=== PATIENT | female | born 1990 | race Caucasian/White ===

== ENCOUNTER → 2018-04-21 16:41 | Outpatient (CLI) | payer OTHER, SELFPAY ==
[2018-04-21 17:43] LABS: Internal QC Validated? YES +Cl - CLEAR BKGD; Pregnancy, Urine Negative Negative
== END ==
PROVIDERS: Referring Provider Nurse Practitioner Family; Visit Provider Nurse Practitioner Family
DX: L70.0 Acne vulgaris (principal); Z79.899 Other long term (current) drug therapy
CPT/HCPCS: 81025

== ENCOUNTER 2025-02-14 18:22 | Emergency (ER) | payer OTHER, SELFPAY ==
[2025-02-14] VITALS (13 sets, daily range): BP systolic 143–158; BP diastolic 89–102; PULSE 63–71; RESP 15–18; TEMP 36; O2SAT 97–100; BMI 26.2
--- NOTE | 2025-02-14 18:41 | US_ITS ---
PROCEDURE: GALLBLADDER 02/14/2025 REASON FOR EXAM: PAIN TECHNIQUE: Procedure Code: USGB Modality: US Procedure: GALLBLADDER FINDINGS: GALLBLADDER: No gallstones. no gallbladder wall thickening or pericholecystic fluid. Negative Patel sign. COMMON BILE DUCT: Measures 3.5 mm. No intrahepatic biliary dilatation. LIVER: Normal size. Increased echotexture. No definite hepatic mass. RIGHT KIDNEY: Normal in size and echogenicity. No mass. No urinary stones. No hydronephrosis. Pancreas: Unremarkable US/Gallbladder IMPRESSION: No acute cholecystitis. Hepatic steatosis. Reading Location: [id number]
--- NOTE | 2025-02-14 18:42 | ED.VIS.GI ---
HPI HPI - GI History of Present Illness Chief Complaint: Abd Pain Narrative Narrative: 34-year-old female past medical history of rosacea, takes control so has not had menses in quite some time presents with right upper quadrant abdominal pain that she has had all day today. She states starts in the morning. She cannot say whether food makes it better or worse because she has not eaten all day. She states that when she moves or rolls over or even tries to take a deep breath she gets pain in her right flank area where her abdomen connects to her rib cage. She denies any fevers or chills, no shortness of breath or cough. No nausea or vomiting, no problems with bowel movements. States has been pressing on the area all day to see if she can reproduce it. Her pain is located in the abdomen and below her rib cage, and not in her chest. PFSH [facility] Medical History Depression Rosacea Medical History no medical history Home Medications ?Medication ?Instructions ?Recorded ?Last Taken ?Type doxycycline monohydrate 50 mg 50 mg PO QDAY 12/19/24 Unknown History capsule norethindrone (contraceptive) 0.35 0.35 mg PO QDAY 12/19/24 Unknown History mg tablet (Jencycla) venlafaxine 75 mg capsule,extended 75 mg PO QDAY 12/19/24 Unknown History release 24 hr Allergy/AdvReac Type Severity Reaction Status Date / Time No Known Allergies Allergy Verified 02/14/25 18:24 Family History no significant family his Surgical History no surgical history Social History Smoking Status: Never smoker ROS ROS ED ROS Narrative Review of systems positive for right upper quadrant abdominal pain. Did not eat today. No fevers or chills, no cough, no shortness of breath, no problems with bowel movements. Seems to be worse with rolling over and movement, and taking deep breaths. EXAM Physical Exam Narrative Exam Narrative: Afebrile. Vital signs noted. Nontoxic-appearing. Tearful on examination. Cardiovascular semination regular rate and rhythm. Lungs are clear to auscultation bilaterally. Abdomen is soft and nontender without guarding or rebound, negative Patel sign. Positive bowel sounds. Neurological examination nonfocal, nonlateralizing. Const Vital Signs: 11/25/25 18:24 02/14/25 19:26 02/14/25 19:40 Temperature 96.8 F L Temperature Source Temporal Pulse Rate 70 63 Respiratory Rate 18 15 Blood Pressure 143/93 H 157/102 H Blood Pressure Mean 109 120 Pulse Ox 100 100 97 Oxygen Delivery Method Room Air Room Air 02/14/25 19:45 02/14/25 20:00 02/14/25 20:15 Temperature Temperature Source Pulse Rate Respiratory Rate Blood Pressure 144/96 H Blood Pressure Mean 112 Pulse Ox 98 97 98 Oxygen Delivery Method 02/14/25 20:30 02/14/25 20:35 02/14/25 20:46 Temperature Temperature Source Pulse Rate 71 Respiratory Rate 18 Blood Pressure 158/95 H 158/95 H Blood Pressure Mean 113 116 Pulse Ox 100 100 100 Oxygen Delivery Method Room Air MDM MDM MDM Narrative Medical decision making narrative: The differential diagnosis includes but not limited to biliary colic versus nonspecific abdominal pain versus pancreatitis versus musculoskeletal pain. I have low suspicion for pulmonary embolism or pneumonia as she has no clinical signs of them, no cough, no risk factors except for being on control. I reviewed her laboratory work and she has normal white count at 9.0 with hemoglobin slightly hemoconcentrated at 16.1 and hematocrit 46.3, platelet count normal at 230. CMP is grossly unremarkable with normal AST and normal ALT, normal total bilirubin at 0.61. Lipase normal at 13 so I doubt pancreatitis. Serum test is negative. D-dimer is slightly elevated 0.89. I ordered a CTA to help rule out pulmonary embolism. I reviewed the radiology report of the gallbladder ultrasound which shows no evidence of an acute cholecystitis, no sludge or stones, no gallbladder wall thickening. Upon repeat examination, patient states that her pain improved, but is starting to return. She was redosed with morphine. She was also given a p.o. challenge as her gallbladder ultrasound is negative. She was told that she was going for CTA to help rule out pulmonary embolism because of her elevated D-dimer. I reviewed the radiology report regarding the CTA of the chest. There is no acute chest pathology, more importantly no evidence of pulmonary embolism. As her pain is mainly in the right upper quadrant of the abdomen worse with breathing, she may have more of an abdominal wall strain. Regardless, given her negative workup today, I feel she can be discharged to follow-up with a primary care provider. Return instructions to the emergency department were reviewed. Disposition is discharged home in stable condition. History & Record Review Discussion w/independent historian: Patient and Family () Additional record(s) reviewed:: Prior ED visit Lab Data Attestation: I reviewed the patient's lab results. Labs: Laboratory Results - last 24 hr 02/14/25 02/14/25 18:37 19:20 WBC 9.0 RBC 4.93 Hgb 16.1 H Hct 46.3 MCV 93.9 MCH 32.7 H MCHC 34.8 RDW Std Deviation 40.9 RDW Coeff of Darrell 11.8 Plt Count 230 MPV 10.0 Immature Gran % (Auto) 0.200 Neut % (Auto) 56.9 Lymph % (Auto) 35.0 Mccormick % (Auto) 6.2 Eos % (Auto) 1.4 Baso % (Auto) 0.3 Absolute Neuts (auto) 5.1 Absolute Lymphs (auto) 3.14 Nucleated RBC % 0 D-Dimer Quant (PE/DVT) 0.89 H* Sodium 141 Potassium 3.8 Chloride 105 Carbon Dioxide 22.0 Anion Gap 14 BUN 7 Creatinine 0.79 Estim Creat Clear Calc 95.06 Est GFR (MDRD) Non-Af 99 BUN/Creatinine Ratio 8.9 L Glucose 78 Calcium 9.6 Total Bilirubin 0.61 AST 28 ALT 23 Alkaline Phosphatase 69 Total Protein 6.9 Albumin 4.6 Globulin 2.3 Albumin/Globulin Ratio 2.0 Lipase 13 Serum , Qual NEGATIVE Urine Color Yellow Urine Clarity Sl. Cloudy Urine pH 6.0 Ur Specific [place] 1.025 Urine Protein 15 H Urine Glucose (UA) Normal Urine Ketones 15 H Urine Occult Blood Negative Urine Nitrite Negative Urine Bilirubin Negative Urine Urobilinogen Normal Ur Leukocyte Esterase 25 H Urine RBC 0-5 SEEN Urine WBC 0-5 SEEN Ur Squamous Epith Cells 0-5 SEEN Urine Bacteria 1+ Urine Mucus 0 SEEN Radiography Diagnostic Testing: Clinical Impression(s) from Imaging Studies Gallbladder Ultrasound 02/14/25 18:41 IMPRESSION: No acute cholecystitis. Hepatic steatosis. Reading Location: [facility] Chest CTA 02/14/25 20:40 IMPRESSION: 1. No acute chest CTA abnormality seen. 2. No evidence of pulmonary embolism. Reading Location: [facility] Discharge Plan Triage Chief Complaint: Abd Pain ED Provider: Augie Brown Dx/Rx/DC Orders Clinical Impression: Right upper quadrant abdominal pain, Elevated d-dimer, Pleuritic pain Instructions: ED Abdominal Pain Unkn Cause Fem, ED Pain, Acute, Uncertain Cause Prescriptions: No Action venlafaxine 75 mg capsule,extended release 24hr 75 mg PO QDAY doxycycline monohydrate 50 mg capsule 50 mg PO QDAY norethindrone (contraceptive) [Jencycla] 0.35 mg tablet 0.35 mg PO QDAY Primary Care Provider: Care Physician,No Primary Referrals: Good Moya DO [Non-Staff, Family Practice] - 3-5 Days Activity Restrictions/Additional Instructions: [id number] medications like Tylenol as needed for pain. You can take ibuprofen as well. Return with fever, increased pain, new or worsening symptoms. Print Language: Czech Disposition Disposition: Home, Self Care
[2025-02-14 19:02] LABS: Hematocrit 46.3 % (37-47); Hemoglobin 16.1 g/dL (12.0-15.0); Immature Granulocytes Count 0.020 X10^3/uL (0.0-0.0); Mean Corp Hgb Conc 34.8 g/dL (32-36); Mean Corpuscular Volume 93.9 fL (81-99); Mean Platelet Vol. 10.0 fl (6.2-12.0); NRBC Flagged by Analyzer 0 % (0-5); Platelet Count 230 K/mm3 (150-450); RBC Distribution Width CV 11.8 % (11.6-14.6); RBC Distribution Width SD 40.9 fl (35.1-43.9); Red Blood Count 4.93 M/mm3 (4.2-5.4); White Blood Count 9.0 K/mm3 (4.4-11.0)
[2025-02-14 19:19] LABS: Internal QC Validated? YES +Cl - CLEAR BKGD; Pregnancy, Serum, hCG Quali. NEGATIVE Negative; Record Kit Lot#, Serum Preg. 980607
[2025-02-14] MEDS: 0.9% Normal Saline (1000mL) 1,000 ML 125 ML IV (19:24)
--- OUTSIDE RECORDS SUMMARY | 2025-02-14 19:29 | XMS RPT_ITS | CCD ---
Author Organization [facility] Care Team Providers Care Electronic Console Display Operator Name Role Phone Edu Bridges MD Unavailable [phone] Good Moya Primary Care Provider [phone] Yoav DE LOS SANTOS Marvin F Primary Care Provider Yoav DE LOS SANTOS Marvin F Primary Care Provider Petrinievesa DO, Marvin F Primary Care Provider [phone] PARISHA, MARVIN Primary Care Unavailable PETRILLA, MARVIN Attending Unavailable PETRILLA, WESTPHALIA Primary Care Unavailable OGORZOLKA, MARIA ALEJANDRA Referring Unavailable OGORZOLKA, MARIA ALEJANDRA Attending Unavailable PETRILLA, WESTPHALIA Primary Care Unavailable JAYKEL, ANAHI Referring Unavailable JAYKEL, ANAHI Attending Unavailable PETRILLA, WESTPHALIA Primary Care Unavailable OGORZOLKA, MARIA ALEJANDRA Referring Unavailable SKEGGS, MARIA Attending Unavailable PETRILLA, WESTPHALIA Primary Care Unavailable SKEGGS, MARIA Referring Unavailable SKEGGS, MARIA Attending Unavailable PETRILLA, WESTPHALIA Primary Care Unavailable SKEGGS, MARIA Referring Unavailable SKEGGS, MARIA Attending Unavailable PETRILLA, WESTPHALIA Primary Care Unavailable OGORZOLKA, MARIA ALEJANDRA Referring Unavailable OGORZOLKA, MARIA ALEJANDRA Attending Unavailable PETRILLA, WESTPHALIA Primary Care Unavailable JAYKEL, ANAHI Attending Unavailable PETRILLA, WESTPHALIA Primary Care Unavailable JAYKEL, ANAHI Referring Unavailable JAYKEL, ANAHI Attending Unavailable PETRILLA, WESTPHALIA Primary Care Unavailable OGORZOLKA, MARIA ALEJANDRA Referring Unavailable OGORZOLKA, MARIA ALEJANDRA Attending Unavailable PETRILLA, WESTPHALIA Primary Care Unavailable SKEGGS, MARIA Referring Unavailable PETRILLA, WESTPHALIA Primary Care Unavailable OGORZOLKA, MARIA ALEJANDRA Referring Unavailable OGORZOLKA, MARIA ALEJANDRA Attending Unavailable PETRILLA, WESTPHALIA Primary Care Unavailable OGORZOLKA, MARIA ALEJANDRA Attending Unavailable OGORZOLKA, MARIA ALEJANDRA Referring Unavailable PETRILLA, WESTPHALIA Primary Care Unavailable OGORZOLKA, MARIA ALEJANDRA Referring Unavailable OGORZOLKA, MARIA ALEJANDRA Attending Unavailable PETRILLA, WESTPHALIA Primary Care Unavailable OGORZOLKA, MARIA ALEJANDRA Referring Unavailable PETRILLA, WESTPHALIA Primary Care Unavailable OGORZOLKA, MARIA ALEJANDRA Referring Unavailable OGORZOLKA, MARIA ALEJANDRA Attending Unavailable PETRILLA, WESTPHALIA Primary Care Unavailable OGORZOLKA, MARIA ALEJANDRA Referring Unavailable OGORZOLKA, MARIA ALEJANDRA Attending Unavailable PETRILLA, WESTPHALIA Primary Care Unavailable JAYKEL, ANAHI Attending Unavailable PETRILLA, WESTPHALIA Primary Care Unavailable OGORZOLKA, MARIA ALEJANDRA Referring Unavailable OGORZOLKA, MARIA ALEJANDRA Attending Unavailable PETRILLA, WESTPHALIA Primary Care Unavailable JAYKEL, ANAHI Referring Unavailable JAYKEL, ANAHI Attending Unavailable PETRILLA, WESTPHALIA Primary Care Unavailable JAYKEL, ANAHI Referring Unavailable PETRILLA, WESTPHALIA Primary Care Unavailable OGORZOLKA, MARIA ALEJANDRA Attending Unavailable PETRILLA, WESTPHALIA Primary Care Unavailable PETRILLA, MARVIN Referring Unavailable OGORZOLKA, MARIA ALEJANDRA Attending Unavailable Dr. Good Moya DO Primary Care Physician Dr. Good Moya DO Referring Provider [phone] Scotty Santos Attending Physician Good Moya Primary Care Unavailable Scotty Santos Attending Unavailable Good Moya Referring Unavailable Assessment, Health Risk Referring Unavaila ble Assessment, Health Risk Attending Unavaila ble Nita, Good Primary Care Unavailable Allergies Allergy Classification Reported Allergen(s) Allergy Type Date of Onset Reaction(s) Facility (20 sources) Wound Dressing Adhesive Propensity to adverse reactions 3 Itching, Rash [facility] (6 sources) Chalo grass pollen allergen Propensity to adverse reactions 4 CashSentinelny nose [facility] (6 sources) [place] Grass Propensity to adverse reactions 4 [facility] (6 sources) Mixed Ragweed Propensity to adverse reactions 4 [facility] Medications Current Medications Medication Drug Class(es) Dates Sig (Normalized) Sig (Original) acetaminophen 325 mg oral tablet (2 sources) Start: 10-13-2019 take 650 mg by mouth every six hours as needed for pain, then take 4000 mg by mouth every twenty-four hours as needed for pain 650 mg, Oral, EVERY 6 HOURS PRN, Pain Mild (1-3), Starting [place] 10/13/19 at 1533 Maximum dose of acetaminophen is 4000 mg from all sources in 24 hours. Start: 10-13-2019 End: 10-13-2019 take 650 mg by mouth every four hours as needed for pain, then take 4000 mg by mouth every twenty-four hours as needed for pain 650 mg, Oral, EVERY 4 HOURS PRN, Pain Mild (1-3), Fever, Fever >100.5 F (38 C), Starting [place] 10/13/19 at 0558 Maximum dose of acetaminophen is 4000 mg from all sources in 24 hours. Labor and Delivery amoxicillin 875 mg / clavulanate 125 mg oral tablet (1 source) Penicillin-class Antibacterial Start: 12-19-2024 Amoxicillin-Pot Clavulanate 875-125 mg tablet Active 1 {tbl} PO TWICE A DAY December 19, 2024 12:00am Complies with drug therapy azelastine hydrochloride 0.137 mg/actuat metered dose nasal spray (6 sources) Histamine-1 Receptor Antagonist Start: 05-11-2024 End: 05-11-2025 take 1 spray(s) nasal route twice daily azelastine (Astelin) 0.1 % nasal spray Administer 1 spray into each nostril 2 times daily. Use in each nostril as directed 30 mL 5 05/11/2024 05/11/2025 Active benzocaine 200 mg/ml / menthol 5 mg/ml topical spray (1 source) Standardized Chemical Allergen Start: 10-13-2019 Topical, PRN, Pain, Starting [place] 10/13/19 at 1533 Apply to perineal area. Patient is capable and may self administer at bedside. busPIRone hydrochloride 5 mg oral tablet (2 sources) Start: 10-13-2019 take 5 mg by mouth three times daily 5 mg, Oral, 3 TIMES DAILY, First dose on [place] 10/13/19 at 1600 diclofenac sodium 75 mg delayed release oral tablet (17 sources) Nonsteroidal Anti-inflammatory Drug Start: 03-03-2024 End: 04-02-2024 take 1 tablet by mouth twice daily diclofenac (Voltaren) 75 MG EC tablet TAKE 1 TABLET BY MOUTH 2 TIMES DAILY. DO NOT CRUSH, CHEW, OR SPLIT 60 tablet 03/30/2024 Active docusate sodium 100 mg oral capsule (1 source) Start: 10-13-2019 take 100 mg by mouth twice daily 100 mg, Oral, 2 TIMES DAILY, First dose on [place] 10/13/19 at 2100 Do not crush or break. doxycycline monohydrate 50 mg oral capsule (20 sources) Tetracycline-class Drug Start: 12-19-2024 take 1 capsule by mouth once daily Doxycycline Monohydrate 50 mg capsule Active 50 mg PO daily December 19, 2024 12:00am Complies with drug therapy Start: 11-11-2023 doxycycline (M onodox) 50 MG capsule 11/11/2023 Active hydrOXYzine hydrochloride 25 mg oral tablet (20 sources) Antihistamine Start: 04-01-2023 hydrOXYzine HC l (Atarax) 25 MG tablet 1/2 or one tab bid prn anxiety 60 tablet 1 04/01/2023 Active Start: 02-11-2023 End: 04-01-2023 hydrOXYzine pamoate (Vistari l) 25 MG capsule 1 twice daily as needed anxiety 30 capsule 0 02/11/2023 04/01/2023 Discontinued (Alternate therapy) ibuprofen 600 mg oral tablet (13 sources) Nonsteroidal Anti-inflammatory Drug Start: 11-05-2023 End: 01-04-2024 take 1 tablet by mouth twice daily as needed for pain ibuprofen 600 MG tablet Take 1 tablet (600 mg) by mouth 2 times daily as needed for mild pain (1-3) (pain). 60 tablet 11/05/2023 01/04/2024 Active Start: 10-13-2019 take 1 tablet by griffin th every six hours as needed for pain ibuprofen (ADVIL;MOTRIN) 600 MG tablet Take 1 tablet by mouth every 6 hours as needed for Pain 60 tablet 0 10/14/2019 Active Start: 10-13-2019 take 600 mg by mouth once 600 mg, Oral, ONCE, [place] 10/13/19 at 0630, For 1 dose IMMEDIATE . Do not crush or chew. DO NOT GIVE IBUPROFEN PRIOR TO DELIVERY. Post Delivery lansinoh lanolin ointment (1 source) Start: 10-13-2019 Topical, PRN, Dry Skin, nipple discomfort, Starting [place] 10/13/19 at 1533, methocarbamol 750 mg oral tablet (17 sources) Muscle Relaxant Start: 03-03-2024 End: 04-02-2024 take 1 tablet by mouth three times daily as needed for muscle spasms methocarbamol (Robaxin) 750 MG tablet Take 1 tablet (750 mg) by mouth 3 times daily as needed for muscle spasms. 90 tablet 03/03/2024 Active metroNIDAZOLE 7.5 mg/ml topical cream (20 sources) Nitroimidazole Antimicrobial Start: 08-06-2023 metroNIDAZOLE (Metrocream) 0.75 % cream APPLY TO THE FULL FACE TWICE DAILY AFTER APPLYING TRIPLE ROSACEA CREAM. 08/06/2023 Active norethindrone 0.35 mg oral tablet (20 sources) Start: 12-19-2024 take 1 tablet by mouth once daily Norethindrone (Contraceptive) (Jencycla) 0.35 mg tablet Active 0.35 mg PO daily December 19, 2024 12:00am Complies with drug therapy Start: 06-05-2023 End: 05-25-2024 take 1 tablet by mouth once daily norethindrone (Micronor) 0.35 MG tablet Indications: Surveillance of contraceptive pill Take 1 tablet (0.35 mg) by mouth daily. 84 tablet 4 05/25/2024 Active ondansetron 8 mg disintegrating oral tablet (1 source) Serotonin-3 Receptor Antagonist Start: 10-13-2019 take 8 mg by mouth every eight hours as needed for nausea 8 mg, Oral, EVERY 8 HOURS PRN, Nausea, Starting [place] 10/13/19 at 1533, oxytocin (PITOCIN) 30 units in 500 mL infusion (1 source) Start: 10-13-2019 250 mL/hr, Intravenous, at 250 mL/hr, CONTINUOUS PRN, Bleeding, Starting [place] 10/13/19 at 0558 For Post Use Only. Give after delivery of placenta. Oxy tocin 250cc is administered as an IV bolus at delivery followed by an additional 250cc over 1 hour (250cc/hr) predniSONE 20 mg oral tablet (2 sources) Start: 09-30-2022 End: 10-09-2022 predniSONE (Deltasone) 20 MG tablet Indications: Poison liv dermatitis Take 3 tabs (60mg) daily for 3 days, then take 2 tabs (40mg) daily for 3 days, then take 1 tab (20mg) daily for 3 days, then 1/2 tab (10 mg) x 4 days 20 tablet 0 09/30/2022 10/09/2022 Active Start: 02-26-2022 End: 03-10-2022 Prednisone 10 mg tablet Disc ontinued 10 mg PO daily 30 0 February 26, 2022 1:00am March 09, 2022 1:00am March 10, 2022 1:04am Unspecified contact dermatitis, unspecified cause Take 4 tabs once daily days 1-3 3 tabs once daily days 4-6 2 tabs once daily days 7-9 and 1 tab once daily days 10-12. rizatriptan 5 mg disintegrating oral tablet (20 sources) Serotonin-1b and Serotonin-1d Receptor Agonist Start: 06-13-2022 End: 11-03-2024 rizatriptan PLASTICS SCIENTIST (Maxalt-PLASTICS SCIENTIST) 5 MG disintegrating tablet One stat and May repeat in 2 hours if unresolved. No more than 4 a week 9 tablet 5 11/03/2024 Active simethicone 80 mg chewable tablet (1 source) Start: 10-13-2019 take 80 mg by mouth every six hours as needed 80 mg, Oral, EVERY 6 HOURS PRN, Cramping, Flatulence, Starting [facility] 10/13/19 at 1533, 24 hr venlafaxine 75 mg extended release oral capsule (20 sources) Serotonin and Norepinephrine Reuptake Inhibitor Start: 11-02-2023 End: 05-02-2025 take 1 capsule by mouth once daily Venlafaxine 75 mg capsule,extended release 24hr Active 75 mg PO daily December 19, 2024 12:00am Complies with drug therapy Start: 05-07-2023 End: 08-05-2023 take 1 capsule by mouth once daily venlafaxine XR (Effexor XR) 75 MG 24 hr capsule Take 1 capsule (75 mg) by mouth daily for 90 doses. Do not crush or chew. 90 capsule 1 05/07/2023 Active Start: 04-25-2022 End: 05-07-2023 take 1 capsule by mouth once daily venlafaxine XR (Effexor XR) 37.5 MG 24 hr capsule Take 1 capsule (37.5 mg) by mouth daily for 90 doses. Do not crush or chew. 90 capsule 1 11/05/2022 05/07/2023 Discontinued Start: 04-21-2022 End: 04-25-2022 take 1 capsule by mouth once daily venlafaxine XR (Effexor XR) 75 MG 24 hr capsule Take 1 capsule (75 mg) by mouth daily. 90 capsule 0 04/21/2022 04/25/2022 Discontinued Start: 10-25-2021 End: 04-21-2022 take 1 capsule by mouth every twenty-four hours venlafaxine XR (Effexor XR) 75 MG 24 hr capsule Take 75 mg by mouth. 0 10/25/2021 04/21/2022 Discontinued (Reorder) Start: 11-20-2017 EFFEXOR XR 75 MG [id number] 1 tablet daily VENLAFAXINE HCL [id number] [facility] mg/ml medicated pad (1 source) Start: 10-13-2019 Topical, PRN, Hemorrhoids, For perineal pain or discomfort, Starting [facility] 10/13/19 at 1533 Apply to perineal area. Patient is capable and may self administer at bedside. Completed/Discontinued Medications Medication Drug Class(es) Dates Sig (Normalized) Sig (Original) bupivacaine hydrochloride 2.5 mg/ml injectable solution (2 sources) Amide Local Anesthetic Start: 11-13-2023 End: 11-13-2023 bupivacaine (Marcaine) 0.25 % injection 4.5 mL Start: 11-13-2023 End: 11-13-2023 4.5 mL, Injection, Once, On Thu11/13/23 at 1345, For 1 dose ethinyl estradiol 0.03 mg / levonorgestrel 0.15 mg oral tablet (20 sources) Progestin, Estrogen, Progestin-containing Intrauterine Device Start: 03-29-2021 End: 06-05-2023 levonorgestrel-ethinyl estradiol (Nordette) 0.15-30 MG-MCG tablet Indications: Encounter for surveillance of contraceptive pills Take 1 tablet by mouth daily. 84 tablet 4 05/30/2022 06/05/2023 Discontinued (Med list cleanup) Start: 11-20-2017 LILLOW 0.15-30 MG-MCG TABS 1 tablet daily LEVONORGESTREL-ETHINYL ESTRAD [id number] Britt Valverde LPN Start: 03-31-2015 End: 10-14-2019 take 1 tablet by mouth once daily ALTAVERA 0.15-30 MG-MCG per tablet Take 1 tablet by mouth daily 3 03/31/2015 10/14/2019 Discontinued (Stop Taking at Discharge) ipratropium bromide 0.042 mg/actuat metered dose nasal spray (3 sources) Anticholinergic Start: 04-16-2022 End: 04-25-2022 ipratropium (Atrovent) 0.06 % nasal spray Indications: Rhinorrhea associated with the Common Cold Administer 2 sprays into each nostril in the morning and 2 sprays at noon and 2 sprays in the evening and 2 sprays before bedtime. Do all this for 7 days. 15 mL 0 04/16/2022 04/25/2022 Discontinued (Therapy completed) 10 ml lidocaine hydrochloride 10 mg/ml injection (3 sources) Antiarrhythmic, Amide Local Anesthetic Start: 11-13-2023 End: 11-13-2023 lidocaine (Xylocaine) 1 % injection 4.5 mL Start: 11-13-2023 End: 11-13-2023 4.5 mL, Injection, Once, On Thu11/13/23 at 1345, For 1 dose Start: 10-13-2019 End: 10-13-2019 lidocaine PF 1 % injection minocycline 50 mg oral capsule (5 sources) Tetracycline-class Drug Start: 08-06-2023 End: 11-13-2023 take 1 capsule by mouth once daily minocycline 50 MG capsule Take 50 mg by mouth daily. 08/06/2023 11/13/2023 Discontinued (Med list cleanup) MV-Min-Fe Fum-FA-DHA ( 1 PO) (1 source) take 1 capsule by mouth once daily, then take 1 capsule by mouth MV-Min-Fe Fum-FA-DHA ( 1 PO) Take 1 capsule by mouth daily 0 Suspended 1 ml triamcinolone acetonide 40 mg/ml injection (5 sources) Corticosteroid Start: 11-13-2023 End: 11-13-2023 triamcinolone acetonide (Kenalog-40) injection 40 mg Start: 11-13-2023 End: 11-13-2023 40 mg, Intra-artICUlar, Once , On Thu11/13/23 at 1345, For 1 dose Start: 09-08-2023 triamcinolone acetonide (Kenalog-40) injection 60 mg Start: 07-09-2023 End: 07-09-2023 triamcinolone acetonide (Alec alog-40) injection 60 mg Problems Active Problems Problem Classification Problem Date Documented Da te Episodic/Chronic Anxiety disorders (20 sources) Mixed anxiety and depressive disorder; Translations: [Anxiety disorder, unspecified] Onset: 02-22-2021 01-02-2022 Chronic Blindness and vision defects (1 source) Scintillating scotoma of bilateral eyes; Translations: [Transient visual loss, bilateral] Episodic Disorders of lipid metabolism (4 sources) Hypercholesterolemi a; Translations: [Pure hypercholesterolemi a, unspecified] Onset: 05-11-2024 05-07-2023 Chronic Headache; including migraine (2 sources) Migraine with aura; Translations: [Migraine with aura, not intractable, without status migrainosus] Chronic Hypertension complicating ; childbirth and the puerperium (2 sources) Pre-eclampsia; Translations: [Pre-eclampsia, antepartum] Onset: 10-13-2019 10-13-2019 Episodic Mood disorders (2 sources) Mood disorders; Translations: [Depression, unspecified] Onset: 01-02-2022 Other and unspecified benign neoplasm (1 source) Dermatofibroma; Translations: [Other benign neoplasm of skin, unspecified] 05-11-2024 Episodic Other complications of ; puerperium affecting management of mother (2 sources) Indication for care AND/OR intervention in labor AND/OR delivery; Translations: [Labor and delivery, indication for care] Onset: 10-13-2019 10-13-2019 Episodic Other congenital anomalies (1 source) Congenital hypoplasia of breast; 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] Onset: 12-31-2017 12-31-2017 Chronic Other ear and sense organ disorders (1 source) Tinnitus of right ear; Translations: [Tinnitus, right ear] 05-11-2024 Episodic Other gastrointestinal disorders (1 source) Slow transit constipation; Translations: [Slow transit constipation] 11-05-2022 Episodic Other inflammatory condition of skin (7 sources) Rosacea; Translations: [Rosacea, unspecified] Onset: 05-11-2024 05-11-2024 Chronic Other inflammatory condition of skin (2 sources) Rosacea, unspecified; Translations: [Rosacea, unspecified] Onset: 05-11-2024 Chronic Other nervous system disorders (2 sources) Expressive dysphasia; Translations: [Aphasia] Chronic Other nervous system disorders (2 sources) Other chronic pain; Translations: [Other chronic pain] Onset: 04-15-2024 Chronic Other non-traumatic joint disorders (6 sources) Chronic pain of right upper limb; Translations: [Pain in right shoulder] 11-05-2023 Episodic Other and delivery including normal (2 sources) Delivery normal; Translations: [Normal spontaneous vaginal delivery] Onset: 10-13-2019 10-13-2019 Episodic Other skin disorders (1 source) Alopecia; Translations: [Nonscarring hair loss, unspecified] 10-24-2022 Episodic Other skin disorders (1 source) Loss of hair; Translations: [Nonscarring hair loss, unspecified] 11-05-2022 Episodic Other upper respiratory disease (1 source) Allergic rhinitis; Translations: [Other allergic rhinitis] 06-30-2023 Chronic Other upper respiratory disease (2 sources) Seasonal allergy; Translations: [Other seasonal allergic rhinitis] 07-09-2023 Chronic Other upper respiratory disease (1 source) Allergic rhinitis due to pollen; Translations: [Allergic rhinitis due to pollen] 05-11-2024 Chronic Other upper respiratory disease (2 sources) Allergic rhinitis due to pollen; Translations: [Allergic rhinitis due to pollen] Onset: 05-11-2024 Chronic Spondylosis; intervertebral disc disorders; other back problems (12 sources) Cervical spondylosis; Translations: [Spondylosis without myelopathy or radiculopathy, cervical region] Onset: 03-03-2024 03-03-2024 Chronic Sprains and strains (1 source) Low back strain; Translations: [Strain of muscle, fascia and tendon of lower back, initial encounter] 02-26-2022 Episodic Unclassified (1 source) Chronic pain of right upper limb 03-30-2024 Past or Other Problems Problem Classification Problem Date Documented Date Episodic/Chronic Allergic reactions (20 sources) Contact dermatitis due to poison liv; Translations: [Allergic contact dermatitis due to plants, except food] Onset: 09-30-2022 Resolved: 05-07-2023 09-30-2022 Episodic Contraceptive and procreative management (20 sources) Oral contraception; Translations: [Encounter for surveillance of contraceptive pills] Onset: 05-07-2023 05-07-2023 Episodic Other and unspecified benign neoplasm (2 sources) Other benign neoplasm of skin, unspecified; Translations: [Other benign neoplasm of skin, unspecified] Onset: 05-11-2024 Episodic Other connective tissue disease (20 sources) Tendinitis; Translations: [Enthesopathy, unspecified] Onset: 07-08-2022 Resolved: 05-11-2024 07-08-2022 Episodic Other connective tissue disease (20 sources) Impingement syndrome of right shoulder region; Translations: [Impingement syndrome of right shoulder] Onset: 01-18-2024 11-13-2023 Episodic Other connective tissue disease (7 sources) Impingement syndrome of left shoulder region; Translations: [Impingement syndrome of left shoulder] Onset: 05-11-2024 Resolved: 05-11-2024 05-11-2024 Episodic Other connective tissue disease (2 sources) Impingement syndrome of left shoulder; Translations: [Impingement syndrome of left shoulder] Onset: 05-11-2024 Episodic Other connective tissue disease (2 sources) Impingement syndrome of right shoulder; Translations: [Impingement syndrome of right shoulder] Onset: 01-18-2024 Episodic Other ear and sense organ disorders (6 sources) Subjective tinnitus of right ear; Translations: [Tinnitus, right ear] Onset: 05-11-2024 05-11-2024 Episodic Other ear and sense organ disorders (2 sources) Tinnitus, right ear; Translations: [Tinnitus, right ear] Onset: 05-11-2024 Episodic Other nervous system disorders (20 sources) H/O: migraine; Translations: [Personal history of other diseases of the nervous system and sense organs] Onset: 11-05-2022 11-05-2022 Episodic Other nervous system disorders (2 sources) Personal history of other diseases of the nervous system and sense organs; Translations: [Personal history of other diseases of the nervous system and sense organs] Onset: 11-05-2022 Episodic Other non-traumatic joint disorders (2 sources) Pain in right shoulder; Translations: [Pain in right shoulder] Onset: 04-15-2024 Episodic Other screening for suspected conditions (not mental disorders or infectious disease) (2 sources) Patient encounter status; Translations: [Encounter for screening for lipoid disorders] Episodic Other upper respiratory infections (20 sources) Viral pharyngitis; Translations: [Acute pharyngitis, unspecified] Onset: 04-16-2022 Resolved: 09-30-2022 05-09-2022 Episodic Residual codes; unclassified (1 source) Family history of coronary arteriosclerosis; Translations: [Family history of ischemic heart disease and other diseases of the circulatory system] Episodic Spondylosis; intervertebral disc disorders; other back problems (20 sources) Neck pain; Translations: [Cervicalgia] Onset: 03-03-2024 01-25-2024 Episodic Unclassified (1 source) Problem Results Test Name Value Interpretation Reference Range Facility Urgent Care Visit Reporton 0 12-19-2024 Urgent Care Visit Report [facility] [address], [address] [place] [address] OFFICE VISIT Date of Service: 12/19/24 MR#: [id number] Acct: [id number] Name: MARIA RAE Rep #: [id number] : 1990 Provider: ZULY Orellana Age/Sex: 34/F Location: [facility] Status: Signed Intake Vital Signs 02/26/22 11:37 12/19/24 13:05 Height 5 ft 4 in BP 120/60 Blood Pressure Location Lt brachial Position Sitting Respiration 15 Pulse 72 Pulse Source NIBP Temp 98.2 F Temp Source Oral Pulse Oximetry (%) 98 Oxygen Delivery Method room air Intake Visit Reasons: COUGH, WEAKNESS Chief Complaint: cough, weakness, congest, BAL Dry Can Tender Required: No Accompanied by: Self Is patient in pain?: Yes Allergies No Known Allergies Allergy (Verified 12/19/24 10:38) Medications ???Medication ???Instructions ???Recorded ???Confirmed ???Type amoxicillin 875 mg-potassium 1 tab PO BID #20 tabs 12/19/24 Rx clavulanate 125 mg tablet doxycycline monohydrate 50 mg 50 mg PO QDAY 12/19/24 12/19/24 Hi story capsule norethindrone (contraceptive) 0.35 0.35 mg PO QDAY 12/19/24 5 History mg tablet (Jencycla) venlafaxine 75 mg capsule,extended 75 mg PO QDAY 12/19/24 12/19/24 History release 24 hr Is last menstrual period known: No Post menopausal: No Patient : No Have you fallen in the past year?: No Nurse's Note: Patient has cough and weakness and congestion. Patient couldn't get out of bed this weekend. Patient states Sat night she was throwing up green mucus. HPI HPI Chief Complaint: cough, weakness, congest, BAL Details: MARIA RAE, is a 34 F who presents to the office today for initial evaluation clinic for approximately 3 to 4-day history of forehead headache with congestion and weakness/fatigue and moist productive purulent green cough. No complaints of fever, chills, myalgias, fatigue, runny nose, or nausea/vomiting/diarr hea. No complaints of chest pain/shortness of breath/dyspnea on exertion. No close contacts with similar complaints. No other associated symptoms and no other alleviating/aggravati ng factors. ROS Const Constitutional: No other (as above) Exam Const General: cooperative, healthy appearing and no acute distress Orientation: alert, awake HENKS Head: normal to inspection Ears: hearing grossly normal bilaterally, external ears normal, TM's normal bilaterally and EAC's normal Nose: external nose normal, nares normal, septum normal and no nasal discharge Face and sinus: normal facial exam, sinuses tender (bilateral frontal) and face symmetric Mouth: oral mucosae normal, lip normal, tongue normal and oropharynx normal Throat: posterior oropharynx normal, tonsils normal, uvula midline and postnasal drainage (Purulent) Eyes General: appearance normal, both eyes and all related structures Neck Neck: normal visual inspection, full ROM, no meningeal signs, supple and lymphadenopathy (Bilateral anterior cervical lymph node swelling/tender to palpation) Neck mass: No Thyroid: thyroid normal Chest Chest palpation inspection: normal inspection of the chest Resp Effort Inspection: normal respiratory effort and able to speak in complete sentences Auscultation: Bilateral: Clear to Auscultation Cardio Palpation: normal PMI Rate: regular rate Rhythm: regular rhythm Heart Sounds: S1 normal, S2 normal Pulses: radial pulses present GI Inspection: normal to inspection Skin General: no rashes or lesions noted Neuro General: patient alert, patient awake Cognition: normal cognition Speech: speech normal Psych Appearance: grossly normal Mental Status: mental status grossly normal Mood: congruent mood Affect: normal affect Speech and Movement: speech and movement normal Attitude: cooperative Diagnoses Acute frontal sinusitis, unspecified J01.10 Assessment and Plan Assessment and Plan (1) Acute frontal sinusitis, unspecified: Status: Acute Plan: Augmentin as prescribed today. Supportive measures as instructed today. Follow-up with PCP in 3 to 5 days should symptoms not improve, sooner should symptoms worsen or any other concerns develop. Patient states acknowledging understanding all the above. Coding Level of Care Code Off vis,est,level 3 Assessment and Plan Assessment and Plan Orders: Orders POC Paula Covid FLUAB PCR Today Medications: New amoxicillin-pot clavulanate 875-125 mg 1 TAB PO BID 20 tabs 0RF Clinical Quality Measures Falls Risk Screening/Assistive Devices Have you fallen in the past year?: No 12/19/24 1306 Date Scotty Ibrahim Signature: Date (if applicabl (more content not included)... Normal [facility] 36on 11-03-[address] [facility] 36 Recent Visits Date Type Provider Dept 05/11/24 Office Visit Marvin Cason DO [facility] 11/05/23 Office Visit Marvin Cason DO [facility] Showing recent visits within past 365 days and meeting all other requirements Future Appointments No visits were found meeting these conditions. Showing future appointments within next 90 days and meeting all other requirements Requested Prescriptions Pending Prescriptions Disp Refills rizatriptan PLASTICS SCIENTIST (Maxalt-PLASTICS SCIENTIST) 5 MG disintegrating tablet 9 tablet 1 Sig: One stat and May repeat in 2 hours if unresolved. No more than 4 a week Provider: Dr Cason Verified pharmacy: yes Verified day(s) supplied: yes Verified refill(s) needed (previous prescription showing no refills in chart): Yes Have you received any controlled medications from any other provider? N/A Overdue for visit: N/A If yes - patient scheduled? N/A Most recent labs completed in chart? N/A None Normal [facility] 36on 09-06-2024 36 Sent [employer] Message [facility] 36on 09-01-2024 36 Updated. Normal [facility] 36 LVM for patient to send photo of insurance card through [employer]. [facility] Progress Noteon 09-01-2024 Progress Note [facility] [address] [facility] [address] Dept: [phone] Dept Patient was seen today via Telehealth by agreement and consent. I used the following Telehealth technology: Audio capability only. Patient location: Patient Location: Home. The patient has been advised of the potential risks and limitations of this mode of treatment (including but not limited to the absence of in-person examination) and has agreed to be treated in a remote fashion in spite of them. I spent 21 minutes on the phone with this patient. Any and all of the patient's/patient's family's questions on this issue have been answered and I have made no promises or guarantees to the patient. The patient has also been advised to contact this office for worsening conditions or problems, and seek emergency medical treatment and/or call 911 if the patient deems either necessary. The patient stated that they are currently in the [facility]. If the patient is a minor, permission has been obtained by the parent or guardian for the patient to receive medical care at this visit. Chief Complaint Patient presents with Follow-up Subjective Current symptoms: Neck and radiating right arm pain/numbness and tingling Changes since last visit: EMG PT Associated neurologic complaints: Gait/balance difficulty: at times due to slight dizziness Use of ambulatory aid?: no device Able to walk a city block: Yes Bowel/bladder incontinence: denies Urinary retention: No Saddle anesthesia: No Fine motor task difficulty/dropping things/handwriting changes: denies History of cancer: No Aggravating factors: constant Alleviating Factors: nothing Current Treatment: Diclofenac Robaxin Tobacco Use: Low Risk (09/01/2024) Patient History Smoking Tobacco Use: Never Smokeless Tobacco Use: Never Passive Exposure: Not on file Objective This was a virtual visit appointment. No vitals or in person physical exam obtained. Labs No results found for: HGBA1C Lab Results Component Value Date CREATININE 0.87 05/11/2024 Imaging The below images were independently reviewed and independently interpreted by myself. My interpretation is located in the assessment section of the note. Cervical MRI 03/08/2024 Findings: Multiplanar multisequence MRI images were obtained through the cervical spine without intravenous gadolinium. Straightening of the normal cervical lordosis. No significant spondylolisthesis. The cervical spine demonstrates has normal signal intensity. The vertebral body and disc heights are maintained. No abnormal cord signal intensity. Craniocervical and atlantoaxial articulations are within normal limits. C2-C3: No disc bulge or disc protrusion. No central spinal canal stenosis. No neural foraminal narrowing. C3-C4: No disc bulge or disc protrusion. No central spinal canal stenosis. No neural foraminal narrowing. C4-C5: 4 mm disc bulge, effacing the ventral thecal sac. Otherwise no central canal stenosis or neural foraminal narrowing. C5-C6: Tiny disc bulge, with a superimposed, mass effect producing 5 mm left lateral recess-neural foraminal disc protrusion (image 25 series 5 and image 10 series 301). Otherwise no central canal stenosis or neural foraminal narrowing. C6-C7: No disc bulge or disc protrusion. No central spinal canal stenosis. No neural foraminal narrowing. C7-T1: No disc bulge or disc protrusion. No central spinal canal stenosis. No neural foraminal narrowing. Impression: At C5-C6 there is a 5 mm mass effect producing left lateral recess-neural foraminal disc protrusion. -ADDENDUM #1 -------- Addendum: The report should state as follows. At C4-C5 there is no disc bulge or protrusion. No central canal stenosis or neural foraminal narrowing. At C5-C6 there is a 4 mm disc bulge, effacing the ventral thecal sac. Otherwise no central canal stenosis or neural foraminal narrowing. At C6-C7 Tiny disc bulge, with a superimposed, mass effect producing 5 mm left lateral recess-neural foraminal disc protrusion (image 25 series 5 and image 10 series 301). Otherwise no central canal stenosis or neural foraminal narrowing. EMG 06/17/2024 Interpretation: Nerve conduction studies and electromyography of both upper limbs were normal. There was no evidence of cervical motor radiculopathy or of peripheral neuropathy of any type, including carpal tunnel syndrome. Please note that, due to anatomic considerations, the ability of this testing to detect sensory radiculopathies is very limited. Clinical correlation is advised Assessment (M54.12) Cervical radiculopathy (M54.2) Neck pain (M47.812) Cervical spondylosis Plan Ms. Rae is a 33-year-old female presenting today for follow-up. Compared to her last visit her left upper extremity symptoms have resolved. Her biggest issue now is neck and radiating right arm (more content not included)... Normal [facility] 29on 06-23-2024 29 Addended by: MARIA ALEJANDRA LEE on: 06/23/2024 01:41 PM Modules accepted: Orders Normal [facility] V-Zoster IgG (Immunity)on V ZOSTER IgG Normal [facility] Comment on above: Result Comment: RESU LT: REACTIVE Please note reference interval change A Reactive result is considered evidence of immunity to VZV. Reactive indicates that VZV IgG was detected consistent with previous infection and/or vaccination. A Non Reactive result indicates that VZV IgG was not detected suggesting that immunity has not been acquired. Performed at: - [facility] [id number] Washing Machine Repairer: Prosper Adkins PhD, Phone: [phone] Performed By: #### L [id number] #### [facility] [place], [address] Office Visiton 05-11-2024 Follow-up visit [id number] Maria Rae 1990 F Date Provider Department Center 05/11/2024 [id number] CASON [facility] Family History Problem Relation Age of Onset Colon polyps Mother 55 Comments: alive in 60s Rheum arthritis Father Alcohol abuse Father Hypertension Father Coronary artery disease Father 50 Comments: pacemaker, stents Lung cancer Father 59 Comments: smoker Graves' disease Sister No Known Problems Sister Colon cancer Father's Brother Throat cancer Father's Brother No Known Problems Maternal Grandmother No Known Problems Maternal Grandfather No Known Problems Paternal Grandmother Lung cancer Paternal Grandfather Family Status - Relation Status Age at Mother Alive Father Sister Alive Sister Alive Father's Brother Father's Brother Maternal Grandmother Maternal Grandfather Paternal Grandmother Paternal Grandfather Level of Service:99287 MI OFFICE/OUTPATIENT ESTABLISHED MOD MDM 30 MIN Reason for Visit and Comments: Follow-up [146152] - Med check Normal [facility] Progress Noteon 05-11-2024 Progress Note [facility] - [address] [facility] [address] Visit type: Established Patient Reason for Visit: Follow-up (Med check) Assessment / Plan: Maria was seen today for follow-up. Diagnoses and all orders for this visit: Anxiety and depression (Primary) Comments: Stable on Effexor Orders: - CBC auto differential; Future - Comprehensive metabolic panel; Future - CBC auto differential - Comprehensive metabolic panel History of migraine Comments: Stable on Maxalt as needed Cervical radiculopathy Comments: Resolving, conservative treatment discussed Shoulder impingement syndrome, left Rosacea Comments: Stable on doxycycline Hypercholesterolemia - Lipid panel; Future - Lipid panel Dermatofibroma Comments: Healing, follow-up with dermatology if necessary Allergic rhinitis due to pollen, unspecified seasonality Comments: Recurrent, Astelin and OTC Claritin as needed Tinnitus of right ear Comments: Trial of Astelin. ENT referral no better Other orders - venlafaxine XR (Effexor XR) 75 MG 24 hr capsule; Take 1 capsule (75 mg) by mouth daily for 180 doses. Do not crush or chew. - azelastine (Astelin) 0.1 % nasal spray; Administer 1 spray into each nostril 2 times daily. Use in each nostril as directed Subjective: Patient ID: Maria Rae is a 33 y.o. female. HPI patient with history of migraines, generalized anxiety and allergic rhinitis presents for overall checkup. Effexor has been very effective. Her daughter and are very well. 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 She does enjoy hunting in the fall and winter and did pretty well this year. However she states that she was carrying a large bag of corn to the deer feeder perhaps she hurt her neck and shoulder. Has had workup for cervical radiculopathy and right shoulder tendinitis. A round of physical therapy for both has been effective. She was taking some NSAIDs for a while but things are better. Rare use of Robaxin has been effective. Review of Systems has had right-sided tinnitus for a few months. History of allergic rhinitis and takes as needed nonsedating antihistamines. Some sense of nasal congestion and snoring. No purulent rhinorrhea or fever. She denies change in vision or speech. No significant loss of hearing. No unilateral numbness of the face arm or legs. No balance issues. MRI of the head a year and a half ago was unremarkable. It did show some sinus congestion in the frontal and ethmoid regions however. She had some allergy testing last year which showed some grass sensitivities. She does not cough or wheeze and never had any history of nasal polyps of her history of asthma. No change in bowels or bladder. Menses regular on control pill. She takes doxycycline for rosacea. Had a skin lesion on the back of her right calf for about 3 months. Perhaps a tick bite or some other insect bite. Was not terribly itchy painful or swollen. It is improving with first-aid care Allergies Allergen Reactions [place] Grass Runny nose Mixed Ragweed Runny nose Chalo Grass Pollen Allergen Runny nose Wound Dressing Adhesive Itching and Rash Current Outpatient Medications on File Prior to Visit Medication Sig Dispense Refill diclofenac (Voltaren) 75 MG EC tablet TAKE 1 TABLET BY MOUTH 2 TIMES DAILY. DO NOT CRUSH, CHEW, OR SPLIT 60 tablet 0 doxycycline (Monodox) 50 MG capsule hydrOXYzine HCl (Atarax) 25 MG tablet 1/2 or one tab bid prn anxiety 60 tablet 1 methocarbamol (Robaxin) 750 MG tablet Take 1 tablet (750 mg) by mouth 3 times daily as needed for muscle spasms. 90 tablet 0 metroNIDAZOLE (Metrocream) 0.75 % cream APPLY TO THE FULL FACE TWICE DAILY AFTER APPLYING TRIPLE ROSACEA CREAM. norethindrone (Micronor) 0.35 MG tablet Take 1 tablet (0.35 mg) by mouth daily. 84 tablet 4 rizatriptan PLASTICS SCIENTIST (Maxalt-PLASTICS SCIENTIST) 5 MG disintegrating tablet One stat and May repeat in 2 hours if unresolved. No more than 4 a week 9 tablet 1 [DISCONTINUED] venlafaxine XR (Effexor XR) 75 MG 24 hr capsule TAKE 1 CAPSULE (75 MG) BY MOUTH DAILY FOR 90 DOSES. DO NOT CRUSH OR CHEW. 90 capsule 1 No current facility-administered medications on file prior to visit. Patient Active Problem List Diagnosis Anxiety and depression History of migraine Oral contraceptive use Impingement syndrome of shoulder, right Rosacea Cervical radiculopathy Tinnitus aurium, right Social History Tobacco Use Smoking status: Never Smokeless tobacco: Never Substance Use Topics Alcohol use: Yes Alcohol/week: 2.0 standard drinks of alcohol Types: 2 Glasses of wine per week Past Surgical History: Procedure Laterality Date BREAST ENHANCEMENT SURGERY Bilateral 2019 WISDOM TOOTH EXTRACTION 2017 Family History Problem Relation Name Age of Onset Colon polyps Mother Maria 55 alive in 60s Rheum arthritis Father Doron Alcohol abuse Father (more content not included)... Normal [facility] Progress Noteon 05-06-2024 Progress Note [facility] AT [address] [place] [address] Dept: [phone] Dept PHYSICAL THERAPY RE-EVALUATION Patient Name: Maria Rae : 1990 Date of Service: 05/06/2024 Referring Provider: Anahi Bravo MD Visit #: 4 Diagnosis: Cervical radiculopathy Mechanism of injury: insidious onset and worsening of neck pain Patient Preferences: Maria Precautions/Red Flags: Yes Imaging results via Dr. Bravo Per my independent interpretation, she does have a disc herniation eccentric to the left at the C6-7 level. Subjective General Comments: Maria says she feels like her neck is better but there is still some soreness and some stiffness. Also still getting headaches which bother her the most. First laying down or waking up she will sometimes have a headache. Says the pain is less intense and not having as much trouble concentrating. No pain radiating to the arm either. She says she feels about 90% functional. Pain: Current: 2/10 Best: 0/10 Worst: 5/10 Current Level of Function: independent with some pain Patient?s Stated Goal: reduce headaches Outcome Measures Neck Disability Index: Objective CERVICAL SPINE Observation: forward head and rounded shoulders UE AROM: WFL Date Recorded: 05/06/2024 Cervical AROM Degrees Flexion (flex) 54 Extension (ext) 54 Right side bending (SBR) 35 Left side bending (SBL) 35 Right rotation (rotR) 80 Left rotation (rotL) 73 Upper Extremity Strength (*pain) Date 05/06/2024 R L Shoulder Flexion 5/5 5/5 Shoulder ABD 5/5 5/5 Shoulder ER 5/5 5/5 Shoulder IR 5/5 5/5 Elbow Flex 5/5 5/5 Elbow Ext 5/5 5/5 Wrist Flex 5/5 5/5 Wrist Ext 5/5 5/5 NT = not tested Scapular Strength Right Left Lower Trapezius 5/5 5/5 Middle Trapezius 5/5 4+/5 Deep Neck Flexor (DNF) Endurance Test= 30.29 seconds (therapist stopped timer) Joint mobility: WFL cervical spine mobility via p/a assessment Palpation: non-tender to palpation at C7-T1 Flexibility: reduced upper trap flexibility (mild) Special Tests: Not performed Assessment Maria has made progress with physical therapy overall. She has reduced her pain levels, eliminated her radicular pain, increased her range of motion, and improved her strength. She is also confident with and independent with her HEP. Her most lingering deficits continues to be headaches. Encouraged her to independently perform her exercises and see if her headaches alleviate over time and if not to possibly request to see neurology if it is some other process. She was agreeable to this plan and is therefore discharged at this time. Rehab Potential: Good Goals Active General/Ortho Patient will reduce pain to 2/10 for improved ability to perform home exercise program and participate in physical therapy sessions (Completed) Start: 04/08/24 Expected End: 07/07/24 Resolved: 05/06/24 Patient will improve DNF endurance test to 25 seconds for improved cervical spine stability and postural support (Completed) Start: 04/08/24 Expected End: 07/07/24 Resolved: 05/06/24 Patient will improve bilateral UE/periscapular strength to 5/5 for improved postural support (Progressing) Start: 04/08/24 Expected End: 07/07/24 Patient will reduce NDI score from 11/50 to 1/50 for improved functional mobility (Progressing) Start: 04/08/24 Expected End: 07/07/24 Plan Frequency and Duration: discharge from PT Risks and benefits were discussed with the patient and/or family, and the patient and/or family participated with the plan of care and agrees. Treatment Soft Tissue Mobilization Location: sub occipitals Comments: for tpr and headache relief Patient Education: re-evaluation measures (billed as ther-act as multiple components of functioning were addressed) Home Exercise Program: Progressed home exercise program Time Entry Total Treatment Time Start Time: 1300 Stop Time: 1327 Time Calculation (min): 27 min PT Therapeutic Procedures Time Entry Therapeutic Activity Time Entry: 15 Manual Therapy Time Entry: 12 Jaspal Erickson, PT Normal [facility] Progress Noteon 04-29-2024 Progress Note [facility] AT [address] [place] [address] Dept: [phone] Dept PHYSICAL THERAPY TREATMENT Patient Name: Maria Rae : 1990 Date of Service: 04/29/2024 Referring Provider: Anahi Bravo MD Visit #: 3 Diagnosis: Cervical radiculopathy Mechanism of injury: insidious onset and worsening of neck pain Patient Preferences: Maria Precautions/Red Flags: Yes Imaging results via Dr. Bravo Per my independent interpretation, she does have a disc herniation eccentric to the left at the C6-7 level. Subjective Maria says she is doing ok, has been sick recently. Says that her shoulder MRI showed no tears but she did have tendinopathy. Neck has been good, she says she hears crunching all the time. Compliance with HEP: Yes Objective Objective measurements not taken today. Treatment Therapeutic Exercise # of Activities: 15 Therapeutic Exercise Activity 1: Cervical extension with towel Activity 1 Comment: 2x10 1s Therapeutic Exercise Activity 2: cervical rotation isometric Activity 2 Comment: 2x10 5s Therapeutic Exercise Activity 3: cervical retraction Activity 3 Comment: 2x10 red Therapeutic Exercise Activity 4: UBE level 1 Activity 4 Comment: 2' fwd 2' bwd Therapeutic Exercise Activity 5: supine horizontal abduction Activity 5 Comment: 3x10 red Therapeutic Exercise Activity 6: iraida er supine Activity 6 Comment: 3x10 red Therapeutic Exercise Activity 7: wall angels Activity 7 Comment: 3x10 Therapeutic Exercise Activity 8: mid rows/ pull downs Activity 8 Comment: 50# 3x10 Therapeutic Exercise Activity 9: serratus wall slides Activity 9 Comment: 2x10 Therapeutic Exercise Activity 10: alternating shoulder taps @ plinth Activity 10 Comment: 2x30s Therapeutic Exercise Activity 11: prone Y/T/W Activity 11 Comment: 2x10 2# B Therapeutic Exercise Activity 12: scap clocks Activity 12 Comment: red 2x10 B Home Exercise Program: Progressed home exercise program Assessment Skilled physical therapy interventions utilized to improve patient?s impairments and work towards established goals. Gentle progressions of current exercises today. Patient response to treatment: able to complete all exercises, fatigued post session with scap clocks indicating a proper challenge, no exacerbation Patient will benefit from continued physical therapy to reduce pain, improve strength, and progress to higher levels of functioning The rationale for today?s treatment was explained to the patient. Verbal cues were provided for correct form with all exercises. Advised patient to continue with Home Exercise Program (HEP). Goals General/Ortho Patient will reduce pain to 2/10 for improved ability to perform home exercise program and participate in physical therapy sessions (Progressing) Start: 04/08/24 Expected End: 07/07/24 Patient will improve DNF endurance test to 25 seconds for improved cervical spine stability and postural support (Progressing) Start: 04/08/24 Expected End: 07/07/24 Patient will improve bilateral UE/periscapular strength to 5/5 for improved postural support (Progressing) Start: 04/08/24 Expected End: 07/07/24 Patient will reduce NDI score from 11/50 to 1/50 for improved functional mobility (Not Addressed) Start: 04/08/24 Expected End: 07/07/24 Plan Plan for next session: re-eval Time Entry Total Treatment Time Start Time: 1300 Stop Time: 1342 Time Calculation (min): 42 min PT Therapeutic Procedures Time Entry Therapeutic Exercise Time Entry: 42 Jaspal Erickson, PT [facility] Progress Noteon 04-15-2024 Progress Note [facility] [place] [address] [place] [address] Dept: [phone] Dept PHYSICAL THERAPY TREATMENT Patient Name: Maria Rae : 1990 Date of Service: 04/15/2024 Referring Provider: Anahi Bravo MD Visit #: 2 Diagnosis: Cervical radiculopathy Mechanism of injury: insidious onset and worsening of neck pain Patient Preferences: Maria Precautions/Red Flags: Yes Imaging results via Dr. Bravo Per my independent interpretation, she does have a disc herniation eccentric to the left at the C6-7 level. Subjective Maria says she is doing not too bad. Notices her soreness when she first lays down and then gradually throughout the day. Compliance with HEP: Yes Objective Objective measurements not taken today. Treatment Therapeutic Exercise Therapeutic Exercise Activity 1: Cervical extension with towel Activity 1 Comment: 2x10 1s Therapeutic Exercise Activity 2: cervical rotation isometric Activity 2 Comment: x10 5s Therapeutic Exercise Activity 3: cervical retraction Activity 3 Comment: 2x10 red Therapeutic Exercise Activity 4: UBE level 1 Activity 4 Comment: 2' fwd 2' bwd Therapeutic Exercise Activity 5: supine horizontal abduction Activity 5 Comment: 3x10 red Therapeutic Exercise Activity 6: iraida er supine Activity 6 Comment: 3x10 red Therapeutic Exercise Activity 7: supine sashes Activity 7 Comment: 3x10 red Therapeutic Exercise Activity 8: mid rows/ pull downs Activity 8 Comment: 50# 3x10 Therapeutic Exercise Activity 9: wall slides Activity 9 Comment: 2x10 Therapeutic Exercise Activity 10: alternating shoulder taps @ plinth Activity 10 Comment: 2x30s Soft Tissue Mobilization Location: B UT cervical paraspinals, suboccipitals Comments: for tpr and pain relief Joint Mobilization Location: manual cervical distraction Body Position: Sitting Comments: 5x30s Home Exercise Program: Progressed home exercise program Assessment Skilled physical therapy interventions utilized to improve patient?s impairments and work towards established goals. Patient response to treatment: Reported no increase in symptoms and no pain post session Patient will benefit from continued physical therapy to further improve strength and stability in order to reduce pain and progress to higher levels of functioning The rationale for today?s treatment was explained to the patient. Verbal cues were provided for correct form with all exercises. Advised patient to continue with Home Exercise Program (HEP). Goals General/Ortho Patient will reduce pain to 2/10 for improved ability to perform home exercise program and participate in physical therapy sessions (Progressing) Start: 04/08/24 Expected End: 07/07/24 Patient will improve DNF endurance test to 25 seconds for improved cervical spine stability and postural support (Progressing) Start: 04/08/24 Expected End: 07/07/24 Patient will improve bilateral UE/periscapular strength to 5/5 for improved postural support (Progressing) Start: 04/08/24 Expected End: 07/07/24 Patient will reduce NDI score from 11/50 to 1/50 for improved functional mobility (Not Addressed) Start: 04/08/24 Expected End: 07/07/24 Plan Plan for next session: continue MT and exercise combination, possible dry needle if MT is not beneficial enough Time Entry Total Treatment Time Start Time: 1300 Stop Time: 1339 Time Calculation (min): 39 min PT Therapeutic Procedures Time Entry Therapeutic Exercise Time Entry: 24 Manual Therapy Time Entry: 15 Jaspal Erickson, PT [facility] Progress Noteon 04-08-2024 Progress Note [facility] AT [address] [place] [address] Dept: [phone] Dept PHYSICAL THERAPY EVALUATION Patient Name: Maria Rae : 1990 Date of Service: 04/08/2024 Referring Provider: Anahi Bravo MD Visit #: 1 Diagnosis: Cervical radiculopathy General Information Mechanism of injury: insidious onset and worsening of neck pain Patient Preferences: Maria Precautions/Red Flags: Yes Imaging results via Dr. Bravo Per my independent interpretation, she does have a disc herniation eccentric to the left at the C6-7 level. 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 PSHX: Maria has a past surgical history that includes [place] tooth extraction (2017) and Cosmetic surgery (Bilateral, 2019). Have you experienced any anxiety or depression?: No Have you experienced thoughts of self-harm or suicidal thoughts?: No Social Drivers of Health Reviewed: Yes Physician follow-up appointment?: no, maybe after PT Subjective Chief Complaint: Maria says she was told she had a herniated disc. Didn't want surgery or injection so she is back at PT. She gets tingling down her arm and wraps down around her side. Says she also gets some discomfort in her neck and some tension headaches. Also gets some ringing in her ears, but Dr. Bravo doesn't think it is related. She says she is not really having trouble doing things but it bothers her when lifting things. Pain: Current: 4/10 Best: 0/10 Worst: 6-7/10 Symptoms Relieved by: medications Prior Level of Function: independent with some pain Current Level of Function: independent with increasing pain Patient?s Stated Goal: reduce pain Outcome Measures Neck Disability Index: Objective CERVICAL SPINE Observation: forward head and rounded shoulders UE AROM: WFL Date Recorded: 04/08/2023 Cervical AROM Degrees Flexion (flex) 54 Extension (ext) 54 Right side bending (SBR) 35 Left side bending (SBL) 35 Right rotation (rotR) 80 Left rotation (rotL) 70 Upper Extremity Strength (*pain) Date 04/08/2024 R L Shoulder Flexion 5/5 5/5 Shoulder ABD 5/5 5/5 Shoulder ER 5/5 5/5 Shoulder IR 5/5 5/5 Elbow Flex 5/5 5/5 Elbow Ext 5/5 5/5 Wrist Flex 5/5 5/5 Wrist Ext 5/5 5/5 NT = not tested Scapular Strength Right Left Lower Trapezius 5/5 5/5 Middle Trapezius 5/5 4/5 Deep Neck Flexor (DNF) Endurance Test= 14.84 seconds. Joint mobility: slightly reduced cervical spine mobility via p/a assessment Palpation: tender to palpation at C7-T1 Flexibility: reduced upper trap and pec flexibility Special Tests: Not performed Assessment Maria is a 33 y.o. patient with chief complaint of neck and arm pain, who presents with signs and symptoms consistent with disc herniation. Maria presents today with reduced cervical spine range of motion, impaired periscapular strength, impaired posture, and pain. These deficits can be contributing to her symptoms and inhibiting her function. She would benefit from skilled physical therapy to address decreased strength, decreased range of motion, pain, soft tissue impairment, and impaired functional activities. Evaluation complexity is low secondary to: patient has 1-2 personal factors and/or comorbidities that will affect plan of care, therapy will be addressing 1-2 elements, and clinical presentation is stable. Body Systems Affected: musculoskeletal and neuromuscular Rehab Potential: Good Learning Preferences: demonstration and explanation Barriers to Rehab: none Goals General/Ortho Patient will reduce pain to 2/10 for improved ability to perform home exercise program and participate in physical therapy sessions (Initiated) Start: 04/08/24 Expected End: 07/07/24 Patient will improve DNF endurance test to 25 seconds for improved cervical spine stability and postural support (Initiated) Start: 04/08/24 Expected End: 07/07/24 Patient will improve bilateral UE/periscapular strength to 5/5 for improved postural support (Initiated) Start: 04/08/24 Expected End: 07/07/24 Patient will reduce NDI score from 11/50 to 1/50 for improved functional mobility (Initiated) Start: 04/08/24 Expected End: 07/07/24 Plan Frequency and Duration: 2/wk for 4 weeks Therapeutic Contents: client education, group therapy, home exercise program, manual therapy techniques, neuromuscular re-education, therapeutic activities, therapeutic exercise, trigger point dry needle, and modalities as needed Plan for next session: assess HEP response, Risks and benefits were discussed with the patient and/or family, and the patient and/or family participated with the plan of care and agrees. Treatment Therapeutic Exercise Therapeutic Exercise Activity 1: Cerv (more content not included)... [facility] 36on 03-30-2024 36 Chart reviewed. Prescription sent. Please review the below with the patient: The risks and appropriate dosing of NSAIDs (ie Meloxicam, Naproxen, Ibuprofen, etc) were discussed with the patient in detail. These include but are not limited to cardiovascular risk, renal toxicity, stomach irritation/refulx and/or peptic ulcer disease. If any of these side effects are experienced I advised the patient to discontinue the medication and contact both myself and their primary care physician. [facility] Progress Noteon 03-30-2024 Progress Note Addended last note, ordered right shoulder MRI once again, it has been over 45 days since last submission. She has done over 4 months of PT/conservative tx at this point. Maria Alejandra Lee PA-C [facility] Office Visiton 03-24-2024 Follow-up visit [id number] Maria Rae Kathi 1990 F Date Provider Department Center 03/24/2024 [id number] BRAVO [facility] ORT GRN None Family History Problem Relation Age of Onset Colon polyps Mother 55 Comments: alive in 60s Rheum arthritis Father Alcohol abuse Father Hypertension Father Coronary artery disease Father 50 Comments: pacemaker, stents Lung cancer Father 59 Comments: smoker Graves' disease Sister No Known Problems Sister Colon cancer Father's Brother Throat cancer Father's Brother No Known Problems Maternal Grandmother No Known Problems Maternal Grandfather No Known Problems Paternal Grandmother Lung cancer Paternal Grandfather Family Status - Relation Status Age at Mother Alive Father Sister Alive Sister Alive Father's Brother Father's Brother Maternal Grandmother Maternal Grandfather Paternal Grandmother Paternal Grandfather Level of Service:61384 MI OFFICE/OUTPATIENT ESTABLISHED MOD MDM 30 MIN Reason for Visit and Comments: Follow-up [301699] Neck Pain [039951] Normal [facility] Progress Noteon 03-24-2024 Progress Note [facility] - [address] [facility] [address] Dept: [phone] Dept Maria Kathi Kyra 1990 [id number] 03/24/2024 Problem List: Neck pain Cervical radiculopathy Cervical spondylosis (M54.2) Neck pain (M54.12) Cervical radiculopathy (M47.812) Cervical spondylosis Chief Complaint Patient presents with Follow-up Neck Pain HPI: Maria is a 33 y.o. female who is here today for evaluation of her cervical spine. Current symptoms: Pain is located in the posterior neck, occipital, left shoulder blade, left armpit and left upper arm to elbow . Numbness tingling: yes - left upper arm and left hand Subjective weakness: yes - left arm Symptoms are moderately affecting their quality of life. Inciting Event/Trauma: No specific cause Duration of Symptoms: 6 months. Left side worsening over 1 month Associated neurologic complaints/Red flags: Gait/balance difficulty: at times due to slight dizziness Use of ambulatory aid?: no device Able to walk a city block: Yes Bowel/bladder incontinence: denies Urinary retention: No Saddle anesthesia: No Fine motor task difficulty/dropping things/handwriting changes: denies History of cancer: No Aggravating factors: constant Alleviating Factors: nothing Previous Treatment: PT: Yes Where[facility] When: last visit 03/04/2024 Completed: Yes NSAIDS: Ibuprofen (Advil, Motrin) Diclofenac 75 mg Injections: No Opioid medications: none Muscle relaxers: Robaxin Oral steroids: none Nerve medications (gabapentin/Lyrica): none Pain management: No Chiropractor: No Previous spine surgery: none History of DVT/PE or hypercoagulable state (including history of relative): No Blood thinning medications: none 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 Neurological: Positive for numbness. Tobacco Use: Low Risk (03/24/2024) Patient History Smoking Tobacco Use: Never Smokeless Tobacco Use: Never Passive Exposure: Not on file No results found for: HGBA1C Allergies Allergen Reactions Wound Dressing Adhesive Itching and Rash Current Outpatient Medications Medication Sig Dispense Refill diclofenac (Voltaren) 75 MG EC tablet Take 1 tablet (75 mg) by mouth 2 times daily. Do not crush, chew, or split. 60 tablet 0 doxycycline (Monodox) 50 MG capsule hydrOXYzine HCl (Atarax) 25 MG tablet 1/2 or one tab bid prn anxiety 60 tablet 1 methocarbamol (Robaxin) 750 MG tablet Take 1 tablet (750 mg) by mouth 3 times daily as needed for muscle spasms. 90 tablet 0 metroNIDAZOLE (Metrocream) 0.75 % cream APPLY TO THE FULL FACE TWICE DAILY AFTER APPLYING TRIPLE ROSACEA CREAM. norethindrone (Micronor) 0.35 MG tablet Take 1 tablet (0.35 mg) by mouth daily. 84 tablet 4 rizatriptan PLASTICS SCIENTIST (Maxalt-PLASTICS SCIENTIST) 5 MG disintegrating tablet One stat and May repeat in 2 hours if unresolved. No more than 4 a week 9 tablet 1 venlafaxine XR (Effexor XR) 75 MG 24 hr capsule TAKE 1 CAPSULE (75 MG) BY MOUTH DAILY FOR 90 DOSES. DO NOT CRUSH OR CHEW. 90 capsule 1 No current facility-administered medications for this visit. Past Medical History: Diagnosis Date Anxiety and depression 2016 COVID-19 04/2022 History of migraine nml MRI head 06/12- with auras Hypercholesterolemia 04/2022 rx well with diet Oral contraceptive use Dr. Mena Past Surgical History: Procedure Laterality Date BREAST ENHANCEMENT SURGERY Bilateral 2019 WISDOM TOOTH EXTRACTION 2017 Social History Socioeconomic History Marital status: Spouse name: Not on file Number of children: Not on file Years of education: Not on file Highest education level: Not on file Occupational History Not on file Tobacco Use Smoking status: Never Smokeless tobacco: Never Substance and Sexual Activity Alcohol use: Yes Alcohol/week: 2.0 standard drinks of alcohol Types: 2 Glasses of wine per week Drug use: No Sexual activity: Yes Partners: Male control/protection: OCP Other Topics Concern Not on file Social History Narrative to Anahi in 08/2017 (hx of VSD repair). Had first daughter, Crystal, born in 10/09. 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 Overall Financial Resource Strain (CARDIA) Difficulty of Paying Living Expenses: Not hard at all Food Insecurity: No Food Insecurity (10/25/2021) Received from [facility] Hunger Vital Sign Worried About Running Out of Food in the Last Year: Never true Ran Out of Food in the Last Year: Never true Transportation Needs: Not on file (more content not included)... Normal [facility] Progress Noteon 03-04-2024 Progress Note [facility] [place] [id number] [place] [address] Dept: [phone] Dept PHYSICAL THERAPY RE-EVALUATION/DISCHAR GE SUMMARY Patient Name: Maria Rae : 1990 Date of Service: 03/04/2024 Referring Provider: Maria Alejandra Lee PA* Visit #: 4 Diagnosis: Impingement syndrome of shoulder, right Mechanism of injury: insidious worsening of shoulder pain Patient Preferences: Maria Precautions/Red Flags: None Subjective General Comments: Pain has gone into the left shoulder as well. We are starting to think that the shoulder pain has been some cervical overlap. Pain in the left shoulder has been so bad that she also went to emergency room. I was referred to [facility] for cervical issues and found arthritis in the neck and think it is a pinched nerve. I think there is at least 50% reduction in R shoulder. Right shoulder has been relatively pain free with exception to when I try to rest my hand on my right shoulder to weight bear on it behind her in sitting. Pain: Current: 0/10 Best: 0/10 Worst: 0/10 L shoulder: 7/10 at it's worst, typically a 6/10 Current Level of Function: difficulty concentrating due to L shoulder pain, minimal limitation with R shoulder Patient?s Stated Goal: seek further management with L shoulder issues. Outcome Measures SPADI: Objective SHOULDER Observation: slightly rounded shoulders Cervical Spine AROM: WFL Elbow AROM: WFL Date Recorded: 03/04/2024 Upper Extremity ROM (degrees) Right Left AROM AROM Shoulder Flexion 170 165 Shoulder Abduction 160 160 Shoulder External Rotation (ER) 55. T3 62, T3 Shoulder Internal Rotation (IR) T5 T5 Upper Extremity Strength (*pain) Date 01/25/2024 R L Shoulder Flexion 5/5 5/5 Shoulder ABD 5/5 5/5 Shoulder ER 5/5 5/5 Shoulder IR 5/5 5/5 Elbow Flex 5/5 5/5 Elbow Ext 5/5 5/5 Wrist Flex 5/5 5/5 Wrist Ext 5/5 5/5 NT = not tested Scapular Strength Right Left Lower Trapezius 5/5 5/5 Middle Trapezius 4+/5 4/5 Assessment Patient demonstrates improvement in shoulder ROM to WNL but no strength improvements. Patient reports resolution of most right shoulder sx, and currently management with another provider for current left shoulder pain. Patient no longer demonstrates need for therapy services at this time and is to discharge with home program Rehab Potential: Excellent Goals Active General/Ortho Patient will reduce pain to 2/10 at worst for improved ability to perform home exercise program and participate in physical therapy sessions (Completed) Start: 01/25/24 Expected End: 04/26/24 Resolved: 03/04/24 Patient will improve bilateral periscapular strength to 5/5 for improved support with reaching for and carrying objects (Not Progressing) Start: 01/25/24 Expected End: 04/26/24 Patient will reduce SPADI score from 27/130 to 10/130 for improved functional moblity (Not Progressing) Start: 01/25/24 Expected End: 04/26/24 Patient will report at least 50% reduction in tightness for improved ability to perform ADL activities (Completed) Start: 01/25/24 Expected End: 04/26/24 Resolved: 03/04/24 Plan Patient to discharge with HEP. Risks and benefits were discussed with the patient and/or family, and the patient and/or family participated with the plan of care and agrees. Treatment Therapeutic Activity # of Activities: 1 Therapeutic Activity 1: Re-assessment: Re-assessed patients objective & subjective measures, reviewed patients POC, addressed goals and patients progress. Discussed D/C planning, discussed continuation of current HEP for maximum benefit and carryover to maintain pain free function. Patient with verbal acknowledgement and understanding. Home Exercise Program: Deferred Time Entry Total Treatment Time Start Time: 1258 Stop Time: 1310 Time Calculation (min): 12 min PT Therapeutic Procedures Time Entry Therapeutic Activity Time Entry: 12 April Finley, PT [facility] 37on 03-03-2024 37 We will notify you once we have approval from your insurance. You will then call central scheduling at [phone] to schedule. Please call our office at [phone] once MRI is scheduled to schedule a follow up visit with Dr. Bravo for review. [facility] Office Visiton 03-03-2024 Follow-up visit [id number] Maria Rae 1990 F Date Provider Department Center 03/03/2024 [id number] CARDOSO [facility] [place] [facility] None Family History Problem Relation Age of Onset Colon polyps Mother 55 Comments: alive in 60s Rheum arthritis Father Alcohol abuse Father Hypertension Father Coronary artery disease Father 50 Comments: pacemaker, stents Lung cancer Father 59 Comments: smoker Graves' disease Sister No Known Problems Sister Colon cancer Father's Brother Throat cancer Father's Brother No Known Problems Maternal Grandmother No Known Problems Maternal Grandfather No Known Problems Paternal Grandmother Lung cancer Paternal Grandfather Family Status - Relation Status Age at Mother Alive Father Sister Alive Sister Alive Father's Brother Father's Brother Maternal Grandmother Maternal Grandfather Paternal Grandmother Paternal Grandfather Level of Service:19651 MI OFFICE/OUTPATIENT ESTABLISHED MOD MDM 30 MIN Reason for Visit and Comments: Neck Pain [094401] Normal [facility] Progress Noteon 03-03-2024 Progress Note [facility] - [place] [address] [place], [place] [address] [address] [facility] [address] Dept: [phone] Dept Maria Armenta Kyra 1990 [id number] 03/03/2024 Problem List: Neck pain Cervical radiculopathy- left Cervical spondylosis (M54.2) Neck pain (M54.12) Radiculopathy of cervical region (M47.812) Cervical spondylosis Chief Complaint Patient presents with Neck Pain HPI: Maria is a 33 y.o. female who is here today for evaluation of her cervical spine. Maria is referred by Maria Alejandra Lee PA* Current symptoms: Pain is located in the posterior neck, occipital, left shoulder blade, left armpit and left upper arm to elbow . Numbness tingling: yes - left upper arm Weakness: yes - left arm Symptoms are moderately affecting their quality of life. Inciting Event/Trauma: No specific cause Duration of Symptoms: 6 months. Left side worsening over 1 month Associated neurologic complaints/Red flags: Gait/balance difficulty: at times due to slight dizziness Use of ambulatory aid?: no device Able to walk a city block: Yes Bowel/bladder incontinence: denies Urinary retention: No Saddle anesthesia: No Fine motor task difficulty/dropping things/handwriting changes: denies History of cancer: No Aggravating factors: constant Alleviating Factors: nothing Previous Treatment: PT: Yes Where[facility] When: last visit 02/19/2024 Completed: Yes NSAIDS: Ibuprofen (Advil, Motrin) Injections: No Opioid medications: none Muscle relaxers: none Oral steroids: none Nerve medications (gabapentin/Lyrica): none Pain management: No Chiropractor: No Previous spine surgery: none History of DVT/PE or hypercoagulable state (including history of relative): No Blood thinning medications: 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 norethindrone (Micronor) 0.35 MG tablet Take 1 tablet (0.35 mg) by mouth daily. 84 tablet 4 rizatriptan PLASTICS SCIENTIST (Maxalt-PLASTICS SCIENTIST) 5 MG disintegrating tablet One stat and May repeat in 2 hours if unresolved. No more than 4 a week 9 tablet 1 venlafaxine XR (Effexor XR) 75 MG 24 hr capsule TAKE 1 CAPSULE (75 MG) BY MOUTH DAILY FOR 90 DOSES. DO NOT CRUSH OR CHEW. 90 capsule 1 No current facility-administered medications for this visit. Past Medical History: Diagnosis Date Anxiety and depression 2016 COVID-19 04/2022 History of migraine nml MRI head 06/12- with auras Hypercholesterolemia 04/2022 rx well with diet Oral contraceptive use Dr. Mena Past Surgical History: Procedure Laterality Date BREAST ENHANCEMENT SURGERY Bilateral 2019 WISDOM TOOTH EXTRACTION 2017 Social History Socioeconomic History Marital status: Spouse name: Not on file Number of children: Not on file Years of education: Not on file Highest education level: Not on file Occupational History Not on file Tobacco Use Smoking status: Never Smokeless tobacco: Never Substance and Sexual Activity Alcohol use: Yes Alcohol/week: 2.0 standard drinks of alcohol Types: 2 Glasses of wine per week Drug use: No Sexual activity: Yes Partners: Male control/protection: OCP Other Topics Concern Not on file Social History Narrative to Anahi in 08/2017 (hx of VSD repair). Had first daughter, Crystal, born in 10/09. 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 Overall Financial Resource Strain (CARDIA) Difficulty of Paying Living Expenses: Not hard at all Food Insecurity: No Food Insecurity (10/25/2021) Received from [facility] Hunger Vital Sign Worried About Running Out of Food in the Last Year: Never true Ran Out of Food in the Last Year: Never true Transportation Needs: Not on file Physical Activity: Not on file Stress: Not on file Social Connections: Not on file Intimate Partner Violence: Not on file Housing Stability: Not on file Family History Problem Relation Name Age of Onset Colon polyps Mother Maria 55 alive in 60s Rheum arthritis Father Doron Alcohol abuse Father Doron Hypertension Father Doron Coronary artery d (more content not included)... Normal [facility] Progress Note Pt brought a disc in of XR images from 05/02/22. Unable to upload it into PACS because they're JPEG images, but I'm able to snip them below into this encounter. Normal [facility] XR CERVICAL SPINE COMPLETE 4 -5 VIEWSon 03-03-2024 XR CERVICAL SPINE COMPLETE 4-5 VIEWS There is no carotid artery calcifications noted. No abnormal pre-vertebral swelling. No obvious fracture or instability. No congenital stenosis. Maintenance of normal cervical lordosis noted. Mild multi-level degenerative disc disease noted. There are mild spondylitic changes and facet arthropathy noted. Normal [facility] XR Cervical spine 4 or 5 Vie wson 03-03-2024 There is no carotid artery calcifications noted. No abnormal pre-vertebral swelling. No obvious fracture or instability. No congenital stenosis. Maintenance of normal cervical lordosis noted. Mild multi-level degenerative disc disease noted. There are mild spondylitic changes and facet arthropathy noted. [facility] Radiology Study observation (narrative) [facility] Progress Noteon 02-19-2024 Progress Note [facility] [place] [address] [place] [address] Dept: [phone] Dept PHYSICAL THERAPY TREATMENT Patient Name: Maria Rae : 1990 Date of Service: 02/19/2024 Referring Provider: Maria Alejandra Lee PA* Visit #: 3 Diagnosis: Impingement syndrome of shoulder, right Mechanism of injury: insidious worsening of shoulder pain Patient Preferences: Maria Precautions/Red Flags: None Subjective Maria says she was imitating the kickback of a shotgun and It hurt her shoulder really bad. Also carried a heavy bag of corn and that maybe gave her a migraine. Compliance with HEP: Yes Objective Objective measurements not taken today. Treatment Therapeutic Exercise Therapeutic Exercise Activity 1: UT stretch Activity 1 Comment: 2x30s Therapeutic Exercise Activity 2: rhomboid stretch Activity 2 Comment: 2x30s Therapeutic Exercise Activity 3: pec stretch Activity 3 Comment: 2X30S Therapeutic Exercise Activity 4: scm stretch Activity 4 Comment: 2x30s Therapeutic Exercise Activity 5: serratus wall slides Activity 5 Comment: 2x10 red Soft Tissue Mobilization Location: R UT cervical paraspinals on R Comments: for tpr and pain relief Home Exercise Program: continue current Assessment Skilled physical therapy interventions utilized to improve patient?s impairments and work towards established goals. Continued STM and stretching as pt has reported this to be most helpful Patient response to treatment: reported feeling looser post session, no real pain or soreness Patient will benefit from continued physical therapy to further improve flexibility and reduce pain in order to progress to higher levels of function The rationale for today?s treatment was explained to the patient. Verbal cues were provided for correct form with all exercises. Advised patient to continue with Home Exercise Program (HEP). Goals General/Ortho Patient will reduce pain to 2/10 at worst for improved ability to perform home exercise program and participate in physical therapy sessions (Progressing) Start: 01/25/24 Expected End: 04/26/24 Patient will improve bilateral periscapular strength to 5/5 for improved support with reaching for and carrying objects (Progressing) Start: 01/25/24 Expected End: 04/26/24 Patient will reduce SPADI score from 27/130 to 10/130 for improved functional moblity (Not Addressed) Start: 01/25/24 Expected End: 04/26/24 Patient will report at least 50% reduction in tightness for improved ability to perform ADL activities (Progressing) Start: 01/25/24 Expected End: 04/26/24 Plan Plan for next session: re-eval Time Entry Total Treatment Time Start Time: 932 Stop Time: 1000 Time Calculation (min): 27 min PT Therapeutic Procedures Time Entry Therapeutic Exercise Time Entry: 8 Manual Therapy Time Entry: 19 Jaspal Erickson, PT [facility] 36on 02-05-2024 36 Resubmitted for MRI pending [id number] Sent in notes, PT notes and images [facility] 36 Yes, let's see if we can schedule at P2P please. Maria Alejandra Lee PA-C [facility] 36 Per Yayo this is what I was able to find: What it says is reconsideration is not delegated to [employer] or is no longer available for this case. First level appeal is not delegated to [employer] or is no longer available for this case. Second level appeal is not delegated to [employer] or is no longer available for this case. A reconsideration or appeal that is managed by [employer], and labeled as allowed above, may be submitted in writing via fax to [phone]. Be sure to label your request as a Reconsideration or appeal as appropriate. To request via P2P call [facility] at [phone], option 4. Please advise [facility] Progress Noteon 02-05-2024 Progress Note [facility] AT [address] [place] [address] Dept: [phone] Dept PHYSICAL THERAPY TREATMENT Patient Name: Maria Rae : 1990 Date of Service: 02/05/2024 Referring Provider: Maria Alejandra Lee PA* Visit #: 2 Diagnosis: Impingement syndrome of shoulder, right Mechanism of injury: insidious worsening of shoulder pain Patient Preferences: Maria Precautions/Red Flags: None Subjective Pain 2-3 now, feels less tight than before. Sometimes getting some spasms but overall better. Compliance with HEP: Yes Objective Objective measurements not taken today. Treatment Therapeutic Exercise Therapeutic Exercise Activity 1: UT stretch Activity 1 Comment: 2x30s Therapeutic Exercise Activity 2: rhomboid stretch Activity 2 Comment: 2x30s Therapeutic Exercise Activity 3: pec stretch Activity 3 Comment: 2X30S Therapeutic Exercise Activity 4: scm stretch Activity 4 Comment: 2x30s Soft Tissue Mobilization Location: iraida UT's Comments: for tpr and pain relief Home Exercise Program: Progressed home exercise program Assessment Skilled physical therapy interventions utilized to improve patient?s impairments and work towards established goals. Progressed scapular strength and continued MT techniques as this is relieving patient's symptoms Patient response to treatment: able to complete all exercises, reported feeling reduce symptoms ost session Patient will benefit from continued physical therapy to improve flexibility, increase strength, and reduce pain in order to progress to higher levels of functioning The rationale for today?s treatment was explained to the patient. Verbal cues were provided for correct form with all exercises. Advised patient to continue with Home Exercise Program (HEP). Goals General/Ortho Patient will reduce pain to 2/10 for improved ability to perform home exercise program and participate in physical therapy sessions (Progressing) Start: 11/20/23 Expected End: 01/15/24 Patient will improve bilateral shoulder flexion and abduction to 170 degrees for improved ability to reach up and out (Progressing) Start: 11/20/23 Expected End: 01/15/24 Plan Plan for next session: assess response to just manual MT, DN if more beneficial Time Entry Total Treatment Time Start Time: 1300 Stop Time: 1324 Time Calculation (min): 24 min PT Therapeutic Procedures Time Entry Therapeutic Exercise Time Entry: 10 Manual Therapy Time Entry: 14 Jaspal Erickson, PT [facility] Progress Noteon 01-25-2024 Progress Note [facility] AT [address] [place] [address] Dept: [phone] Dept PHYSICAL THERAPY EVALUATION Patient Name: Maria Rae : 1990 Date of Service: 01/25/2024 Referring Provider: Maria Alejandra Lee PA* Visit #: 1 Diagnosis: Impingement syndrome of shoulder, right Cervicalgia General Information Mechanism of injury: insidious worsening of shoulder pain Patient Preferences: Maria Precautions/Red Flags: None Fall Risk: No 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 PSHX: Maria has a past surgical history that includes [place] tooth extraction (2017) and Cosmetic surgery (Bilateral, 2019). Have you experienced any anxiety or depression?: Yes (takes medicine which helps) Have you experienced thoughts of self-harm or suicidal thoughts?: No [employer] Reviewed: Yes Physician follow-up appointment?: Yes Subjective Chief Complaint: Maria returns to physical therapy for evaluation. She has noticed increased tightness in her chest, shoulders, and behind her shoulder blades. She says she was sitting with her arm by her side and the pain got really bad and she reached up and her pain went away. Was wondering if the pain was coming from her neck. She says that [facility] did some tests for her neck and it didn't seem like it was coming from there. She says she is having trouble with her arm at her side and bringing it back, turning her head far and feeling tightness. Describes the pain as a stretching and tightness discomfort. Pain: Current: 3/10 Best: 0/10 Worst: 7/10 Symptoms Relieved by: ibuprofen, repositioning arms, stretching Prior Level of Function: independent with some pain and difficulty Current Level of Function: independent with increasing pain and difficulty Patient?s Stated Goal: Reduce pain, improve tightness Outcome Measures SPADI: Objective SHOULDER Observation: slightly rounded shoulders Cervical Spine AROM: WFL Elbow AROM: WFL Date Recorded: 01/25/2024 Upper Extremity ROM (degrees) Right Left AROM AROM Shoulder Flexion 154 165 Shoulder Abduction 155 160 Shoulder External Rotation (ER) 55. T3 62, T3 Shoulder Internal Rotation (IR) T5 T5 Upper Extremity Strength (*pain) Date 01/25/2024 R L Shoulder Flexion 5/5 5/5 Shoulder ABD 5/5 5/5 Shoulder ER 5/5 5/5 Shoulder IR 5/5 5/5 Elbow Flex 5/5 5/5 Elbow Ext 5/5 5/5 Wrist Flex 5/5 5/5 Wrist Ext 5/5 5/5 NT = not tested Scapular Strength Right Left Lower Trapezius 5/5 5/5 Middle Trapezius 4+/5 4/5 Joint mobility: WFL Palpation: tender to palpation R iraida UT's, Flexibility: reduced pec and UT flexibility bilaterally Special Tests: Lateral Yoko (+) B Sub Acromial Grind (-) B Assessment Maria is a 33 y.o. patient with chief complaint of iraida shoulder pain, UT tightness and periscapular pain, who presents with signs and symptoms consistent with referring diagnoses. Maria presents today with reduced shoulder AROM, reduced thoracic spine mobility, impaired periscapular pain, and reduced flexibility. These deficits may be contributing to her symptoms and increasing her pain. She would benefit from skilled physical therapy to address decreased strength, decreased range of motion, pain, soft tissue impairment, and impaired functional activities. Evaluation complexity is low secondary to: patient has 1-2 personal factors and/or comorbidities that will affect plan of care, therapy will be addressing 1-2 elements, and clinical presentation is stable. Body Systems Affected: musculoskeletal and neuromuscular Rehab Potential: Good Learning Preferences: demonstration and explanation Barriers to Rehab: none Goals General/Ortho Patient will reduce pain to 2/10 at worst for improved ability to perform home exercise program and participate in physical therapy sessions (Initiated) Start: 01/25/24 Expected End: 04/26/24 Patient will improve bilateral periscapular strength to 5/5 for improved support with reaching for and carrying objects (Initiated) Start: 01/25/24 Expected End: 04/26/24 Patient will reduce SPADI score from 27/130 to 10/130 for improved functional moblity (Initiated) Start: 01/25/24 Expected End: 04/26/24 Patient will report at least 50% reduction in tightness for improved ability to perform ADL activities (Initiated) Start: 01/25/24 Expected End: 04/26/24 Plan Frequency and Duration: 1/wk for 4 weeks Therapeutic Contents: client education, group therapy, home exercise program, manual therapy techniques, neuromuscular re-education, therapeutic activities, therapeutic exercise, trigger point dry needle, and modalities as needed Plan for next session: assess response to MT an (more content not included)... [facility] [id number] 01-20-2024 [id number] MRI ordered Normal [facility] Office Visiton 01-08-2024 Follow-up visit [id number] Maria Rae 1990 F Date Provider Department Center 01/08/2024 [id number]-MAFRANCIFMARIA ALEJANDRA LEE [facility]T [facility]N None Family History Problem Relation Age of Onset Colon polyps Mother 55 Comments: alive in 60s Rheum arthritis Father Alcohol abuse Father Hypertension Father Coronary artery disease Father 50 Comments: pacemaker, stents Lung cancer Father 59 Comments: smoker Graves' disease Sister No Known Problems Sister Colon cancer Father's Brother Throat cancer Father's Brother No Known Problems Maternal Grandmother No Known Problems Maternal Grandfather No Known Problems Paternal Grandmother Lung cancer Paternal Grandfather Family Status - Relation Status Age at Mother Alive Father Sister Alive Sister Alive Father's Brother Father's Brother Maternal Grandmother Maternal Grandfather Paternal Grandmother Paternal Grandfather Level of Service:92112 MI OFFICE/OUTPATIENT ESTABLISHED LOW [facility] 20 MIN Reason for Visit and Comments: Follow-up [[id number]] - R shoulder impingement Normal [facility] Progress Noteon 01-08-2024 Progress Note [facility] [address] [place] [address] [address] [facility] [address] Dept: [phone] Dept 01/21/2024 Chief Complaint Patient presents with Follow-up R shoulder impingement HPI Maria returns today in follow-up regarding right sided shoulder pain. She describes her symptoms worse with lifting, pulling, pushing, difficulty sleeping on affected side, internal rotation of the shoulder , and alleviated with rest and anti-inflammatories as well as putting her hand up on the back of her head (poss Bakody's sign?) . She has noticed an improvement with taking anti-inflammatories regularly over the past week (resumed after she sent [employer] message last Sunday 12/31). Her last appointment was approximately 8 weeks ago. At her last appointment she was treated with formal PT or OT - which was somewhat helpful and an injection - which helped for only 2-3 days . She was discharged to her own home exercise plan by PT after her 12/17 evaluation. Pain returned after that. Last Thursday was in more pain. Addendum 03/30/2024: Pt did return to formal PT and attended PT/did home exercises as guided by her therapists for another round from 01/25/24 - 03/04/24 and is currently being added for formal PT for cervical spine as well, ordered by Dr. Bravo, so she is now at over 4 months of PT from Oct 2023 to present Mar 2024. Helpful with nsaids, 600mg OTC Ibuprofen. She denies any radiating numbness/tingling at present (noted some elbow tingling with some wall and table push-up exercises at PT). In her MyChart messages this past week and verbally today, she notes she does get tension headaches and also that her neck crackles daily with movement/stretching or flexion/extension movement. She reports having some cervical spine xrays through a chiropractor toward the beginning of 2022 when her symptoms started, remembers them mentioning some anomaly with an extra bone or extra rib and wonders if this correlates at all? Overall, Maria experienced temporaryrelief of her initial symptoms with the previous treatments. She has noticed symptom persistence over the last several weeks. She returns today requesting additional treatment. Currently, Maria feels no improvement in her symptoms since her last appointment. New symptoms or locations of pain since last appointment: yes, pain and crackling sensation in the neck when extending Please see my previous note for full history and injury details. SANE Score: 80 Past Medical History: Diagnosis Date Anxiety and depression 2016 COVID-19 04/2022 History of migraine nml MRI head 06/12- with [facility] Hypercholesterolemia 04/2022 rx well with diet Oral contraceptive use Dr. Mena Social History Socioeconomic History Marital status: Spouse name: Not on file Number of children: Not on file Years of education: Not on file Highest education level: Not on file Occupational History Not on file Tobacco Use Smoking status: Never Smokeless tobacco: Never Substance and Sexual Activity Alcohol use: Yes Alcohol/week: 2.0 standard drinks of alcohol Types: 2 Glasses of wine per week Drug use: No Sexual activity: Yes Partners: Male control/protection: OCP Other Topics Concern Not on file Social History Narrative to Anahi in 08/2017 (hx of VSD repair). Had first daughter, Crystal, born in 10/09. 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 Of note does enjoy hunting deer with her Social Drivers of Health Financial Resource Strain: Low Risk (10/25/2021) Received from [facility] [facility] Overall Financial Resource Strain (CARDIA) Difficulty of Paying Living Expenses: Not hard at all Food Insecurity: No Food Insecurity (10/25/2021) Received from [facility] [place] [facility] Hunger Vital Sign Worried About Running Out of Food in the Last Year: Never true Ran Out of Food in the Last Year: Never true Transportation Needs: Not on file Physical Activity: Not on file Stress: Not on file Social Connections: Not on file Intimate Partner Violence: Not on file Housing Stability: Not on file OBJECTIVE BP 132/86 Ht 5' 3.5 (1.613 m) Wt 156 lb (70.8 kg) BMI 27.20 kg/m? MUSCULOSKELETAL: Cervical Exam: Neck range of motion: normal range of motion, some muscular tension/pain with end-range stretch with neck flexion (up the back of her head), no pain over spinous processes or paraspinals today. Spurlings: Negative when looking to the right and left right side Shoulder Inspection of the shoulder reveals no obvious deformity or swelling, no obvious skin lesion, erythema, or discoloration. Palpation: Pain with palpation of right side traps pain/ it is tight & spasmed ROM: RIGHT LEFT Forward Elevation AROM Full PROM Full AROM Full PROM (more content not included)... Normal [facility] Progress Noteon 12-18-2023 Progress Note [facility] AT [address] [place] [address] Dept: [phone] Dept PHYSICAL THERAPY RE-EVALUATION Patient Name: Maria Rae : 1990 Date of Service: 12/18/2023 Referring Provider: Maria Alejandra Lee PA* Visit #: 5 Diagnosis: Impingement syndrome of shoulder, right Mechanism of injury: insidious onset and worsening Patient Preferences: Maria Precautions/Red Flags: None Subjective General Comments: Maria says she feels like she has made progress with physical therapy. She says she feels improved strength in her back muscles. She says she can put her bra on easier and is able to stir things better as well. Combing her hair is also feeling better. She says she occasionally will get pain reaching across her body to fasten a seat belt. She says she feels about 90% functional at this time. She is doing less yard work lately. Pain: Current: 0/10 Best: 0/10 Worst: 3/10 Current Level of Function: independent with some pain Patient?s Stated Goal: continue to improve Outcome Measures SPADI: Objective SHOULDER Observation: slightly elevated L shoulder compared to R (pt is right handed) and forward head/rounded shoulders Cervical Spine AROM: WFL Elbow AROM: WFL Date Recorded: 12/18/2023 Upper Extremity ROM (degrees) Right Left AROM AROM Shoulder Flexion 170 166 Shoulder Abduction 175 175 Shoulder External Rotation (ER) 66, ~ T4 72, ~T5 Shoulder Internal Rotation (IR) To ~T4 To ~ T3 Upper Extremity Strength (*pain) Date 12/18/2023 R L Shoulder Flexion 5/5 5/5 Shoulder ABD 5/5 5/5 Shoulder ER 5/5 5/5 Shoulder IR 5/5 5/5 Elbow Flex 5/5 5/5 Elbow Ext 5/5 5/5 Wrist Flex 5/5 5/5 Wrist Ext 5/5 5/5 NT = not tested Scapular Strength Right Left Lower Trapezius 5/5 5/5 Middle Trapezius 5/5 5/5 Joint mobility: WFL Palpation: slightly tender to palpation at AC Flexibility: reduced UT and pec flexibility bilaterally Special Tests: Speeds (+) All previous tests from IE negative today Assessment Maria has made great progress over the past month in physical therapy. She has reduced her pain, improved her range of motion, increased her strength, improved her posture, and self reports improved ADL performance. She does have some lingering pain with cross body adduction despite these improvements. She will be successful transitioning to a fully home and independent exercise program going forward. She is therefore discharged at this time. Rehab Potential: Good Goals Active General/Ortho Patient will reduce pain to 2/10 for improved ability to perform home exercise program and participate in physical therapy sessions (Progressing) Start: 11/20/23 Expected End: 01/15/24 Patient will improve bilateral UE/Periscapular strength to 5/5 for improved ability to lift and carry objects (Completed) Start: 11/20/23 Expected End: 12/18/23 Resolved: 12/18/23 Patient will improve bilateral shoulder flexion and abduction to 170 degrees for improved ability to reach up and out (Progressing) Start: 11/20/23 Expected End: 01/15/24 Patient will reduce SPADI score from 35/130 to 10/130 for improved functional moblity (Completed) Start: 11/20/23 Expected End: 12/18/23 Resolved: 12/18/23 Plan Frequency and Duration: on hold pending physician follow up if returns 1/wk for 4 weeks otherwise discharge Therapeutic Contents: client education, group therapy, home exercise program, manual therapy techniques, neuromuscular re-education, therapeutic activities, therapeutic exercise, trigger point dry needle, and modalities as needed Plan for next session: discharge or continue exercises if pt returns Risks and benefits were discussed with the patient and/or family, and the patient and/or family participated with the plan of care and agrees. Treatment Patient Education: re-evaluation measures (billed as ther-act as multiple components of functioning were addressed) Home Exercise Program: Progressed home exercise program Time Entry Total Treatment Time Start Time: 1301 Stop Time: 1318 Time Calculation (min): 17 min PT Therapeutic Procedures Time Entry Therapeutic Activity Time Entry: 17 Jaspal Erickson PT Normal [facility] Progress Noteon 12-11-2023 Progress Note [facility] AT [address] [place] [address] Dept: [phone] Dept PHYSICAL THERAPY TREATMENT Patient Name: Maria Rae : 1990 Date of Service: 12/11/2023 Referring Provider: Maria Alejandra Lee PA* Visit #: 4 Diagnosis: Impingement syndrome of shoulder, right Mechanism of injury: insidious onset and worsening Patient Preferences: Maria Precautions/Red Flags: None Subjective Maria says she feels like her cortisone shot has worn off. Shoulder is sore. The sliding up the wall exercise may be bothersome Compliance with HEP: Yes Objective Objective measurements not taken today. Treatment Therapeutic Exercise Therapeutic Exercise Activity 1: prone Y/T Activity 1 Comment: 2x10 B 1# Therapeutic Exercise Activity 2: serratus punches Activity 2 Comment: 2x10 red Therapeutic Exercise Activity 3: iraida ER Activity 3 Comment: 2x10 red Therapeutic Exercise Activity 5: pull downs/mid rows Activity 5 Comment: 45# 3x10 // 50# 3x10 Therapeutic Exercise Activity 6: D2 flexion and extension Activity 6 Comment: 2x10 red Therapeutic Exercise Activity 7: push up plus Activity 7 Comment: table 2x10 Joint Mobilization Location: R shoulder // T3-5 Comments: shoulder inferior, lateral, A/P mobilizations grades II-III, HVLAT extension based @ T3-6 for thoracic mobility Home Exercise Program: Progressed home exercise program Assessment Skilled physical therapy interventions utilized to improve patient?s impairments and work towards established goals. Continued with RTC and periscapular strengthening with some slight progressions, also performed MT for improved thoracic mobility and soreness reduction post session Patient response to treatment: able to complete all exercises, reported feeling better post session Patient will benefit from continued physical therapy to improve strength, stability, and range of motion in order to reduce The rationale for today?s treatment was explained to the patient. Verbal cues were provided for correct form with all exercises. Advised patient to continue with Home Exercise Program (HEP). Goals General/Ortho Patient will reduce pain to 2/10 for improved ability to perform home exercise program and participate in physical therapy sessions (Progressing) Start: 11/20/23 Expected End: 12/18/23 Patient will improve bilateral UE/Periscapular strength to 5/5 for improved ability to lift and carry objects (Progressing) Start: 11/20/23 Expected End: 12/18/23 Patient will improve bilateral shoulder flexion and abduction to 170 degrees for improved ability to reach up and out (Progressing) Start: 11/20/23 Expected End: 12/18/23 Patient will reduce SPADI score from 35/130 to 10/130 for improved functional moblity (Not Addressed) Start: 11/20/23 Expected End: 12/18/23 Plan Plan for next session: continue RTC and scapular progressions, MT if indicated for pain Time Entry Total Treatment Time Start Time: 0103 Stop Time: 0136 Time Calculation (min): 33 min PT Therapeutic Procedures Time Entry Therapeutic Exercise Time Entry: 28 Manual Therapy Time Entry: 5 Jaspal Erickson, RAMESH [facility] Progress Noteon 12-04-2023 Progress Note [facility] [place] [address] [place] [address] Dept: [phone] Dept PHYSICAL THERAPY TREATMENT Patient Name: Maria Rae : 1990 Date of Service: 12/04/2023 Referring Provider: Maria Alejandra Lee PA* Visit #: 2 Diagnosis: Impingement syndrome of shoulder, right Mechanism of injury: insidious onset and worsening Patient Preferences: Maria Precautions/Red Flags: None Subjective ~ 15 minutes late today. Maria says she had some burning after last session, it did not last the next day. Feels ok today. Compliance with HEP: Yes Objective Objective measurements not taken today. Treatment Therapeutic Exercise Therapeutic Exercise Activity 1: prone Y/T Activity 1 Comment: 2x10 B 1# Therapeutic Exercise Activity 2: serratus punches Activity 2 Comment: 2x10 red Therapeutic Exercise Acitivity 3: iraida ER Activity 3 Comment: 2x10 red Therapeutic Exercise Activity 4: horizontal abduction Activity 4 Comment: 2x10 red Therapeutic Exercise Activity 5: pull downs/mid rows Activity 5 Comment: 40# 2x10 each Therapeutic Exercise Activity 6: serratus wall slides Activity 6 Comment: 2x10 yellow Therapeutic Exercise Activity 7: scap clocks Activity 7 Comment: x10 B yellow Home Exercise Program: Progressed home exercise program Assessment Skilled physical therapy interventions utilized to improve patient?s impairments and work towards established goals. Abbreviated session due to light arrival. Emphasis on scapular strengthening today Patient response to treatment: able to complete all exercises Patient will benefit from continued physical therapy to improve strength and stability in order to reduce pain and progress to higher levels of functioning The rationale for today?s treatment was explained to the patient. Verbal cues were provided for correct form with all exercises. Advised patient to continue with Home Exercise Program (HEP). Goals General/Ortho Patient will reduce pain to 2/10 for improved ability to perform home exercise program and participate in physical therapy sessions (Progressing) Start: 11/20/23 Expected End: 12/18/23 Patient will improve bilateral UE/Periscapular strength to 5/5 for improved ability to lift and carry objects (Progressing) Start: 11/20/23 Expected End: 12/18/23 Patient will improve bilateral shoulder flexion and abduction to 170 degrees for improved ability to reach up and out (Progressing) Start: 11/20/23 Expected End: 12/18/23 Patient will reduce SPADI score from 35/130 to 10/130 for improved functional moblity (Not Addressed) Start: 11/20/23 Expected End: 12/18/23 Plan Plan for next session: RTC strengthening in addiction to scapular Time Entry Total Treatment Time Start Time: 1245 Stop Time: 1259 Time Calculation (min): 14 min PT Therapeutic Procedures Time Entry Therapeutic Exercise Time Entry: 14 Jaspal Erickson, RAMESH [facility] Progress Noteon 11-27-2023 Progress Note [facility] [address] [place] [address] Dept: [phone] Dept PHYSICAL THERAPY TREATMENT Patient Name: Maria Rae : 1990 Date of Service: 11/27/2023 Referring Provider: Maria Alejandra Lee PA* Visit #: 2 Diagnosis: Impingement syndrome of shoulder, right Mechanism of injury: insidious onset and worsening Patient Preferences: Mraia Precautions/Red Flags: None Subjective Maria says that she is doing ok today. Some pain with rowing HEP otherwise they felt ok. No current complaints of pain. Compliance with HEP: Yes Objective Objective measurements not taken today. Treatment Therapeutic Exercise # of Activities: 10 Therapeutic Exercise Activity 1: UBE level 1 Activity 1 Comment: 2' fwd 2' bwd Therapeutic Exercise Activity 2: er isometric Activity 2 Comment: x10 3s Therapeutic Exercise Acitivity 3: IR isometric Activity 3 Comment: x10 3s Therapeutic Exercise Activity 4: mid rows Activity 4 Comment: 2x10 red Therapeutic Exercise Activity 5: pull downs Activity 5 Comment: 2x10 red Therapeutic Exercise Activity 6: iraida ER Activity 6 Comment: 3x10 red Therapeutic Exercise Activity 7: horizontal abduction Activity 7 Comment: 3x10 red Therapeutic Exercise Activity 8: ER/IR Activity 8 Comment: 2x10 red each Therapeutic Exercise Activity 9: serratus punches Activity 9 Comment: 2x10 red Therapeutic Exercise Activity 10: prone Y/T Activity 10 Comment: 2x10 B each Home Exercise Program: Progressed home exercise program Assessment Skilled physical therapy interventions utilized to improve patient?s impairments and work towards established goals. Progressed periscapular, RTC, and serratus strength today Patient response to treatment: able to complete all exercises without pain or exacerbation Patient will benefit from continued physical therapy to improve strength and stability in order to reduce pain and return to premorbid levels of functioning The rationale for today?s treatment was explained to the patient. Verbal cues were provided for correct form with all exercises. Advised patient to continue with Home Exercise Program (HEP). Goals General/Ortho Patient will reduce pain to 2/10 for improved ability to perform home exercise program and participate in physical therapy sessions (Progressing) Start: 11/20/23 Expected End: 12/18/23 Patient will improve bilateral UE/Periscapular strength to 5/5 for improved ability to lift and carry objects (Progressing) Start: 11/20/23 Expected End: 12/18/23 Patient will improve bilateral shoulder flexion and abduction to 170 degrees for improved ability to reach up and out (Progressing) Start: 11/20/23 Expected End: 12/18/23 Patient will reduce SPADI score from 35/130 to 10/130 for improved functional moblity (Not Addressed) Start: 11/20/23 Expected End: 12/18/23 Plan Plan for next session: assess response to progressions, continue as able, rhythmic stabilization, wall slides, ER at functional position Time Entry Total Treatment Time Start Time: 829 Stop Time: 0900 Time Calculation (min): 30 min PT Therapeutic Procedures Time Entry Therapeutic Exercise Time Entry: 30 Jaspal Erickson, PT [facility] Progress Noteon 11-20-2023 Progress Note [facility] [place] [address] [place] [address] Dept: [phone] Dept PHYSICAL THERAPY EVALUATION Patient Name: Maria Rae : 1990 Date of Service: 11/20/2023 Referring Provider: Maria Alejandra Lee PA* Visit #: 1 Diagnosis: Impingement syndrome of shoulder, right General Information Mechanism of injury: insidious onset and worsening Patient Preferences: Maria Precautions/Red Flags: None Fall Risk: No 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 PSHX: Maria has a past surgical history that includes [place] tooth extraction (2017) and Cosmetic surgery (Bilateral, 2019). Have you experienced any anxiety or depression?: No Have you experienced thoughts of self-harm or suicidal thoughts?: No Social Determinates of Health Reviewed: Yes Physician follow-up appointment?: try PT first Subjective Chief Complaint: Maria says last spring she was going to the gym a lot and doing a lot of shoulder exercises with low weight and high reps. Says that she feels her right shoulder is lower. She says she was seeing a chiropractor and they tried to help fix that. She says she had the thera-gun used. She says that it didn't feel good but it didn't hurt. She says it felt painful and disconnected. An ENAMEL MACHINE OPERATOR told her it was tendonitis and she took medicine that helped. Has been off and on since then. Over the past month ago it has been getting worse. She had an x-ray and went to ortho and got an injection. She has a lot of difficulty with reaching to do her bra and she can't lean back and put weight on it. She says her daughter is 35#s and wants to be lifted, when scooping her up she notices it then as well. Stirring when cooking also aggravates it. She does a lot of yard work and that is also bothersome for her. Describes her pain as a burning type of pain that stays mostly in the shoulder, some tension headaches. Pain: Current: 0/10 Best: 0/10 Worst: 5-6/10 Symptoms Relieved by: medications, repositioning Prior Level of Function: independent without difficulty Current Level of Function: independent with difficulty/pain Patient?s Stated Goal: eliminating pain or figuring out what it is going on Outcome Measures SPADI: 35/130 Objective SHOULDER Observation: slightly elevated L shoulder compared to R (pt is right handed) and forward head/rounded shoulders Cervical Spine AROM: WFL Elbow AROM: WFL Date Recorded: 11/20/23 Upper Extremity ROM (degrees) Right Left AROM AROM Shoulder Flexion 158 146 Shoulder Abduction 168 170 Shoulder External Rotation (ER) 65, ~ T3 65, ~T3 Shoulder Internal Rotation (IR) To ~T12 To ~ T6 Upper Extremity Strength (*pain) Date 11/20/2023 R L Shoulder Flexion 5/5 5/5 Shoulder ABD 5/5* 5/5 Shoulder ER 5/5 5/5 Shoulder IR 5/5 5/5 Elbow Flex 5/5 5/5 Elbow Ext 5/5 5/5 Wrist Flex 5/5 5/5 Wrist Ext 5/5 5/5 NT = not tested Scapular Strength Right Left Lower Trapezius 5/5 5/5 Middle Trapezius 4/5 4/5 Joint mobility: WFL Palpation: non-tender to palpation today Flexibility: reduced UT and pec flexibility bilaterally Special Tests: SA Grind Test (+) with crepitus Lateral Yoko (+) slight pain Infraspinatus (+) slight pain Bear Hug (+) Slight pain Supine distraction (+) Modified Dynamic Labral Shear (+) Assessment Maria is a 33 y.o. patient with chief complaint of R shoulder pain, who presents with signs and symptoms consistent with referring diagnoses. Maria is a pleasant individual. She presents today with reduced periscapular strength, impaired posture, reduced range of motion, and pain. Special testing points to general shoulder pathology, doesn't appear to be major or sinister. She would benefit from skilled physical therapy to address decreased strength, decreased range of motion, pain, soft tissue impairment, and impaired functional activities. Evaluation complexity is low secondary to: patient has 1-2 personal factors and/or comorbidities that will affect plan of care, therapy will be addressing 1-2 elements, and clinical presentation is stable. Body Systems Affected: musculoskeletal and neuromuscular Rehab Potential: Good Learning Preferences: demonstration and explanation Barriers to Rehab: none Goals General/Ortho Patient will reduce pain to 2/10 for improved ability to perform home exercise program and participate in physical therapy sessions (Initiated) Start: 11/20/23 Expected End: 12/18/23 Patient will improve bilateral UE/Periscapular strength to 5/5 for improved ability to lift and carry objects (Initiated) Start: 11/20/23 Expected End: 12/18/23 Patient will improve bilateral shoulder flexion and abduction to 170 degrees for improved ability (more content not included)... [facility] Office Visiton 11-13-2023 Follow-up visit [id number] Maria Rae 1990 F Date Provider Department Center 11/13/2023 [id number] ALEJANDRA LEE [facility] None Family History Problem Relation Age of Onset Colon polyps Mother 55 Comments: alive in 60s Rheum arthritis Father Alcohol abuse Father Hypertension Father Coronary artery disease Father 50 Comments: pacemaker, stents Lung cancer Father 59 Comments: smoker Graves' disease Sister No Known Problems Sister Colon cancer Father's Brother Throat cancer Father's Brother No Known Problems Maternal Grandmother No Known Problems Maternal Grandfather No Known Problems Paternal Grandmother Lung cancer Paternal Grandfather Family Status - Relation Status Age at Mother Alive Father Sister Alive Sister Alive Father's Brother Father's Brother Maternal Grandmother Maternal Grandfather Paternal Grandmother Paternal Grandfather Level of Service:15582 [place] OFFICE/OUTPATIENT ESTABLISHED LOW MDM 20 MIN Reason for Visit and Comments: New Patient [[id number]] - Right shoulder pain [facility] Progress Noteon 11-13-2023 Progress Note Maria Armenta Jessicacesar 1990 [id number] 11/13/2023 Chief Complaint Patient presents with New Patient Right shoulder pain HPI: Maria Rae is a 33 y.o. Right-handed female who presents today complaining of right shoulder pain. Their symptoms started worsening 3 weeks ago, but ongoing since last spring. The current symptoms started after no specific injury. Thinking back, she was doing more shoulder exercises and lifting last year when this started up. Brady didn't feel good with chiropractor treatments last Mar - May. She saw her PCP, Dr. Cason, last week, who ordered xrays and 600mg Ibuprofen and referred her. I reviewed this note. Activities that worsen the pain include lifting, pulling, pushing, difficulty sleeping on affected side, internal rotation or propping up with arms behind her is a no-go. The patient described the location of the pain as deep and primarily over lateral deltoid . The patient complains of associated night pain. Associated nerve type symptoms include none. Some mention of some tingles behind the arm/distal triceps (with no numbness) w triceps workouts or stretching. No numbness/tingling into lower arm, hand, or fingers. The patient reports No history of shoulder dislocations or subluxations. The patient complains of occasional associated neck pain with extremes of motion and some remote history of tension headaches. 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 [employer]. Maria is referred by Dr. Cason. SANE score: 80 Allergies Allergen Reactions Wound Dressing Adhesive Itching and Rash Current Outpatient Medications on File Prior to Visit Medication Sig Dispense Refill doxycycline (Monodox) 50 MG capsule hydrOXYzine HCl (Atarax) 25 MG tablet 1/2 or one tab bid prn anxiety 60 tablet 1 ibuprofen 600 MG tablet Take 1 tablet (600 mg) by mouth 2 times daily as needed for mild pain (1-3) (pain). 60 tablet 0 metroNIDAZOLE (Metrocream) 0.75 % cream APPLY TO THE FULL FACE TWICE DAILY AFTER APPLYING TRIPLE ROSACEA CREAM. norethindrone (Micronor) 0.35 MG tablet Take 1 tablet (0.35 mg) by mouth daily. 84 tablet 4 rizatriptan PLASTICS SCIENTIST (Maxalt-PLASTICS SCIENTIST) 5 MG disintegrating tablet One stat and May repeat in 2 hours if unresolved. No more than 4 a week 9 tablet 1 venlafaxine XR (Effexor XR) 75 MG 24 hr capsule TAKE 1 CAPSULE (75 MG) BY MOUTH DAILY FOR 90 DOSES. DO NOT CRUSH OR CHEW. 90 capsule 1 [DISCONTINUED] minocycline 50 MG capsule Take 50 mg by mouth daily. No current facility-administered medications on file prior to visit. Past Medical History: Diagnosis Date Anxiety and depression 2016 COVID-19 04/2022 History of migraine nml MRI head 06/12- with [facility] Hypercholesterolemia 04/2022 rx well with diet Oral contraceptive use Dr. Mena Past Surgical History: Procedure Laterality Date BREAST ENHANCEMENT SURGERY Bilateral 2019 WISDOM TOOTH EXTRACTION 2017 Social History Socioeconomic History Marital status: Spouse name: Not on file Number of children: Not on file Years of education: Not on file Highest education level: Not on file Occupational History Not on file Tobacco Use Smoking status: Never Smokeless tobacco: Never Substance and Sexual Activity Alcohol use: Yes Alcohol/week: 2.0 standard drinks of alcohol Types: 2 Glasses of wine per week Drug use: No Sexual activity: Yes Partners: Male control/protection: OCP Other Topics Concern Not on file Social History Narrative to Anahi in 08/2017 (hx of VSD repair). Had first daughter, Crystal, born in 10/09. 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 Of note does enjoy hunting deer with her Social Determinants of Health Financial Resource Strain: Low Risk (10/25/2021) Received from [facility] Overall Financial Resource Strain (CARDIA) Difficulty of Paying Living Expenses: Not hard at all Food Insecurity: No Food Insecurity (10/25/2021) Received from [facility] Hunger Vital Sign Worried About Running Out of Food in the Last Year: Never true Ran Out of Food in the Last Year: Never true Transportation Needs: Not on file Physical Activity: Not on file Stress: Not on file Social Connections: Not on file Intimate Partner Violence: Not on file Housing Stability: Not on file Family History Problem Relation Name Age of Onset Colon polyps Mother Maria 55 alive in 60s Rheum arthritis Father Doron Alcohol abuse Father Doron Hypertension Father Doron Coronary artery disease Father Doron 50 pacemaker, st (more content not included)... [facility] 36on 11-09-2023 36 Orders pended for doctor signature [facility] XR Shoulder - right 2 Viewso n 11-05-2023 Unremarkable plain films of the right shoulder. Report Dictated on Electronically Signed By: Jaskaran Sorensen MD Electronically Signed Date/Time: 11/05/2023 6:25 PM EDT [facility] Patient Name: MARIA RAE : 1990 Exam Date/Time: 11/05/2023 08:06 Procedure: XR SHOULDER 2+ VIEWS RIGHT Ordering Provider: CASON EUGENE Reason For Exam: lateral shoulder xray RIGHT SHOULDER CLINICAL INDICATION: Pain Three views of the right shoulder were obtained. COMPARISON: None. FINDINGS: No fracture or dislocation of the right shoulder is identified. There is no abnormal soft tissue swelling. The right acromioclavicular and glenohumeral joints appear grossly normal. [facility] Jaskaran Sorensen MD - 11/05/2023 Patient Name: MARIA RAE : 1990 Exam Date/Time: 11/05/2023 08:06 Procedure: XR SHOULDER 2+ VIEWS RIGHT Ordering Provider: CASON EUGENE Reason For Exam: lateral shoulder xray RIGHT SHOULDER CLINICAL INDICATION: Pain Three views of the right shoulder were obtained. COMPARISON: None. FINDINGS: No fracture or dislocation of the right shoulder is identified. There is no abnormal soft tissue swelling. The right acromioclavicular and glenohumeral joints appear grossly normal. IMPRESSION: Unremarkable plain films of the right shoulder. Report Dictated on Electronically Signed By: Jaskaran Sorensen MD Electronically Signed Date/Time: 11/05/2023 6:25 PM EDT [facility] Study observation (narrative) [facility] XR Shoulder - right 2 ViewsO rdered By: Jaskaran Sorensen on 11-05-2023 [facility] MR Brain WO and W contrast I Von 06-12-2022 Impression: 1. Minimally ectopic cerebellar tonsils. This does not meet the criteria for Chiari malformation or cause mass effect on the brainstem. 2. Mild paranasal sinusitis. 3. No evidence of acute intracranial abnormality. No abnormal gadolinium enhancement. Report Dictated on Electronically Signed By: Dustin Mann Electronically Signed Date/Time: 06/12/2022 1:22 PM EDT [facility] Patient Name: MARIA RAE : 1990 Exam Date/Time: 06/12/2022 12:52 Procedure: MR BRAIN W AND WO CONTRAST Ordering Provider: CASON EUGENE Reason For Exam: migraines Examination: MRI brain with and without contrast Clinical Indication: migraines Comparison: None Findings: Multiplanar multisequence MRI was obtained through the skull prior to and after administration of 8 mL Gadavist intravenous gadolinium contrast. Sequences included diffusion-weighted, gradient and FLAIR images. Ventricles are normal in size and configuration and are normally positioned on midline. There is no significant cerebral volume loss. Basilar cisterns are patent. There is no evidence of white matter signal abnormality on FLAIR/T2. No intracranial fluid collection. No visualized mass. No evidence of intracranial hemorrhage. Review of the diffusion-weighted images demonstrate no evidence of acute infarct. Sella and pituitary gland are normal in appearance. Minimal cerebellar atrophy extending 2 mm below the foramen magnum on the right. This does not meet the criteria for Chiari malformation. No gross abnormality is appreciated within the globes and orbital contents. Mild paranasal sinusitis with mucoperiosteal thickening. Few fluid-filled ethmoid air cells. Post gadolinium contrast-enhanced images demonstrate no evidence of abnormal enhancement. [facility] Dustin Mann MD - 06/12/2022 [facility] 1990 [id number] Exam Date/Time: 06/12/2022 12:52 Procedure: MR BRAIN W AND WO CONTRAST Ordering Provider: CASON EUGENE Reason For Exam: migraines Examination: MRI brain with and without contrast Clinical Indication: migraines Comparison: None Findings: Multiplanar multisequence MRI was obtained through the skull prior to and after administration of 8 mL Gadavist intravenous gadolinium contrast. Sequences included diffusion-weighted, gradient and FLAIR images. Ventricles are normal in size and configuration and are normally positioned on midline. There is no significant cerebral volume loss. Basilar cisterns are patent. There is no evidence of white matter signal abnormality on FLAIR/T2. No intracranial fluid collection. No visualized mass. No evidence of intracranial hemorrhage. Review of the diffusion-weighted images demonstrate no evidence of acute infarct. Sella and pituitary gland are normal in appearance. Minimal cerebellar atrophy extending 2 mm below the foramen magnum on the right. This does not meet the criteria for Chiari malformation. No gross abnormality is appreciated within the globes and orbital contents. Mild paranasal sinusitis with mucoperiosteal thickening. Few fluid-filled ethmoid air cells. Post gadolinium contrast-enhanced images demonstrate no evidence of abnormal enhancement. IMPRESSION: Impression: 1. Minimally ectopic cerebellar tonsils. This does not meet the criteria for Chiari malformation or cause mass effect on the brainstem. 2. Mild paranasal sinusitis. 3. No evidence of acute intracranial abnormality. No abnormal gadolinium enhancement. Report Dictated on Electronically Signed By: Dustin Mann Electronically Signed Date/Time: 06/12/2022 1:22 PM EDT [facility] Radiology Study observation (narrative) [facility] MR Brain WO and W contrast I VOrdered By: Dustin Mann on 06-12-2022 [facility] Work Phone: AMB POC RAPID STREP Aon 04-23 S. pyogenes Ag Ql (Throat) Negative Negative, None Detected [facility] CBCon 10-13-2019 Erythrocyte distribution width (RBC) [Ratio] 12.9 % 11.5 - 14.5 % [place], [place] Hematocrit (Bld) [Volume fraction] 38.8 % 35 - 47 % [place] Hemoglobin (Bld) [Mass/Vol] 13.4 g/dL 11.7 - 16 g/dL [place] Interpretation and review of laboratory results Abnormal [place] MCH (RBC) [Entitic mass] 32.4 pg 26 - 34 pg [place] MCHC (RBC) [Mass/Vol] 34.6 % 32 - 36 % [place] MCV (RBC) [Entitic vol] 93.6 fL 79 - 98 fL [place] Platelet mean volume (Bld) [Entitic vol] 8.4 fL 7.4 - 10.4 fL [place] Platelets (Bld) [#/Vol] 239 10*3/uL 140 - 440 10*3/uL [place] RBC (Bld) [#/Vol] 4.15 10*6/uL 3.8 - 5.2 10*6/uL [place] WBC (Bld) [#/Vol] 14.4 10*3/uL High 3.6 - 10.7 10*3/uL [place] Test Performed by [facility], [facility] [place] [place] [address] [place], [place] Comp Metabolic Panelon 10-12 ALP [Catalytic activity/Vol] 144 U/L High 38-126 [facility] Comment on above: Performed By: #### C MP3 #### [place] [address] [address] [facility] [place] ALT [Catalytic activity/Vol] 13 U/L Normal 0-34 [facility] Comment on above: Result Comment: The ALT test is performed by an updated assay method. Please note that the reference intervals have been changed and are now sex specific. Performed By: #### C MP3 #### [place] [address] [address] [facility] [place] Anion gap [Moles/Vol] 7 Normal [facility] Comment on above: Performed By: #### C MP3 #### [place] [address] [address] [facility] [place] AST [Catalytic activity/Vol] 31 U/L Normal 15-46 [facility] Comment on above: Performed By: #### C MP3 #### [place] [address] [address] [place], [place] Bilirubin [Mass/Vol] 0.2 mg/dL Normal 0.2-1.3 [facility] Comment on above: Performed By: #### C MP3 #### [place] [address] [address] [place], [place] Calcium [Mass/Vol] 9.2 mg/dL Normal 8.4-10.4 [facility] Comment on above: Performed By: #### C MP3 #### [facility] [address] [place], [place] CO2 [Moles/Vol] 19 mmol/L Low 22-30 [facility] Comment on above: Performed By: #### C MP3 #### [place] [address] [address] [place], [place] Glucose [Mass/Vol] 84 mg/dL Normal 70-100 [facility] Comment on above: Performed By: #### C MP3 #### [facility] [address] [place], [place] Protein [Mass/Vol] 6.4 g/dL Normal 6.3-8.2 [facility] Comment on above: Performed By: #### C MP3 #### [facility] [address] [place], [place] Urea nitrogen [Mass/Vol] 6 mg/dL Low 7-20 [facility] Comment on above: Performed By: #### C MP3 #### [facility] [address] [place], [place] Creatinine [Mass/Vol] 0.49 mg/dL Low 0.52-1.25 [facility] Comment on above: Performed By: #### C MP3 #### [facility] [address] [place], [place] GFR/1.73 sq M predicted among blacks MDRD (S/P/Bld) [Vol rate/Area] mL/min/{1.73_m2} Normal >60 [facility] Comment on above: Performed By: #### C MP3 #### [facility] [address] [place], [place] GFR/1.73 sq M predicted among non-blacks MDRD (S/P/Bld) [Vol rate/Area] mL/min/{1.73_m2} Normal >60 [facility] Comment on above: Result Comment: KDIG O guidelines provide the following GFR categories: Stage GFR(ml/min/1.73 m2) Terms G1 >=90 Normal or high G2 60-89 Mildly decreased* G3a 45-59 Mildly to moderately decreased G3b 30-44 Moderately to severely decreased G4 15-29 Severely decreased G5 <15 Kidney failure *Relative to young adult level. In the absence of evidence of kidney damage, neither GFR category G1 nor G2 fulfill the criteria for CKD. The CKD-EPI equation is validated in individuals 18 years of age and older. Currently the best equation for estimating glomerular filtration rate (GFR) from serum creatinine in children is the Bedside Aquino equation. It is less accurate in patients with extremes of muscle mass, restriction of dietary protein, ingestion of creatine, extra-renal metabolism of creatinine, or treatment with medications that affect renal tubular creatinine secretion. Performed By: #### C MP3 #### [facility] [address] [place], [place] Albumin [Mass/Vol] 3.5 g/dL Normal 3.5-5.0 [facility] Comment on above: Performed By: #### C MP3 #### [facility] [address] [place], [place] Chloride [Moles/Vol] 109 mmol/L High 98-107 [facility] Comment on above: Performed By: #### C MP3 #### [facility] [address] [place], [place] Potassium [Moles/Vol] 3.5 mmol/L Normal 3.5-5.1 [facility] Comment on above: Performed By: #### C MP3 #### [facility] [address] [place], [place] Sodium [Moles/Vol] 136 mmol/L Normal 135-145 [facility] Comment on above: Performed By: #### C MP3 #### [facility] [address] [place], [place] Comprehensive Metabolic Pane moriah 10-13-2019 Albumin [Mass/Vol] 3.5 g/dL 3.5 - 5 g/dL [place], [place] ALP [Catalytic activity/Vol] 144 U/L High 38 - 126 U/L [place] ALT [Catalytic activity/Vol] 13 U/L 0 - 34 U/L [place] Comment on above: The ALT test is perf ormed by an updated assay method. Please note that the reference intervals have been changed and are now sex specific. Anion gap [Moles/Vol] 7 mmol/L [place] AST [Catalytic activity/Vol] 31 U/L 15 - 46 U/L [place] Bilirubin Ql (U) 0.2 mg/dL 0.2 - 1.3 mg/dL [place] Calcium [Mass/Vol] 9.2 mg/dL 8.4 - 10. 4 mg/dL [place] Chloride [Moles/Vol] 109 mmol/L High 98 - 10 7 mmol/L [place] CO2 [Moles/Vol] 19 mmol/L Low 22 - 30 mmol/L [place] Creatinine [Mass/Vol] 0.49 mg/dL Low 0.52 - 1.25 mg/dL [place] EGFR IF NonAfrican Mauritian >90.0 >60 mL/min [place] Comment on above: KDIGO guidelines pro vide the following GFR categories: Stage GFR(ml/min/1.73 m2) Terms G1 >=90 Normal or high G2 60-89 Mildly decreased* G3a 45-59 Mildly to moderately decreased G3b 30-44 Moderately to severely decreased G4 15-29 Severely decreased G5 <15 Kidney failure *Relative to young adult level. In the absence of evidence of kidney damage, neither GFR category G1 nor G2 fulfill the criteria for CKD. The CKD-EPI equation is validated in individuals 18 years of age and older. Currently the best equation for estimating glomerular filtration rate (GFR) from serum creatinine in children is the Bedside Aquino equation. It is less accurate in patients with extremes of muscle mass, restriction of dietary protein, ingestion of creatine, extra-renal metabolism of creatinine, or treatment with medications that affect renal tubular creatinine secretion. GFR/1.73 sq M predicted among blacks MDRD (S/P/Bld) [Vol rate/Area] mL/min/{1.73_m2} >60 mL/min [place] Glucose [Mass/Vol] 84 mg/dL 70 - 100 mg/dL [place] Interpretation and review of laboratory results Abnormal [place] Potassium [Moles/Vol] 3.5 mmol/L 3.5 - 5.1 mmol/L [place] Protein [Mass/Vol] 6.4 g/dL 6.3 - 8.2 g/dL [place] Sodium [Moles/Vol] 136 mmol/L 135 - 145 mmol/L [place] Urea nitrogen [Mass/Vol] 6 mg/dL Low 7 - 20 mg/dL [place] Test Performed by [employer], [address] [place], [place] [address], [place] [address] [facility] [place], [place] Creatinine, Random Urineon 0 10-13-2019 Creatinine (U) [Mass/Vol] 17.7 mg/dL No Range [facility], [place] Test Performed by [facility], [address] [place] [address] [place] [address] [facility], [place] Creatinine, Ur Randomon 09-21 Creatinine, Ur Random 17.7 mg/dL Normal No Range [facility] Comment on above: Performed By: #### C RTUR, TPUR #### [place] [address] [place] [address] Hemogramon 10-13-2019 Erythrocyte distribution width (RBC) [Ratio] 12.9 % Normal 11.5-14.5 [facility] Comment on above: Performed By: #### H EMOG #### [place] [address] [place] [address] Hematocrit (Bld) [Volume fraction] 38.8 % Normal 35.0-47.0 [facility] Comment on above: Performed By: #### H EMOG #### [place] [address] [place] [address] Hemoglobin (Bld) [Mass/Vol] 13.4 g/dL Normal 11.7-16.0 [facility] Comment on above: Performed By: #### H EMOG #### [place] [address] [place] [address] MCH (RBC) [Entitic mass] 32.4 pg Normal 26.0-34.0 [facility] Comment on above: Performed By: #### H EMOG #### [place] [address] [place] [address] MCHC (RBC) [Mass/Vol] 34.6 % Normal 32.0-36.0 [facility] Comment on above: Performed By: #### H EMOG #### [place] [address] [place] [address] MCV (RBC) [Entitic vol] 93.6 fL Normal 79.0-98.0 [facility] Comment on above: Performed By: #### H EMOG #### [facility] [address] [place] [address] Platelet mean volume (Bld) [Entitic vol] 8.4 fL Normal 7.4-10.4 [facility] Comment on above: Performed By: #### H EMOG #### [facility] [address] [place] [address] Platelets (Bld) [#/Vol] 239 10*3/uL Normal 140-440 [facility] Comment on above: Performed By: #### H EMOG #### [facility] [address] [place] [address] RBC (Bld) [#/Vol] 4.15 10*6/uL Normal 3.80-5.20 [facility] Comment on above: Performed By: #### H EMOG #### [place] [address] [address] [place] WBC (Bld) [#/Vol] 14.4 10*3/uL High 3.6-10.7 [facility] Comment on above: Performed By: #### H EMOG #### [place] [address] [address] [place], [place] L&D BLOOD BANK HOLDon 2019 Sodium [Moles/Vol] INLAB, EXP 10/17/[address] [facility], [place] Test Performed by [facility], [facility] [place] [address] [place], [place] LANDD/ TANDS Holdon 10-13-2019 LANDD/ TANDS Hold L&D/ T&S Hold: INLAB, EXP 10/17/19 Normal [facility] Comment on above: Performed By: #### O BHLD #### [facility] [address] [place] [address] Protein, Ur Randomon 020 Protein [Mass/Vol] 40 mg/dL High No Range [facility] Comment on above: Performed By: #### C RTUR, TPUR #### [facility] [address] [place], [place] Protein, urine, randomon Interpretation and review of laboratory results [facility]normal [email or web address] [place] [place] Protein (U) [Mass/Vol] 40 mg/dL High No Range [email or web address] [place] [place] Test Performed by [employer] [address] [place] Clinical Summary: HMSPatient IDon 12-31-2017 POS Invalid Interpretation Code [facility] Work Phone: Clinical Summary: Scanned RO S Summaryon 12-31-2017 endocrine ROS Denies Invalid Interpretation Code [facility] Work Phone: genitourinary review of systems, E&M Denies Invalid Interpretation Code [facility] Work Phone: Lymphocytes Auto #/vol (Bld) Denies Invalid Interpretation Code [facility] Work Phone: ROS cardiovascular E&M Denies Invalid Interpretation Code [facility] Work Phone: ROS ENT E&M Denies Invalid Interpretation Code [facility] Work Phone: ROS gastrointestinal E&M Denies Invalid Interpretation Code [facility] Work Phone: ROS general E&M Denies Invalid Interpretation Code [facility] Work Phone: ROS musculoskeletal E&M Denies Invalid Interpretation Code [facility] Work Phone: ROS neurological E&M Denies Invalid Interpretation Code [facility] Work Phone: ROS Psych comment Anxiety Invalid Interpretation Code [facility] Work Phone: ROS psychiatric E&M Complains Invalid Interpretation Code [facility] Work Phone: ROS pulmonary E&M Denies Invalid Interpretation Code [facility] Work Phone: ROS skin E&M Denies Invalid Interpretation Code [facility] Work Phone: Office Visit: Cosmetic Consu lt, Rm:on 12-31-2017 NEGATED: Highlighted rowProtein mass conc Done Invalid Interpretation Code [facility] Work Phone: Vital Signs Date Time Vital Sign Value Performing Clinician Facility 12-19-2024 13:05-0400 Body temperature 98.2 [degF] Dr. Good Moya DO Work Phone: [facility] 12-19-2024 13:05-0400 Diastolic blood pressure 60 mm[Hg] Dr. Good Moya DO Work Phone: [facility] 12-19-2024 13:05-0400 Heart rate 72 /min Dr. Good Moya DO Work Phone: [facility] 12-19-2024 13:05-0400 Respiratory rate 15 /min Dr. Good Moya DO Work Phone: [facility] 12-19-2024 13:05-0400 SaO2% (BldA) [Mass fraction] 98 % Dr. Good Moya DO Work Phone: [facility] 12-19-2024 13:05-0400 Systolic blood pressure 120 mm[Hg] Dr. Good Moya DO Work Phone: [facility] 05-11-2024 07:05-0500 Body height 160 cm Marvin Cason DO Work Phone: [facility] 05-11-2024 07:05-0500 Body mass index (BMI) [Ratio] 29.05 kg/m2 Marvin Cason DO Work Phone: [facility] 05-11-2024 07:05-0500 Body temperature 97.5 [degF] Marvin Cason DO Work Phone: [facility] 05-11-2024 07:05-0500 Body weight 74.39 kg Marvin Cason DO Work Phone: [facility] 05-11-2024 07:05-0500 Diastolic blood pressure 84 mm[Hg] Marvin Cason DO Work Phone: [facility] 05-11-2024 07:05-0500 Heart rate 88 /min Marvin Cason DO Work Phone: [facility] 05-11-2024 07:05-0500 SaO2% (BldA) [Mass fraction] 96 % Marvin Cason DO Work Phone: [facility] 05-11-2024 07:05-0500 Systolic blood pressure 124 mm[Hg] Marvin Cason DO Work Phone: [facility] 03-24-2024 08:58-0500 Body height 161.3 cm Anahi Bravo MD Work Phone: [facility] 03-24-2024 08:58-0500 Body mass index (BMI) [Ratio] 27.2 kg/m2 Anahi Bravo MD Work Phone: [facility] 03-24-2024 08:58-0500 Body weight 70.76 kg Anahi Bravo MD Work Phone: [facility] 03-03-2024 08:22-0500 Body height 161.3 cm Maria Cardoso APRN - FORMAT PROOFREADER Work Phone: [facility] 03-03-2024 08:22-0500 Body mass index (BMI) [Ratio] 27.2 kg/m2 Maria Cardoso APRN - FORMAT PROOFREADER Work Phone: [facility] 03-03-2024 08:22-0500 Body weight 70.76 kg Maria Cardoos APRN - FORMAT PROOFREADER Work Phone: [facility] 01-08-2024 12:53-0400 Body height 161.3 cm Maria Alejandra Lee PA-C Work Phone: [facility] 01-08-2024 12:53-0400 Body mass index (BMI) [Ratio] 27.2 kg/m2 Maria Alejandra Ogorzolka PA-C Work Phone: [facility] 01-08-2024 12:53-0400 Body weight 70.76 kg Maria Alejandra Ogorzolka PA-C Work Phone: [facility] 01-08-2024 12:53-0400 Diastolic blood pressure 86 mm[Hg] Maria Alejandra Ogorzolka PA-C Work Phone: [facility] 01-08-2024 12:53-0400 Systolic blood pressure 132 mm[Hg] Maria Alejandra Ogorzolka PA-C Work Phone: [facility] 11-13-2023 12:57-0400 Body height 161.3 cm Maria Alejandradeandre Millerlka PA-C Work Phone: [facility] 11-13-2023 12:57-0400 Body mass index (BMI) [Ratio] 27.2 kg/m2 Maria Alejandra Millerlka PA-C Work Phone: [facility] 11-13-2023 12:57-0400 Body weight 70.76 kg Maria Alejandradeandre Millerlka PA-C Work Phone: [facility] 11-13-2023 12:57-0400 Diastolic blood pressure 84 mm[Hg] Maria Alejandra Ogorzolka PA-C Work Phone: [facility] 11-13-2023 12:57-0400 Systolic blood pressure 124 mm[Hg] Maria Alejadnradeandre Millerlka PA-C Work Phone: [facility] 11-05-2023 07:37-0400 Diastolic blood pressure 60 mm[Hg] Marvin Cason DO Work Phone: [facility] 11-05-2023 07:37-0400 Heart rate 68 /min Marvin Cason DO Work Phone: [facility] 11-05-2023 07:37-0400 Systolic blood pressure 104 mm[Hg] Marvin Cason DO Work Phone: [facility] 11-05-2023 07:14-0400 Body height 161.3 cm Marvin Griffina DO Work Phone: [facility] 11-05-2023 07:14-0400 Body mass index (BMI) [Ratio] 27.2 kg/m2 Marvin Griffina DO Work Phone: [facility] 11-05-2023 07:14-0400 Body temperature 97 [degF] Marvin Griffina DO Work Phone: [facility] 11-05-2023 07:14-0400 Body weight 70.76 kg Marvin Griffina DO Work Phone: [facility] 11-05-2023 07:14-0400 SaO2% (BldA) [Mass fraction] 98 % Marvin Griffina DO Work Phone: [facility] 06-05-2023 13:39-0400 Body height 161.9 cm Veroinca Mena MD Work Phone: [facility] 06-05-2023 13:39-0400 Body mass index (BMI) [Ratio] 26.47 kg/m2 Veronica Mena MD Work Phone: [facility] 06-05-2023 13:39-0400 Body weight 69.4 kg Veronica Mena MD Work Phone: [facility] 06-05-2023 13:39-0400 Diastolic blood pressure 88 mm[Hg] Veronica Mena MD Work Phone: [facility] 06-05-2023 13:39-0400 Heart rate 92 /min Veronica Mena MD Work Phone: [facility] 06-05-2023 13:39-0400 Systolic blood pressure 142 mm[Hg] Veronica Mena MD Work Phone: [facility] 05-07-2023 07:06-0500 Body height 160 cm Marvin Cason DO Work Phone: [facility] 05-07-2023 07:06-0500 Body mass index (BMI) [Ratio] 26.93 kg/m2 Marvin Cason DO Work Phone: [facility] 05-07-2023 07:06-0500 Body temperature 97.11 [degF] Marvin Cason DO Work Phone: [facility] 05-07-2023 07:06-0500 Body weight 68.95 kg Marvin Cason DO Work Phone: [facility] 05-07-2023 07:06-0500 Diastolic blood pressure 78 mm[Hg] Marvin Cason DO Work Phone: [facility] 05-07-2023 07:06-0500 Heart rate 101 /min Marvin Cason DO Work Phone: [facility] 05-07-2023 07:06-0500 SaO2% (BldA) [Mass fraction] 98 % Marvin Cason DO Work Phone: [facility] 05-07-2023 07:06-0500 Systolic blood pressure 102 mm[Hg] Marvin Cason DO Work Phone: [facility] 11-05-2022 15:24-0400 Body height 160 cm Marvin Cason DO Work Phone: [facility] 11-05-2022 15:24-0400 Body mass index (BMI) [Ratio] 27.14 kg/m2 Marvin Cason DO Work Phone: [facility] 11-05-2022 15:24-0400 Body temperature 97.5 [degF] Marvin Cason DO Work Phone: [facility] 11-05-2022 15:24-0400 Body weight 69.49 kg Marvin Cason DO Work Phone: [facility] 11-05-2022 15:24-0400 Diastolic blood pressure 86 mm[Hg] Marvin Cason DO Work Phone: [facility] 11-05-2022 15:24-0400 Heart rate 66 /min Marvin Cason DO Work Phone: [facility] 11-05-2022 15:24-0400 SaO2% (BldA) [Mass fraction] 98 % Marvin Cason DO Work Phone: [facility] 11-05-2022 15:24-0400 Systolic blood pressure 125 mm[Hg] Marvin Cason DO Work Phone: [facility] 09-30-2022 14:08-0400 Diastolic blood pressure 80 mm[Hg] Chica Bridenthal INFRASTRUCTURE TECHNICIAN - FORMAT PROOFREADER Work Phone: [facility] 09-30-2022 14:08-0400 Heart rate 68 /min Chica Bridenthal INFRASTRUCTURE TECHNICIAN - FORMAT PROOFREADER Work Phone: [facility] 09-30-2022 14:08-0400 Systolic blood pressure 130 mm[Hg] Chica Bridenthal INFRASTRUCTURE TECHNICIAN - FORMAT PROOFREADER Work Phone: [facility] 09-30-2022 13:48-0400 Body mass index (BMI) [Ratio] 26.18 kg/m2 Chica Bridenthal INFRASTRUCTURE TECHNICIAN - FORMAT PROOFREADER Work Phone: [facility] 09-30-2022 13:48-0400 Body temperature 97.5 [degF] Chica Bridenthal INFRASTRUCTURE TECHNICIAN - FORMAT PROOFREADER Work Phone: [facility] 09-30-2022 13:48-0400 Body weight 67.04 kg Chica Bridenthal INFRASTRUCTURE TECHNICIAN - FORMAT PROOFREADER Work Phone: [facility] 09-30-2022 13:48-0400 Respiratory rate 20 /min Chica Bridenthal INFRASTRUCTURE TECHNICIAN - FORMAT PROOFREADER Work Phone: [facility] 06-12-2022 07:54-0400 Body height 160 cm Marvin Cason DO Work Phone: [facility] 06-12-2022 07:54-0400 Body mass index (BMI) [Ratio] 26.93 kg/m2 Marvin Dotyjosh DO Work Phone: [facility] 06-12-2022 07:54-0400 Body temperature 97.3 [degF] Marvin Cason DO Work Phone: [facility] 06-12-2022 07:54-0400 Body weight 68.95 kg Marvin Cason DO Work Phone: [facility] 06-12-2022 07:54-0400 Diastolic blood pressure 65 mm[Hg] Marvin Cason DO Work Phone: [facility] 06-12-2022 07:54-0400 Heart rate 71 /min Marvin Cason DO Work Phone: [facility] 06-12-2022 07:54-0400 SaO2% (BldA) [Mass fraction] 98 % Marvin Cason DO Work Phone: [facility] 06-12-2022 07:54-0400 Systolic blood pressure 117 mm[Hg] Marvin Cason DO Work Phone: [facility] 05-30-2022 12:19-0500 Body height 161.9 cm Veronica Mena MD Work Phone: [facility] 05-30-2022 12:19-0500 Body mass index (BMI) [Ratio] 28.54 kg/m2 Veronica Mena MD Work Phone: [facility] 05-30-2022 12:19-0500 Body weight 74.84 kg Veronica Mena MD Work Phone: [facility] 05-30-2022 12:19-0500 Diastolic blood pressure 83 mm[Hg] Veronica Mena MD Work Phone: [facility] 05-30-2022 12:19-0500 Heart rate 60 /min Veronica Mena MD Work Phone: [facility] 05-30-2022 12:19-0500 Systolic blood pressure 139 mm[Hg] Veronica Mena MD Work Phone: [facility] 05-09-2022 06:42-0500 Body height 160 cm Nigel Corado MD Work Phone: [facility] [facility] 05-09-2022 06:42-0500 Body mass index (BMI) [Ratio] 27.21 kg/m2 Nigel Corado MD Work Phone: [employer] 05-09-2022 06:42-0500 Body weight 69.67 kg Nigel Corado MD Work Phone: [employer] 05-09-2022 06:42-0500 Diastolic blood pressure 74 mm[Hg] Nigel Corado MD Work Phone: [employer] 05-09-2022 06:42-0500 Heart rate 99 /min Nigel Corado MD Work Phone: [employer] 05-09-2022 06:42-0500 Systolic blood pressure 107 mm[Hg] Nigel Corado MD Work Phone: [employer] 04-25-2022 10:53-0500 Body height 160 cm Marvin Cason DO Work Phone: [employer] 04-25-2022 10:53-0500 Body mass index (BMI) [Ratio] 27.46 kg/m2 Marvin Griffina DO Work Phone: [employer] 04-25-2022 10:53-0500 Body temperature 97.11 [degF] Marvin Griffina DO Work Phone: [employer] 04-25-2022 10:53-0500 Body weight 70.31 kg Marvin Griffina DO Work Phone: [employer] 04-25-2022 10:53-0500 Diastolic blood pressure 75 mm[Hg] Marvin Griffina DO Work Phone: [employer] 04-25-2022 10:53-0500 Heart rate 67 /min Marvin Griffina DO Work Phone: [employer] 04-25-2022 10:53-0500 SaO2% (BldA) [Mass fraction] 99 % Marvin Griffina DO Work Phone: [employer] 04-25-2022 10:53-0500 Systolic blood pressure 117 mm[Hg] Marvin Griffina DO Work Phone: [employer] 04-16-2022 08:04-0500 Diastolic blood pressure 64 mm[Hg] Chica Bridenthal INFRASTRUCTURE TECHNICIAN - FORMAT PROOFREADER Work Phone: [employer] 04-16-2022 08:04-0500 Heart rate 84 /min Chica Bridenthal INFRASTRUCTURE TECHNICIAN - FORMAT PROOFREADER Work Phone: [employer] 04-16-2022 08:04-0500 Respiratory rate 16 /min Chica Bridenthal INFRASTRUCTURE TECHNICIAN - FORMAT PROOFREADER Work Phone: [employer] 04-16-2022 08:04-0500 SaO2% (BldA) [Mass fraction] 98 % Chica Bridenthal INFRASTRUCTURE TECHNICIAN - FORMAT PROOFREADER [facility] 04-16-2022 08:04-0500 Systolic blood pressure 102 mm[Hg] Chica Bridenthal INFRASTRUCTURE TECHNICIAN - FORMAT PROOFREADER Work Phone: [facility] [employer] 10-14-2019 08:51-0400 Body Temperature 97.7 [degF] [place] [employer] [place] 10-14-2019 08:51-0400 BP Diastolic 88 mm[Hg] [place] [employer] [place] 10-14-2019 08:51-0400 BP Systolic 133 mm[Hg] [place] [employer] [place] 10-14-2019 08:51-0400 Pulse (Heart Rate) 95 /min [place] 10-14-2019 08:51-0400 Pulse Oximetry 96 % [place] [employer] [place] 10-14-2019 08:51-0400 Respiratory Rate 18 /min [place] [employer] [place] 10-13-2019 07:03-0400 BMI (Body Mass Index) 29.23 kg/m2 [place] [employer] [place] 10-13-2019 07:03-0400 Body weight 74.84 kg [place] [employer] [place] 10-13-2019 07:03-0400 Height 160 cm [place] [employer] [place] NEGATED: Highlighted [id number] 08:09-0400 BMI (Body Mass Index) 24.36 kg/m2 Gwendolyn Castro RN [facility] Work Phone: NEGATED: Highlighted [id number] 08:09-0400 BP Diastolic 85 mm[Hg] Gwendolyn Castro RN [facility] Work Phone: NEGATED: Highlighted [id number] 08:09-0400 BP Systolic 137 mm[Hg] Gwendolyn Castro RN [facility] Work Phone: NEGATED: Highlighted [id number] 08:09-0400 Height 160.02 cm Gwendolyn Castro RN [facility] Work Phone: NEGATED: Highlighted [id number] 08:09-0400 Height 160 cm Gwendolyn Castro RN [facility] Work Phone: NEGATED: Highlighted [id number] 08:09-0400 Pulse (Heart Rate) 76 /min Gwendolyn Castro RN [facility] Work Phone: NEGATED: Highlighted [id number] 08:09-0400 Weight 62.14 kg Gwendolyn Castro RN [facility] Work Phone: NEGATED: Highlighted [id number] 08:09-0400 Weight 62 kg Gwendolyn Castro RN [facility] Work Phone: Encounters Encounter Date Encounter Type Care Provider Facility Start: 12-19-2024 End: 12-19-2024 Patient encounter procedure Scotty Priest [facility] Work Phone: Start: 12-19-2024 End: 12-19-[address] Good Moya DO Work Phone: [facility] Start: 11-03-2024 End: 11-03-2024 Orders Only Marvin Cason DO Work Phone: [facility] Start: 09-01-2024 End: 09-01-2024 Office outpatient visit 15 minutes Anahi Bravo MD Work Phone: [facility] Comment on above: Cervical radiculopat hy (Primary Dx); Neck pain; Cervical spondylosis Start: 09-01-2024 End: 09-01-2024 ambulatory [facility] Start: 06-17-2024 End: 06-17-2024 Subsequent hospital visit by physician Maria Cardoso INFRASTRUCTURE TECHNICIAN - FORMAT PROOFREADER Work Phone: [facility] Comment on above: Cervical radiculopat hy Start: 06-17-2024 End: 06-17-2024 ambulatory [facility] Start: 05-25-2024 End: 05-25-2024 Orders Only Veronica Mena MD Work Phone: [facility] [employer] Comment on above: Surveillance of cont raceptive pill Start: 05-17-2024 ambulatory Health Risk Assessment Facility:[facility] Start: 05-11-2024 End: 05-11-2024 ambulatory [facility] Start: 05-11-2024 End: 05-11-2024 Office outpatient visit 25 minutes Marvin Cason DO Work Phone: [facility] Comment on above: Anxiety and depressi on (Primary Dx); History of migraine; Cervical radiculopathy; Shoulder impingement syndrome, left; Rosacea; Hypercholesterolemia; Dermatofibroma; Allergic rhinitis due to pollen, unspecified seasonality; Tinnitus of right ear Start: 05-06-2024 End: 05-06-2024 ambulatory Anahi Bravo MD Work Phone: [facility] Comment on above: Cervical radiculopat hy (Primary Dx) Start: 04-29-2024 End: 04-29-2024 Follow-up encounter Anahi Bravo MD Work Phone: [facility] Comment on above: Cervical radiculopat hy (Primary Dx) Start: 04-29-2024 End: 04-29-2024 ambulatory [facility] Start: 04-15-2024 End: 04-15-2024 ambulatory [facility] Start: 04-15-2024 End: 04-15-2024 Follow-up encounter Jaspal Erickson PT [facility] Comment on above: Cervical radiculopat hy (Primary Dx); Cervicalgia Start: 04-15-2024 End: 04-15-2024 ambulatory [facility] Start: 04-08-2024 End: 04-08-2024 ambulatory Anahi Bravo MD Work Phone: [facility] Comment on above: Cervical radiculopat hy Start: 03-30-2024 End: 03-30-2024 Orders Only Maria Alejandra Lee PA-C Work Phone: [facility] [place] Comment on above: Chronic right should er pain (Primary Dx); Impingement syndrome of shoulder, right Start: 03-24-2024 End: 03-24-2024 ambulatory [facility] Start: 03-24-2024 End: 03-24-2024 Office outpatient visit 25 minutes Anahi Bravo MD Work Phone: [facility] [place] Comment on above: Neck pain (Primary D x); Cervical radiculopathy; Cervical spondylosis Start: 03-08-2024 End: 03-08-2024 ambulatory [facility] Start: 03-08-2024 End: 03-08-2024 Subsequent hospital visit by physician Maria Del Valle CNP Work Phone: [facility] Comment on above: Neck pain; Radiculopathy of cervical region; Cervical spondylosis Start: 03-04-2024 End: 03-04-2024 ambulatory Maria Alejandra Lee PA-C Work Phone: [facility] Comment on above: Impingement syndrome of shoulder, right (Primary Dx); Cervicalgia Start: 03-03-2024 End: 03-03-2024 Office outpatient visit 25 minutes Maria Del Valle CNP Work Phone: [facility] Comment on above: Neck pain (Primary D x); Radiculopathy of cervical region; Cervical spondylosis Start: 03-03-2024 End: 03-03-2024 ambulatory [facility] Start: 02-19-2024 End: 02-19-2024 ambulatory [facility] Start: 02-19-2024 End: 02-19-2024 Follow-up encounter Jaspal Erickson PT [facility] Comment on above: Impingement syndrome of shoulder, right (Primary Dx); Cervicalgia Start: 02-05-2024 End: 02-05-2024 Telephone encounter Maria Alejandra Lee PA-C Work Phone: [facility] [place] Start: 02-05-2024 End: 02-05-2024 Follow-up encounter Maria Alejandra Lee PA-C Work Phone: [facility] Comment on above: Impingement syndrome of shoulder, right (Primary Dx); Cervicalgia Start: 02-05-2024 End: 02-05-2024 ambulatory [facility] Start: 01-25-2024 End: 01-25-2024 ambulatory Maria Alejandra Lee PA-C Work Phone: [facility] Comment on above: Impingement syndrome of shoulder, right; Cervicalgia Start: 01-08-2024 End: 01-08-2024 Office outpatient visit 15 minutes Maria Alejandra Lee PA-C Work Phone: [facility] Comment on above: Impingement syndrome of shoulder, right (Primary Dx) Start: 01-08-2024 End: 01-08-2024 ambulatory [facility] Start: 12-18-2023 End: 12-18-2023 ambulatory Maria Alejandra CARUSO-C Work Phone: [facility] Comment on above: Impingement syndrome of shoulder, right (Primary Dx) Start: 12-11-2023 End: 12-11-2023 ambulatory [facility] Start: 12-11-2023 End: 12-11-2023 Follow-up encounter Maria Alejandra CARUSO-C Work Phone: [facility] Comment on above: Impingement syndrome of shoulder, right (Primary Dx) Start: 12-04-2023 End: 12-04-2023 ambulatory [facility] Start: 12-04-2023 End: 12-04-2023 Follow-up encounter Maria Alejandra CARUSO-Kathi Work Phone: [facility] Comment on above: Impingement syndrome of shoulder, right (Primary Dx) Start: 11-27-2023 End: 11-27-2023 ambulatory [facility] Start: 11-27-2023 End: 11-27-2023 Follow-up encounter Maria Alejandra CARUSO-C Work Phone: [facility] Comment on above: Impingement syndrome of shoulder, right (Primary Dx) Start: 11-20-2023 End: 11-20-2023 ambulatory Maria Alejandra Lee PA-C Work Phone: [facility] Comment on above: Impingement syndrome of shoulder, right Start: 11-13-2023 End: 11-13-2023 Office outpatient visit 15 minutes Maria Alejandra Lee PA-C Work Phone: [facility] Comment on above: Impingement syndrome of shoulder, right (Primary Dx); Chronic right shoulder pain Start: 11-13-2023 End: 11-13-2023 ambulatory MARVIN CASON [facility] Start: 11-09-2023 End: 11-09-2023 Telephone encounter Marvin Cason DO Work Phone: [facility] Comment on above: Orders (Ortho referr al ) Start: 11-05-2023 End: 11-05-2023 Subsequent hospital visit by physician Marvin Cason Work Phone: [facility] Radiology Comment on above: Chronic right should er pain Start: 11-05-2023 End: 11-05-2023 Office outpatient visit 15 minutes Marvin Cason DO Work Phone: [facility] Comment on above: Anxiety and depressi on (Primary Dx); History of migraine; Chronic right shoulder pain Start: 11-01-2023 End: 11-02-2023 Refill Marvin Cason DO Work Phone: [facility] Start: 09-08-2023 End: 09-08-2023 Orders Only Marvin Cason DO Work Phone: [facility] Comment on above: Seasonal allergies ( Primary Dx) Start: 07-09-2023 End: 07-09-2023 Clinical Support [facility] Comment on above: Seasonal allergies Start: 06-30-2023 Orders Only Marvin moreno DO Work Phone: [facility] Comment on above: Allergic rhinitis du e to other allergic trigger, unspecified seasonality (Primary Dx) Start: 06-26-2023 Orders Only Marvin moreno DO Work Phone: [facility] Start: 06-05-2023 End: 06-05-2023 Patient encounter status Veronica Mena MD Work Phone: [facility] [employer] Work Phone: Start: 06-05-2023 End: 06-05-2023 Periodic preventive med est patient 18-39 yrs Veronica Mena MD Work Phone: [facility] Comment on above: Encounter for gyneco logical examination without abnormal finding (Primary Dx); Surveillance of contraceptive pill Start: 05-07-2023 End: 05-07-2023 Patient encounter procedure Marvin Tinoco Gabydemetrio DO Work Phone: [facility] Start: 05-07-2023 End: 05-07-2023 Periodic preventive med est patient 18-39 yrs Marvin Tinoco Gabydemetrio DO Work Phone: [facility] Comment on above: Annual physical exam (Primary Dx); Oral contraceptive use; History of migraine; Anxiety and depression; Hypercholesterolemia Start: 04-01-2023 Orders Only Marvin Tinoco Parish moreno DO Work Phone: [facility] Start: 02-11-2023 Orders Only Marvin Tinoco Parish pickettdemetrio DO Work Phone: [facility] Start: 11-05-2022 End: 11-05-2022 Office outpatient visit 25 minutes Marvin Tinoco Gabydemetrio DO Work Phone: [facility] Comment on above: Slow transit constip ation (Primary Dx); Hair loss; Anxiety and depression Start: 10-24-2022 Orders Only Marvin Tinoco [place] pickettdemetrio DO Work Phone: [facility] Comment on above: Alopecia (Primary Dx ) Start: 09-30-2022 End: 09-30-2022 Office outpatient visit 15 minutes Chica Stephens INFRASTRUCTURE TECHNICIAN - FORMAT PROOFREADER Work Phone: [facility] Comment on above: Poison liv dermatiti s (Primary Dx) Start: 06-13-2022 Orders Only Marvin Tinoco Parish picketta DO Work Phone: [facility] Start: 06-12-2022 Telephone encounter Marvin Earnest Moose menezes DO Work Phone: [facility] Comment on above: Orders (MRI Brain) Start: 06-12-2022 End: 06-12-2022 Office outpatient visit 15 minutes Marvin Earnest Yoav DO Work Phone: [facility] Comment on above: Expressive aphasia ( Primary Dx); Scintillating scotoma of both eyes; Migraine with visual aura Start: 05-30-2022 End: 05-30-2022 Patient encounter status Veronica Mena MD Work Phone: [facility] Start: 05-30-2022 End: 05-30-2022 Periodic preventive med est patient 18-39 yrs Veronica Mena MD Work Phone: [facility] Comment on above: 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) w/o abn findings (Primary Dx); Encounter for surveillance of contraceptive pills Start: 05-09-2022 End: 05-09-2022 Office outpatient visit 15 minutes Nigel Corado MD Work Phone: [facility] Comment on above: Viral pharyngitis (P rimary Dx) Start: 04-25-2022 End: 04-25-2022 Patient encounter procedure Marvin Earnest Yoav DO Work Phone: [facility] Start: 04-25-2022 End: 04-25-2022 Periodic preventive med est patient 18-39 yrs Marvin Tinoco Yoav DO Work Phone: [facility] Comment on above: Annual physical exam (Primary Dx); Anxiety and depression; Lipid screening; Diabetes mellitus screening; Family history of coronary artery disease in father Start: 04-21-2022 Refill Marvin Earnest Parish moreno DO Work Phone: [facility] Start: 04-16-2022 End: 04-16-2022 Office outpatient visit 10 minutes Chica Stephens APRN - KAYLA Work Phone: [facility] Comment on above: Viral URI (Primary D x) Start: 04-08-2022 Refill Marvin Earnest Parish moreno DO Work Phone: [facility] Start: 04-07-2022 Refill Veronica Mena MD Work Phone: [facility] [place] GENERAL OPERATIONS MANAGER Start: 04-06-2022 ambulatory Awa Salas RN [facility] Cl inical Communication Start: 04-06-2022 Patient encounter procedure [facility] Start: 10-13-2019 End: 10-14-2019 Evaluation and management of inpatient Calos Monroe Work Phone: [facility] Start: 12-31-2017 End: 12-31-2017 Patient encounter procedure Edu Bridges MD Work Phone: [facility] Work Phone: Procedures Date Procedure Procedure Detail Performing Clinician Start: 09-01-2024 Follow-up visit Follow-up ANAHI BRAVO Start: 05-11-2024 Lipid 1996 panel - S godwin or Plasma Veronica Mena MD Work Phone: Start: 11-05-2023 Radex shoulder compl ete minimum 2 views Marvin Cason DO Work Phone: Start: 05-07-2023 Lipid 1996 panel - S godwin or Plasma Marvin Cason DO Work Phone: Start: 05-09-2022 Iaadiadoo streptococ cus group a Nigel Corado MD Work Phone: Start: 05-09-2022 Lipid 1996 panel - S godwin or Plasma Veronica Mena MD Work Phone: Start: 03-29-2021 Microscopic observat ion [Identifier] in Cervix by Cyto stain Marvin Cason DO Work Phone: Start: 10-13-2019 Creatinine other source Cordelia Sampsonpoole Work Phone: Start: 10-13-2019 Protein total xcpt refractometry urine Cordelia Sampsonpoole Work Phone: Start: 10-13-2019 Comprehensive metabo lic panel Cordelia Verdugo Claypoole Work Phone: Start: 10-13-2019 Blood count complete automated Selene Kontarovich Work Phone: Start: 10-13-2019 L&D/ T&S HOLD Selene Jorgeshabbiryanna Work Phone: Start: 12-31-2017 End: 12-31-2017 Blood pressure within normal parameters - no follow-up required Edu Bridges MD Work Phone: Start: 12-31-2017 End: 12-31-2017 BMI documented within normal parameters - no follow-up plan is required Edu Bridges MD Work Phone: Start: 12-31-2017 End: 12-31-2017 Current medications documented Edu Bridges MD Work Phone: Start: 12-31-2017 End: 12-31-2017 Pain assessment documented as negative - follow-up not required Edu Bridges MD Work Phone: Start: 12-31-2017 End: 12-31-2017 Tobacco non-user Edu Bridges MD Work Phone: Plan of Treatment Date Care Activity Detail Author Start: 2064 RSV Immunization for Adults (1 - 1-dose 75+ series) RSV Immunization for Adults (1 - 1-dose 75+ series) [facility] Start: 2049 RSV Immunization aged 60 or older (1 - 1-dose 60+ series) RSV Immunization aged 60 or older (1 - 1-dose 60+ series) [facility] Start: 10-08-2039 Zoster Vaccines (1 of 2) Zoster Vaccines (1 of 2) [facility] Start: 08-10-2029 DTaP/Tdap/Td Vaccines (6 - Td or Tdap) DTaP/Tdap/Td Vaccines (6 - Td or Tdap) [facility] Start: 05-11-2029 Lipid panel Lipid Panel [facility] Start: 05-07-2028 Lipid panel Lipid Panel [facility] Start: 05-09-2027 Lipid panel Lipid Panel [facility] Start: 03-29-2026 Screening for malignant neoplasm of cervix [facility] Start: 12-19-2024 [facility] Start: 11-21-2024 Influenza vaccination Influenza Vaccine (#1) [facility] Start: 11-09-2024 End: 11-09-2024 Patient encounter procedure 11/09/2024 8:00 AM EDT Office Visit [facility] [place] [address] [place] [address] Gabydemetrio Marvin Tinoco DO [address] [place] [address] [facility] [place] Start: 11-07-2024 Depression Monitoring Depression Monitoring [facility] Start: 06-10-2024 End: 06-10-2024 Patient encounter procedure [facility] Start: 06-07-2024 End: 06-07-2024 Patient encounter procedure 06/07/2024 7:30 AM EDT Appointment [facility] Neuro [address] [place] [address] Maria Cardoso APRN - FORMAT PROOFREADER [address] [place] [id number] [facility] Start: 05-11-2024 End: 05-11-2025 CBC W Auto Differential panel - Blood CBC auto differential Lab Routine Anxiety and depression Expected: 05/11/2024 (Approximate), Expires: 05/11/2025 [facility] Work Phone: Comment on above: Expected: 05/11/2024 (Approximate), Expi res: 05/11/2025 Start: 05-11-2024 End: 05-11-2025 Comprehensive metabolic 1998 panel - Serum or Plasma Comprehensive metabolic panel Lab Routine Anxiety and depression Expected: 05/11/2024 (Approximate), Expires: 05/11/2025 [facility] Comment on above: Expected: 05/11/2024 (Approximate), Expi res: 05/11/2025 Start: 05-11-2024 End: 05-11-2025 Lipid 1996 panel - Serum or Plasma Lipid panel Lab Routine Hypercholesterolemia Expected: 05/11/2024 (Approximate), Expires: 05/11/2025 [facility] Comment on above: Expected: 05/11/2024 (Approximate), Expi res: 05/11/2025 Start: 05-11-2024 End: 05-11-2024 Patient encounter procedure [facility] Start: 05-06-2024 End: 05-06-2024 ambulatory 05/06/2024 1:00 PM EST Evaluation [facility] [address] [place] [phone] Jaspal Erickson, PT [facility] Start: 04-29-2024 End: 04-29-2024 Follow-up encounter 04/29/2024 1:00 PM EST Follow-Up [facility] [address] [place] [phone] Jaspal Erickson, PT [facility] Start: 04-22-2024 End: 04-22-2024 Follow-up encounter 04/22/2024 12:45 PM EST Follow-Up [facility] [address] [place] [phone] April Finley, PT [facility] Start: 04-15-2024 End: 04-15-2024 Patient encounter procedure 04/15/2024 4:00 PM EST Appointment [facility] [address] [place] [phone] Maria Alejandra Lee PA-C [address] [place] [id number] [facility] Start: 04-15-2024 End: 04-15-2024 Follow-up encounter 04/15/2024 1:00 PM EST Follow-Up [facility] [address] [place] [phone] Jaspal Erickson, PT [facility] Start: 04-08-2024 End: 04-08-2024 ambulatory 04/08/2024 7:00 AM EST Evaluation [facility] [address] [place] [phone] Anahi Bravo MD [address] [facility] [address] [place] [address] Jaspal Erickson, PT [facility] Start: 03-30-2024 End: 03-30-2025 MR Shoulder - right WO contrast MR shoulder right wo IV contrast Imaging Routine Impingement syndrome of shoulder, right Chronic right shoulder pain Expected: 03/30/2024, Expires: 03/30/2025 [facility] Work Phone: Comment on above: Expected: 03/30/2024, Expires: Start: 03-29-2024 Screening for malignant neoplasm of cervix Pap Smear [facility] Start: 03-24-2024 End: 03-24-2024 Patient encounter procedure 03/24/2024 8:30 AM EST Office Visit [address] [place] [phone] Anahi Bravo MD [address] [facility] [address] [place], [place] [id number] [facility] Start: 03-04-2024 End: 03-04-2024 ambulatory 03/04/2024 1:00 PM EST Evaluation [facility] [address] [place] [address] Maria Alejandra Lee PA-C [address] [facility] [address] [place], [place] [id number] April Finley, PT [facility] Start: 03-03-2024 End: 03-03-2025 MR Cervical spine WO contrast MR cervical spine wo contrast Imaging Routine Neck pain Radiculopathy of cervical region Cervical spondylosis Expected: 03/03/2024, Expires: 03/03/2025 [facility] Work Phone: Comment on above: Expected: 03/03/2024, Expires: Start: 02-26-2024 End: 02-26-2024 ambulatory 02/26/2024 1:00 PM EST Evaluation [facility] [address] [place] [phone] Jaspal Erickson, PT [facility] Start: 02-19-2024 End: 02-19-2024 Follow-up encounter 02/19/2024 9:30 AM EST Follow-Up [facility] [address] [place] [phone] Jaspal Erickson, PT [facility] Start: 02-12-2024 End: 02-12-2024 Follow-up encounter 02/12/2024 1:00 PM EST Follow-Up [facility] [address] [place] [phone] Jaspal Erickson, PT [facility] Start: 02-05-2024 End: 02-05-2024 Follow-up encounter 02/05/2024 1:00 PM EST Follow-Up [facility] [address] [place] [phone] Jaspal Erickson, PT [facility] Start: 01-25-2024 End: 01-25-2024 ambulatory 01/25/2024 7:00 AM EST Evaluation [facility] at [address] [place] [phone] Maria Alejandra Lee PA-C [address] [address] [place] [address] Jaspal Erickson, PT [facility] Start: 01-08-2024 End: 01-08-2024 Patient encounter procedure [facility] Start: 12-18-2023 End: 12-18-2023 ambulatory 12/18/2023 1:00 PM EDT Evaluation [facility] at [address] [place] [address] Maria Alejandra Lee PA-C [address] [place] [address] Jaspal Erickson, PT [facility] Start: 12-11-2023 End: 12-11-2023 Follow-up encounter 12/11/2023 1:00 PM EDT Follow-Up [facility] at [address] [place] [phone] Maria Alejandra Lee PA-C [address] [place] [address] Jaspal Erickson, PT [facility] Start: 12-04-2023 End: 12-04-2023 Follow-up encounter 12/04/2023 12:30 PM EDT Follow-Up [facility] at [address] [place] [address] Maria Alejandra Lee PA-C [address] [place] [address] Jaspal Erickson, PT [facility] Start: 11-27-2023 End: 11-27-2023 Follow-up encounter 11/27/2023 8:30 AM EDT Follow-Up [facility] at [address] [place] [address] Maria Alejandra Lee PA-C [address] [place] [address] Jaspal Erickson, PT [facility] Start: 11-22-2023 COVID-19 Vaccine ( season) COVID-19 Vaccine ( season) [facility] Start: 11-22-2023 COVID-19 Vaccine () COVID-19 Vaccine () [facility] Start: 11-22-2023 Influenza vaccination Influenza Vaccine (#1) [facility] Start: 11-05-2023 End: 11-04-2024 XR Shoulder - right 2 Views [facility] Work Phone: Comment on above: Expected: 11/05/2023, Expires: Start: 11-05-2023 End: 11-05-2023 Patient encounter procedure 11/05/2023 7:00 AM EDT Office Visit [facility] [address] [place] [address] Marvin Cason, [address] [place] [address] [facility] Start: 09-10-2023 End: 09-10-2023 Clinical Support 09/10/2023 9:20 AM EDT Clinical Support [facility] [address] [place] [address] [facility] Start: 06-30-2023 End: 06-29-2024 ALLERGEN, REGION 5 RESPIRATORY PANEL ALLERGEN, REGION 5 RESPIRATORY PANEL Lab Routine Allergic rhinitis due to other allergic trigger, unspecified seasonality Expected: 06/30/2023 (Approximate), Expires: 06/29/2024 [facility] Work Phone: Comment on above: Expected: 06/30/2023 (Approximate), Expi res: 06/29/2024 Start: 06-05-2023 End: 06-05-2023 Patient encounter procedure [facility] Start: 05-07-2023 End: 05-07-2024 Comprehensive metabolic 1998 panel - Serum or Plasma Comprehensive metabolic panel Lab Routine Annual physical exam Hypercholesterolemia Expected: 05/07/2023 (Approximate), Expires: 05/07/2024 [facility] [employer] Work Phone: Comment on above: Expected: 05/07/2023 (Approximate), Expi res: 05/07/2024 Start: 05-07-2023 End: 05-07-2024 Lipid 1996 panel - Serum or Plasma Lipid panel Lab Routine Annual physical exam Hypercholesterolemia Expected: 05/07/2023 (Approximate), Expires: 05/07/2024 [facility] Comment on above: Expected: 05/07/2023 (Approximate), Expi res: 05/07/2024 Start: 05-07-2023 End: 05-07-2023 Patient encounter procedure [facility] Family [facility] Start: 11-21-2022 COVID-19 Vaccine ( season) COVID-19 Vaccine () [facility] Start: 11-21-2022 Influenza vaccination Influenza Vaccine (#1) [facility] Start: 11-05-2022 End: 11-05-2022 Patient encounter procedure [facility] Start: 11-05-2022 End: 11-06-2023 CBC W Auto Differential panel - Blood CBC auto differential Lab Routine Slow transit constipation Expected: 11/05/2022 (Approximate), Expires: 11/06/2023 [facility] [employer] Work Phone: Comment on above: Expected: 11/05/2022 (Approximate), Expi res: 11/06/2023 Start: 11-05-2022 End: 11-06-2023 Comprehensive metabolic 1998 panel - Serum or Plasma Comprehensive metabolic panel Lab Routine Slow transit constipation Expected: 11/05/2022 (Approximate), Expires: 11/06/2023 [facility] [employer] Comment on above: Expected: 11/05/2022 (Approximate), Expi res: 11/06/2023 Start: 10-24-2022 End: 10-25-2023 Thyrotropin [Units/volume] in Serum or Plasma [facility] Comment on above: Expected: 10/24/2022 (Approximate), Expi res: 10/25/2023 Start: 10-24-2022 End: 10-25-2023 Triiodothyronine (T3) [Mass/volume] in Serum or Plasma T3 Lab Routine Alopecia Expected: 10/24/2022 (Approximate), Expires: 10/25/2023 [employer] Work Phone: Comment on above: Expected: 10/24/2022 (Approximate), Expi res: 10/25/2023 Start: 05-30-2022 End: 05-30-2022 Patient encounter procedure 05/30/2022 Office Visit Obstetrics and Gynecology Veronica Mena MD [address] [place] [address] [address] [place] [address] [facility] [place] GENERAL OPERATIONS MANAGER Start: 04-25-2022 End: 04-25-2023 Glucose [Mass/volume] in Serum or Plasma Glucose, Random Lab Routine Diabetes mellitus screening Expected: 04/25/2022 (Approximate), Expires: 04/25/2023 [employer] Work Phone: Comment on above: Expected: 04/25/2022 (Approximate), Expi res: 04/25/2023 Start: 04-25-2022 End: 04-25-2023 Lipid 1996 panel - Serum or Plasma Lipid panel Lab Routine Lipid screening Expected: 04/25/2022 (Approximate), Expires: 04/25/2023 [facility] Comment on above: Expected: 04/25/2022 (Approximate), Expi res: 04/25/2023 Start: 04-25-2022 End: 04-25-2022 Patient encounter procedure 04/25/2022 Office Visit Family Medicine Marvin Cason, DO [address] [place] [address] [facility] Start: 04-11-2022 End: 04-11-2022 Patient encounter procedure 04/11/2022 Office Visit Obstetrics and Gynecology Veronica Mena MD [address] [place] [address] [address] [place] [address] [facility] [place] GENERAL OPERATIONS MANAGER Start: 11-22-2019 Influenza vaccination Flu vaccine (#1) [place], [place] Start: 12-31-2017 End: 12-31-2017 Appointment Appointment [facility] Work Phone: Start: 2010 Screening for malignant neoplasm of cervix Cervical cancer screen [place], [place] Start: 2008 DTaP/Tdap/Td vaccine (1 - Tdap) DTaP/Tdap/Td vaccine (1 - Tdap) [place], [place] Start: 2004 HIV screening HIV screen [place], [place] Start: 2002 Varicella vaccination Varicella Vaccines (1 of 2 - 13+ 2-dose series) [facility] Start: 10-13-2001 Varicella vaccination Varicella Vaccines (1 of 2 - 2-dose childhood series) [facility] Start: 2001 Depression Monitoring Depression Monitoring [facility] Start: 2001 Depresssion Monitoring Depresssion Monitoring [facility] Start: 1990 Varicella vaccine (1 of 2 - 2-dose childhood series) Varicella vaccine (1 of 2 - 2-dose childhood series) [place], [place] Start: 04-09-1990 COVID-19 Vaccine (#1) COVID-19 Vaccine (#1) [facility] [employer] Start: 1989 Lipid panel Lipid Panel [facility] [employer] End: 03-08-2024 MR Cervical spine WO contrast [facility] [employer] Work Phone: Comment on above: Once for 1 Occurrences starting 03/08/20 24 until 03/08/2024 End: 06-17-2024 NERVE CONDUCTION TEST WITH EMG [facility] [employer] Work Phone: Comment on above: Once for 1 Occurrences starting 06/18/19 25 until 06/17/2024 Immunizations Immunization Date Immunization Notes Care Provider Fa cility 01-12-2024 influenza virus vaccine, unspecified formulation Marvin Cason DO Work Phone: [facility] 01-12-2024 Influenza, injectabl e, Madin Norma Canine Kidney, preservative free, quadrivalent Dr. Good Moya DO Work Phone: [facility] 01-14-2023 influenza virus vaccine, unspecified formulation Marvin Parishlla DO Work Phone: [facility] 01-17-2022 influenza, injectabl e, quadrivalent, preservative free Marvin Parishlla DO Work Phone: [facility] 01-17-2022 influenza virus vaccine, unspecified formulation Chica Stephens INFRASTRUCTURE TECHNICIAN - FORMAT PROOFREADER Work Phone: [facility] 01-16-2021 influenza virus vaccine, unspecified formulation Marvin Parishlla DO Work Phone: [facility] 01-16-2021 influenza, injectabl e, quadrivalent, contains preservative Marvin Parishlla DO Work Phone: [facility] 01-23-2020 influenza virus vaccine, unspecified formulation Marvin Parishlla DO Work Phone: [facility] 10-13-2019 diphtheria, tetanus toxoids and acellular pertussis vaccine, unspecified formulation [facility] [place] 10-13-2019 measles, mumps and rubella virus vaccine [facility] [place] 08-11-2019 tetanus toxoid, reduced diphtheria toxoid, and acellular pertussis vaccine, adsorbed Marvin Parishlla DO Work Phone: [facility] 12-26-2018 influenza virus vaccine, unspecified formulation Marvin Parishlla DO Work Phone: [facility] 12-20-2009 hepatitis B vaccine, pediatric or pediatric/adolescent dosage Marvin Petrilla DO Work Phone: [facility] 08-30-2009 hepatitis B vaccine, pediatric or pediatric/adolescent dosage Marvin Petrilla DO Work Phone: [facility] 02-26-2006 influenza, injectabl e, quadrivalent, contains preservative Marvin Parishlla DO Work Phone: [facility] 02-26-2006 influenza, seasonal, injectable Marvin Cason DO Work Phone: [facility] 05-13-2005 hepatitis B vaccine, pediatric or pediatric/adolescent dosage Marvin Cason DO Work Phone: [facility] 03-06-2005 hepatitis B vaccine, pediatric or pediatric/adolescent dosage Marvin Cason DO Work Phone: [facility] 01-23-2005 hepatitis B vaccine, pediatric or pediatric/adolescent dosage Marvin Cason DO Work Phone: [facility] 01-23-2005 pneumococcal polysaccharide vaccine, 23 valent Marvin Cason DO Work Phone: [facility] 01-06-2005 meningococcal polysaccharide (groups A, C, Y and W-135) diphtheria toxoid conjugate vaccine (MCV4P) Marvin Cason DO Work Phone: [facility] 09-15-2001 measles, mumps and rubella virus vaccine Marvin Cason DO Work Phone: [facility] 09-15-2001 tetanus toxoid, adsorbed Marvin Cason DO Work Phone: [facility] 08-21-1996 hepatitis B vaccine, pediatric or pediatric/adolescent dosage Marvin Cason DO Work Phone: [facility] 04-13-1992 diphtheria, tetanus toxoids and acellular pertussis vaccine, unspecified formulation Marvin Cason DO Work Phone: [facility] 04-13-1992 poliovirus vaccine, unspecified formulation Marvin Cason DO Work Phone: [facility] 01-04-1991 diphtheria, tetanus toxoids and acellular pertussis vaccine, unspecified formulation Marvin Cason DO Work Phone: [facility] 01-04-1991 haemophilus influenz ae type b vaccine, conjugate unspecified formulation Marvin Cason DO Work Phone: [facility] 01-04-1991 measles, mumps and rubella virus vaccine Marvin Cason DO Work Phone: [facility] 04-01-1990 diphtheria, tetanus toxoids and acellular pertussis vaccine, unspecified formulation Marvin Cason DO Work Phone: [facility] 04-01-1990 poliovirus vaccine, unspecified formulation Marvin Cason DO Work Phone: [facility] 01-29-1990 diphtheria, tetanus toxoids and acellular pertussis vaccine, unspecified formulation Marvin Cason DO Work Phone: [facility] 01-29-1990 poliovirus vaccine, unspecified formulation Marvin Parishlla DO Work Phone: [facility] 1989 diphtheria, tetanus toxoids and acellular pertussis vaccine, unspecified formulation Marvin Cason DO Work Phone: [facility] 1989 poliovirus vaccine, unspecified formulation Marvin Cason DO Work Phone: [facility] No information available. Gwendolyn Castro RN [facility] [employer] [facility] Work Phone: NEGATED: Highlighted row has not occurred!10-14-2019 measles, mumps and rubella virus vaccine [place], [place] NEGATED: Highlighted row has not occurred!10-14-2019 tetanus toxoid, reduced diphtheria toxoid, and acellular pertussis vaccine, adsorbed [place], [place] NEGATED: Highlighted row has not occurred!10-13-2019 tetanus toxoid, reduced diphtheria toxoid, and acellular pertussis vaccine, adsorbed [place], [place] Comment on above: Deferred: - had prio r per patient Payers Date Payer Category Payer Commercial Managed C are - PPO [employer] PPO [id number] 2024 Private Health Insurance [id number] 2024 Self-pay 2022 Commercial Managed C are - HMO [id number] 2022 Unknown [id number] 2021 Unknown [id number] 2015 Unknown [facility] [id number] 2015-Present [phone] [address] [place] [address] [id number] Unknown [id number] Unknown [id number] Social History Date Type Detail Facility Start: 12-31-2017 End: 12-31-2017 Assertion Unknown if ever smoked [facility] Work Phone: Start: 10-13-2019 Tobacco smoking stat [facility] Never smoker [facility] [employer] Start: 10-13-2019 Tobacco use and exposure Never used [facility] [employer] Start: 10-13-2019 End: 10-25-2021 Alcohol intake Ex-drinker (finding) [facility] [employer]omi Y Start: 1990 [facility] Start: 03-08-2022 End: 11-05-2022 Exposure to SARS-CoV-2 (event) Not sure [facility] Start: 06-12-2022 End: 09-01-2024 Alcohol intake Current drinker of alcohol (finding) [facility] [employer] Start: 06-12-2022 End: 05-02-2024 Alcohol intake [facility] Start: 07-08-2022 End: 05-02-2024 Tobacco use panel [facility] Start: 10-21-2021 Sex Female (finding) [facility] How often do you nee d to have someone help you when you read instructions, pamphlets, or other written material from your doctor or pharmacy [SILS] Never [facility] Has the [employer], or [employer] threatened to shut off services in your home in past 12Mo No [facility] Are you now , , , , never or living with a partner? [facility] How often to you hav e a drink containing alcohol? Monthly or less [facility] How many standard drinks containing alcohol do you have on a typical day? 1 or 2 [facility] How often do you hav e 6 or more drinks on 1 occasion? Never [facility] Do you feel stress - tense, restless, nervous, or anxious, or unable to sleep at night because your mind is troubled all the time - these days [OSQ] Only a little [facility] (I/We) worried wheth er (my/our) food would run out before (I/we) got money to buy more. Never true [facility] Start: 1990 Sex Assigned At Female [facility] Clinical Notes 04-06-2022 to 12-19-2024 Anahi Bravo MD - 09/01/2024 10:30 AM Arvin Pena MD - 06/17/2024 7:30 AM Arvin Pena MD - 06/17/2024 7:30 AM Marlyn Cason DO - 05/11/2024 7:00 AM ESTPatient Instructions Note Date & Type Note Facility 12-19-2024 Progress note [facility] 09-01-2024 History of Presen t illness Narrative Images from the original note were not included. [facility] [address] [facility] [address] Dept: [phone] Dept Patient was seen today via Telehealth by agreement and consent. I used the following Telehealth technology: Audio capability only. Patient location: Patient Location: Home. The patient has been advised of the potential risks and limitations of this mode of treatment (including but not limited to the absence of in-person examination) and has agreed to be treated in a remote fashion in spite of them. I spent 21 minutes on the phone with this patient. Any and all of the patient's/patient's family's questions on this issue have been answered and I have made no promises or guarantees to the patient. The patient has also been advised to contact this office for worsening conditions or problems, and seek emergency medical treatment and/or call 911 if the patient deems either necessary. The patient stated that they are currently in the [facility]. If the patient is a minor, permission has been obtained by the parent or guardian for the patient to receive medical care at this visit. Chief Complaint Patient presents with Follow-up Subjective Current symptoms: Neck and radiating right arm pain/numbness and tingling Changes since last visit: EMG PT Associated neurologic complaints: Gait/balance difficulty: at times due to slight dizziness Use of ambulatory aid?: no device Able to walk a city block: Yes Bowel/bladder incontinence: denies Urinary retention: No Saddle anesthesia: No Fine motor task difficulty/dropping things/handwriting changes: denies History of cancer: No Aggravating factors: constant Alleviating Factors: nothing Current Treatment: Diclofenac Robaxin Tobacco Use: Low Risk (09/01/2024) Patient History Smoking Tobacco Use: Never Smokeless Tobacco Use: Never Passive Exposure: Not on file Objective This was a virtual visit appointment. No vitals or in person physical exam obtained. Labs No results found for: HGBA1C Lab Results Component Value Date CREATININE 0.87 05/11/2024 Imaging The below images were independently reviewed and independently interpreted by myself. My interpretation is located in the assessment section of the note. Cervical MRI 03/08/2024 Findings: Multiplanar multisequence MRI images were obtained through the cervical spine without intravenous gadolinium. Straightening of the normal cervical lordosis. No significant spondylolisthesis. The cervical spine demonstrates has normal signal intensity. The vertebral body and disc heights are maintained. No abnormal cord signal intensity. Craniocervical and atlantoaxial articulations are within normal limits. C2-C3: No disc bulge or disc protrusion. No central spinal canal stenosis. No neural foraminal narrowing. C3-C4: No disc bulge or disc protrusion. No central spinal canal stenosis. No neural foraminal narrowing. C4-C5: 4 mm disc bulge, effacing the ventral thecal sac. Otherwise no central canal stenosis or neural foraminal narrowing. C5-C6: Tiny disc bulge, with a superimposed, mass effect producing 5 mm left lateral recess-neural foraminal disc protrusion (image 25 series 5 and image 10 series 301). Otherwise no central canal stenosis or neural foraminal narrowing. C6-C7: No disc bulge or disc protrusion. No central spinal canal stenosis. No neural foraminal narrowing. C7-T1: No disc bulge or disc protrusion. No central spinal canal stenosis. No neural foraminal narrowing. Impression: At C5-C6 there is a 5 mm mass effect producing left lateral recess-neural foraminal disc protrusion. -ADDENDUM #1 -------- Addendum: The report should state as follows. At C4-C5 there is no disc bulge or protrusion. No central canal stenosis or neural foraminal narrowing. At C5-C6 there is a 4 mm disc bulge, effacing the ventral thecal sac. Otherwise no central canal stenosis or neural foraminal narrowing. At C6-C7 Tiny disc bulge, with a superimposed, mass effect producing 5 mm left lateral recess-neural foraminal disc protrusion (image 25 series 5 and image 10 series 301). Otherwise no central canal stenosis or neural foraminal narrowing. EMG 06/17/2024 Interpretation: Nerve conduction studies and electromyography of both upper limbs were normal. There was no evidence of cervical motor radiculopathy or of peripheral neuropathy of any type, including carpal tunnel syndrome. Please note that, due to anatomic considerations, the ability of this testing to detect sensory radiculopathies is very limited. Clinical correlation is advised Assessment (M54.12) Cervical radiculopathy (M54.2) Neck pain (M47.812) Cervical spondylosis Plan Ms. Rae is a 33-year-old female presenting today for follow-up. Compared to her last visit her left upper extremity symptoms have resolved. Her biggest issue now is neck and radiating right arm pain/numbness and tingling. I once again independently reviewed her cervical MRI. Per my independent interpretation, there is no high-grade right-sided stenosis which would account for her right-sided symptoms. She also had an EMG/NCT performed which was normal. We discussed treatment options moving forward. At this point, she has tried medicines and therapy without lasting relief. Because of her persistent symptoms we did discuss trying a cervical epidural steroid injection through pain management. I would be happy to see her back after her injection to check her progress. Refer to Pain Management: MYLENE Follow up 2 to 3 weeks after injection Electronically signed by Anahi Bravo MD 09/01/2024 at 1:00 PM Please note that portions of this note may have been completed with voice recognition software. Documentation reviewed prior to signing but minor errors in logging equipment operator may have occurred. documented in this encounter [facility] 06-17-2024 Note Name: Maria Rae Date of : 1990 Referring clinician: EMANI Goodman A report of nerve conduction studies and electromyography of both upper extremities Date of service: June 17, 2024 Findings: Sensory nerve conduction studies disclosed normal response latencies and amplitudes in the median, ulnar and radial nerves bilaterally. With palmar stimulation, response latencies were normal in the median and ulnar nerves bilaterally, compared to both standard norms and each other. [id number] nerve thumb comparisons showed no significant differences between the ipsilateral median and radial nerve response latencies bilaterally. Motor nerve conduction studies disclosed normal distal latencies, response amplitudes and conduction velocities in the median nerves and in the ulnar nerves to both abductor digiti minimi and first dorsal interosseus bilaterally. Needle EMG examination disclosed normal spontaneous activity and voluntary motor unit potentials in the biceps, triceps, pronator teres, extensor indicis proprius and first dorsal interosseus bilaterally. Interpretation: Nerve conduction studies and electromyography of both upper limbs were normal. There was no evidence of cervical motor radiculopathy or of peripheral neuropathy of any type, including carpal tunnel syndrome. Please note that, due to anatomic considerations, the ability of this testing to detect sensory radiculopathies is very limited. Clinical correlation is advised. Toro Pena MD Location: Testing was conducted at [facility] as an outpatient. [facility] 06-17-2024 Procedure note Name: Maria Rae Date of : 1990 Referring clinician: EMANI Goodman A report of nerve conduction studies and electromyography of both upper extremities Date of service: June 17, 2024 Findings: Sensory nerve conduction studies disclosed normal response latencies and amplitudes in the median, ulnar and radial nerves bilaterally. With palmar stimulation, response latencies were normal in the median and ulnar nerves bilaterally, compared to both standard norms and each other. Bkjakk-ls-erjnja nerve thumb comparisons showed no significant differences between the ipsilateral median and radial nerve response latencies bilaterally. Motor nerve conduction studies disclosed normal distal latencies, response amplitudes and conduction velocities in the median nerves and in the ulnar nerves to both abductor digiti minimi and first dorsal interosseus bilaterally. Needle EMG examination disclosed normal spontaneous activity and voluntary motor unit potentials in the biceps, triceps, pronator teres, extensor indicis proprius and first dorsal interosseus bilaterally. Interpretation: Nerve conduction studies and electromyography of both upper limbs were normal. There was no evidence of cervical motor radiculopathy or of peripheral neuropathy of any type, including carpal tunnel syndrome. Please note that, due to anatomic considerations, the ability of this testing to detect sensory radiculopathies is very limited. Clinical correlation is advised. Toro Pena MD Location: Testing was conducted at [facility] as an outpatient. [facility] Work Phone: 06-17-2024 Procedure note Name: Maria Rae Date of : 1990 Referring clinician: EMANI Goodman A report of nerve conduction studies and electromyography of both upper extremities Date of service: June 17, 2024 Findings: Sensory nerve conduction studies disclosed normal response latencies and amplitudes in the median, ulnar and radial nerves bilaterally. With palmar stimulation, response latencies were normal in the median and ulnar nerves bilaterally, compared to both standard norms and each other. Pnpcyd-kr-wbhvik nerve thumb comparisons showed no significant differences between the ipsilateral median and radial nerve response latencies bilaterally. Motor nerve conduction studies disclosed normal distal latencies, response amplitudes and conduction velocities in the median nerves and in the ulnar nerves to both abductor digiti minimi and first dorsal interosseus bilaterally. Needle EMG examination disclosed normal spontaneous activity and voluntary motor unit potentials in the biceps, triceps, pronator teres, extensor indicis proprius and first dorsal interosseus bilaterally. Interpretation: Nerve conduction studies and electromyography of both upper limbs were normal. There was no evidence of cervical motor radiculopathy or of peripheral neuropathy of any type, including carpal tunnel syndrome. Please note that, due to anatomic considerations, the ability of this testing to detect sensory radiculopathies is very limited. Clinical correlation is advised. Toro Pena MD Location: Testing was conducted at [facility] as an outpatient. documented in this encounter [facility] 05-11-2024 History of Presen t illness Narrative Images from the original note were not included. [facility] - [address] [facility] [id number] Visit type: Established Patient Reason for Visit: Follow-up (Med check) Assessment / Plan: Maria was seen today for follow-up. Diagnoses and all orders for this visit: Anxiety and depression (Primary) Comments: Stable on Effexor Orders: - CBC auto differential; Future - Comprehensive metabolic panel; Future - CBC auto differential - Comprehensive metabolic panel History of migraine Comments: Stable on Maxalt as needed Cervical radiculopathy Comments: Resolving, conservative treatment discussed Shoulder impingement syndrome, left Rosacea Comments: Stable on doxycycline Hypercholesterolemia - Lipid panel; Future - Lipid panel Dermatofibroma Comments: Healing, follow-up with dermatology if necessary Allergic rhinitis due to pollen, unspecified seasonality Comments: Recurrent, Astelin and OTC Claritin as needed Tinnitus of right ear Comments: Trial of Astelin. ENT referral no better Other orders - venlafaxine XR (Effexor XR) 75 MG 24 hr capsule; Take 1 capsule (75 mg) by mouth daily for 180 doses. Do not crush or chew. - azelastine (Astelin) 0.1 % nasal spray; Administer 1 spray into each nostril 2 times daily. Use in each nostril as directed Subjective: Patient ID: Maria Rae is a 33 y.o. female. HPI patient with history of migraines, generalized anxiety and allergic rhinitis presents for overall checkup. Effexor has been very effective. Her daughter and are very well. 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 She does enjoy hunting in the fall and winter and did pretty well this year. However she states that she was carrying a large bag of corn to the deer feeder perhaps she hurt her neck and shoulder. Has had workup for cervical radiculopathy and right shoulder tendinitis. A round of physical therapy for both has been effective. She was taking some NSAIDs for a while but things are better. Rare use of Robaxin has been effective. Review of Systems has had right-sided tinnitus for a few months. History of allergic rhinitis and takes as needed nonsedating antihistamines. Some sense of nasal congestion and snoring. No purulent rhinorrhea or fever. She denies change in vision or speech. No significant loss of hearing. No unilateral numbness of the face arm or legs. No balance issues. MRI of the head a year and a half ago was unremarkable. It did show some sinus congestion in the frontal and ethmoid regions however. She had some allergy testing last year which showed some grass sensitivities. She does not cough or wheeze and never had any history of nasal polyps of her history of asthma. No change in bowels or bladder. Menses regular on control pill. She takes doxycycline for rosacea. Had a skin lesion on the back of her right calf for about 3 months. Perhaps a tick bite or some other insect bite. Was not terribly itchy painful or swollen. It is improving with first-aid care Allergies Allergen Reactions [place] Grass Runny nose Mixed Ragweed Runny nose Chalo Grass Pollen Allergen Runny nose Wound Dressing Adhesive Itching and Rash Current Outpatient Medications on File Prior to Visit Medication Sig Dispense Refill diclofenac (Voltaren) 75 MG EC tablet TAKE 1 TABLET BY MOUTH 2 TIMES DAILY. DO NOT CRUSH, CHEW, OR SPLIT 60 tablet 0 doxycycline (Monodox) 50 MG capsule hydrOXYzine HCl (Atarax) 25 MG tablet 1/2 or one tab bid prn anxiety 60 tablet 1 methocarbamol (Robaxin) 750 MG tablet Take 1 tablet (750 mg) by mouth 3 times daily as needed for muscle spasms. 90 tablet 0 metroNIDAZOLE (Metrocream) 0.75 % cream APPLY TO THE FULL FACE TWICE DAILY AFTER APPLYING TRIPLE ROSACEA CREAM. norethindrone (Micronor) 0.35 MG tablet Take 1 tablet (0.35 mg) by mouth daily. 84 tablet 4 rizatriptan PLASTICS SCIENTIST (Maxalt-PLASTICS SCIENTIST) 5 MG disintegrating tablet One stat and May repeat in 2 hours if unresolved. No more than 4 a week 9 tablet 1 [DISCONTINUED] venlafaxine XR (Effexor XR) 75 MG 24 hr capsule TAKE 1 CAPSULE (75 MG) BY MOUTH DAILY FOR 90 DOSES. DO NOT CRUSH OR CHEW. 90 capsule 1 No current facility-administered medications on file prior to visit. Patient Active Problem List Diagnosis Anxiety and depression History of migraine Oral contraceptive use Impingement syndrome of shoulder, right Rosacea Cervical radiculopathy Tinnitus aurium, right Social History Tobacco Use Smoking status: Never Smokeless tobacco: Never Substance Use Topics Alcohol use: Yes Alcohol/week: 2.0 standard drinks of alcohol Types: 2 Glasses of wine per week Past Surgical History: Procedure Laterality Date BREAST ENHANCEMENT SURGERY Bilateral 2019 WISDOM TOOTH EXTRACTION 2017 Family History Problem Relation Name Age of Onset Colon polyps Mother Maria 55 alive in 60s Rheum arthritis Father Doron Alcohol abuse Father Doron Hypertension Father Doron Coronary artery disease Father Doron 50 pacemaker, stents Lung cancer Father Doron 59 smoker Graves' disease Sister No Known Problems Sister Colon cancer Father's Brother Nirav Throat cancer Father's Brother Gunnar No Known Problems Maternal Grandmother No Known Problems Maternal Grandfather No Known Problems Paternal Grandmother Lung cancer Paternal Grandfather Ray Objective: BP 124/84 (BP Location: Right arm, Patient Position: Sitting, BP Cuff Size: Adult long) Pulse 88 Temp 36.4 C (97.5 F) (Temporal) Ht 5' 3 (1.6 m) Wt 164 lb (74.4 kg) SpO2 96% BMI 29.05 kg/m Physical Exam pupils equal and reactive to light. Extraocular muscles are intact. All cranial nerves are normal. All cerebellar testing is normal. Toes downgoing and no clonus. Gait is normal. Normal eardrums and oropharynx bilaterally. No effusion. There are some nasal narrowing on the right side of her sinuses. Oropharynx is clear. No hypertrophy or uvula or tonsillar remnant. No adenopathy or thyroid lesions. Reflexes symmetrical. Heart is regular. Lungs are clear. Abdomen unremarkable for pain hepatosplenomegaly or masses. Also has a healing dermatofibroma that is less than 1 cm on the posterior lateral aspect of the right calf. No worrisome features documented in this encounter [facility] 05-11-2024 Instructions Marvin Cason DO - 05/11/2024 7:00 AM EST Call if no improvement on the nasal spray in 1 month for possible ENT referral documented in this encounter [facility] 05-11-2024 Note Call if no improveme nt on the nasal spray in 1 month for possible ENT referral [facility] 05-06-2024 History of Presen t illness Narrative Images from the original note were not included. [facility] AT [address] [place] [address] Dept: [phone] Dept PHYSICAL THERAPY RE-EVALUATION Patient Name: Maria Rae : 1990 Date of Service: 05/06/2024 Referring Provider: Anahi Bravo MD Visit #: 4 Diagnosis: Cervical radiculopathy Mechanism of injury: insidious onset and worsening of neck pain Patient Preferences: Maria Precautions/Red Flags: Yes Imaging results via Dr. Bravo Per my independent interpretation, she does have a disc herniation eccentric to the left at the C6-7 level. Subjective General Comments: Maria says she feels like her neck is better but there is still some soreness and some stiffness. Also still getting headaches which bother her the most. First laying down or waking up she will sometimes have a headache. Says the pain is less intense and not having as much trouble concentrating. No pain radiating to the arm either. She says she feels about 90% functional. Pain: Current: 2/10 Best: 0/10 Worst: 5/10 Current Level of Function: independent with some pain Patient s Stated Goal: reduce headaches Outcome Measures Neck Disability Index: Objective CERVICAL SPINE Observation: forward head and rounded shoulders UE AROM: WFL Date Recorded: 05/06/2024 Cervical AROM Degrees Flexion (flex) 54 Extension (ext) 54 Right side bending (SBR) 35 Left side bending (SBL) 35 Right rotation (rotR) 80 Left rotation (rotL) 73 Upper Extremity Strength (*pain) Date 05/06/2024 R L Shoulder Flexion 5/5 5/5 Shoulder ABD 5/5 5/5 Shoulder ER 5/5 5/5 Shoulder IR 5/5 5/5 Elbow Flex 5/5 5/5 Elbow Ext 5/5 5/5 Wrist Flex 5/5 5/5 Wrist Ext 5/5 5/5 NT = not tested Scapular Strength Right Left Lower Trapezius 5/5 5/5 Middle Trapezius 5/5 4+/5 Deep Neck Flexor (DNF) Endurance Test= 30.29 seconds (therapist stopped timer) Joint mobility: WF cervical spine mobility via p/a assessment Palpation: non-tender to palpation at C7-T1 Flexibility: reduced upper trap flexibility (mild) Special Tests: Not performed Assessment Maria has made progress with physical therapy overall. She has reduced her pain levels, eliminated her radicular pain, increased her range of motion, and improved her strength. She is also confident with and independent with her HEP. Her most lingering deficits continues to be headaches. Encouraged her to independently perform her exercises and see if her headaches alleviate over time and if not to possibly request to see neurology if it is some other process. She was agreeable to this plan and is therefore discharged at this time. Rehab Potential: Good Goals Active General/Ortho Patient will reduce pain to 2/10 for improved ability to perform home exercise program and participate in physical therapy sessions (Completed) Start: 04/08/24 Expected End: 07/07/24 Resolved: 05/06/24 Patient will improve DNF endurance test to 25 seconds for improved cervical spine stability and postural support (Completed) Start: 04/08/24 Expected End: 07/07/24 Resolved: 05/06/24 Patient will improve bilateral UE/periscapular strength to 5/5 for improved postural support (Progressing) Start: 04/08/24 Expected End: 07/07/24 Patient will reduce NDI score from 11/50 to 1/50 for improved functional mobility (Progressing) Start: 04/08/24 Expected End: 07/07/24 Plan Frequency and Duration: discharge from PT Risks and benefits were discussed with the patient and/or family, and the patient and/or family participated with the plan of care and agrees. Treatment Soft Tissue Mobilization Location: sub occipitals Comments: for tpr and headache relief Patient Education: re-evaluation measures (billed as ther-act as multiple components of functioning were addressed) Home Exercise Program: Progressed home exercise program Time Entry Total Treatment Time Start Time: 1300 Stop Time: 1327 Time Calculation (min): 27 min PT Therapeutic Procedures Time Entry Therapeutic Activity Time Entry: 15 Manual Therapy Time Entry: 12 Jaspal Erickson PT documented in this encounter [facility] 04-29-2024 History of Presen t illness Narrative Images from the original note were not included. [facility] [place] [facility] AT [address] [place] [address] Dept: [phone] Dept PHYSICAL THERAPY TREATMENT Patient Name: Maria Rae : 1990 Date of Service: 04/29/2024 Referring Provider: Anahi Bravo MD Visit #: 3 Diagnosis: Cervical radiculopathy Mechanism of injury: insidious onset and worsening of neck pain Patient Preferences: Maria Precautions/Red Flags: Yes Imaging results via Dr. Bravo Per my independent interpretation, she does have a disc herniation eccentric to the left at the C6-7 level. Subjective Maria says she is doing ok, has been sick recently. Says that her shoulder MRI showed no tears but she did have tendinopathy. Neck has been good, she says she hears crunching all the time. Compliance with HEP: Yes Objective Objective measurements not taken today. Treatment Therapeutic Exercise # of Activities: 15 Therapeutic Exercise Activity 1: Cervical extension with towel Activity 1 Comment: 2x10 1s Therapeutic Exercise Activity 2: cervical rotation isometric Activity 2 Comment: 2x10 5s Therapeutic Exercise Activity 3: cervical retraction Activity 3 Comment: 2x10 red Therapeutic Exercise Activity 4: UBE level 1 Activity 4 Comment: 2' fwd 2' bwd Therapeutic Exercise Activity 5: supine horizontal abduction Activity 5 Comment: 3x10 red Therapeutic Exercise Activity 6: iraida er supine Activity 6 Comment: 3x10 red Therapeutic Exercise Activity 7: wall angels Activity 7 Comment: 3x10 Therapeutic Exercise Activity 8: mid rows/ pull downs Activity 8 Comment: 50# 3x10 Therapeutic Exercise Activity 9: serratus wall slides Activity 9 Comment: 2x10 Therapeutic Exercise Activity 10: alternating shoulder taps @ plinth Activity 10 Comment: 2x30s Therapeutic Exercise Activity 11: prone Y/T/W Activity 11 Comment: 2x10 2# B Therapeutic Exercise Activity 12: scap clocks Activity 12 Comment: red 2x10 B Home Exercise Program: Progressed home exercise program Assessment Skilled physical therapy interventions utilized to improve patient s impairments and work towards established goals. Gentle progressions of current exercises today. Patient response to treatment: able to complete all exercises, fatigued post session with scap clocks indicating a proper challenge, no exacerbation Patient will benefit from continued physical therapy to reduce pain, improve strength, and progress to higher levels of functioning The rationale for today s treatment was explained to the patient. Verbal cues were provided for correct form with all exercises. Advised patient to continue with Home Exercise Program (HEP). Goals General/Ortho Patient will reduce pain to 2/10 for improved ability to perform home exercise program and participate in physical therapy sessions (Progressing) Start: 04/08/24 Expected End: 07/07/24 Patient will improve DNF endurance test to 25 seconds for improved cervical spine stability and postural support (Progressing) Start: 04/08/24 Expected End: 07/07/24 Patient will improve bilateral UE/periscapular strength to 5/5 for improved postural support (Progressing) Start: 04/08/24 Expected End: 07/07/24 Patient will reduce NDI score from 11/50 to 1/50 for improved functional mobility (Not Addressed) Start: 04/08/24 Expected End: 07/07/24 Plan Plan for next session: re-eval Time Entry Total Treatment Time Start Time: 1300 Stop Time: 1342 Time Calculation (min): 42 min PT Therapeutic Procedures Time Entry Therapeutic Exercise Time Entry: 42 Jaspal Erickson PT documented in this encounter [facility] 04-15-2024 History of Presen t illness Narrative Images from the original note were not included. [facility] AT [address] [place] [address] Dept: [phone] Dept PHYSICAL THERAPY TREATMENT Patient Name: Maria Rae : 1990 Date of Service: 04/15/2024 Referring Provider: Anahi Bravo MD Visit #: 2 Diagnosis: Cervical radiculopathy Mechanism of injury: insidious onset and worsening of neck pain Patient Preferences: Maria Precautions/Red Flags: Yes Imaging results via Dr. Bravo Per my independent interpretation, she does have a disc herniation eccentric to the left at the C6-7 level. Subjective Maria says she is doing not too bad. Notices her soreness when she first lays down and then gradually throughout the day. Compliance with HEP: Yes Objective Objective measurements not taken today. Treatment Therapeutic Exercise Therapeutic Exercise Activity 1: Cervical extension with towel Activity 1 Comment: 2x10 1s Therapeutic Exercise Activity 2: cervical rotation isometric Activity 2 Comment: x10 5s Therapeutic Exercise Activity 3: cervical retraction Activity 3 Comment: 2x10 red Therapeutic Exercise Activity 4: UBE level 1 Activity 4 Comment: 2' fwd 2' bwd Therapeutic Exercise Activity 5: supine horizontal abduction Activity 5 Comment: 3x10 red Therapeutic Exercise Activity 6: iraida er supine Activity 6 Comment: 3x10 red Therapeutic Exercise Activity 7: supine sashes Activity 7 Comment: 3x10 red Therapeutic Exercise Activity 8: mid rows/ pull downs Activity 8 Comment: 50# 3x10 Therapeutic Exercise Activity 9: wall slides Activity 9 Comment: 2x10 Therapeutic Exercise Activity 10: alternating shoulder taps @ plinth Activity 10 Comment: 2x30s Soft Tissue Mobilization Location: B UT cervical paraspinals, suboccipitals Comments: for tpr and pain relief Joint Mobilization Location: manual cervical distraction Body Position: Sitting Comments: 5x30s Home Exercise Program: Progressed home exercise program Assessment Skilled physical therapy interventions utilized to improve patient s impairments and work towards established goals. Patient response to treatment: Reported no increase in symptoms and no pain post session Patient will benefit from continued physical therapy to further improve strength and stability in order to reduce pain and progress to higher levels of functioning The rationale for today s treatment was explained to the patient. Verbal cues were provided for correct form with all exercises. Advised patient to continue with Home Exercise Program (HEP). Goals General/Ortho Patient will reduce pain to 2/10 for improved ability to perform home exercise program and participate in physical therapy sessions (Progressing) Start: 04/08/24 Expected End: 07/07/24 Patient will improve DNF endurance test to 25 seconds for improved cervical spine stability and postural support (Progressing) Start: 04/08/24 Expected End: 07/07/24 Patient will improve bilateral UE/periscapular strength to 5/5 for improved postural support (Progressing) Start: 04/08/24 Expected End: 07/07/24 Patient will reduce NDI score from 11/50 to 1/50 for improved functional mobility (Not Addressed) Start: 04/08/24 Expected End: 07/07/24 Plan Plan for next session: continue MT and exercise combination, possible dry needle if MT is not beneficial enough Time Entry Total Treatment Time Start Time: 1300 Stop Time: 1339 Time Calculation (min): 39 min PT Therapeutic Procedures Time Entry Therapeutic Exercise Time Entry: 24 Manual Therapy Time Entry: 15 Jaspal Erickson PT documented in this encounter [facility] 04-08-2024 History of Presen t illness Narrative Images from the original note were not included. [facility] [place] [facility] AT [place] [address] [place] [address] Dept: [phone] Dept PHYSICAL THERAPY EVALUATION Patient Name: Maria Rae : 1990 Date of Service: 04/08/2024 Referring Provider: Anahi Bravo MD Visit #: 1 Diagnosis: Cervical radiculopathy General Information Mechanism of injury: insidious onset and worsening of neck pain Patient Preferences: Maria Precautions/Red Flags: Yes Imaging results via Dr. Bravo Per my independent interpretation, she does have a disc herniation eccentric to the left at the C6-7 level. 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 PSHX: Maria has a past surgical history that includes [place] tooth extraction (2017) and Cosmetic surgery (Bilateral, 2019). Have you experienced any anxiety or depression?: No Have you experienced thoughts of self-harm or suicidal thoughts?: No [employer] Reviewed: Yes Physician follow-up appointment?: no, maybe after PT Subjective Chief Complaint: Maria says she was told she had a herniated disc. Didn't want surgery or injection so she is back at PT. She gets tingling down her arm and wraps down around her side. Says she also gets some discomfort in her neck and some tension headaches. Also gets some ringing in her ears, but Dr. Bravo doesn't think it is related. She says she is not really having trouble doing things but it bothers her when lifting things. Pain: Current: 4/10 Best: 0/10 Worst: 6-7/10 Symptoms Relieved by: medications Prior Level of Function: independent with some pain Current Level of Function: independent with increasing pain Patient s Stated Goal: reduce pain Outcome Measures Neck Disability Index: Objective CERVICAL SPINE Observation: forward head and rounded shoulders UE AROM: WFL Date Recorded: 04/08/2023 Cervical AROM Degrees Flexion (flex) 54 Extension (ext) 54 Right side bending (SBR) 35 Left side bending (SBL) 35 Right rotation (rotR) 80 Left rotation (rotL) 70 Upper Extremity Strength (*pain) Date 04/08/2024 R L Shoulder Flexion 5/5 5/5 Shoulder ABD 5/5 5/5 Shoulder ER 5/5 5/5 Shoulder IR 5/5 5/5 Elbow Flex 5/5 5/5 Elbow Ext 5/5 5/5 Wrist Flex 5/5 5/5 Wrist Ext 5/5 5/5 NT = not tested Scapular Strength Right Left Lower Trapezius 5/5 5/5 Middle Trapezius 5/5 4/5 Deep Neck Flexor (DNF) Endurance Test= 14.84 seconds. Joint mobility: slightly reduced cervical spine mobility via p/a assessment Palpation: tender to palpation at C7-T1 Flexibility: reduced upper trap and pec flexibility Special Tests: Not performed Assessment Maria is a 33 y.o. patient with chief complaint of neck and arm pain, who presents with signs and symptoms consistent with disc herniation. Maria presents today with reduced cervical spine range of motion, impaired periscapular strength, impaired posture, and pain. These deficits can be contributing to her symptoms and inhibiting her function. She would benefit from skilled physical therapy to address decreased strength, decreased range of motion, pain, soft tissue impairment, and impaired functional activities. Evaluation complexity is low secondary to: patient has 1-2 personal factors and/or comorbidities that will affect plan of care, therapy will be addressing 1-2 elements, and clinical presentation is stable. Body Systems Affected: musculoskeletal and neuromuscular Rehab Potential: Good Learning Preferences: demonstration and explanation Barriers to Rehab: none Goals General/Ortho Patient will reduce pain to 2/10 for improved ability to perform home exercise program and participate in physical therapy sessions (Initiated) Start: 04/08/24 Expected End: 07/07/24 Patient will improve DNF endurance test to 25 seconds for improved cervical spine stability and postural support (Initiated) Start: 04/08/24 Expected End: 07/07/24 Patient will improve bilateral UE/periscapular strength to 5/5 for improved postural support (Initiated) Start: 04/08/24 Expected End: 07/07/24 Patient will reduce NDI score from 11/50 to 1/50 for improved functional mobility (Initiated) Start: 04/08/24 Expected End: 07/07/24 Plan Frequency and Duration: 2/wk for 4 weeks Therapeutic Contents: client education, group therapy, home exercise program, manual therapy techniques, neuromuscular re-education, therapeutic activities, therapeutic exercise, trigger point dry needle, and modalities as needed Plan for next session: assess HEP response, Risks and benefits were discussed with the patient and/or family, and the patient and/or family participated with the plan of care and agrees. Treatment Therapeutic Exercise Therapeutic Exercise Activity 1: Cervical extension with towel Activity 1 Comment: 2x10 1s Therapeutic Exercise Activity 2: cervical rotation isometric Activity 2 Comment: x10 5s Therapeutic Exercise Activity 3: cervical retraction Activity 3 Comment: 2x10 red Patient Education: postural support and muscular support, force distribution Home Exercise Program: Created Time Entry Total Treatment Time Start Time: 705 Stop Time: 734 Time Calculation (min): 29 min PT Evaluation Time Entry PT Evaluation (Low) Time Entry: 20 PT Therapeutic Procedures Time Entry Therapeutic Exercise Time Entry: 9 Jaspal Erickson PT documented in this encounter [facility] 03-30-2024 History of Presen t illness Narrative Addended last note, ordered right shoulder MRI once again, it has been over 45 days since last submission. She has done over 4 months of PT/conservative tx at this point. Maria Alejandra Lee PA-C documented in this encounter [facility] 03-24-2024 History of Presen t illness Narrative Images from the original note were not included. [facility] [address] [facility] [address] Dept: [phone] Dept Maria Armenta Kyra 1990 [id number] 03/24/2024 Problem List: Neck pain Cervical radiculopathy Cervical spondylosis (M54.2) Neck pain (M54.12) Cervical radiculopathy (M47.812) Cervical spondylosis Chief Complaint Patient presents with Follow-up Neck Pain HPI: Maria is a 33 y.o. female who is here today for evaluation of her cervical spine. Current symptoms: Pain is located in the posterior neck, occipital, left shoulder blade, left armpit and left upper arm to elbow . Numbness tingling: yes - left upper arm and left hand Subjective weakness: yes - left arm Symptoms are moderately affecting their quality of life. Inciting Event/Trauma: No specific cause Duration of Symptoms: 6 months. Left side worsening over 1 month Associated neurologic complaints/Red flags: Gait/balance difficulty: at times due to slight dizziness Use of ambulatory aid?: no device Able to walk a city block: Yes Bowel/bladder incontinence: denies Urinary retention: No Saddle anesthesia: No Fine motor task difficulty/dropping things/handwriting changes: denies History of cancer: No Aggravating factors: constant Alleviating Factors: nothing Previous Treatment: PT: Yes Where[facility] When: last visit 03/04/2024 Completed: Yes NSAIDS: Ibuprofen (Advil, Motrin) Diclofenac 75 mg Injections: No Opioid medications: none Muscle relaxers: Robaxin Oral steroids: none Nerve medications (gabapentin/Lyrica): none Pain management: No Chiropractor: No Previous spine surgery: none History of DVT/PE or hypercoagulable state (including history of relative): No Blood thinning medications: none 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 Neurological: Positive for numbness. Tobacco Use: Low Risk (03/24/2024) Patient History Smoking Tobacco Use: Never Smokeless Tobacco Use: Never Passive Exposure: Not on file No results found for: HGBA1C Allergies Allergen Reactions Wound Dressing Adhesive Itching and Rash Current Outpatient Medications Medication Sig Dispense Refill diclofenac (Voltaren) 75 MG EC tablet Take 1 tablet (75 mg) by mouth 2 times daily. Do not crush, chew, or split. 60 tablet 0 doxycycline (Monodox) 50 MG capsule hydrOXYzine HCl (Atarax) 25 MG tablet 1/2 or one tab bid prn anxiety 60 tablet 1 methocarbamol (Robaxin) 750 MG tablet Take 1 tablet (750 mg) by mouth 3 times daily as needed for muscle spasms. 90 tablet 0 metroNIDAZOLE (Metrocream) 0.75 % cream APPLY TO THE FULL FACE TWICE DAILY AFTER APPLYING TRIPLE ROSACEA CREAM. norethindrone (Micronor) 0.35 MG tablet Take 1 tablet (0.35 mg) by mouth daily. 84 tablet 4 rizatriptan PLASTICS SCIENTIST (Maxalt-PLASTICS SCIENTIST) 5 MG disintegrating tablet One stat and May repeat in 2 hours if unresolved. No more than 4 a week 9 tablet 1 venlafaxine XR (Effexor XR) 75 MG 24 hr capsule TAKE 1 CAPSULE (75 MG) BY MOUTH DAILY FOR 90 DOSES. DO NOT CRUSH OR CHEW. 90 capsule 1 No current facility-administered medications for this visit. Past Medical History: Diagnosis Date Anxiety and depression 2016 COVID-19 04/2022 History of migraine nml MRI head 06/12- with auras Hypercholesterolemia 04/2022 rx well with diet Oral contraceptive use Dr. Mena Past Surgical History: Procedure Laterality Date BREAST ENHANCEMENT SURGERY Bilateral 2019 WISDOM TOOTH EXTRACTION 2017 Social History Socioeconomic History Marital status: Spouse name: Not on file Number of children: Not on file Years of education: Not on file Highest education level: Not on file Occupational History Not on file Tobacco Use Smoking status: Never Smokeless tobacco: Never Substance and Sexual Activity Alcohol use: Yes Alcohol/week: 2.0 standard drinks of alcohol Types: 2 Glasses of wine per week Drug use: No Sexual activity: Yes Partners: Male control/protection: OCP Other Topics Concern Not on file Social History Narrative to Anahi in 08/2017 (hx of VSD repair). Had first daughter, Crystal, born in 10/09. 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 Overall Financial Resource Strain (CARDIA) Difficulty of Paying Living Expenses: Not hard at all Food Insecurity: No Food Insecurity (10/25/2021) Received from [facility] Hunger Vital Sign Worried About Running Out of Food in the Last Year: Never true Ran Out of Food in the Last Year: Never true Transportation Needs: Not on file Physical Activity: Not on file Stress: Not on file Social Connections: Not on file Intimate Partner Violence: Not on file Housing Stability: Not on file Family History Problem Relation Name Age of Onset Colon polyps Mother Maria 55 alive in 60s Rheum arthritis Father Doron Alcohol abuse Father Doron Hypertension Father Doron Coronary artery disease Father Doron 50 pacemaker, stents Lung cancer Father Doron 59 smoker Graves' disease Sister No Known Problems Sister Colon cancer Father's Brother Nirav Throat cancer Father's Brother Gunnar No Known Problems Maternal Grandmother No Known Problems Maternal Grandfather No Known Problems Paternal Grandmother Lung cancer Paternal Grandfather Ray PHYSICAL EXAM Ht 5' 3.5 (1.613 m) Wt 156 lb (70.8 kg) BMI 27.20 kg/m SPINE/EXTREMITY: General: In no apparent stress, nonantalgic gait. Upper Extremity Motor: Del Bi Tri WE WF Int FF Right 5 5 5 5 5 5 5 Left 5 5 4 5 5 5 5 Upper extremity sensation to light touch: C5 C6 C7 C8 T1 Right Intact Intact Intact Intact Intact Left Intact Intact Intact Intact Intact Upper extremity reflexes: Bicep Tricep Brachioradialis Right 2+ 2+ 2+ Left 2+ 2+ 2+ Misc: Watt Spurling Right Negative Negative Left Negative Mildly Positive IMAGING The below images were independently reviewed and independently interpreted by myself. My interpretation is located in the assessment section of the note. Cervical Spine: Date of Exam: 03/03/2024 Views: 4 views of the cervical spine (AP, Lateral, Flexion, and Extension) Findings: There is no carotid artery calcifications noted. No abnormal pre-vertebral swelling. No obvious fracture or instability. No congenital stenosis. Maintenance of normal cervical lordosis noted. Mild multi-level degenerative disc disease noted. There are mild spondylitic changes and facet arthropathy noted. Cervical MRI: Date of Exam: 03/08/24 Findings: Multiplanar multisequence MRI images were obtained through the cervical spine without intravenous gadolinium. Straightening of the normal cervical lordosis. No significant spondylolisthesis. The cervical spine demonstrates has normal signal intensity. The vertebral body and disc heights are maintained. No abnormal cord signal intensity. Craniocervical and atlantoaxial articulations are within normal limits. C2-C3: No disc bulge or disc protrusion. No central spinal canal stenosis. No neural foraminal narrowing. C3-C4: No disc bulge or disc protrusion. No central spinal canal stenosis. No neural foraminal narrowing. C4-C5: 4 mm disc bulge, effacing the ventral thecal sac. Otherwise no central canal stenosis or neural foraminal narrowing. C5-C6: Tiny disc bulge, with a superimposed, mass effect producing 5 mm left lateral recess-neural foraminal disc protrusion (image 25 series 5 and image 10 series 301). Otherwise no central canal stenosis or neural foraminal narrowing. C6-C7: No disc bulge or disc protrusion. No central spinal canal stenosis. No neural foraminal narrowing. C7-T1: No disc bulge or disc protrusion. No central spinal canal stenosis. No neural foraminal narrowing. IMPRESSION: Impression: At C5-C6 there is a 5 mm mass effect producing left lateral recess-neural foraminal disc protrusion. ASSESSMENT See problem list above. Maria is a 33 y.o. female presenting today for follow-up. She continues to note neck and radiating left arm pain/numbness and tingling. I independently reviewed her cervical MRI which she had obtained after our last visit. Per my independent interpretation, she does have a disc herniation eccentric to the left at the C6-7 level. This would correlate with her symptoms. We discussed treatment options moving forward. At this point, she has tried a variety of medications as well as physical therapy without lasting relief. However, most of her therapy was centered around her shoulder with not much dedicated to her cervical spine. We also discussed potentially injections as well as a cervical disc replacement as further treatment options. She is interested in trying therapy again with a focus on her cervical spine to see if this improves her symptoms. I discussed that if her symptoms persist despite physical therapy I would be happy to see her back and to discuss either trying a cervical epidural steroid injection or C6-7 cervical disc replacement. PLAN: Cervical PT Patient to call if symptoms do not improve and wishes to consider injections or surgery Electronically signed by Anahi Bravo MD 03/24/2024 at 9:29 AM Dictated using [employer] Version 2.4 Proof read however unrecognized voice recognition errors may have occurred documented in this encounter [facility] 03-04-2024 History of Presen t illness Narrative Images from the original note were not included. [facility] [place] [facility] AT [address] [place] [address] Dept: [phone] Dept PHYSICAL THERAPY RE-EVALUATION/DISCHARGE SUMMARY Patient Name: Maria Rae : 1990 Date of Service: 03/04/2024 Referring Provider: Maria Alejandra Lee PA* Visit #: 4 Diagnosis: Impingement syndrome of shoulder, right Mechanism of injury: insidious worsening of shoulder pain Patient Preferences: Maria Precautions/Red Flags: None Subjective General Comments: Pain has gone into the left shoulder as well. We are starting to think that the shoulder pain has been some cervical overlap. Pain in the left shoulder has been so bad that she also went to emergency room. I was referred to [facility]PER[facility] for cervical issues and found arthritis in the neck and think it is a pinched nerve. I think there is at least 50% reduction in R shoulder. Right shoulder has been relatively pain free with exception to when I try to rest my hand on my right shoulder to weight bear on it behind her in sitting. Pain: Current: 0/10 Best: 0/10 Worst: 0/10 L shoulder: 7/10 at it's worst, typically a 6/10 Current Level of Function: difficulty concentrating due to L shoulder pain, minimal limitation with R shoulder Patient s Stated Goal: seek further management with L shoulder issues. Outcome Measures SPADI: Objective SHOULDER Observation: slightly rounded shoulders Cervical Spine AROM: WFL Elbow AROM: WFL Date Recorded: 03/04/2024 Upper Extremity ROM (degrees) Right Left AROM AROM Shoulder Flexion 170 165 Shoulder Abduction 160 160 Shoulder External Rotation (ER) 55. T3 62, T3 Shoulder Internal Rotation (IR) T5 T5 Upper Extremity Strength (*pain) Date 01/25/2024 R L Shoulder Flexion 5/5 5/5 Shoulder ABD 5/5 5/5 Shoulder ER 5/5 5/5 Shoulder IR 5/5 5/5 Elbow Flex 5/5 5/5 Elbow Ext 5/5 5/5 Wrist Flex 5/5 5/5 Wrist Ext 5/5 5/5 NT = not tested Scapular Strength Right Left Lower Trapezius 5/5 5/5 Middle Trapezius 4+/5 4/5 Assessment Patient demonstrates improvement in shoulder ROM to WNL but no strength improvements. Patient reports resolution of most right shoulder sx, and currently management with another provider for current left shoulder pain. Patient no longer demonstrates need for therapy services at this time and is to discharge with home program Rehab Potential: Excellent Goals Active General/Ortho Patient will reduce pain to 2/10 at worst for improved ability to perform home exercise program and participate in physical therapy sessions (Completed) Start: 01/25/24 Expected End: 04/26/24 Resolved: 03/04/24 Patient will improve bilateral periscapular strength to 5/5 for improved support with reaching for and carrying objects (Not Progressing) Start: 01/25/24 Expected End: 04/26/24 Patient will reduce SPADI score from 27/130 to 10/130 for improved functional moblity (Not Progressing) Start: 01/25/24 Expected End: 04/26/24 Patient will report at least 50% reduction in tightness for improved ability to perform ADL activities (Completed) Start: 01/25/24 Expected End: 04/26/24 Resolved: 03/04/24 Plan Patient to discharge with HEP. Risks and benefits were discussed with the patient and/or family, and the patient and/or family participated with the plan of care and agrees. Treatment Therapeutic Activity # of Activities: 1 Therapeutic Activity 1: Re-assessment: Re-assessed patients objective & subjective measures, reviewed patients POC, addressed goals and patients progress. Discussed D/C planning, discussed continuation of current HEP for maximum benefit and carryover to maintain pain free function. Patient with verbal acknowledgement and understanding. Home Exercise Program: Deferred Time Entry Total Treatment Time Start Time: 1258 Stop Time: 1310 Time Calculation (min): 12 min PT Therapeutic Procedures Time Entry Therapeutic Activity Time Entry: 12 April Finley PT documented in this encounter [facility] 03-03-2024 History of Presen t illness Narrative [facility] [address] [facility] [address] Dept: [phone] Dept Maria Armenta Kyra 1990 [id number] 03/03/2024 Problem List: Neck pain Cervical radiculopathy- left Cervical spondylosis (M54.2) Neck pain (M54.12) Radiculopathy of cervical region (M47.812) Cervical spondylosis Chief Complaint Patient presents with Neck Pain HPI: Maria is a 33 y.o. female who is here today for evaluation of her cervical spine. Maria is referred by Maria Alejandra Lee PA* Current symptoms: Pain is located in the posterior neck, occipital, left shoulder blade, left armpit and left upper arm to elbow . Numbness tingling: yes - left upper arm Weakness: yes - left arm Symptoms are moderately affecting their quality of life. Inciting Event/Trauma: No specific cause Duration of Symptoms: 6 months. Left side worsening over 1 month Associated neurologic complaints/Red flags: Gait/balance difficulty: at times due to slight dizziness Use of ambulatory aid?: no device Able to walk a city block: Yes Bowel/bladder incontinence: denies Urinary retention: No Saddle anesthesia: No Fine motor task difficulty/dropping things/handwriting changes: denies History of cancer: No Aggravating factors: constant Alleviating Factors: nothing Previous Treatment: PT: Yes [facility] When: last visit 02/19/2024 Completed: Yes NSAIDS: Ibuprofen (Advil, Motrin) Injections: No Opioid medications: none Muscle relaxers: none Oral steroids: none Nerve medications (gabapentin/Lyrica): none Pain management: No Chiropractor: No Previous spine surgery: none History of DVT/PE or hypercoagulable state (including history of relative): No Blood thinning medications: 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 norethindrone (Micronor) 0.35 MG tablet Take 1 tablet (0.35 mg) by mouth daily. 84 tablet 4 rizatriptan PLASTICS SCIENTIST (Maxalt-PLASTICS SCIENTIST) 5 MG disintegrating tablet One stat and May repeat in 2 hours if unresolved. No more than 4 a week 9 tablet 1 venlafaxine XR (Effexor XR) 75 MG 24 hr capsule TAKE 1 CAPSULE (75 MG) BY MOUTH DAILY FOR 90 DOSES. DO NOT CRUSH OR CHEW. 90 capsule 1 No current facility-administered medications for this visit. Past Medical History: Diagnosis Date Anxiety and depression 2016 COVID-19 04/2022 History of migraine nml MRI head 06/12- with auras Hypercholesterolemia 04/2022 rx well with diet Oral contraceptive use Dr. Mena Past Surgical History: Procedure Laterality Date BREAST ENHANCEMENT SURGERY Bilateral 2019 WISDOM TOOTH EXTRACTION 2017 Social History Socioeconomic History Marital status: Spouse name: Not on file Number of children: Not on file Years of education: Not on file Highest education level: Not on file Occupational History Not on file Tobacco Use Smoking status: Never Smokeless tobacco: Never Substance and Sexual Activity Alcohol use: Yes Alcohol/week: 2.0 standard drinks of alcohol Types: 2 Glasses of wine per week Drug use: No Sexual activity: Yes Partners: Male control/protection: OCP Other Topics Concern Not on file Social History Narrative to Anahi in 08/2017 (hx of VSD repair). Had first daughter, Crystal, born in 10/09. 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 Overall Financial Resource Strain (CARDIA) Difficulty of Paying Living Expenses: Not hard at all Food Insecurity: No Food Insecurity (10/25/2021) Received from [facility] Hunger Vital Sign Worried About Running Out of Food in the Last Year: Never true Ran Out of Food in the Last Year: Never true Transportation Needs: Not on file Physical Activity: Not on file Stress: Not on file Social Connections: Not on file Intimate Partner Violence: Not on file Housing Stability: Not on file Family History Problem Relation Name Age of Onset Colon polyps Mother Maria 55 alive in 60s Rheum arthritis Father Doron Alcohol abuse Father Doron Hypertension Father Doron Coronary artery disease Father Doron 50 pacemaker, stents Lung cancer Father Doron 59 smoker Graves' disease Sister No Known Problems Sister Colon cancer Father's Brother Nirav Throat cancer Father's Brother Gunnar No Known Problems Maternal Grandmother No Known Problems Maternal Grandfather No Known Problems Paternal Grandmother Lung cancer Paternal Grandfather Ray PHYSICAL EXAM Ht 5' 3.5 (1.613 m) Wt 156 lb (70.8 kg) BMI 27.20 kg/m SPINE/EXTREMITY: General: Patient is in no apparent distress. Gait is nonantalgic, nonassisted. She is able to toe walk, heel walk, and tandem gait. Mild tenderness palpation of cervical spine. Upper Extremity Motor: Del Bi Tri WE WF Int FF Right 5 5 5 5 5 5 5 Left 5 5 5 5 5 5 5 Lower Extremity Motor: HF Q TA EHL Peroneals GSC Right 5 5 5 5 5 5 Left 5 5 5 5 5 5 Upper extremity sensation to light touch: C5 C6 C7 C8 T1 Right Decreased Intact Intact Intact Intact Left Intact Intact Intact Intact Intact Lower extremity sensation to light touch: L2 L3 L4 L5 S1 Right Intact Intact Intact Intact Intact Left Intact Intact Intact Intact Intact Upper extremity reflexes: Bicep Tricep Brachioradialis Right 2+ 2+ 2+ Left 2+ 2+ 2+ Lower extremity reflexes: Patellar Achilles Right 2+ 1+ Left 2+ 1+ Misc: Watt Spurling Clonus Right Negative Negative None Left Negative Mildly Positive None Rhomberg Negative Lhermitte's Sign Negative IMAGING Cervical Spine: Date of Exam: 03/03/2024 Views: 4 views of the cervical spine (AP, Lateral, Flexion, and Extension) Findings: There is no carotid artery calcifications noted. No abnormal pre-vertebral swelling. No obvious fracture or instability. No congenital stenosis. Maintenance of normal cervical lordosis noted. Mild multi-level degenerative disc disease noted. There are mild spondylitic changes and facet arthropathy noted. NCT/EMG (Copied Impression) Date: DEXA Date: ASSESSMENT See problem list above. Maria is a 33 y.o. female presenting with neck pain, cervical radiculopathy, left. The patient reports her symptoms started approximately 6 months ago have been progressively worsening over the last month. She describes her pain as a deep sometimes sharp ache in the posterior aspect of her neck that will at times radiate up into her head but will always radiate into the left shoulder and down the left arm to just above the elbow. She also reports having left trapezius and scapular pain and at times pain into the left armpit. She denies having any right upper extremity radicular symptoms. She also denies having any loss of bowel or bladder function, saddle paresthesia, worsening balance, worsening hand dexterity or hand strength issues, or significant symptoms of neurogenic claudication. I had a discussion with Maria Kathi Rae about her symptoms. We independently reviewed her imaging from today which revealed mild degenerative disc disease, mild cervical spondylosis. The patient has symptoms of cervical radiculopathy. We reviewed the symptoms as well as the natural history of cervical radiculopathy. We discussed the treatment options as well. We went over medical treatment, child care teacher, and physical therapy/cervical traction. We also talked about injection therapy and the risks and benefits. If the symptoms do not respond to conservative treatment the patient is a candidate for surgical intervention. The decision to proceed with surgery is a quality of life issue. The patient can continue conservative treatment as long as he or she wants. The patient seems to understand their diagnosis as well as the treatment options. All questions were answered to the best of my ability. The patient has tried physical therapy for this with minimal improvement in her symptoms. She is also tried [id number] Tylenol and ibuprofen with minimal improvement in her symptoms. She is willing to try Robaxin and diclofenac to see if this helps with her pain symptoms. At this point, the patient has tried and failed conservative treatment. I feel it is reasonable to order cervical spine MRI without contrast to evaluate for nerve compression. The patient will follow-up with Dr. Bravo for MRI review and to discuss treatment options including injection therapy or possible surgery. IMPRESSION I had a long discussion with Maria to make sure she had a good understanding of what I think the main issues and diagnoses are that are affecting her today, and reviewed the plan going forward. PLAN: HEP: cervical/periscapular Medication(s): Robaxin and Diclofenac Patient also advised to try OTC tylenol and NSAIDs if not contraindicated Imaging: Cervical MRI WO contrast Follow up once imaging/testing completed with Dr. Bravo The risks and appropriate dosing of muscle relaxants (ie Robaxin, Flexeril, etc) were discussed with patient in detail. These include but are not limited to drowsiness, headache, changes in heart rate, dizziness, nausea/vomiting, abdominal pain, constipation, memory problems, and urine discoloration. If any of these side effects are experienced I advised the patient to discontinue the medication and contact both myself and their primary care physician. The risks and appropriate dosing of NSAIDs (ie Meloxicam, Naproxen, Ibuprofen, etc) were discussed with the patient in detail. These include but are not limited to cardiovascular risk, renal toxicity, stomach irritation/refulx and/or peptic ulcer disease. If any of these side effects are experienced I advised the patient to discontinue the medication and contact both myself and their primary care physician. Electronically signed by TRACY Tavera CNP 03/03/2024 at 9:00 AM Dictated using [employer] Version 2.4 Proof read however unrecognized voice recognition errors may have occurred documented in this encounter [facility] 03-03-2024 Instructions Yaima Viera ATC - 03/03/2024 8:30 AM EST Images from the original note were not included. We will notify you once we have approval from your insurance. You will then call central scheduling at [phone] to schedule. Please call our office at [phone] once MRI is scheduled to schedule a follow up visit with Dr. Bravo for review. documented in this encounter [facility] 02-19-2024 History of Presen t illness Narrative Images from the original note were not included. [facility] AT [address] [place] [address] Dept: [phone] Dept PHYSICAL THERAPY TREATMENT Patient Name: Maria Rae : 1990 Date of Service: 02/19/2024 Referring Provider: Maria Alejandra Lee PA* Visit #: 3 Diagnosis: Impingement syndrome of shoulder, right Mechanism of injury: insidious worsening of shoulder pain Patient Preferences: Maria Precautions/Red Flags: None Subjective Maria says she was imitating the kickback of a shotgun and It hurt her shoulder really bad. Also carried a heavy bag of corn and that maybe gave her a migraine. Compliance with HEP: Yes Objective Objective measurements not taken today. Treatment Therapeutic Exercise Therapeutic Exercise Activity 1: UT stretch Activity 1 Comment: 2x30s Therapeutic Exercise Activity 2: rhomboid stretch Activity 2 Comment: 2x30s Therapeutic Exercise Activity 3: pec stretch Activity 3 Comment: 2X30S Therapeutic Exercise Activity 4: scm stretch Activity 4 Comment: 2x30s Therapeutic Exercise Activity 5: serratus wall slides Activity 5 Comment: 2x10 red Soft Tissue Mobilization Location: R UT cervical paraspinals on R Comments: for tpr and pain relief Home Exercise Program: continue current Assessment Skilled physical therapy interventions utilized to improve patient s impairments and work towards established goals. Continued STM and stretching as pt has reported this to be most helpful Patient response to treatment: reported feeling looser post session, no real pain or soreness Patient will benefit from continued physical therapy to further improve flexibility and reduce pain in order to progress to higher levels of function The rationale for today s treatment was explained to the patient. Verbal cues were provided for correct form with all exercises. Advised patient to continue with Home Exercise Program (HEP). Goals General/Ortho Patient will reduce pain to 2/10 at worst for improved ability to perform home exercise program and participate in physical therapy sessions (Progressing) Start: 01/25/24 Expected End: 04/26/24 Patient will improve bilateral periscapular strength to 5/5 for improved support with reaching for and carrying objects (Progressing) Start: 01/25/24 Expected End: 04/26/24 Patient will reduce SPADI score from 27/130 to 10/130 for improved functional moblity (Not Addressed) Start: 01/25/24 Expected End: 04/26/24 Patient will report at least 50% reduction in tightness for improved ability to perform ADL activities (Progressing) Start: 01/25/24 Expected End: 04/26/24 Plan Plan for next session: re-eval Time Entry Total Treatment Time Start Time: 932 Stop Time: 1000 Time Calculation (min): 27 min PT Therapeutic Procedures Time Entry Therapeutic Exercise Time Entry: 8 Manual Therapy Time Entry: 19 Jaspal Erickson PT documented in this encounter [facility] 02-05-2024 History of Presen t illness Narrative Images from the original note were not included. [facility] AT [place] [id number] [place] [address] Dept: [phone] Dept PHYSICAL THERAPY TREATMENT Patient Name: Maria Rae : 1990 Date of Service: 02/05/2024 Referring Provider: Maria Alejandra Lee PA* Visit #: 2 Diagnosis: Impingement syndrome of shoulder, right Mechanism of injury: insidious worsening of shoulder pain Patient Preferences: Maria Precautions/Red Flags: None Subjective Pain 2-3 now, feels less tight than before. Sometimes getting some spasms but overall better. Compliance with HEP: Yes Objective Objective measurements not taken today. Treatment Therapeutic Exercise Therapeutic Exercise Activity 1: UT stretch Activity 1 Comment: 2x30s Therapeutic Exercise Activity 2: rhomboid stretch Activity 2 Comment: 2x30s Therapeutic Exercise Activity 3: pec stretch Activity 3 Comment: 2X30S Therapeutic Exercise Activity 4: scm stretch Activity 4 Comment: 2x30s Soft Tissue Mobilization Location: iraida UT's Comments: for tpr and pain relief Home Exercise Program: Progressed home exercise program Assessment Skilled physical therapy interventions utilized to improve patient s impairments and work towards established goals. Progressed scapular strength and continued MT techniques as this is relieving patient's symptoms Patient response to treatment: able to complete all exercises, reported feeling reduce symptoms ost session Patient will benefit from continued physical therapy to improve flexibility, increase strength, and reduce pain in order to progress to higher levels of functioning The rationale for today s treatment was explained to the patient. Verbal cues were provided for correct form with all exercises. Advised patient to continue with Home Exercise Program (HEP). Goals General/Ortho Patient will reduce pain to 2/10 for improved ability to perform home exercise program and participate in physical therapy sessions (Progressing) Start: 11/20/23 Expected End: 01/15/24 Patient will improve bilateral shoulder flexion and abduction to 170 degrees for improved ability to reach up and out (Progressing) Start: 11/20/23 Expected End: 01/15/24 Plan Plan for next session: assess response to just manual MT, DN if more beneficial Time Entry Total Treatment Time Start Time: 1300 Stop Time: 1324 Time Calculation (min): 24 min PT Therapeutic Procedures Time Entry Therapeutic Exercise Time Entry: 10 Manual Therapy Time Entry: 14 Jaspal Erickson PT documented in this encounter [facility] 02-05-2024 Telephone encounter Note Resubmitted for MRI pending [id number] Sent in notes, PT notes and images [facility] 02-05-2024 Miscellaneous Notes Resubmitted for MRI pending [id number] Sent in notes, PT notes and images Yes, let's see if we can schedule at P2P please. Maria Alejandra Lee PA-C Images from the original note were not included. Per [employer] this is what I was able to find: What it says is reconsideration is not delegated to [employer] or is no longer available for this case. First level appeal is not delegated to [employer] or is no longer available for this case. Second level appeal is not delegated to [employer] or is no longer available for this case. A reconsideration or appeal that is managed by [employer], and labeled as allowed above, may be submitted in writing via fax to [phone]. Be sure to label your request as a Reconsideration or appeal as appropriate. To request via P2P call [employer] at [phone], option 4. Please advise documented in this encounter [facility] 02-05-2024 Telephone encounter Note Yes, let's see if we can schedule at P2P please. Maria Alejandra Lee PA-C [facility] 02-05-2024 Telephone encounter Note Images from the original note were not included. Per Ev[employer] this is what I was able to find: What it says is reconsideration is not delegated to [employer] or is no longer available for this case. First level appeal is not delegated to [employer] or is no longer available for this case. Second level appeal is not delegated to [employer] or is no longer available for this case. A reconsideration or appeal that is managed by [employer], and labeled as allowed above, may be submitted in writing via fax to [phone]. Be sure to label your request as a Reconsideration or appeal as appropriate. To request via P2P call [employer] at [phone], option 4. Please advise [facility] 01-25-2024 History of Presen t illness Narrative Images from the original note were not included. 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 PSHX: Maria has a past surgical history that includes [place] tooth extraction (2017) and Cosmetic surgery (Bilateral, 2019). Have you experienced any anxiety or depression?: Yes (takes medicine which helps) Have you experienced thoughts of self-harm or suicidal thoughts?: No Social Drivers of [employer] Reviewed: Yes Physician follow-up appointment?: Yes Subjective Chief Complaint: Maria returns to physical therapy for evaluation. She has noticed increased tightness in her chest, shoulders, and behind her shoulder blades. She says she was sitting with her arm by her side and the pain got really bad and she reached up and her pain went away. Was wondering if the pain was coming from her neck. She says that [facility] did some tests for her neck and it didn't seem like it was coming from there. She says she is having trouble with her arm at her side and bringing it back, turning her head far and feeling tightness. Describes the pain as a stretching and tightness discomfort. Pain: Current: 3/10 Best: 0/10 Worst: 7/10 Symptoms Relieved by: ibuprofen, repositioning arms, stretching Prior Level of Function: independent with some pain and difficulty Current Level of Function: independent with increasing pain and difficulty Patient s Stated Goal: Reduce pain, improve tightness Outcome Measures SPADI: Objective SHOULDER Observation: slightly rounded shoulders Cervical Spine AROM: WFL Elbow AROM: WFL Date Recorded: 01/25/2024 Upper Extremity ROM (degrees) Right Left AROM AROM Shoulder Flexion 154 165 Shoulder Abduction 155 160 Shoulder External Rotation (ER) 55. T3 62, T3 Shoulder Internal Rotation (IR) T5 T5 Upper Extremity Strength (*pain) Date 01/25/2024 R L Shoulder Flexion 5/5 5/5 Shoulder ABD 5/5 5/5 Shoulder ER 5/5 5/5 Shoulder IR 5/5 5/5 Elbow Flex 5/5 5/5 Elbow Ext 5/5 5/5 Wrist Flex 5/5 5/5 Wrist Ext 5/5 5/5 NT = not tested Scapular Strength Right Left Lower Trapezius 5/5 5/5 Middle Trapezius 4+/5 4/5 Joint mobility: WFL Palpation: tender to palpation R iraida UT's, Flexibility: reduced pec and UT flexibility bilaterally Special Tests: Lateral Yoko (+) B Sub Acromial Grind (-) B Assessment Maria is a 33 y.o. patient with chief complaint of iraida shoulder pain, UT tightness and periscapular pain, who presents with signs and symptoms consistent with referring diagnoses. Maria presents today with reduced shoulder AROM, reduced thoracic spine mobility, impaired periscapular pain, and reduced flexibility. These deficits may be contributing to her symptoms and increasing her pain. She would benefit from skilled physical therapy to address decreased strength, decreased range of motion, pain, soft tissue impairment, and impaired functional activities. Evaluation complexity is low secondary to: patient has 1-2 personal factors and/or comorbidities that will affect plan of care, therapy will be addressing 1-2 elements, and clinical presentation is stable. Body Systems Affected: musculoskeletal and neuromuscular Rehab Potential: Good Learning Preferences: demonstration and explanation Barriers to Rehab: none Goals General/Ortho Patient will reduce pain to 2/10 at worst for improved ability to perform home exercise program and participate in physical therapy sessions (Initiated) Start: 01/25/24 Expected End: 04/26/24 Patient will improve bilateral periscapular strength to 5/5 for improved support with reaching for and carrying objects (Initiated) Start: 01/25/24 Expected End: 04/26/24 Patient will reduce SPADI score from 27/130 to 10/130 for improved functional moblity (Initiated) Start: 01/25/24 Expected End: 04/26/24 Patient will report at least 50% reduction in tightness for improved ability to perform ADL activities (Initiated) Start: 01/25/24 Expected End: 04/26/24 Plan Frequency and Duration: 1/wk for 4 weeks Therapeutic Contents: client education, group therapy, home exercise program, manual therapy techniques, neuromuscular re-education, therapeutic activities, therapeutic exercise, trigger point dry needle, and modalities as needed Plan for next session: assess response to MT and DN as well as new stretches for HEP, continue manual techniques for pain reduction and flexibility improvements Risks and benefits were discussed with the patient and/or family, and the patient and/or family participated with the plan of care and agrees. Treatment Therapeutic Exercise Therapeutic Exercise Activity 1: UT stretch Activity 1 Comment: 2x30s Therapeutic Exercise Activity 2: rhomboid stretch Activity 2 Comment: 2x30s Therapeutic Exercise Activity 3: pec stretch Activity 3 Comment: 2X30S Soft Tissue Mobilization Location: iraida UT Body Position: Sitting Comments: for TPR and pain reduction Joint Mobilization Location: T3-8 Comments: HVLAT for improved mobility and reduced pain Dry needling information Precautions: none Position of Rx: supine Treatment and side effects education given: Yes Consent obtained: Yes Dry Needling 1 Region/structure 1: iraida UT Technique 1: per IDN guidelines, angle away from lung field Needle size/depth 1: 2inch Quantity of needles 1: 3 in right 2 in left 5 total Home Exercise Program: Created Time Entry Total Treatment Time Start Time: 708 Stop Time: 749 Time Calculation (min): 41 min PT Evaluation Time Entry PT Evaluation (Low) Time Entry: 20 PT Therapeutic Procedures Time Entry Therapeutic Exercise Time Entry: 5 Manual Therapy Time Entry: 10 Needle Insertions Time Entry: 6 Jaspal Erickson PT documented in this encounter [facility] 01-08-2024 History of Presen t illness Narrative [facility] [address] [facility] [address] Dept: [phone] Dept 01/21/2024 Chief Complaint Patient presents with Follow-up R shoulder impingement HPI Maria returns today in follow-up regarding right sided shoulder pain. She describes her symptoms worse with lifting, pulling, pushing, difficulty sleeping on affected side, internal rotation of the shoulder , and alleviated with rest and anti-inflammatories as well as putting her hand up on the back of her head (poss Bakody's sign?) . She has noticed an improvement with taking anti-inflammatories regularly over the past week (resumed after she sent [employer] message last Sunday 12/31). Her last appointment was approximately 8 weeks ago. At her last appointment she was treated with formal PT or OT - which was somewhat helpful and an injection - which helped for only 2-3 days . She was discharged to her own home exercise plan by PT after her 12/17 evaluation. Pain returned after that. Last Thursday was in more pain. Helpful with nsaids, 600mg OTC Ibuprofen. She denies any radiating numbness/tingling at present (noted some elbow tingling with some wall and table push-up exercises at PT). In her MyChart messages this past week and verbally today, she notes she does get tension headaches and also that her neck crackles daily with movement/stretching or flexion/extension movement. She reports having some cervical spine xrays through a chiropractor toward the beginning of 2022 when her symptoms started, remembers them mentioning some anomaly with an extra bone or extra rib and wonders if this correlates at all? Overall, Maria experienced temporaryrelief of her initial symptoms with the previous treatments. She has noticed symptom persistence over the last several weeks. She returns today requesting additional treatment. Currently, Maria feels no improvement in her symptoms since her last appointment. New symptoms or locations of pain since last appointment: yes, pain and crackling sensation in the neck when extending Please see my previous note for full history and injury details. SANE Score: 80 Past Medical History: Diagnosis Date Anxiety and depression 2015 COVID-19 04/2022 History of migraine nml MRI head 06/12- with [facility] Hypercholesterolemia 04/2022 rx well with diet Oral contraceptive use Dr. Mena Social History Socioeconomic History Marital status: Spouse name: Not on file Number of children: Not on file Years of education: Not on file Highest education level: Not on file Occupational History Not on file Tobacco Use Smoking status: Never Smokeless tobacco: Never Substance and Sexual Activity Alcohol use: Yes Alcohol/week: 2.0 standard drinks of alcohol Types: 2 Glasses of wine per week Drug use: No Sexual activity: Yes Partners: Male control/protection: OCP Other Topics Concern Not on file Social History Narrative to Anahi in 08/2017 (hx of VSD repair). Had first daughter, Crystal, born in 10/09. 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 Overall Financial Resource Strain (CARDIA) Difficulty of Paying Living Expenses: Not hard at all Food Insecurity: No Food Insecurity (10/25/2021) Received from [facility] Hunger Vital Sign Worried About Running Out of Food in the Last Year: Never true Ran Out of Food in the Last Year: Never true Transportation Needs: Not on file Physical Activity: Not on file Stress: Not on file Social Connections: Not on file Intimate Partner Violence: Not on file Housing Stability: Not on file OBJECTIVE BP 132/86 Ht 5' 3.5 (1.613 m) Wt 156 lb (70.8 kg) BMI 27.20 kg/m MUSCULOSKELETAL: Cervical Exam: Neck range of motion: normal range of motion, some muscular tension/pain with end-range stretch with neck flexion (up the back of her head), no pain over spinous processes or paraspinals today. Spurlings: Negative when looking to the right and left right side Shoulder Inspection of the shoulder reveals no obvious deformity or swelling, no obvious skin lesion, erythema, or discoloration. Palpation: Pain with palpation of right side traps pain/ it is tight & spasmed ROM: RIGHT LEFT Forward Elevation AROM Full PROM Full AROM Full PROM Full Abduction AROM Full PROM Full AROM Full PROM Full External rotation at 0 degrees of Adduction AROM 70 PROM Same AROM 70 PROM Same Internal Rotation Low Thoracic Low Thoracic Sensation: Sensation intact C5-T1 Pulse: Palpable radial pulse. Reflexes: 2+ biceps reflexes. Motor: RIGHT LEFT Supraspinatus Subtle weakness secondary to pain Full strength Infraspinatus Full strength Full strength Subscapularis Full strength Full strength Distal motor exam including elbow flexion/extension, wrist flexion/extension, thumb extension, finger abduction and A-OK sign is intact without deficits. Special Tests (as indicated): Pain over AC joint: negative AC Joint instability:negative Cross Body Adduction Pain: negative Drop Arm Test/Lomas tests: positive Bear hug test: Not Tested Belly Press: Not Tested Dillon's Test: positive Biceps pain with Speed's Test: positive Yergason's test: negative Positive shoulder abduction relief test (Bakody's sign) MARCO test: equivocal (just felt heavy in her deltoid after 2 minutes) Negative Tinel's at elbow Negative Tinel's at wrist Shoulder Instability: no specific positive exam findings There is not evidence of global laxity. IMAGING Radiology Findings: Shoulder Xrays: Plain films were again reviewed from a previous date. Dr. Cason, PCP, ordered and done 11/05/23, in [place] [facility] imaging system, (nuriay, Y, Axillary Rt shoulder) My interpretation agrees with radiologist findings below: There is no evidence of fracture The glenohumeral joint has a well maintained joint space with no evidence of arthritis or bony changes The AC joint has no evidence of arthritis or bony changes The humeral head is well positioned within the glenoid Exam Date/Time: 11/05/2023 08:06 Procedure: XR SHOULDER 2+ VIEWS RIGHT Ordering Provider: CASON EUGENE FINDINGS: No fracture or dislocation of the right shoulder is identified. There is no abnormal soft tissue swelling. The right acromioclavicular and glenohumeral joints appear grossly normal. IMPRESSION: Unremarkable plain films of the right shoulder. Report Dictated on Electronically Signed By: Jaskaran Sorensen MD Electronically Signed Date/Time: 11/05/2023 6:25 PM EDT Other Diagnostic Testing Other Diagnostic Testing: None add'l PROCEDURE none ASSESSMENT Diagnosis Plan 1. Impingement syndrome of shoulder, right Impingement syndrome of shoulder, right [M75.41] PLAN I discussed that Maria's symptoms are not glaringly obvious for full-thickness rotator cuff tear, but her right shoulder pain is more chronic now and started after increase in activity/workouts last spring. She has had little relief with 6-7 weeks of formal PT and home exercises, only got a few days relief from the SA injection, so we could proceed with MRI if she wanted to to assess for even a partial cuff tear or biceps pathology. She will hold off as of now. We could consider referral to spine to get their thoughts on any neck overapping symptoms and update xrays and due to her comment that resting her arm/hand on top of her head gives relief made me think more cervical radiculopathy symptoms, but no numbness/tingling and negative Spurling's both sides. Some remote history of abnormal xrays? I would not jump to an EMG based on her current presentation. We could consider USG biceps injection as her biceps special exams were positive and some more anterior pain today than past, but again, not raging pain only to palpation. I discussed with Maria the natural history, expected outcome, and risks/benefits of both operative and nonoperative management of her particular diagnosis relative to her age, activity level, previous treatment, and physical exam. Maria had some excellent questions, all of which were answered to her satisfaction. Maria elected to proceed with continued conservative treatment with OTC nsaids and HEP (she will think about returning to formal PT) and update me if any drastic changes in her symptoms. Rehabilitation: NO formal rehabilitation required at this point. Follow-up: Maria will followup with me on an as needed basis. She knows to call the office with any questions or concerns in the interim. Future Imaging: NONE Maria Alejandra Lee PA-C Physician Stock Car Driver with Dr. Chad Lyon MD and Dr. Johnnie Sagastume MD [facility] Department of Orthopaedics and Sports Medicine 01/08/2024 at 2:41 PM ADDENDUM, PT CALLED OFFICE BACK 01/18/24 ASKING IF SHE COULD GET UPDATED PHYSICAL THERAPY ORDER TO RETURN AND TRY SOME MODALITIES INCLUDING DRY NEEDLING MENTIONED BY HER THERAPIST IN THE PAST. NEW ORDER DROPPED. SHE ALSO ASKED FOR MRI TO BE ORDERED, SO WE WILL PROCEED WITH MRI, SHE HAS EXHAUSTED CONSERVATIVE TREATMENT OF 1.5 years sypmtoms, now 8 weeks of therapy, nsaids and failed injection. Maria Alejandra Lee PA-C (Please note that portions of this note may have been completed with a voice recognition program. Efforts were made to edit the dictations but occasionally words are mis-transcribed.) documented in this encounter [facility] 01-08-2024 History of Presen t illness Narrative [facility] [address] [place] [address] [address] [facility] [address] Dept: [phone] Dept 01/21/2024 Chief Complaint Patient presents with Follow-up R shoulder impingement HPI Maria returns today in follow-up regarding right sided shoulder pain. She describes her symptoms worse with lifting, pulling, pushing, difficulty sleeping on affected side, internal rotation of the shoulder , and alleviated with rest and anti-inflammatories as well as putting her hand up on the back of her head (poss Bakody's sign?) . She has noticed an improvement with taking anti-inflammatories regularly over the past week (resumed after she sent [employer] message last Sunday 12/31). Her last appointment was approximately 8 weeks ago. At her last appointment she was treated with formal PT or OT - which was somewhat helpful and an injection - which helped for only 2-3 days . She was discharged to her own home exercise plan by PT after her 12/17 evaluation. Pain returned after that. Last Thursday was in more pain. Addendum 03/30/2024: Pt did return to formal PT and attended PT/did home exercises as guided by her therapists for another round from 01/25/24 - 03/04/24 and is currently being added for formal PT for cervical spine as well, ordered by Dr. Bravo, so she is now at over 4 months of PT from Oct 2023 to present Mar 2024. Helpful with nsaids, 600mg OTC Ibuprofen. She denies any radiating numbness/tingling at present (noted some elbow tingling with some wall and table push-up exercises at PT). In her [employer] messages this past week and verbally today, she notes she does get tension headaches and also that her neck crackles daily with movement/stretching or flexion/extension movement. She reports having some cervical spine xrays through a chiropractor toward the beginning of 2022 when her symptoms started, remembers them mentioning some anomaly with an extra bone or extra rib and wonders if this correlates at all? Overall, Maria experienced temporaryrelief of her initial symptoms with the previous treatments. She has noticed symptom persistence over the last several weeks. She returns today requesting additional treatment. Currently, Maria feels no improvement in her symptoms since her last appointment. New symptoms or locations of pain since last appointment: yes, pain and crackling sensation in the neck when extending Please see my previous note for full history and injury details. SANE Score: 80 Past Medical History: Diagnosis Date Anxiety and depression 2016 COVID-19 04/2022 History of migraine nml MRI head 06/12- with [facility] Hypercholesterolemia 04/2022 rx well with diet Oral contraceptive use Dr. Mena Social History Socioeconomic History Marital status: Spouse name: Not on file Number of children: Not on file Years of education: Not on file Highest education level: Not on file Occupational History Not on file Tobacco Use Smoking status: Never Smokeless tobacco: Never Substance and Sexual Activity Alcohol use: Yes Alcohol/week: 2.0 standard drinks of alcohol Types: 2 Glasses of wine per week Drug use: No Sexual activity: Yes Partners: Male control/protection: OCP Other Topics Concern Not on file Social History Narrative to Anahi in 08/2017 (hx of VSD repair). Had first daughter, Crystal, born in 10/09. 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 Overall Financial Resource Strain (CARDIA) Difficulty of Paying Living Expenses: Not hard at all Food Insecurity: No Food Insecurity (10/25/2021) Received from [facility] Hunger Vital Sign Worried About Running Out of Food in the Last Year: Never true Ran Out of Food in the Last Year: Never true Transportation Needs: Not on file Physical Activity: Not on file Stress: Not on file Social Connections: Not on file Intimate Partner Violence: Not on file Housing Stability: Not on file OBJECTIVE BP 132/86 Ht 5' 3.5 (1.613 m) Wt 156 lb (70.8 kg) BMI 27.20 kg/m MUSCULOSKELETAL: Cervical Exam: Neck range of motion: normal range of motion, some muscular tension/pain with end-range stretch with neck flexion (up the back of her head), no pain over spinous processes or paraspinals today. Spurlings: Negative when looking to the right and left right side Shoulder Inspection of the shoulder reveals no obvious deformity or swelling, no obvious skin lesion, erythema, or discoloration. Palpation: Pain with palpation of right side traps pain/ it is tight & spasmed ROM: RIGHT LEFT Forward Elevation AROM Full PROM Full AROM Full PROM Full Abduction AROM Full PROM Full AROM Full PROM Full External rotation at 0 degrees of Adduction AROM 70 PROM Same AROM 70 PROM Same Internal Rotation Low Thoracic Low Thoracic Sensation: Sensation intact C5-T1 Pulse: Palpable radial pulse. Reflexes: 2+ biceps reflexes. Motor: RIGHT LEFT Supraspinatus Subtle weakness secondary to pain Full strength Infraspinatus Full strength Full strength Subscapularis Full strength Full strength Distal motor exam including elbow flexion/extension, wrist flexion/extension, thumb extension, finger abduction and A-OK sign is intact without deficits. Special Tests (as indicated): Pain over AC joint: negative AC Joint instability:negative Cross Body Adduction Pain: negative Drop Arm Test/Lomas tests: positive Bear hug test: Not Tested Belly Press: Not Tested Dillon's Test: positive Biceps pain with Speed's Test: positive Yergason's test: negative Positive shoulder abduction relief test (Bakody's sign) MARCO test: equivocal (just felt heavy in her deltoid after 2 minutes) Negative Tinel's at elbow Negative Tinel's at wrist Shoulder Instability: no specific positive exam findings There is not evidence of global laxity. IMAGING Radiology Findings: Shoulder Xrays: Plain films were again reviewed from a previous date. Dr. Cason, PCP, ordered and done 11/05/23, in [place] [facility] system, ([facility], Y, Axillary Rt shoulder) My interpretation agrees with radiologist findings below: There is no evidence of fracture The glenohumeral joint has a well maintained joint space with no evidence of arthritis or bony changes The AC joint has no evidence of arthritis or bony changes The humeral head is well positioned within the glenoid Exam Date/Time: 11/05/2023 08:06 Procedure: XR SHOULDER 2+ VIEWS RIGHT Ordering Provider: CASON EUGENE FINDINGS: No fracture or dislocation of the right shoulder is identified. There is no abnormal soft tissue swelling. The right acromioclavicular and glenohumeral joints appear grossly normal. IMPRESSION: Unremarkable plain films of the right shoulder. Report Dictated on Electronically Signed By: Jaskaran Sorensen MD Electronically Signed Date/Time: 11/05/2023 6:25 PM EDT Other Diagnostic Testing Other Diagnostic Testing: None add'l PROCEDURE none ASSESSMENT Diagnosis Plan 1. Impingement syndrome of shoulder, right Impingement syndrome of shoulder, right [M75.41] PLAN I discussed that Maria's symptoms are for worsening/persistent right shoulder pain, this is more chronic now and started after increase in activity/workouts last spring. She has had little relief with 6-7 weeks of formal PT and home exercises, only got a few days relief from the SA injection, so we can proceed with MRI if she wanted to to assess for even a partial cuff tear or biceps pathology. She will hold off as of now. We could consider referral to spine to get their thoughts on any neck overapping symptoms and update xrays and due to her comment that resting her arm/hand on top of her head gives relief made me think more cervical radiculopathy symptoms, but no numbness/tingling and negative Spurling's both sides. Some remote history of abnormal xrays? I would not jump to an EMG based on her current presentation. We could consider USG biceps injection as her biceps special exams were positive and some more anterior pain today than past, but again, not raging pain only to palpation. I discussed with Maria the natural history, expected outcome, and risks/benefits of both operative and nonoperative management of her particular diagnosis relative to her age, activity level, previous treatment, and physical exam. Maria had some excellent questions, all of which were answered to her satisfaction. Maria elected to proceed with continued conservative treatment with OTC nsaids and HEP (she will think about returning to formal PT) and update me if any drastic changes in her symptoms. Rehabilitation: NO formal rehabilitation required at this point. Follow-up: Maria will followup with me on an as needed basis. She knows to call the office with any questions or concerns in the interim. Future Imaging: NONE Maria Alejandra Lee PA-C Physician Stock Car Driver with Dr. Chad Lyon MD and Dr. Johnnie Sagastume MD [facility] Department of Orthopaedics and Sports Medicine 01/08/2024 at 2:41 PM ADDENDUM, PT CALLED OFFICE BACK 01/18/24 ASKING IF SHE COULD GET UPDATED PHYSICAL THERAPY ORDER TO RETURN AND TRY SOME MODALITIES INCLUDING DRY NEEDLING MENTIONED BY HER THERAPIST IN THE PAST. NEW ORDER DROPPED. SHE ALSO ASKED FOR MRI TO BE ORDERED, SO WE WILL PROCEED WITH MRI, SHE HAS EXHAUSTED CONSERVATIVE TREATMENT OF 1.5 years sypmtoms, now 8 weeks of therapy, nsaids and failed injection. Maria Alejandra Lee PA-C 2ND ADDENDUM, PT CONTACTED OFFICE 03/25/24, Saw Spine and got her cervical MRI, there is some disc bulging, they are doing more cervical spine PT 1st, poss injections. But, she inquired again about getting her right shoulder MRI done, it was denied in the past. Now has done over 4 months of PT from Oct 2023 to present Mar 2024 and still having pain/limitations, getting worse and into her left neck/shoulder now too. Reordering MRI 03/30/24 upon receiving pt's message. Maria Alejandra Lee PA-C (Please note that portions of this note may have been completed with a voice recognition program. Efforts were made to edit the dictations but occasionally words are mis-transcribed.) documented in this encounter [facility] 12-18-2023 History of Presen t illness Narrative Images from the original note were not included. [facility] [place] [address] [place] [address] Dept: [phone] Dept PHYSICAL THERAPY RE-EVALUATION Patient Name: Maria Lopezcesar : 1990 Date of Service: 12/18/2023 Referring Provider: Maria Alejandra Lee PA* Visit #: 5 Diagnosis: Impingement syndrome of shoulder, right Mechanism of injury: insidious onset and worsening Patient Preferences: Maria Precautions/Red Flags: None Subjective General Comments: Maria says she feels like she has made progress with physical therapy. She says she feels improved strength in her back muscles. She says she can put her bra on easier and is able to stir things better as well. Combing her hair is also feeling better. She says she occasionally will get pain reaching across her body to fasten a seat belt. She says she feels about 90% functional at this time. She is doing less yard work lately. Pain: Current: 0/10 Best: 0/10 Worst: 3/10 Current Level of Function: independent with some pain Patient s Stated Goal: continue to improve Outcome Measures SPADI: Objective SHOULDER Observation: slightly elevated L shoulder compared to R (pt is right handed) and forward head/rounded shoulders Cervical Spine AROM: WFL Elbow AROM: WFL Date Recorded: 12/18/2023 Upper Extremity ROM (degrees) Right Left AROM AROM Shoulder Flexion 170 166 Shoulder Abduction 175 175 Shoulder External Rotation (ER) 66, ~ T4 72, ~T5 Shoulder Internal Rotation (IR) To ~T4 To ~ T3 Upper Extremity Strength (*pain) Date 12/18/2023 R L Shoulder Flexion 5/5 5/5 Shoulder ABD 5/5 5/5 Shoulder ER 5/5 5/5 Shoulder IR 5/5 5/5 Elbow Flex 5/5 5/5 Elbow Ext 5/5 5/5 Wrist Flex 5/5 5/5 Wrist Ext 5/5 5/5 NT = not tested Scapular Strength Right Left Lower Trapezius 5/5 5/5 Middle Trapezius 5/5 5/5 Joint mobility: WFL Palpation: slightly tender to palpation at AC Flexibility: reduced UT and pec flexibility bilaterally Special Tests: Speeds (+) All previous tests from IE negative today Assessment Maria has made great progress over the past month in physical therapy. She has reduced her pain, improved her range of motion, increased her strength, improved her posture, and self reports improved ADL performance. She does have some lingering pain with cross body adduction despite these improvements. She will be successful transitioning to a fully home and independent exercise program going forward. She is therefore discharged at this time. Rehab Potential: Good Goals Active General/Ortho Patient will reduce pain to 2/10 for improved ability to perform home exercise program and participate in physical therapy sessions (Progressing) Start: 11/20/23 Expected End: 01/15/24 Patient will improve bilateral UE/Periscapular strength to 5/5 for improved ability to lift and carry objects (Completed) Start: 11/20/23 Expected End: 12/18/23 Resolved: 12/18/23 Patient will improve bilateral shoulder flexion and abduction to 170 degrees for improved ability to reach up and out (Progressing) Start: 11/20/23 Expected End: 01/15/24 Patient will reduce SPADI score from 35/130 to 10/130 for improved functional moblity (Completed) Start: 11/20/23 Expected End: 12/18/23 Resolved: 12/18/23 Plan Frequency and Duration: on hold pending physician follow up if returns 1/wk for 4 weeks otherwise discharge Therapeutic Contents: client education, group therapy, home exercise program, manual therapy techniques, neuromuscular re-education, therapeutic activities, therapeutic exercise, trigger point dry needle, and modalities as needed Plan for next session: discharge or continue exercises if pt returns Risks and benefits were discussed with the patient and/or family, and the patient and/or family participated with the plan of care and agrees. Treatment Patient Education: re-evaluation measures (billed as ther-act as multiple components of functioning were addressed) Home Exercise Program: Progressed home exercise program Time Entry Total Treatment Time Start Time: 1301 Stop Time: 1318 Time Calculation (min): 17 min PT Therapeutic Procedures Time Entry Therapeutic Activity Time Entry: 17 Jaspal Erickson PT documented in this encounter [facility] 12-11-2023 History of Presen t illness Narrative Images from the original note were not included. [facility] [place] [facility] [place] [address] [place] [address] Dept: [phone] Dept PHYSICAL THERAPY TREATMENT Patient Name: Maria Rae : 1990 Date of Service: 12/11/2023 Referring Provider: Maria Alejandra Lee PA* Visit #: 4 Diagnosis: Impingement syndrome of shoulder, right Mechanism of injury: insidious onset and worsening Patient Preferences: Maria Precautions/Red Flags: None Subjective Maria says she feels like her cortisone shot has worn off. Shoulder is sore. The sliding up the wall exercise may be bothersome Compliance with HEP: Yes Objective Objective measurements not taken today. Treatment Therapeutic Exercise Therapeutic Exercise Activity 1: prone Y/T Activity 1 Comment: 2x10 B 1# Therapeutic Exercise Activity 2: serratus punches Activity 2 Comment: 2x10 red Therapeutic Exercise Activity 3: iraida ER Activity 3 Comment: 2x10 red Therapeutic Exercise Activity 5: pull downs/mid rows Activity 5 Comment: 45# 3x10 // 50# 3x10 Therapeutic Exercise Activity 6: D2 flexion and extension Activity 6 Comment: 2x10 red Therapeutic Exercise Activity 7: push up plus Activity 7 Comment: table 2x10 Joint Mobilization Location: R shoulder // T3-5 Comments: shoulder inferior, lateral, A/P mobilizations grades II-III, HVLAT extension based @ T3-6 for thoracic mobility Home Exercise Program: Progressed home exercise program Assessment Skilled physical therapy interventions utilized to improve patient s impairments and work towards established goals. Continued with RTC and periscapular strengthening with some slight progressions, also performed MT for improved thoracic mobility and soreness reduction post session Patient response to treatment: able to complete all exercises, reported feeling better post session Patient will benefit from continued physical therapy to improve strength, stability, and range of motion in order to reduce The rationale for today s treatment was explained to the patient. Verbal cues were provided for correct form with all exercises. Advised patient to continue with Home Exercise Program (HEP). Goals General/Ortho Patient will reduce pain to 2/10 for improved ability to perform home exercise program and participate in physical therapy sessions (Progressing) Start: 11/20/23 Expected End: 12/18/23 Patient will improve bilateral UE/Periscapular strength to 5/5 for improved ability to lift and carry objects (Progressing) Start: 11/20/23 Expected End: 12/18/23 Patient will improve bilateral shoulder flexion and abduction to 170 degrees for improved ability to reach up and out (Progressing) Start: 11/20/23 Expected End: 12/18/23 Patient will reduce SPADI score from 35/130 to 10/130 for improved functional moblity (Not Addressed) Start: 11/20/23 Expected End: 12/18/23 Plan Plan for next session: continue RTC and scapular progressions, MT if indicated for pain Time Entry Total Treatment Time Start Time: 102 Stop Time: 135 Time Calculation (min): 33 min PT Therapeutic Procedures Time Entry Therapeutic Exercise Time Entry: 28 Manual Therapy Time Entry: 5 Jaspal Erickson PT documented in this encounter [facility] 12-04-2023 History of Presen t illness Narrative Images from the original note were not included. [facility] [place] [facility] AT [address] [place] [address] Dept: [phone] Dept PHYSICAL THERAPY TREATMENT Patient Name: Maria Rae : 1990 Date of Service: 12/04/2023 Referring Provider: Maria Alejandra Lee PA* Visit #: 2 Diagnosis: Impingement syndrome of shoulder, right Mechanism of injury: insidious onset and worsening Patient Preferences: Maria Precautions/Red Flags: None Subjective ~ 15 minutes late today. Maria says she had some burning after last session, it did not last the next day. Feels ok today. Compliance with HEP: Yes Objective Objective measurements not taken today. Treatment Therapeutic Exercise Therapeutic Exercise Activity 1: prone Y/T Activity 1 Comment: 2x10 B 1# Therapeutic Exercise Activity 2: serratus punches Activity 2 Comment: 2x10 red Therapeutic Exercise Acitivity 3: iraida ER Activity 3 Comment: 2x10 red Therapeutic Exercise Activity 4: horizontal abduction Activity 4 Comment: 2x10 red Therapeutic Exercise Activity 5: pull downs/mid rows Activity 5 Comment: 40# 2x10 each Therapeutic Exercise Activity 6: serratus wall slides Activity 6 Comment: 2x10 yellow Therapeutic Exercise Activity 7: scap clocks Activity 7 Comment: x10 B yellow Home Exercise Program: Progressed home exercise program Assessment Skilled physical therapy interventions utilized to improve patient s impairments and work towards established goals. Abbreviated session due to light arrival. Emphasis on scapular strengthening today Patient response to treatment: able to complete all exercises Patient will benefit from continued physical therapy to improve strength and stability in order to reduce pain and progress to higher levels of functioning The rationale for today s treatment was explained to the patient. Verbal cues were provided for correct form with all exercises. Advised patient to continue with Home Exercise Program (HEP). Goals General/Ortho Patient will reduce pain to 2/10 for improved ability to perform home exercise program and participate in physical therapy sessions (Progressing) Start: 11/20/23 Expected End: 12/18/23 Patient will improve bilateral UE/Periscapular strength to 5/5 for improved ability to lift and carry objects (Progressing) Start: 11/20/23 Expected End: 12/18/23 Patient will improve bilateral shoulder flexion and abduction to 170 degrees for improved ability to reach up and out (Progressing) Start: 11/20/23 Expected End: 12/18/23 Patient will reduce SPADI score from 35/130 to 10/130 for improved functional moblity (Not Addressed) Start: 11/20/23 Expected End: 12/18/23 Plan Plan for next session: RTC strengthening in addiction to scapular Time Entry Total Treatment Time Start Time: 1245 Stop Time: 1259 Time Calculation (min): 14 min PT Therapeutic Procedures Time Entry Therapeutic Exercise Time Entry: 14 Jaspal Erickson PT documented in this encounter [facility] 11-27-2023 History of Presen t illness Narrative Images from the original note were not included. [facility] AT [address] [place] [address] Dept: [phone] Dept PHYSICAL THERAPY TREATMENT Patient Name: Maria Rae : 1990 Date of Service: 11/27/2023 Referring Provider: Maria Alejandra Lee PA* Visit #: 2 Diagnosis: Impingement syndrome of shoulder, right Mechanism of injury: insidious onset and worsening Patient Preferences: Maria Precautions/Red Flags: None Subjective Maria says that she is doing ok today. Some pain with rowing HEP otherwise they felt ok. No current complaints of pain. Compliance with HEP: Yes Objective Objective measurements not taken today. Treatment Therapeutic Exercise # of Activities: 10 Therapeutic Exercise Activity 1: UBE level 1 Activity 1 Comment: 2' fwd 2' bwd Therapeutic Exercise Activity 2: er isometric Activity 2 Comment: x10 3s Therapeutic Exercise Acitivity 3: IR isometric Activity 3 Comment: x10 3s Therapeutic Exercise Activity 4: mid rows Activity 4 Comment: 2x10 red Therapeutic Exercise Activity 5: pull downs Activity 5 Comment: 2x10 red Therapeutic Exercise Activity 6: iraida ER Activity 6 Comment: 3x10 red Therapeutic Exercise Activity 7: horizontal abduction Activity 7 Comment: 3x10 red Therapeutic Exercise Activity 8: ER/IR Activity 8 Comment: 2x10 red each Therapeutic Exercise Activity 9: serratus punches Activity 9 Comment: 2x10 red Therapeutic Exercise Activity 10: prone Y/T Activity 10 Comment: 2x10 B each Home Exercise Program: Progressed home exercise program Assessment Skilled physical therapy interventions utilized to improve patient s impairments and work towards established goals. Progressed periscapular, RTC, and serratus strength today Patient response to treatment: able to complete all exercises without pain or exacerbation Patient will benefit from continued physical therapy to improve strength and stability in order to reduce pain and return to premorbid levels of functioning The rationale for today s treatment was explained to the patient. Verbal cues were provided for correct form with all exercises. Advised patient to continue with Home Exercise Program (HEP). Goals General/Ortho Patient will reduce pain to 2/10 for improved ability to perform home exercise program and participate in physical therapy sessions (Progressing) Start: 11/20/23 Expected End: 12/18/23 Patient will improve bilateral UE/Periscapular strength to 5/5 for improved ability to lift and carry objects (Progressing) Start: 11/20/23 Expected End: 12/18/23 Patient will improve bilateral shoulder flexion and abduction to 170 degrees for improved ability to reach up and out (Progressing) Start: 11/20/23 Expected End: 12/18/23 Patient will reduce SPADI score from 35/130 to 10/130 for improved functional moblity (Not Addressed) Start: 11/20/23 Expected End: 12/18/23 Plan Plan for next session: assess response to progressions, continue as able, rhythmic stabilization, wall slides, ER at functional position Time Entry Total Treatment Time Start Time: 0830 Stop Time: 0900 Time Calculation (min): 30 min PT Therapeutic Procedures Time Entry Therapeutic Exercise Time Entry: 30 Jaspal Erickson PT documented in this encounter [facility] 11-20-2023 History of Presen t illness Narrative Images from the original note were not included. 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 PSHX: Maria has a past surgical history that includes [place] tooth extraction (2017) and Cosmetic surgery (Bilateral, 2019). Have you experienced any anxiety or depression?: No Have you experienced thoughts of self-harm or suicidal thoughts?: No Social Determinates of Health Reviewed: Yes Physician follow-up appointment?: try PT first Subjective Chief Complaint: Maria says last spring she was going to the gym a lot and doing a lot of shoulder exercises with low weight and high reps. Says that she feels her right shoulder is lower. She says she was seeing a chiropractor and they tried to help fix that. She says she had the thera-gun used. She says that it didn't feel good but it didn't hurt. She says it felt painful and disconnected. An ENAMEL MACHINE OPERATOR told her it was tendonitis and she took medicine that helped. Has been off and on since then. Over the past month ago it has been getting worse. She had an x-ray and went to ortho and got an injection. She has a lot of difficulty with reaching to do her bra and she can't lean back and put weight on it. She says her daughter is 35#s and wants to be lifted, when scooping her up she notices it then as well. Stirring when cooking also aggravates it. She does a lot of yard work and that is also bothersome for her. Describes her pain as a burning type of pain that stays mostly in the shoulder, some tension headaches. Pain: Current: 0/10 Best: 0/10 Worst: 5-6/10 Symptoms Relieved by: medications, repositioning Prior Level of Function: independent without difficulty Current Level of Function: independent with difficulty/pain Patient s Stated Goal: eliminating pain or figuring out what it is going on Outcome Measures SPADI: 35/130 Objective SHOULDER Observation: slightly elevated L shoulder compared to R (pt is right handed) and forward head/rounded shoulders Cervical Spine AROM: WFL Elbow AROM: WFL Date Recorded: 11/20/23 Upper Extremity ROM (degrees) Right Left AROM AROM Shoulder Flexion 158 146 Shoulder Abduction 168 170 Shoulder External Rotation (ER) 65, ~ T3 65, ~T3 Shoulder Internal Rotation (IR) To ~T12 To ~ T6 Upper Extremity Strength (*pain) Date 11/20/2023 R L Shoulder Flexion 5/5 5/5 Shoulder ABD 5/5* 5/5 Shoulder ER 5/5 5/5 Shoulder IR 5/5 5/5 Elbow Flex 5/5 5/5 Elbow Ext 5/5 5/5 Wrist Flex 5/5 5/5 Wrist Ext 5/5 5/5 NT = not tested Scapular Strength Right Left Lower Trapezius 5/5 5/5 Middle Trapezius 4/5 4/5 Joint mobility: WFL Palpation: non-tender to palpation today Flexibility: reduced UT and pec flexibility bilaterally Special Tests: SA Grind Test (+) with crepitus Lateral Yoko (+) slight pain Infraspinatus (+) slight pain Bear Hug (+) Slight pain Supine distraction (+) Modified Dynamic Labral Shear (+) Assessment Maria is a 33 y.o. patient with chief complaint of R shoulder pain, who presents with signs and symptoms consistent with referring diagnoses. Maria is a pleasant individual. She presents today with reduced periscapular strength, impaired posture, reduced range of motion, and pain. Special testing points to general shoulder pathology, doesn't appear to be major or sinister. She would benefit from skilled physical therapy to address decreased strength, decreased range of motion, pain, soft tissue impairment, and impaired functional activities. Evaluation complexity is low secondary to: patient has 1-2 personal factors and/or comorbidities that will affect plan of care, therapy will be addressing 1-2 elements, and clinical presentation is stable. Body Systems Affected: musculoskeletal and neuromuscular Rehab Potential: Good Learning Preferences: demonstration and explanation Barriers to Rehab: none Goals General/Ortho Patient will reduce pain to 2/10 for improved ability to perform home exercise program and participate in physical therapy sessions (Initiated) Start: 11/20/23 Expected End: 12/18/23 Patient will improve bilateral UE/Periscapular strength to 5/5 for improved ability to lift and carry objects (Initiated) Start: 11/20/23 Expected End: 12/18/23 Patient will improve bilateral shoulder flexion and abduction to 170 degrees for improved ability to reach up and out (Initiated) Start: 11/20/23 Expected End: 12/18/23 Patient will reduce SPADI score from 35/130 to 10/130 for improved functional moblity (Initiated) Start: 11/20/23 Expected End: 12/18/23 Plan Frequency and Duration: 1/wk for 4 weeks Therapeutic Contents: client education, group therapy, home exercise program, manual therapy techniques, neuromuscular re-education, therapeutic activities, therapeutic exercise, trigger point dry needle, and modalities as needed Plan for next session: assess HEP response, progress periscapular strengthening, functional RTC strengthening Risks and benefits were discussed with the patient and/or family, and the patient and/or family participated with the plan of care and agrees. Treatment Therapeutic Exercise # of Activities: 4 Therapeutic Exercise Activity 1: ER isometric Activity 1 Comment: x10 3s Therapeutic Exercise Activity 2: IR isometric Activity 2 Comment: x10 3s Therapeutic Exercise Acitivity 3: mid rows Activity 3 Comment: 3x10 red Therapeutic Exercise Activity 4: pull downs Activity 4 Comment: 3x10 red Patient Education: muscular support and force distribution Home Exercise Program: Created Time Entry Total Treatment Time Start Time: 08 Stop Time: 830 Time Calculation (min): 31 min PT Evaluation Time Entry PT Evaluation (Low) Time Entry: 20 PT Therapeutic Procedures Time Entry Therapeutic Exercise Time Entry: 11 Jaspal Erickson PT documented in this encounter [facility] 11-13-2023 History of Presen t illness Narrative Maria Rae 1990 [id number] 11/13/2023 Chief Complaint Patient presents with New Patient Right shoulder pain HPI: Maria Rae is a 33 y.o. Right-handed female who presents today complaining of right shoulder pain. Their symptoms started worsening 3 weeks ago, but ongoing since last spring. The current symptoms started after no specific injury. Thinking back, she was doing more shoulder exercises and lifting last year when this started up. Brady didn't feel good with chiropractor treatments last Mar - May. She saw her PCP, Dr. Cason, last week, who ordered xrays and 600mg Ibuprofen and referred her. I reviewed this note. Activities that worsen the pain include lifting, pulling, pushing, difficulty sleeping on affected side, internal rotation or propping up with arms behind her is a no-go. The patient described the location of the pain as deep and primarily over lateral deltoid . The patient complains of associated night pain. Associated nerve type symptoms include none. Some mention of some tingles behind the arm/distal triceps (with no numbness) w triceps workouts or stretching. No numbness/tingling into lower arm, hand, or fingers. The patient reports No history of shoulder dislocations or subluxations. The patient complains of occasional associated neck pain with extremes of motion and some remote history of tension headaches. 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 [employer]. Maria is referred by Dr. Cason. SANE score: 80 Allergies Allergen Reactions Wound Dressing Adhesive Itching and Rash Current Outpatient Medications on File Prior to Visit Medication Sig Dispense Refill doxycycline (Monodox) 50 MG capsule hydrOXYzine HCl (Atarax) 25 MG tablet 1/2 or one tab bid prn anxiety 60 tablet 1 ibuprofen 600 MG tablet Take 1 tablet (600 mg) by mouth 2 times daily as needed for mild pain (1-3) (pain). 60 tablet 0 metroNIDAZOLE (Metrocream) 0.75 % cream APPLY TO THE FULL FACE TWICE DAILY AFTER APPLYING TRIPLE ROSACEA CREAM. norethindrone (Micronor) 0.35 MG tablet Take 1 tablet (0.35 mg) by mouth daily. 84 tablet 4 rizatriptan PLASTICS SCIENTIST (Maxalt-PLASTICS SCIENTIST) 5 MG disintegrating tablet One stat and May repeat in 2 hours if unresolved. No more than 4 a week 9 tablet 1 venlafaxine XR (Effexor XR) 75 MG 24 hr capsule TAKE 1 CAPSULE (75 MG) BY MOUTH DAILY FOR 90 DOSES. DO NOT CRUSH OR CHEW. 90 capsule 1 [DISCONTINUED] minocycline 50 MG capsule Take 50 mg by mouth daily. No current facility-administered medications on file prior to visit. Past Medical History: Diagnosis Date Anxiety and depression 2016 COVID-19 04/2022 History of migraine nml MRI head 06/12- with [facility] Hypercholesterolemia 04/2022 rx well with diet Oral contraceptive use Dr. Mena Past Surgical History: Procedure Laterality Date BREAST ENHANCEMENT SURGERY Bilateral 2019 WISDOM TOOTH EXTRACTION 2017 Social History Socioeconomic History Marital status: Spouse name: Not on file Number of children: Not on file Years of education: Not on file Highest education level: Not on file Occupational History Not on file Tobacco Use Smoking status: Never Smokeless tobacco: Never Substance and Sexual Activity Alcohol use: Yes Alcohol/week: 2.0 standard drinks of alcohol Types: 2 Glasses of wine per week Drug use: No Sexual activity: Yes Partners: Male control/protection: OCP Other Topics Concern Not on file Social History Narrative to Anahi in 08/2017 (hx of VSD repair). Had first daughter, Crystal, born in 10/09. 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 Of note does enjoy hunting deer with her Social Determinants of Health Financial Resource Strain: Low Risk (10/25/2021) Received from [facility] Overall Financial Resource Strain (CARDIA) Difficulty of Paying Living Expenses: Not hard at all Food Insecurity: No Food Insecurity (10/25/2021) Received from [facility] Hunger Vital Sign Worried About Running Out of Food in the Last Year: Never true Ran Out of Food in the Last Year: Never true Transportation Needs: Not on file Physical Activity: Not on file Stress: Not on file Social Connections: Not on file Intimate Partner Violence: Not on file Housing Stability: Not on file Family History Problem Relation Name Age of Onset Colon polyps Mother Maria 55 alive in 60s Rheum arthritis Father Doron Alcohol abuse Father Doron Hypertension Father Doron Coronary artery disease Father Doron 50 pacemaker, stents Lung cancer Father Doron 59 smoker Graves' disease Sister No Known Problems Sister Colon cancer Father's Brother Nirav Throat cancer Father's Brother Gunnar No Known Problems Maternal Grandmother No Known Problems Maternal Grandfather No Known Problems Paternal Grandmother Lung cancer Paternal Grandfather Ray Physical Exam: BP 124/84 Ht 5' 3.5 (1.613 m) Wt 156 lb (70.8 kg) BMI 27.20 kg/m MUSCULOSKELETAL: Cervical Exam: Neck range of motion: normal range of motion, some muscular tension/pain with end-range stretch with neck flexion and side-bending, no pain over spinous processes. Spurlings: Negative when looking to the right and left right side Shoulder Inspection of the shoulder reveals no obvious deformity or swelling, no obvious skin lesion, erythema, or discoloration. Palpation: Pain with palpation of right side traps pain/ it is tight & spasmed ROM: RIGHT LEFT Forward Elevation AROM 150 PROM Full AROM 150 PROM Full Abduction AROM 150 PROM Full AROM 135 PROM Full External rotation at 0 degrees of Adduction AROM 70 PROM Same AROM 70 PROM Same Internal Rotation Low Thoracic Low Thoracic Sensation: Sensation intact C5-T1 Pulse: Palpable radial pulse. Reflexes: 2+ biceps reflexes. Motor: RIGHT LEFT Supraspinatus Full strength Full strength Infraspinatus Full strength Full strength Subscapularis Full strength Full strength Distal motor exam including elbow flexion/extension, wrist flexion/extension, thumb extension, finger abduction and A-OK sign is intact without deficits. Special Tests (as indicated): Pain over AC joint: negative AC Joint instability:negative Cross Body Adduction Pain: negative Drop Arm Test/Lomas tests: positive Bear hug test: Not Tested Belly Press: Not Tested Dillon's Test:positive Biceps pain with Speed's Test:positive Yergason's test: negative Shoulder Instability: no specific positive exam findings There is not evidence of global laxity. Imaging Shoulder Xrays: Plain films were reviewed from a previous date. Dr. Cason, PCP, ordered and done 11/05/23, in [place] [facility] imaging system, reviewed by myself today with pt (michael, Y, Axillary Rt shoulder) My interpretation agrees with radiologist findings below: There is no evidence of fracture The glenohumeral joint has a well maintained joint space with no evidence of arthritis or bony changes The AC joint has no evidence of arthritis or bony changes The humeral head is well positioned within the glenoid Exam Date/Time: 11/05/2023 08:06 Procedure: XR SHOULDER 2+ VIEWS RIGHT Ordering Provider: CASON EUGENE FINDINGS: No fracture or dislocation of the right shoulder is identified. There is no abnormal soft tissue swelling. The right acromioclavicular and glenohumeral joints appear grossly normal. IMPRESSION: Unremarkable plain films of the right shoulder. Report Dictated on Electronically Signed By: Jaskaran Sorensen MD Electronically Signed Date/Time: 11/05/2023 6:25 PM EDT Other Diagnostic Testing: None add'l IMPRESSION: Diagnosis Plan 1. Impingement syndrome of shoulder, right [facility] Physical Therapy [facility] triamcinolone acetonide (Kenalog-40) injection 40 mg bupivacaine (Marcaine) 0.25 % injection 4.5 mL lidocaine (Xylocaine) 1 % injection 4.5 mL 2. Chronic right shoulder pain [facility] [place] Orthopedics - [facility] Impingement syndrome of shoulder, right [M75.41] PROCEDURE: Procedure Note: After risks and benefits of intra-articular injection including but not limited to infection, elevated blood glucoses, flushed cheeks, local redness and pain were reviewed with the patient, she elected to proceed. After sterile alcohol prep, a mixture of 40 mg of kenalog, 4.5 cc of 1% lidocaine plain and 0.25% marcaine plain was placed into the subacromial space from the posterior portal of the RIGHT SHOULDER. The patient tolerated the injection well. A band-aid was placed. Post-injection instructions were reviewed. The patient tolerated the injection reasonably well. The patient was given instructions to ice the shoulder and avoid strenuous activities for 24-48 hours. The patient was instructed to call the office immediately if there is increased pain, redness, warmth, fever, or chills. PLAN: The history, exam, and imaging is consistent with right shoulder impingement/bursitis with biceps tendinitis as well. Patient has had more chronic cuff impingement/tendinitis on and off over the last year and a half, but more bothersome over the last 3 weeks. To this point, she has dealt with visit and has used [id number] anti-inflammatories as needed, more routinely this past month and they are helpful, but do not fully resolve her pain. Due to the chronicity and persistence of her symptoms as well as them being bothersome to her daily activities, she sought treatment today. I discussed with Maria the natural history, expected outcome, and risks/benefits of both operative and nonoperative management of her particular diagnosis relative to her age, activity level, previous treatment, and physical exam. Maria had some excellent questions, all of which were answered to her satisfaction. Maria elected to proceed with cortisone injection today in office as well as formal physical therapy at [facility]. She will continue the 600mg Ibuprofen prescribed by PCP as needed. Follow-up: Maria will followup with me in 8 weeks. She knows to call the office with any questions or concerns in the interim. If the injection helps her impingement/more lateral deltoid pain but her anterior/biceps pain is persistent, we can entertain a biceps specific injection in the future, or proceed with MRI if symptoms not improved overall, but we will reassess in 2 months. Future Imaging: NONE Maria Alejandra Lee PA-C Physician Stock Car Driver with Dr. Chad Lyon MD and Dr. Johnnie Sagastume MD [facility] Department of Orthopaedics and Sports Medicine 11/13/2023 at 1:56 PM (Please note that portions of this note may have been completed with a voice recognition program. Efforts were made to edit the dictations but occasionally words are mis-transcribed.) documented in this encounter [facility] 11-09-2023 Telephone encounter Note Orders pended for doctor signature [facility] 11-09-2023 Miscellaneous Notes Orders pended for doctor signature documented in this encounter [facility] 11-05-2023 History of Presen t illness Narrative Images from the original note were not included. [facility] [address] [place] [address] [address] [facility] [id number] Visit type: Established Patient Reason for Visit: Follow-up (Med check) Assessment / Plan: Maria was seen today for follow-up. Diagnoses and all orders for this visit: Anxiety and depression (Primary) Comments: Stable, continue Effexor History of migraine Chronic right shoulder pain Comments: Recurrent, x-ray, ibuprofen and stretches Orders: - XR shoulder 2+ views right; Future Other orders - ibuprofen 600 MG tablet; Take 1 tablet (600 mg) by mouth 2 times daily as needed for mild pain (1-3) (pain). Subjective: Patient ID: Maria Rae is a 33 y.o. female. HPI patient presents for refill on her Effexor and Maxalt. Those issues have gone well. The meds are effective. 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 Her and daughter are healthy. Some stress with finding affordable preschool. Review of Systems Recently placed on alternate control pill in lieu of her migraine history. No change in frequency or severity of headaches. No recent earache sore throat or cough. Some allergies. No purulent phlegm or fever. No cardiac or pulmonary concerns. Bowels are more regular without constipation. Having intermittent achiness of the lateral aspect of the right shoulder. Addressed last spring. She enjoys yard work and does a lot with her upper extremities. No neck or radicular symptoms. Pain is intermittent in the lateral right shoulder. No weakness of the arm or hand. No history of sports related trauma Allergies Allergen Reactions Wound Dressing Adhesive Itching and Rash Current Outpatient Medications on File Prior to Visit Medication Sig Dispense Refill hydrOXYzine HCl (Atarax) 25 MG tablet 1/2 or one tab bid prn anxiety 60 tablet 1 minocycline 50 MG capsule Take 50 mg by mouth daily. norethindrone (Micronor) 0.35 MG tablet Take 1 tablet (0.35 mg) by mouth daily. 84 tablet 4 rizatriptan PLASTICS SCIENTIST (Maxalt-PLASTICS SCIENTIST) 5 MG disintegrating tablet One stat and May repeat in 2 hours if unresolved. No more than 4 a week 9 tablet 1 venlafaxine XR (Effexor XR) 75 MG 24 hr capsule TAKE 1 CAPSULE (75 MG) BY MOUTH DAILY FOR 90 DOSES. DO NOT CRUSH OR CHEW. 90 capsule 1 metroNIDAZOLE (Metrocream) 0.75 % cream APPLY TO THE FULL FACE TWICE DAILY AFTER APPLYING TRIPLE ROSACEA CREAM. [DISCONTINUED] venlafaxine XR (Effexor XR) 75 MG 24 hr capsule Take 1 capsule (75 mg) by mouth daily for 90 doses. Do not crush or chew. 90 capsule 1 No current facility-administered medications on file prior to visit. Patient Active Problem List Diagnosis Anxiety and depression Tendonitis History of migraine Oral contraceptive use Social History Tobacco Use Smoking status: Never Smokeless tobacco: Never Substance Use Topics Alcohol use: Yes Alcohol/week: 2.0 standard drinks of alcohol Types: 2 Glasses of wine per week Past Surgical History: Procedure Laterality Date BREAST ENHANCEMENT SURGERY Bilateral 2019 WISDOM TOOTH EXTRACTION 2017 Family History Problem Relation Name Age of Onset Colon polyps Mother Maria 55 alive in 60s Rheum arthritis Father Doron Alcohol abuse Father Doron Hypertension Father Doron Coronary artery disease Father Doron 50 pacemaker, stents Lung cancer Father Doron 59 smoker Graves' disease Sister No Known Problems Sister Colon cancer Father's Brother Nirav Throat cancer Father's Brother Gunnar No Known Problems Maternal Grandmother No Known Problems Maternal Grandfather No Known Problems Paternal Grandmother Lung cancer Paternal Grandfather Ray Objective: BP 104/60 Pulse 68 Temp 36.1 C (97 F) (Temporal) Ht 5' 3.5 (1.613 m) Wt 156 lb (70.8 kg) SpO2 98% BMI 27.20 kg/m Physical Exam very pleasant and engaging. No thyroid or neck masses. Reflexes normal. Negative Spurling's. Painful anterior aspect of the shoulder. However all rotator cuff exam tests are normal. Negative Lomas and Neer exam. Negative drop arm and empty can sign. She can push off her buttock and touch her mid thoracic line. Biceps intact. No atrophy. Heart is regular. Lungs are clear. Abdomen normal for pain hepatosplenomegaly or masses documented in this encounter [facility] 11-02-2023 Telephone encounter Note Recent Visits Date Type Provider Dept 05/07/23 Office Visit Marvin Cason DO [facility] 11/05/22 Office Visit Marvin Cason DO [facility] Showing recent visits within past 365 days and meeting all other requirements Future Appointments Date Type Provider Dept 11/05/23 Appointment Marvin Cason DO [facility] Showing future appointments within next 90 days and meeting all other requirements Requested Prescriptions Pending Prescriptions Disp Refills venlafaxine XR (Effexor XR) 75 MG 24 hr capsule [Pharmacy Med Name: VENLAFAXINE HCL ER 75 MG CAP] 90 capsule 1 Sig: TAKE 1 CAPSULE (75 MG) BY MOUTH DAILY FOR 90 DOSES. DO NOT CRUSH OR CHEW. Provider: Marvin Cason DO Overdue for visit: Yes If yes - patient scheduled? Yes Most recent labs completed in chart? Yes Verified pharmacy: yes Verified day(s) supplied: yes Verified refill(s) needed (previous prescription showing no refills in chart): Yes Have you received any controlled medications from any other provider? N/A [facility] 11-02-2023 Miscellaneous Notes Recent Visits Date Type Provider Dept 05/07/23 Office Visit Marvin Cason DO [facility] 11/05/22 Office Visit Marvin Cason DO [facility] Showing recent visits within past 365 days and meeting all other requirements Future Appointments Date Type Provider Dept 11/05/23 Appointment Marvin Cason DO [facility] Showing future appointments within next 90 days and meeting all other requirements Requested Prescriptions Pending Prescriptions Disp Refills venlafaxine XR (Effexor XR) 75 MG 24 hr capsule [Pharmacy Med Name: VENLAFAXINE HCL ER 75 MG CAP] 90 capsule 1 Sig: TAKE 1 CAPSULE (75 MG) BY MOUTH DAILY FOR 90 DOSES. DO NOT CRUSH OR CHEW. Provider: Marvin Cason DO Overdue for visit: Yes If yes - patient scheduled? Yes Most recent labs completed in chart? Yes Verified pharmacy: yes Verified day(s) supplied: yes Verified refill(s) needed (previous prescription showing no refills in chart): Yes Have you received any controlled medications from any other provider? N/A documented in this encounter [facility] 07-09-2023 History of Presen t illness Narrative The patient, Maria Rae's, identity was verified by name Kenalog VIS (s) given to patient for review prior to immunization administration. Received informed consent to proceed with Kenalog given as ordered. Tolerated procedure well. Supervising MD Dr. Cason documented in this encounter [facility] 06-05-2023 History of Presen t illness Narrative Maria Rae 06/05/2023 32 y.o. Primary Care Physician: Marvin Cason DO Chief Complaint Patient presents with Annual Exam HPI : Maria Rae is a 32 y.o. female here for annual exam. Gynecologic History: Patient's last menstrual period was 05/22/2023 (exact date). Menses are regular. Menses occur every regular every 28-30 days. Flow is moderate Intermenstrual bleeding: no Dysmenorrhea:none Sexually Active: Yes Dyspareunia: No Contraception: oral contraceptives (estrogen/progesterone) Preventative Health Testing: Date of Last Pap Smear: neg pap and HPV 03/2021 Abnormal Pap Smear History: none OB History Para Term AB Living 1 1 1 0 0 1 SAB IAB Ectopic Multiple Live Births 0 0 0 0 1 # Outcome Date GA Lbr Elliott/2nd Weight Sex Delivery Anes PTL Lv 1 Term 10/13/19 39w3d 6 lb 12 oz (3.062 kg) F Vag-Spont VENKATA Name: KYRA,GIRL MARIA Apgar1: 9 Apgar5: 9 Past Medical History: Diagnosis Date Anxiety and depression 2016 COVID-19 04/2022 History of migraine nml MRI head 06/12- with auras Hypercholesterolemia 04/2022 Attempting diet control Oral contraceptive use Dr. Mena Past Surgical History: Procedure Laterality Date BREAST ENHANCEMENT SURGERY Bilateral 2019 WISDOM TOOTH EXTRACTION 11/2016 Family History Problem Relation Name Age of Onset Colon polyps Mother Maria 55 alive in 60s Rheum arthritis Father Doron Alcohol abuse Father Doron Hypertension Father Doron Coronary artery disease Father Doron 50 pacemaker, stents Lung cancer Father Doron 59 smoker Graves' disease Sister No Known Problems Sister Colon cancer Father's Brother Nirav Throat cancer Father's Brother Gunnar No Known Problems Maternal Grandmother No Known Problems Maternal Grandfather No Known Problems Paternal Grandmother Lung cancer Paternal Grandfather Ray MEDICATIONS: Current Outpatient Medications Medication Sig Dispense Refill hydrOXYzine HCl (Atarax) 25 MG tablet 1/2 or one tab bid prn anxiety 60 tablet 1 rizatriptan PLASTICS SCIENTIST (Maxalt-PLASTICS SCIENTIST) 5 MG disintegrating tablet One stat and May repeat in 2 hours if unresolved. No more than 4 a week 9 tablet 1 venlafaxine XR (Effexor XR) 75 MG 24 hr capsule Take 1 capsule (75 mg) by mouth daily for 90 doses. Do not crush or chew. 90 capsule 1 norethindrone (Micronor) 0.35 MG tablet Take 1 tablet (0.35 mg) by mouth daily. 84 tablet 4 No current facility-administered medications for this visit. ALLERGIES: Allergies as of 06/05/2023 - Reviewed 06/05/2023 Allergen Reaction Noted Wound dressing adhesive Itching and Rash 04/25/2022 REVIEW OF SYSTEMS: CONSTIUTIONAL: No weight change or fatigue. No fever or chills. No changes in appetite. CV: No chest pain, palpitations, or syncope. RESPIRATORY: No SOB, cough, or wheezing. BREAST: No breast abnormalities or lumps. GI: No nausea, vomiting, diarrhea, constipation, bloating or bowel changes. No blood or mucous with bowel movements or melena. : No dysuria, frequency, hesitancy, urgency. No urinary incontinence. No vaginal discharge, odor, or itch. No dyspareunia. NEURO: No weakness or sensory changes MUSCULOSKELETAL: No back pain or arthralgias. HEME and LYMPH : No lymphoma or abnormal bleeding history PHYSICAL EXAM: Vitals: 06/05/23 1339 BP: (!) 142/88 Pulse: 92 Weight: 153 lb (69.4 kg) Height: 5' 3.75 (1.619 m) Body mass index is 26.47 kg/m . GENERAL EXAM CONSTITUTIONAL: well developed, well nourished, well groomed, no acute distress NECK: no thyromegaly, supple CARDIOVASCULAR: normal rate, no edema LUNGS: normal effort ABDOMEN: soft, non-tender, non-distended NEUROLOGICAL: no gross motor or sensory deficits noted MUSCULOSKETAL: normal gait, no cyanosis PSYCHIATRIC: normal mood and affect, A&O x3 CELL TESTER EXAM: BREASTS: normal, no masses, tenderness or skin changes EXTERNAL GENITALIA: normal female structures VAGINA: normal ruggae, no lesions CERVIX: no lesions, no cervical motion tenderness, normal appearance UTERUS: normal mobility, nontender, normal size, shape and consistency ADNEXA: normal, non tender no masses URETHRA: normal. nontender BLADDER: non tender PELVIC SUPPORT DEFECTS: normal support of vagina, uterus, and bladder ANUS/PERINEUM: no hemorrhoids, masses or warts noted ASSESSMENT/PLAN: Maria was seen today for annual exam. Diagnoses and all orders for this visit: Encounter for gynecological examination without abnormal finding (Primary) Surveillance of contraceptive pill - norethindrone (Micronor) 0.35 MG tablet; Take 1 tablet (0.35 mg) by mouth daily. Follow up in about 1 year (around 06/04/2024) for annual. control and STD prevention reviewed. Discussed need to switch to a prog only pill due to new onset migraines with auras that started after visit last year. Discussed pap guidelines and routine gynecologic preventative care/screening. Self breast exam discussed. Weight management through healthy diet and regular exercise reviewed. Advised use of MVI and vit D supplementation, calcium through diet if able. Routine health maintenance per patient's PCP as well. Veronica Mena M.D. 06/05/2023 at 1:51 PM (Electronically Signed) documented in this encounter [facility] 05-07-2023 History of Presen t illness Narrative Images from the original note were not included. [facility] [address] [place] [address] [address] [facility] [id number] Visit type: Established Patient Reason for Visit: Annual Exam Assessment / Plan: Maria was seen today for annual exam. Diagnoses and all orders for this visit: Annual physical exam (Primary) - Comprehensive metabolic panel; Future - Lipid panel; Future - Comprehensive metabolic panel - Lipid panel Oral contraceptive use Comments: Stable, CELL TESTER exam soon History of migraine Comments: Stable, continue Maxalt as needed Anxiety and depression Comments: Stable patient desires increase of Effexor to 75 mg daily Hypercholesterolemia Comments: Noted, continue weight loss and low-fat meals Orders: - Comprehensive metabolic panel; Future - Lipid panel; Future - Comprehensive metabolic panel - Lipid panel Other orders - venlafaxine XR (Effexor XR) 75 MG 24 hr capsule; Take 1 capsule (75 mg) by mouth daily for 90 doses. Do not crush or chew. Subjective: Patient ID: Maria Rae is a 32 y.o. female. HPI annual physical for patient with history of rare migraine, chronic anxiety depression and on control pills. Overall she has done well. Minimal use of Maxalt. She does feel that she might benefit from higher dose Effexor. Once in a while she takes 2 of those a day. Has been on that for generalized anxiety. She presently still does not smoke or drink. She enjoys her near 4-year-old daughter. She enjoys hunting with her . 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 Review of Systems does have a mild URI with intermittent yellow rhinorrhea. Only 3 days. No fever or headache. No severe cough or congestion. No exertional chest pain or palpitations. No heartburn or dysphagia. Eating and voiding well. Has lost about 13 pounds this year. Resolved constipation. No vomiting or diarrhea. Menses are regular on control pills. No arthralgias. No skin changes. Allergies Allergen Reactions Wound Dressing Adhesive Itching and Rash Current Outpatient Medications on File Prior to Visit Medication Sig Dispense Refill hydrOXYzine HCl (Atarax) 25 MG tablet 1/2 or one tab bid prn anxiety 60 tablet 1 levonorgestrel-ethinyl estradiol (Nordette) 0.15-30 MG-MCG tablet Take 1 tablet by mouth daily. 84 tablet 4 rizatriptan PLASTICS SCIENTIST (Maxalt-PLASTICS SCIENTIST) 5 MG disintegrating tablet One stat and May repeat in 2 hours if unresolved. No more than 4 a week 9 tablet 1 [DISCONTINUED] venlafaxine XR (Effexor XR) 37.5 MG 24 hr capsule Take 1 capsule (37.5 mg) by mouth daily for 90 doses. Do not crush or chew. 90 capsule 1 No current facility-administered medications on file prior to visit. Patient Active Problem List Diagnosis Anxiety and depression Tendonitis History of migraine Oral contraceptive use Social History Tobacco Use Smoking status: Never Smokeless tobacco: Never Substance Use Topics Alcohol use: Yes Alcohol/week: 2.0 standard drinks of alcohol Types: 2 Glasses of wine per week Past Surgical History: Procedure Laterality Date BREAST ENHANCEMENT SURGERY Bilateral 2019 WISDOM TOOTH EXTRACTION 11/2016 Family History Problem Relation Name Age of Onset Colon polyps Mother Maria 55 alive in 60s Rheum arthritis Father Doron Alcohol abuse Father Doron Hypertension Father Doron Coronary artery disease Father Doron 50 pacemaker, stents Lung cancer Father Doron 59 smoker Graves' disease Sister No Known Problems Sister Colon cancer Father's Brother Nirav Throat cancer Father's Brother Gunnar No Known Problems Maternal Grandmother No Known Problems Maternal Grandfather No Known Problems Paternal Grandmother Lung cancer Paternal Grandfather Ray Objective: BP 102/78 (BP Location: Left arm, Patient Position: Sitting, BP Cuff Size: Large adult) Pulse 101 Temp 36.2 C (97.1 F) (Temporal) Ht 5' 3 (1.6 m) Wt 152 lb (68.9 kg) SpO2 98% BMI 26.93 kg/m Physical Exam Vitals reviewed. Constitutional: General: She is not in acute distress. Appearance: Normal appearance. She is not ill-appearing. HENT: Right Ear: Tympanic membrane normal. Left Ear: Tympanic membrane normal. Nose: Nose normal. No congestion or rhinorrhea. Mouth/Throat: Pharynx: No oropharyngeal exudate or posterior oropharyngeal erythema. Eyes: General: No scleral icterus. Neck: Vascular: No carotid bruit. Cardiovascular: Rate and Rhythm: Normal rate and regular rhythm. Pulses: Normal pulses. Heart sounds: Normal heart sounds. No murmur heard. Pulmonary: Effort: Pulmonary effort is normal. Breath sounds: Normal breath sounds. Abdominal: General: Abdomen is flat. Bowel sounds are normal. Palpations: Abdomen is soft. There is no mass. Tenderness: There is no abdominal tenderness. Hernia: No hernia is present. Comments: No hepatosplenomegaly masses ascites or bruits. Femoral pulses are good Musculoskeletal: Right lower leg: No edema. Left lower leg: No edema. Lymphadenopathy: Cervical: No cervical adenopathy. Skin: General: Skin is warm. Findings: No lesion or rash. Neurological: Mental Status: She is alert and oriented to person, place, and time. Deep Tendon Reflexes: Reflexes normal. Psychiatric: Mood and Affect: Mood normal. Thought Content: Thought content normal. Judgment: Judgment normal. documented in this encounter [facility] 05-07-2023 Instructions Marvin Cason DO - 05/07/2023 7:00 AM EST Obtain yearly CELL TESTER exams. Continue low-fat and low-carb meals with cardio exercise 150 minutes/week. Might consider taking a women's multivitamin, vitamin D 1000 international units a day. documented in this encounter [facility] 11-05-2022 History of Presen t illness Narrative Images from the original note were not included. [facility] [address] [place] [id number] Visit type: Established Patient Reason for Visit: Follow-up (6 month med check) and Constipation (With bloating) Assessment / Plan: Maria was seen today for follow-up and constipation. Diagnoses and all orders for this visit: Slow transit constipation (Primary) Comments: Recurrent, increase liquids, fiber, call with update on status. If no improvement in a few weeks, possible GI consultation Orders: - CBC auto differential; Future - Comprehensive metabolic panel; Future - CBC auto differential - Comprehensive metabolic panel Hair loss Comments: Reassurance, multivitamin, eulj-zdd-zrxsukq hair loss growth stimulants, iron, D3, B complex zinc and biotin Anxiety and depression Comments: Stable, continue Effexor Other orders - venlafaxine XR (Effexor XR) 37.5 MG 24 hr capsule; Take 1 capsule (37.5 mg) by mouth daily for 90 doses. Do not crush or chew. Subjective: Patient ID: Maria Rae is a 32 y.o. female. HPI patient with history of Effexor prescription for generalized anxiety depression presents for checkup but has a few ongoing issues. Has had a few months of general sense of constipation. Not resolving adequately with use of wqtl-yks-vlrdwie stool softeners and occasional laxative. No weight loss or loss of appetite. No nausea vomiting diarrhea mucus or blood. No specific abdominal pain. Review of Systems general sense of hair loss but recent thyroid lab work was negative. No night sweats fevers or chills. No tremor. No scaliness of her skin. No ENT complaints. No cardiac or pulmonary concerns. Menses are regular on control pills. CELL TESTER exams up-to-date. 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 Her and daughter are in great health. Relationship is solid. She does not smoke or drink Allergies Allergen Reactions Wound Dressing Adhesive Itching and Rash Current Outpatient Medications on File Prior to Visit Medication Sig Dispense Refill levonorgestrel-ethinyl estradiol (Nordette) 0.15-30 MG-MCG tablet Take 1 tablet by mouth daily. 84 tablet 4 rizatriptan PLASTICS SCIENTIST (Maxalt-PLASTICS SCIENTIST) 5 MG disintegrating tablet One stat and May repeat in 2 hours if unresolved. No more than 4 a week 9 tablet 1 [DISCONTINUED] venlafaxine XR (Effexor XR) 37.5 MG 24 hr capsule Take 1 capsule (37.5 mg) by mouth daily for 90 doses. Do not crush or chew. 90 capsule 1 No current facility-administered medications on file prior to visit. Patient Active Problem List Diagnosis Anxiety and depression Tendonitis Poison liv dermatitis History of migraine Social History Tobacco Use Smoking status: Never Smokeless tobacco: Never Substance Use Topics Alcohol use: Yes Alcohol/week: 2.0 standard drinks of alcohol Types: 2 Glasses of wine per week Past Surgical History: Procedure Laterality Date WISDOM TOOTH EXTRACTION 11/2016 Family History Problem Relation Name Age of Onset Colon polyps Mother Maria 55 alive in 60s Rheum arthritis Father Doron Alcohol abuse Father Doron Hypertension Father Doron Coronary artery disease Father Doron 50 pacemaker, stents Lung cancer Father Doron 59 smoker Thyroid disease Sister Graves No Known Problems Sister Colon cancer Father's Brother Nirav Throat cancer Father's Brother Gunnar Lung cancer Paternal Grandfather Ray Objective: BP 125/86 Pulse 66 Temp 36.4 C (97.5 F) (Temporal) Ht 5' 3 (1.6 m) Wt 153 lb 3.2 oz (69.5 kg) SpO2 98% BMI 27.14 kg/m Physical Exam Labs unremarkable. Very pleasant alert and oriented. Good insight eye contact and is well-groomed. No neck masses JVD adenopathy or carotid bruits. Normal oropharynx and eardrums. No scaliness of the scalp. No hand or joint or skin complaints or findings. Heart is regular without murmurs or gallops. Lungs are clear. Abdomen soft without hepatosplenomegaly masses or pain. Good bowel sounds. No bruits or adenopathy. Extremities are pink without edema. No joint changes. Physiologic reflexes. Pulses are excellent documented in this encounter [facility] 11-05-2022 Instructions Marvin Cason DO - 11/05/2022 3:30 PM EDT -Try adding aphz-pnt-obdnwyc Vitamin D3 1000, B complex , iron 65 mg, zinc 200 mg and biotin 500 mcg per day. Try eating daily breakfast of 3 prunes, 4 ounces of applesauce and bran cereal. May take stnw-itq-qmgempu stool softener daily. Adequate liquid intake up to 70 ounces per day. Call if no improvement for possible colonoscopy referral documented in this encounter [facility] 09-30-2022 Evaluation + Plan note Associated Problem(s): Poison liv dermatitis We will treat with oral steroids due to location of rash on face near left eye and severity. Continue cold compress for pruritus if needed, xazp-txe-fuvnxht antihistamine as directed follow-up for worsening or failure for symptoms to improve [facility] 09-30-2022 Miscellaneous Notes Associated Problem(s): Poison liv dermatitis We will treat with oral steroids due to location of rash on face near left eye and severity. Continue cold compress for pruritus if needed, wenh-hqd-usaxucl antihistamine as directed follow-up for worsening or failure for symptoms to improve documented in this encounter [facility] 09-30-2022 History of Presen t illness Narrative Images from the original note were not included. 09/30/2022 Maria Rae (: 1990) is a 31 y.o. female , Established patient, here for evaluation of the following chief complaint(s): Poison Liv (Legs and under left eye) ASSESSMENT/PLAN: 1. Poison liv dermatitis Assessment & Plan: We will treat with oral steroids due to location of rash on face near left eye and severity. Continue cold compress for pruritus if needed, blsf-zuj-jscwszf antihistamine as directed follow-up for worsening or failure for symptoms to improve Orders: - predniSONE (Deltasone) 20 MG tablet; Take 3 tabs (60mg) daily for 3 days, then take 2 tabs (40mg) daily for 3 days, then take 1 tab (20mg) daily for 3 days, then 1/2 tab (10 mg) x 4 days, Normal Reviewed and provided written patient education/instructions regarding diagnosis and management. Reviewed symptom management with non-pharmacological interventions and appropriate use of otc medications for relief of symptoms. Follow up for worsening or no improvement in symptoms. Follow up if symptoms worsen or fail to improve. SUBJECTIVE/OBJECTIVE: HPI - Maria Armenta Jessicacesar (: 1990) is a 31 y.o. female , Established patient, here for the evaluation of the following chief complaint(s): Poison Liv (Legs and under left eye) Patient reports she was using the weedeater over the weekend and was cutting down poison liv. Noticed rash on lower legs over the weekend and then most recently noticed rash on the left side of her face around her eye. Has been using nothing yet for her legs, has tried hydrocortisone, helps some. Prior to Admission medications Medication Sig Start Date End Date Taking? Authorizing Provider levonorgestrel-ethinyl estradiol (Nordette) 0.15-30 MG-MCG tablet Take 1 tablet by mouth daily. 05/30/22 Veronica Mena MD rizatriptan PLASTICS SCIENTIST (Maxalt-PLASTICS SCIENTIST) 5 MG disintegrating tablet One stat and May repeat in 2 hours if unresolved. No more than 4 a week 06/13/22 Marvin Cason DO venlafaxine XR (Effexor XR) 37.5 MG 24 hr capsule Take 1 capsule (37.5 mg) by mouth daily for 90 doses. Do not crush or chew. 04/25/22 07/24/22 Marvin Cason DO Review of Systems Constitutional: Negative for chills, fatigue and fever. HENT: Negative for sore throat and trouble swallowing. Respiratory: Negative for chest tightness. Cardiovascular: Negative for chest pain. Vitals: 09/30/22 1348 09/30/22 1408 BP: (!) 140/83 130/80 Pulse: 61 68 Resp: 20 Temp: 36.4 C (97.5 F) TempSrc: Infrared Weight: 147 lb 12.8 oz (67 kg) Physical Exam Constitutional: Appearance: Normal appearance. HENT: Head: Normocephalic and atraumatic. Cardiovascular: Rate and Rhythm: Normal rate and regular rhythm. Pulmonary: Effort: Pulmonary effort is normal. Breath sounds: Normal breath sounds. Skin: Findings: Rash present. Rash is vesicular. Comments: Scattered vesicular lesions bilateral lower extremities, noted swelling, mild erythema, and vesicular lesions on periorbital left side Neurological: Mental Status: She is alert and oriented to person, place, and time. An electronic signature was used to authenticate this note. Chica Stephens APRN - KAYLA 09/30/2022 12:56 PM Blueprinting Machine Operator for Intimate and Non Intimate Exam Blueprinting Machine Operator was declined Blueprinting Machine Operator: na documented in this encounter [facility] 06-12-2022 Telephone encounter Note Orders pended for doctor's signature [facility] 06-12-2022 Miscellaneous Notes Orders pended for doctor's signature ----- Message from Marvin Cason DO sent at 06/12/2022 8:30 AM EDT ----- Needs CHAR MRI head without contrast eval migraine and aphasia documented in this encounter [facility] 06-12-2022 Telephone encounter Note ----- Message from Marvin Cason DO sent at 06/12/2022 8:30 AM EDT ----- Needs CHAR MRI head without contrast eval migraine and aphasia [facility] 06-12-2022 History of Presen t illness Narrative Images from the original note were not included. [facility] [address] [facility] [id number] Visit type: Established Patient Reason for Visit: Headache (Having migraines) Assessment / Plan: Maria was seen today for headache. Diagnoses and all orders for this visit: Expressive aphasia (Primary) Comments: New onset, needs MRI of the head, baby aspirin daily with Aleve twice daily as needed with coffee if these recur. To ER with any substantial pain, N/V Scintillating scotoma of both eyes Migraine with visual aura Subjective: Patient ID: Maria Rae is a 31 y.o. female. HPI non-smoker without history of any type of migraine presents with 48-hour history of recurrent flashes of light in both eyes accompanied by difficulty expressing her words and typing on her phone. Left-sided squiggly flashing lights occurred on 06/10. Resolved after few minutes. Then bilateral visual changes occurred on 06/11. No headache. No confusion or photophobia or sensitive to noise. However on 06/11 she could not read or interpret her phone words and could not type them appropriately. Those symptoms lasted for 15 to 20 minutes. Review of Systems no prior history of migraines. No hypoglycemic episodes. No paresthesias of the face arm or leg. No weakness of any body part. No bowel or bladder incontinence. She denies chest pain or palpitations. No change in anxiety. Has never had any type of visual loss or diplopia. No head trauma. No family history of migraines. No change in her control pill or Effexor. Did have COVID about a month ago without complications. Allergies Allergen Reactions Wound Dressing Adhesive Itching and Rash Current Outpatient Medications on File Prior to Visit Medication Sig Dispense Refill levonorgestrel-ethinyl estradiol (Nordette) 0.15-30 MG-MCG tablet Take 1 tablet by mouth daily. 84 tablet 4 venlafaxine XR (Effexor XR) 37.5 MG 24 hr capsule Take 1 capsule (37.5 mg) by mouth daily for 90 doses. Do not crush or chew. 90 capsule 1 No current facility-administered medications on file prior to visit. Patient Active Problem List Diagnosis Anxiety and depression Viral pharyngitis Social History Tobacco Use Smoking status: Never Smokeless tobacco: Never Substance Use Topics Alcohol use: Yes Alcohol/week: 2.0 standard drinks Types: 2 Glasses of wine per week Past Surgical History: Procedure Laterality Date BREAST ENHANCEMENT SURGERY 04/2018 WISDOM TOOTH EXTRACTION 11/2016 Family History Problem Relation Name Age of Onset Colon polyps Mother Maria 55 alive in 60s Rheum arthritis Father Doron Alcohol abuse Father Doron Hypertension Father Doron Coronary artery disease Father Doron 50 pacemaker, stents Lung cancer Father Doron 59 smoker Thyroid disease Sister Graves No Known Problems Sister Cancer Father's Brother Nirav throat Esophageal cancer Father's Brother Cancer Father's Brother Gunnar Lung cancer Paternal Grandfather Ray Objective: BP 117/65 Pulse 71 Temp 36.3 C (97.3 F) (Temporal) Ht 5' 3 (1.6 m) Wt 152 lb (68.9 kg) LMP 05/30/2022 (Exact Date) SpO2 98% BMI 26.93 kg/m Physical Exam she appears well today. Neck supple. Alert and oriented. Pupils equal. Extraocular muscles are intact. Sharp funduscopic exam. All cranial nerves are normal. No Dea's or Babinski. No clonus. Rapid alternating movements are normal. Normal rpau-ug-bema exam. Reflexes physiologic. All cerebellar test are normal. No carotid bruits. No neck masses. Heart is regular without gallops or murmurs. No ectopy. Lungs are clear. Abdomen soft without pain hepatosplenomegaly or masses. documented in this encounter [facility] 05-30-2022 History of Presen t illness Narrative Maria Rae 05/30/2022 31 y.o. Primary Care Physician: Marvin Cason DO Chief Complaint Patient presents with Annual Exam HPI : Maria Rae is a 31 y.o. female here for annual exam. Seeing a chiropractor for back and neck pain and tension, her shoulders and hips are uneven heights Gynecologic History: Patient's last menstrual period was 05/30/2022 (exact date). Menses are regular. Menses occur every regular every 28-30 days. Flow is moderate Intermenstrual bleeding: no Dysmenorrhea:none Sexually Active: Yes Dyspareunia: No Contraception: oral contraceptives (estrogen/progesterone) Preventative Health Testing: Date of Last Pap Smear: neg pap and HPV in 03/2021 Abnormal Pap Smear History: none OB History Para Term AB Living 1 1 1 0 0 1 SAB IAB Ectopic Multiple Live Births 0 0 0 0 1 # Outcome Date GA Lbr Elliott/2nd Weight Sex Delivery Anes PTL Lv 1 Term 10/13/19 [id number] 6 lb 12 oz (3.062 kg) F Vag-Spont VENKATA Name: LASHAY RAE Apgar1: 9 Apgar5: 9 Past Medical History: Diagnosis Date Anxiety and depression 2016 Hypercholesterolemia 04/2022 Attempting diet control Past Surgical History: Procedure Laterality Date BREAST ENHANCEMENT SURGERY 04/2018 WISDOM TOOTH EXTRACTION 11/2016 Family History Problem Relation Name Age of Onset Colon polyps Mother Maria 55 alive in 60s Rheum arthritis Father Doron Alcohol abuse Father Doron Hypertension Father Doron Coronary artery disease Father Doron 50 pacemaker, stents Lung cancer Father Doron 59 smoker Thyroid disease Sister Graves No Known Problems Sister Cancer Father's Brother Nirav throat Esophageal cancer Father's Brother Cancer Father's Brother Gunnar Lung cancer Paternal Grandfather Ray Social History Socioeconomic History Marital status: Spouse name: Not on file Number of children: Not on file Years of education: Not on file Highest education level: Not on file Occupational History Not on file Tobacco Use Smoking status: Never Smokeless tobacco: Never Substance and Sexual Activity Alcohol use: Yes Alcohol/week: 2.0 standard drinks Types: 2 Glasses of wine per week Drug use: No Sexual activity: Yes Partners: Male control/protection: OCP Other Topics Concern Not on file Social History Narrative to Anahi in 08/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 Had first daughter , Crystal, born in 10/09. NS or ETOH . 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 Social Determinants of Health Financial Resource Strain: Not on file Food Insecurity: Not on file Transportation Needs: Not on file Physical Activity: Not on file Stress: Not on file Social Connections: Not on file Intimate Partner Violence: Not on file Housing Stability: Not on file MEDICATIONS: Current Outpatient Medications Medication Sig Dispense Refill venlafaxine XR (Effexor XR) 37.5 MG 24 hr capsule Take 1 capsule (37.5 mg) by mouth daily for 90 doses. Do not crush or chew. 90 capsule 1 levonorgestrel-ethinyl estradiol (Nordette) 0.15-30 MG-MCG tablet Take 1 tablet by mouth daily. 84 tablet 4 No current facility-administered medications for this visit. ALLERGIES: Allergies as of 05/30/2022 - Reviewed 05/30/2022 Allergen Reaction Noted Wound dressing adhesive Itching and Rash 04/25/2022 REVIEW OF SYSTEMS: CONSTIUTIONAL: No weight change or fatigue. No fever or chills. No changes in appetite. CV: No chest pain, palpitations, or syncope. RESPIRATORY: No SOB, cough, or wheezing. BREAST: No breast abnormalities or lumps. GI: No nausea, vomiting, diarrhea, constipation, bloating or bowel changes. No blood or mucous with bowel movements or melena. : No dysuria, frequency, hesitancy, urgency. No urinary incontinence. No vaginal discharge, odor, or itch. No dyspareunia. NEURO: No weakness or sensory changes MUSCULOSKELETAL: No back pain or arthralgias. HEME and LYMPH : No lymphoma or abnormal bleeding history PHYSICAL EXAM: Vitals: 05/30/22 1219 BP: 139/83 Pulse: 60 Weight: 165 lb (74.8 kg) Height: 5' 3.75 (1.619 m) Body mass index is 28.54 kg/m . GENERAL EXAM CONSTITUTIONAL: well developed, well nourished, well groomed, no acute distress NECK: no thyromegaly, supple CARDIOVASCULAR: normal rate, no edema LUNGS: normal effort ABDOMEN: soft, non-tender, non-distended NEUROLOGICAL: no gross motor or sensory deficits noted MUSCULOSKETAL: normal gait, no cyanosis PSYCHIATRIC: normal mood and affect, A&O x3 CELL TESTER EXAM: BREASTS: normal, no masses, tenderness or skin changes EXTERNAL GENITALIA: normal female structures VAGINA: normal ruggae, no lesions CERVIX: no lesions, no cervical motion tenderness, normal appearance UTERUS: normal mobility, nontender, normal size, shape and consistency ADNEXA: normal, non tender no masses URETHRA: normal. nontender BLADDER: non tender PELVIC SUPPORT DEFECTS: normal support of vagina, uterus, and bladder ANUS/PERINEUM: no hemorrhoids, masses or warts noted ASSESSMENT/PLAN: Maria was seen today for annual exam. 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 Follow up in about 1 year (around 05/31/2023) for annual. control and STD prevention reviewed. Refill OCPs Discussed Gardasil vaccine. Discussed pap guidelines and routine gynecologic preventative care/screening. Self breast exam discussed. Weight management through healthy diet and regular exercise reviewed. Advised use of MVI and vit D supplementation, calcium through diet if able. Routine health maintenance per patient's PCP as well. Veronica Mena M.D. 05/30/2022 at 12:46 PM (Electronically Signed) documented in this encounter [facility] 05-09-2022 Evaluation + Plan note Associated Problem(s): Viral pharyngitis Rapid strep test negative. Salt water gargles Listerine gargles Chloraseptic sprays. Increase fluids rest Tylenol or Advil [facility] 05-09-2022 Miscellaneous Notes Associated Problem(s): Viral pharyngitis Rapid strep test negative. Salt water gargles Listerine gargles Chloraseptic sprays. Increase fluids rest Tylenol or Advil documented in this encounter [facility] 05-09-2022 History of Presen t illness Narrative Images from the original note were not included. 05/09/2022 Maria Rae (: 1990) is a 31 y.o. female , Established patient, here for evaluation of the following chief complaint(s): Sore Throat, Fever, and Generalized Body Aches ASSESSMENT/PLAN: 1. Viral pharyngitis Assessment & Plan: Rapid strep test negative. Salt water gargles Listerine gargles Chloraseptic sprays. Increase fluids rest Tylenol or Advil Orders: - AMB POC RAPID STREP A Follow up if symptoms worsen or fail to improve. SUBJECTIVE/OBJECTIVE: HPI -Maria comes in today complaining of a sore throat, possible swollen glands on the right side no cough she had a fever yesterday that broke last night and this has been ongoing for the last 3 to 4 days. She has been taking Tylenol or Advil. Review of Systems Constitutional: Positive for fever. Negative for chills. HENT: Positive for sore throat. Negative for ear pain, rhinorrhea and sinus pressure. Respiratory: Negative for shortness of breath. Cardiovascular: Negative for chest pain and palpitations. Vitals: 05/09/22 0642 BP: 107/74 Pulse: 99 Temp: (P) 36.7 C (98.1 F) Weight: 153 lb 9.6 oz (69.7 kg) Height: 5' 3 (1.6 m) Physical Exam Vitals and nursing note reviewed. Constitutional: General: She is not in acute distress. Appearance: Normal appearance. HENT: Head: Normocephalic and atraumatic. Right Ear: Tympanic membrane, ear canal and external ear normal. Left Ear: Tympanic membrane, ear canal and external ear normal. Mouth/Throat: Mouth: Mucous membranes are moist. Pharynx: Oropharynx is clear. Posterior oropharyngeal erythema present. No pharyngeal swelling or oropharyngeal exudate. Tonsils: 2+ on the right. 0 on the left. Eyes: Extraocular Movements: Extraocular movements intact. Pupils: Pupils are equal, round, and reactive to light. Cardiovascular: Rate and Rhythm: Normal rate and regular rhythm. Heart sounds: Normal heart sounds. No murmur heard. Pulmonary: Effort: Pulmonary effort is normal. Breath sounds: Normal breath sounds. Musculoskeletal: Cervical back: Neck supple. Lymphadenopathy: Cervical: Cervical adenopathy present. Right cervical: Superficial cervical adenopathy present. No deep or posterior cervical adenopathy. Left cervical: No superficial, deep or posterior cervical adenopathy. Neurological: Mental Status: She is alert. An electronic signature was used to authenticate this note. Nigel Corado MD 05/09/2022 7:51 AM documented in this encounter [facility] 04-25-2022 History of Presen t illness Narrative Images from the original note were not included. [address] [id number] Visit type: Established Patient Reason for Visit: Annual Exam Assessment / Plan: Maria was seen today for annual exam. Diagnoses and all orders for this visit: Annual physical exam (Primary) Comments: Stable, vitamin D 1000 units a day with calcium 800 mg daily. Continue low-carb and low-fat meals with cardio exercise 150 minutes/week Anxiety and depression Comments: Improved, decrease Effexor to 37.5. Lipid screening - Lipid panel; Future - Lipid panel Diabetes mellitus screening - Glucose, Random; Future - Glucose, Random Family history of coronary artery disease in father Other orders - venlafaxine XR (Effexor XR) 37.5 MG 24 hr capsule; Take 1 capsule (37.5 mg) by mouth daily for 90 doses. Do not crush or chew. Subjective: Patient ID: Maria Rae is a 31 y.o. female. HPI healthy non-smoker with history of generalized anxiety and remote depression presents for refill on Effexor. She is feeling well. 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 Her 2-year-old daughter is in good health. Her marriage is well. Would like some screening examinations done. No change in family history. Mom and 2 sisters are well. Father passed of heart disease, alcoholism and lung cancer. Review of Systems recent URI improved. No recent headache chest pain cough phlegm or fever. No COVID vaccinations on record. Non-smoker. No chest pain or palpitation. No heartburn or dysphagia. No bowel changes. No melena or blood. Menses regular on control pills. To see librarian special library in about a month. No arthralgias. No new medical concerns. He is trying to get more involved with routine exercise and good eating habits. No luck with Topamax for losing weight. Allergies Allergen Reactions Wound Dressing Adhesive Itching and Rash Current Outpatient Medications on File Prior to Visit Medication Sig Dispense Refill levonorgestrel-ethinyl estradiol (Nordette) 0.15-30 MG-MCG tablet Take 1 tablet by mouth daily. 28 tablet 12 [DISCONTINUED] venlafaxine XR (Effexor XR) 75 MG 24 hr capsule Take 1 capsule (75 mg) by mouth daily. 90 capsule 0 ipratropium (Atrovent) 0.06 % nasal spray Administer 2 sprays into each nostril in the morning and 2 sprays at noon and 2 sprays in the evening and 2 sprays before bedtime. Do all this for 7 days. 15 mL 0 [DISCONTINUED] venlafaxine XR (Effexor XR) 75 MG 24 hr capsule Take 75 mg by mouth. No current facility-administered medications on file prior to visit. Patient Active Problem List Diagnosis Anxiety and depression Viral URI Social History Tobacco Use Smoking status: Never Smokeless tobacco: Never Substance Use Topics Alcohol use: Not Currently Alcohol/week: 0.0 - 2.0 standard drinks Past Surgical History: Procedure Laterality Date BREAST ENHANCEMENT SURGERY 04/2018 WISDOM TOOTH EXTRACTION 11/2016 Family History Problem Relation Name Age of Onset Colon polyps Mother Maria 55 alive in 60s Rheum arthritis Father Doron Patrick Alcohol abuse Father Doron Patrick Hypertension Father Doron Patrick Coronary artery disease Father Doron Patrick 50 pacemaker, stents Lung cancer Father Doron Patrick 59 smoker Thyroid disease Sister Graves No Known Problems Sister Cancer Father's Brother throat Esophageal cancer Father's Brother Cancer Paternal Grandfather lung Objective: BP 117/75 Pulse 67 Temp 36.2 C (97.1 F) (Temporal) Ht 5' 3 (1.6 m) Wt 155 lb (70.3 kg) SpO2 99% BMI 27.46 kg/m Physical Exam She appears well. She is well-groomed. Has good insight and eye contact. Alert and pleasant and cooperative. No neck adenopathy or carotid bruits. No thyroid lesions. Reflexes physiologic. Heart is regular without gallops or murmurs or ectopy. Lungs are clear. Abdomen soft nontender without masses pain ascites or adenopathy. No hepatosplenomegaly. Extremities are pink without edema. documented in this encounter [facility] 04-25-2022 Instructions Marvin Cason DO - 04/25/2022 11:00 AM EST I would recommend a women's multivitamin D, vitamin D 1000 units a day with calcium 800 mg daily. Continue low-carb and low-fat meals with cardio exercise 150 minutes/week documented in this encounter [facility] 04-21-2022 Telephone encounter Note Refill done, appt due in 05/15 [facility] 04-21-2022 Miscellaneous Notes Refill done, appt due in 05/15 Rx loaded documented in this encounter [facility] 04-21-2022 Telephone encounter Note Rx loaded [facility] 04-16-2022 Evaluation + Plan note Associated Problem(s): Viral URI Symptoms mild x 3 days. Afebrile. Likely viral. Recommend home testing for covid, start ipratropium nasal spray, restart nasonex daily, continue salt water gargles. Follow up if symptoms worsen or fail to improve. [facility] 04-16-2022 Miscellaneous Notes Associated Problem(s): Viral URI Symptoms mild x 3 days. Afebrile. Likely viral. Recommend home testing for covid, start ipratropium nasal spray, restart nasonex daily, continue salt water gargles. Follow up if symptoms worsen or fail to improve. documented in this encounter [facility] 04-16-2022 History of Presen t illness Narrative Blueprinting Machine Operator for Intimate and Non Intimate Exam Blueprinting Machine Operator was declined Blueprinting Machine Operator: na Images from the original note were not included. 04/16/2022 Maria Rae (: 1990) is a 31 y.o. female , Established patient, here for evaluation of the following chief complaint(s): Sinus Problem, Throat Pain, and Nasal Congestion ASSESSMENT/PLAN: 1. Viral URI Assessment & Plan: Symptoms mild x 3 days. Afebrile. Likely viral. Recommend home testing for covid, start ipratropium nasal spray, restart nasonex daily, continue salt water gargles. Follow up if symptoms worsen or fail to improve. Orders: - ipratropium (Atrovent) 0.06 % nasal spray; Administer 2 sprays into each nostril in the morning and 2 sprays at noon and 2 sprays in the evening and 2 sprays before bedtime. Do all this for 7 days., Starting Thu04/16/2022, Until Thu04/23/2022, Normal Follow up if symptoms worsen or fail to improve. SUBJECTIVE/OBJECTIVE: HPI - Maria Rae (: 1990) is a 31 y.o. female , Established patient, here for the evaluation of the following chief complaint(s): Sinus Problem, Throat Pain, and Nasal Congestion Sinus Pain Patient complains of congestion, frequent clearing of the throat, nasal congestion, puffiness of the eyes, and sore throat. Onset of symptoms was 3 days ago. Symptoms have been gradually worsening since that time. She is drinking plenty of fluids. Past history is significant for nothing. Patient is non-smoker. No sick contacts known. Reports sinus infection usually once a year. Has tried nasonex spray a couple days ago. Sudafed. Salt water gargles, ibuprofen intermittently with minimal improvement. Prior to Admission medications Medication Sig Start Date End Date Taking? Authorizing Provider levonorgestrel-ethinyl estradiol (Nordette) 0.15-30 MG-MCG tablet Take 1 tablet by mouth daily. 04/08/22 Yes Veronica Mena MD Health Maintenance Due Topic Date Due COVID-19 Vaccine (1) Never done Varicella Vaccines (1 of 2 - 2-dose childhood series) Never done Review of Systems Constitutional: Negative for chills, fatigue and fever. HENT: Positive for congestion, postnasal drip, rhinorrhea and sore throat. Negative for ear pain, sinus pressure and sinus pain. Puffiness of face Respiratory: Positive for cough. Negative for shortness of breath. Neurological: Negative for dizziness and headaches. Vitals: 04/16/22 0804 BP: 102/64 Pulse: 84 Resp: 16 Temp: (P) 36.9 C (98.4 F) TempSrc: (P) Oral SpO2: 98% Physical Exam Constitutional: General: She is not in acute distress. Appearance: Normal appearance. She is ill-appearing (mildly). HENT: Head: Normocephalic and atraumatic. Right Ear: Tympanic membrane normal. Left Ear: Tympanic membrane normal. Nose: Congestion present. Mouth/Throat: Mouth: Mucous membranes are moist. Pharynx: Oropharynx is clear. Posterior oropharyngeal erythema (mild) present. Eyes: Conjunctiva/sclera: Conjunctivae normal. Cardiovascular: Rate and Rhythm: Normal rate and regular rhythm. Pulses: Normal pulses. Heart sounds: Normal heart sounds. Pulmonary: Effort: Pulmonary effort is normal. Breath sounds: Normal breath sounds. Lymphadenopathy: Cervical: No cervical adenopathy. Skin: General: Skin is warm and dry. Neurological: Mental Status: She is alert and oriented to person, place, and time. An electronic signature was used to authenticate this note. TRACY Nichols CNP 04/16/2022 8:06 AM documented in this encounter [facility] 04-08-2022 Telephone encounter Note Pt calling again for refill on the levonorgestrel-ethinyl estradiol (NORDETTE) 0.15-30 MG-MCG per tablet Last fill 03/29/21 Lat appt 03/29/21 Next visit 04/11/22 [facility] 04-08-2022 Miscellaneous Notes Pt calling again for refill on the levonorgestrel-ethinyl estradiol (NORDETTE) 0.15-30 MG-MCG per tablet Last fill 03/29/21 Lat appt 03/29/21 Next visit 04/11/22 Name of caller: Maria Rae Contact phone number: [phone] Relationship to Patient: patient Provider: Dr Mena Practice: [place] Chief Complaint/Reason for Call: 04/07/22 Pt calling asking for a refill medication completely out of levonorgestrel-ethinyl estradiol (Nordette) 0.15-30 MG-MCG tablet [facility] advise Best time of day caller can be reached: PM Patient advised that office/PCP has 24-48 business hours to return their call: Yes documented in this encounter [facility] 04-07-2022 Telephone encounter Note Name of caller: Maria Rae Contact phone number: [phone] Relationship to Patient: patient Provider: Dr Mena Practice: [facility] [place] Chief Complaint/Reason for Call: 04/07/22 Pt calling asking for a refill medication completely out of levonorgestrel-ethinyl estradiol (Nordette) 0.15-30 MG-MCG tablet [facility] advise Best time of day caller can be reached: PM Patient advised that office/PCP has 24-48 business hours to return their call: Yes [facility] 04-06-2022 Telephone encounter Note S: Patient spoke with [facility] nurse regarding Pt states she is out of her control medication. Pt states she contacted office a couple of days ago for refill. Medication still not at pharmacy and pt states she needs to start new pack today. Pt does have upcoming [facility] appointment scheduled for 04/11. B: Medication: levonorgestrel-ethinyl estradiol (Nordette) 0.15-30 MG-MCG tablet A: Pt requesting refill. Needs new pack today. [facility] scheduled for 04/11/22. Allergies and pharmacy verified. R: Pt informed will send message to provider for review during office hours for refill request. Reason for Disposition Needs refill of BCPs Protocols used: Contraception - Control Pills - [id number] [facility] 04-06-2022 Miscellaneous Notes S: Patient spoke with [facility] nurse regarding Pt states she is out of her control medication. Pt states she contacted office a couple of days ago for refill. Medication still not at pharmacy and pt states she needs to start new pack today. Pt does have upcoming [facility] appointment scheduled for 04/11. B: Medication: levonorgestrel-ethinyl estradiol (Nordette) 0.15-30 MG-MCG tablet A: Pt requesting refill. Needs new pack today. [facility] scheduled for 04/11/22. Allergies and pharmacy verified. R: Pt informed will send message to provider for review during office hours for refill request. 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 aura documented in this encounter [facility]* Diagnosis Migraine with visual aura- Primary Expressive aphasia Migraine with visual aura Expressive aphasia documented in this encounter [facility] note* Diagnosis Poison liv dermatitis- Primary documented in this encounter [facility] note* Diagnosis Alopecia- Primary documented in this encounter [facility]* Diagnosis Slow transit constipation- Primary Hair loss Unspecified alopecia Anxiety and depression documented in this encounter [facility]* Diagnosis Annual physical exam- Primary Routine general medical examination at a health care facility Oral contraceptive use History of migraine Anxiety and depression Hypercholesterolemia Pure hypercholesterolemia documented in this encounter [facility]* Diagnosis Encounter for gynecological examination without abnormal finding- Primary Surveillance of contraceptive pill Surveillance of previously prescribed contraceptive pill documented in this encounter [facility]* Diagnosis Allergic rhinitis due to other allergic trigger, unspecified seasonality- Primary documented in this encounter [facility]* Diagnosis Seasonal allergies Allergic rhinitis, cause unspecified [facility] Diagnosis Seasonal allergies- Primary Allergic rhinitis, cause unspecified [facility] Diagnosis Anxiety and depression- Primary History of migraine Chronic right shoulder pain Pain in joint, shoulder region documented in this encounter [facility] note* Diagnosis Chronic right shoulder pain Pain in joint, shoulder region documented in this encounter [facility] note* Diagnosis Chronic right shoulder pain Pain in joint, shoulder region documented in this encounter [facility] note* Diagnosis Impingement syndrome of shoulder, right- Primary Chronic right shoulder pain Pain in joint, shoulder region [facility] Diagnosis Impingement syndrome of shoulder, right documented in this encounter [facility]* Diagnosis Impingement syndrome of shoulder, right- Primary documented in this encounter [facility] note* Diagnosis Impingement syndrome of shoulder, right- Primary [facility] Diagnosis Impingement syndrome of shoulder, right- Primary documented in this encounter [facility]* Diagnosis Tendonitis- Primary Enthesopathy of unspecified site Impingement syndrome of shoulder, right- Primary [facility] Diagnosis Tendonitis- Primary Enthesopathy of unspecified site Impingement syndrome of shoulder, right Cervicalgia documented in this encounter [facility] note* Diagnosis Tendonitis- Primary Enthesopathy of unspecified site Impingement syndrome of shoulder, right- Primary Cervicalgia [facility] Diagnosis Tendonitis- Primary Enthesopathy of unspecified site Impingement syndrome of shoulder, right- Primary Cervicalgia documented in this encounter [facility] note* Diagnosis Tendonitis- Primary Enthesopathy of unspecified site Neck pain- Primary Cervicalgia Radiculopathy of cervical region Cervical spondylosis Cervical spondylosis without myelopathy Neck pain Cervicalgia documented in this encounter [facility] note* Diagnosis Tendonitis- Primary Enthesopathy of unspecified site Impingement syndrome of shoulder, right- Primary Cervicalgia [facility] Diagnosis Viral URI- Primary Acute upper respiratory infections of unspecified site [facility] Diagnosis Annual physical exam- Primary Routine general medical examination at a health care facility Anxiety and depression Lipid screening Screening for lipoid disorders Diabetes mellitus screening Screening for diabetes mellitus Family history of coronary artery disease in father [facility] Diagnosis Viral pharyngitis- Primary Acute pharyngitis [facility]* Diagnosis 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) w/o abn findings- Primary Encounter for surveillance of contraceptive pills [facility]* Diagnosis Impingement syndrome of shoulder, right- Primary [facility]* Diagnosis Tendonitis- Primary Enthesopathy of unspecified site Neck pain Cervicalgia Radiculopathy of cervical region Cervical spondylosis Cervical spondylosis without myelopathy [facility]* Diagnosis Tendonitis- Primary Enthesopathy of unspecified site Neck pain- Primary Cervicalgia Cervical radiculopathy Brachial neuritis or radiculitis nos Cervical spondylosis Cervical spondylosis without myelopathy [facility]* Diagnosis Tendonitis- Primary Enthesopathy of unspecified site Chronic right shoulder pain- Primary Pain in joint, shoulder region Impingement syndrome of shoulder, right [facility]* Diagnosis Tendonitis- Primary Enthesopathy of unspecified site Impingement syndrome of shoulder, right- Primary [facility]* Diagnosis Tendonitis- Primary Enthesopathy of unspecified site Cervical radiculopathy Brachial neuritis or radiculitis nos [facility]* Diagnosis Tendonitis- Primary Enthesopathy of unspecified site Cervical radiculopathy- Primary Brachial neuritis or radiculitis nos Cervicalgia [facility]* Diagnosis Tendonitis- Primary Enthesopathy of unspecified site Cervical radiculopathy- Primary Brachial neuritis or radiculitis nos [facility]* Diagnosis Tendonitis- Primary Enthesopathy of unspecified site Cervical radiculopathy- Primary Brachial neuritis or radiculitis nos [facility]* Diagnosis Anxiety and depression- Primary History of migraine Cervical radiculopathy Brachial neuritis or radiculitis nos Shoulder impingement syndrome, left Rosacea Hypercholesterolemia Pure hypercholesterolemia Dermatofibroma Benign neoplasm of skin, site unspecified Allergic rhinitis due to pollen, unspecified seasonality Tinnitus of right ear documented in this encounter [facility]* Diagnosis Surveillance of contraceptive pill Surveillance of previously prescribed contraceptive pill [facility] Diagnosis Cervical radiculopathy Brachial neuritis or radiculitis nos documented in this encounter [facility]* Diagnosis Impingement syndrome of shoulder, right- Primary documented in this encounter [facility]* Diagnosis Cervical radiculopathy- Primary Brachial neuritis or radiculitis nos Neck pain Cervicalgia Cervical spondylosis Cervical spondylosis without myelopathy documented in this encounter [facility]Evaluation noteNo assessment information availableRobert F. Kennedy [facility] Work Phone: Instructions* Attachments The following attachments cannot be sent through Care Everywhere. * Poison Liv (Peruvian) * Poison Liv (Peruvian) documented in this [facility] HealthInstructions* Attachments The following attachments cannot be sent through Care Everywhere. * Viral Upper Respiratory Infection Discharge Instructions, Adult (Peruvian) [facility] Author Scotty Priest [facility] Note Date/Time December 19, 2024 11:14am [facility] [address], [address] [place] [address] OFFICE VISIT Date of Service: 12/19/24 MR#: [id number] Acct: [id number] Name: MARIA RAE Rep #: [id number] : 1990 Provider: ZULY Orellana Age/Sex: 34/F Location: [facility] Status: Signed Intake Vital Signs 02/26/22 11:37 12/19/24 13:05 Height 5 ft 4 in BP 120/60 Blood Pressure Location Lt brachial Position Sitting Respiration 15 Pulse 72 Pulse Source NIBP Temp 98.2 F Temp Source Oral Pulse Oximetry (%) 98 Oxygen Delivery Method room air Intake Visit Reasons: COUGH, WEAKNESS Chief Complaint: cough, weakness, congest, BAL Dry Can Tender Required: No Accompanied by: Self Is patient in pain?: Yes Allergies No Known Allergies Allergy (Verified 12/19/24 10:38) Medications ?Medication ?Instructions ?Recorded ?Confirmed ?Type amoxicillin 875 mg-potassium 1 tab PO BID #20 tabs 12/19/24 Rx clavulanate 125 mg tablet doxycycline monohydrate 50 mg 50 mg PO QDAY 12/19/24 0 12/19/24 History capsule norethindrone (contraceptive) 0.35 0.35 mg PO QDAY 12/19/24 History mg tablet (Jencycla) venlafaxine 75 mg capsule,extended 75 mg PO QDAY 12/1912/19/24 History release 24 hr Is last menstrual period known: No Post menopausal: No Patient : No Have you fallen in the past year?: No Nurse's Note: Patient has cough and weakness and congestion. Patient couldn't get out of bed this weekend. Patient states Sat night she was throwing up green mucus. HPI HPI Chief Complaint: cough, weakness, congest, BAL Details: MARIA RAE, is a 34 F who presents to the office today for initial evaluation clinic for approximately 3 to 4-day history of forehead headache with congestionand weakness/fatigue and moist productive purulent green cough. No complaints offever, chills, myalgias, fatigue, runny nose, or nausea/vomiting/diarrhea. No complaints of chest pain/shortness of breath/dyspnea on exertion. No close contacts with similar complaints. No other associated symptoms and no other alleviating/aggravating factors. ROS Const Constitutional: No other (as above) Exam Const General: cooperative, healthy appearing and no acute distress Orientation: alert, awake [facility] Head: normal to inspection Ears: hearing grossly normal bilaterally, external ears normal, TM's normal bilaterally and EAC's normal Nose: external nose normal, nares normal, septum normal and no nasal discharge Face and sinus: normal facial exam, sinuses tender (bilateral frontal) and facesymmetric Mouth: oral mucosae normal, lip normal, tongue normal and oropharynx normal Throat: posterior oropharynx normal, tonsils normal, uvula midline and postnasal drainage (Purulent) Eyes General: appearance normal, both eyes and all related structures Neck Neck: normal visual inspection, full ROM, no meningeal signs, supple and lymphadenopathy (Bilateral anterior cervical lymph node swelling/tender to palpation) Neck mass: No Thyroid: thyroid normal Chest Chest palpation & inspection: normal inspection of the chest Resp Effort & Inspection: normal respiratory effort and able to speak in complete sentences Auscultation: Bilateral: Clear to Auscultation Cardio Palpation: normal PMI Rate: regular rate Rhythm: regular rhythm Heart Sounds: S1 normal, S2 normal Pulses: radial pulses present GI Inspection: normal to inspection Skin General: no rashes or lesions noted Neuro General: patient alert, patient awake Cognition: normal cognition Speech: speech normal Psych Appearance: grossly normal Mental Status: mental status grossly normal Mood: congruent mood Affect: normal affect Speech and Movement: speech and movement normal Attitude: cooperative Diagnoses Acute frontal sinusitis, unspecified J01.10 Assessment and Plan Assessment and Plan (1) Acute frontal sinusitis, unspecified: Status: Acute Plan: Augmentin as prescribed today. Supportive measures as instructed today. Follow-up with PCP in 3 to 5 days should symptoms not improve, sooner should symptoms worsen or any other concerns develop. Patient states acknowledging understanding all the above. Coding Level of Care Code Off vis,est,level 3 Assessment and Plan Assessment and Plan Orders: Orders POC Paula Jackson FLUAB PCR Today Medications: New amoxicillin-pot clavulanate 875-125 mg 1 TAB PO BID 20 tabs 0RF Clinical Quality Measures Falls Risk Screening/Assistive Devices Have you fallen in the past year?: No 12/19/24 1306 <Electronically signed by Scotty CARUSO> Date _ Scotty CARUSO Cosigner Signature: Date (if applicable) CC: ~ [facility] [employer] Work Phone: Reason for referral (narrative)* Consultation (Routine) - Pending Review Specialty Diagnoses / Procedures Referred By Rita shipley Referred To Contact Orthopedic Surgery Diagnoses Chronic right shoulder pain Marvin Cason, DO [address] [place] [address] Antoine Loera MD [address] [place] [address] [place] [address] Referral ID Status Reason Start Date Expiration Date Visits Requested Visits Authorized [id number] Pending Review Specialty Services Required 11/09/2023 11/08/2024 1 1 [facility] (narrative)No reason for referral information availableFerndale Medical Services Work Phone: Reason for visit Narrative* Therapy (Urgent) - Authorized Specialty Diagnoses / Procedures Referred By Contac t Referred To Contact Physical Therapy Diagnoses Impingement syndrome of shoulder, right Cervicalgia Procedures MI OFFICE/OUTPATIENT NEW HIGH MDM 60 MINUTES Maria Alejandra Lee PA-C [address] [facility] [address] [place] [address] Phone: tel: fax: [facility] Therapy at [address] [place] [address] Phone: tel: fax: Referral ID Status Reason Start Date Expiration Date Visits Requested Visits Authorized [id number] Authorized Eval and Treat 01/18/2024 01/12/2025 55 55 [facility] Narrative* Imaging (Routine) - Closed Specialty Diagnoses / Procedures Referred By Contac t Referred To Contact Radiology Diagnoses Neck pain Radiculopathy of cervical region Cervical spondylosis Procedures MR cervical spine wo Maria Morales, INFRASTRUCTURE TECHNICIAN - FORMAT PROOFREADER [address] [facility] [address] [place] [address] Phone: tel: fax: Referral ID Status Reason Start Date Expiration Date Visits Re quested Visits Authorized [id number] Closed 03/03/2024 03/03/2025 1 1 [facility]* Consultation (Urgent) - Authorized Specialty Diagnoses / Procedures Referred By Contac t Referred To Contact Physical Therapy Diagnoses Cervical radiculopathy Procedures MI OFFICE/OUTPATIENT NEW HIGH MDM 60 MINUTES Anahi Bravo MD [address] [facility] [address] [place] [address] Phone: tel: fax: [facility] at [address] [place] [address] Phone: tel: fax: Referral ID Status Reason Start Date Expiration Date Visits Requested Visits Authorized [id number] Authorized Specialty Services Required 03/24/2024 03/24/2025 60 60 [facility] Narrative* Hospital - Outpatient (Routine) - Closed Specialty Diagnoses / Procedures Referred By Rita shipley Referred To Contact Neurology Diagnoses Cervical radiculopathy Procedures NERVE CONDUCTION TEST WITH EMG Maria Cardoso APRN - CNP [address] [facility] [address] [place] [address] Phone: tel: fax: Referral ID Status Reason Start Date Expiration Date Visits Re quested Visits Authorized [id number] Closed 05/25/2024 05/20/2025 1 1 [facility] [employer] Instructions Instruction Description Start Date Completed Advance Directives No Advanced Directives Records FoundDocuments on File Type Date Recorded Patient Hand Shoes Sewer Expl anation Advance Directives and Living Will Power of Estate Administrator Latest Code Status on File Code Status Date Activated Date Inactivated Comments Full Code 10/13/2019 3:34 PM Full Code 10/13/2019 6:02 AM 10/13/2019 3:33 PM Assessments Diagnosis Labor and delivery, indication for care Unspecified indication for care or intervention related to labor and delivery, unspecified as to episode of care Normal spontaneous vaginal delivery Normal delivery Pre-eclampsia, antepartum Mild or unspecified pre-eclampsia, antepartum Review of System There may be information available, but it has not been provided by the sender. Family History There may be information available, but it has not been provided by the sender.No Family History Records FoundNo Family History Records FoundNo Family History Records Found Summary Purpose Discharge Instructions * Instructions* Ayala Farmer RN - 10/14/2019 After the of your baby (the Period): Your Care Instructions Congratulations on the of your baby. Like , the period can be a time of excitement, lisbet, and exhaustion. You may look at your wondrous little baby and feel happy. You may also be overwhelmed by your new sleep hours and new responsibilities. In these first weeks after delivery, try to take good care of yourself. It may take 4 to 6 weeks to feel like yourself again, and possibly longer if you had a . You will likely feel very tired for several weeks. Your dayswill be full of ups and downs, but lots of lisbet as well. FOLLOW-UP: Your follow-up care is a de santiago part of your treatment and safety. Follow-up with your OB provider in {Time; 1 to 12 weeks:58627} or as specified by your provider. Be sure to make and go to all appointments, and call your provider if you are having problems. It's also a good idea to know your test results and keep a list of the medicines you take. BLEEDING Vaginal bleeding will decrease in amount over the next few weeks. Bleeding may car pick up driver and then decrease again around 7-10 days after the baby is born. Use pads instead of tampons for the bloody flow that may last as long as 2 weeks. You will notice that as your activity increases, your flow may increase. Call your provider if you are saturating one maxi pad in an hour & passing large clots for 3 hours or more. ACTIVITY NO SEXUAL activity for 6 weeks or until advised by your provider; Nothing in vagina: intercourse, tampons, or douching. Showering is okay; No swimming or hot tubs. Gradually increase your activity. Resume exercise regimen only after advice by your provider. Avoid lifting anything heavier than your baby or a gallon of milk for six weeks. Avoid driving 1 week for vaginal delivery and 2 weeks for section, or longer if you are onprescription pain medicine unless otherwise instructed by your provider. Rise slowly from a lying to sitting and then a standing position. Climb stairs carefully. Use caution when carrying your baby up and down the stairs. You may feel tired or have a lack of energy. You may continue your vitamin to replenish nutrients post delivery. Nap when baby naps to catch up on sleep. EMOTIONS You may feel king, sad, teary, & overwhelmed for the first 2 weeks ; however, feelings of post depression may occur any time within the first year after delivery. Contact your OB provider if you feel you may be showing signs of depression, or have thoughts of harming yourself or your . If will not stop crying, contact another adult for help or place in their crib on their back and take a break. NEVER shake your . WOUND CARE For Vaginal Delivery: Shower daily, and cleanse your perineum (bottom) with mild soap from front to back. Use the plastic squirt bottle until bleeding stops each time you use the restroom instead of wipingwith toilet paper. Ease soreness of hemorrhoids and the area between your vagina and rectum with ice compresses or witch fernando pads. If used, stitches will dissolve in 4-6 weeks on their own. You may use a sitz bath or soak in a clean tub with drain open and water running for comfort. Kegel exercises will help restore bladder control. To do these tighten your muscles as if you were stopping your urine flow. Hold for a few seconds and then relax. Do these throughout the day. For Section Delivery: Keep your incision clean and dry. If you had steri-strips you may remove these once they start falling off. If you have jovita they need to be removed 3-10 days after delivery. If you have steri-strips, remove after 7 - 10 days. Do not wear clothing that irritates the incision line. If your incision in in a crease that is not dry, use a hair-dryer on low to dry the area 3 times a day. If you develop fever, shaking chills, redness, swelling, drainage or discharge from your wound, or if your wound looks like it's coming apart call your doctor immediately. BREAST CARE If you develop a warm, red, tender area on your breast or develop a fever contact your provider. For moms: If you become engorged, feeding may be more difficult or painful for 1-2 days. You may find it helpful to hand express some milk so that the infant can latch on more easily or ease soreness with wet,warm washcloths. While , continue to take your vitamins as directed by your doctor. For non- moms: You may apply ice packs to your breasts over you bra for twenty minutes at a time for comfort. Cabbage leaves may be applied to breasts, replace when wilted. Avoid stimulation to your breasts, when showering allow the water to strike your back not your breasts. Do not express milk or your body will make more. Wear a good fitting bra until your milk dries, such as a sports bra. DIET & CONSTIPATION Eat a well balanced diet focusing on foods high in fiber and protein such as: whole grain cereals and breads, fruits and vegetables and legumes (eg, beans, lentils) Drink 8-10 glasses of fluids daily, especially water. To avoid constipation you may take a mild ttdw-lsh-ndqeids stool softener (such as colace) as recommended by your doctor. SWELLING Try to keep your legs elevated when you are sitting or lying down. Stay hydrated and take walks. This swelling may last for up to 2 weeks. BABY Babies sleep safest on their back in a crib without bumpers, blankets or stuffed animals. Do not sleep with your baby in your bed or the couch. Do not expose baby to smoke, this can increase risks of asthma and sudden syndrome. Ifyou or someone around baby smokes have them change their shirt and wash any facial hair before holding baby. Do not smoke inside the house and change the ventilation filters in the house before bringing baby home. WHEN TO CALL YOUR OB PROVIDER Signs of infection, including fever and chills Increased bleeding: soaking more than one sanitary pad an hour Wounds that become red, swollen or drain pus Vaginal discharge that smells foul New pain, swelling, or tenderness in your legs Pain that you can't control with the medications you've been given Pain, burning, urgency or frequency of urination Cough, shortness of breath, or chest pain Depression, suicidal thoughts, or feelings of harming your baby Breasts that are hot, red and accompanied by fever Any cracking or bleeding from the nipple or areola (the dark-colored area of the breast) In case of an emergency, call 911 immediately After discharge- watch for these signs and symptoms: Fever - Oral temperature greater than 100.4 degrees Fahrenheit Foul-smelling vaginal discharge Headache unrelieved by pain medication Difficulty urinating Breasts reddened, hard, hot to the touch Nipple discharge which is foul-smelling or contains pus Increased pain at the site of the laceration Sudden increased vaginal bleeding, soaking a large pad front to back in 1 hour Passing any blood clots bigger than a large egg Difficulty breathing with or without chest pain New calf pain especially if only on one side Unrelieved feelings of: Inability to cope Sadness Anxiety Insomnia Crying What to do at home: See patient education handouts for full information Resume activity gradually, don't lift anything more than 10 lbs until approved by your provider No tampons, no douching and no sex until seen by your provider in the office and it is approved Take care of yourself by sleeping/resting as much as possible To avoid/relieve constipation take stool softeners if needed Drink lots of water/fruit juices Increase fiber in your diet. Take a stool softener as needed Breast care: Wear a supportive bra, use lanolin ointment/cream as needed Return to Office in 4-6 weeks or sooner if you have any concerns about your health. If you are Covid-19 positive or a PUI Tscpuf-ih-sufip transmission of COVID-19 during is unlikely, but after a baby is susceptible to yxebte-ed-pzqjql spread. ? After your baby is born, your health care provider may recommend you not hold your baby and/or that you stay in a separate room from your baby until you get better. ? If you and your baby are not , wear a facemask at all times and wash your hands thoroughly before touching, holding or feeding your baby. Baby Care & Feeding has many benefits for you and your baby and is the best food for your baby. From whatexperts know so far, COVID-19 has not been found in breastmilk. Having a healthy adult who can assist with baby care until you get better is important, you may want to have a healthy adult feed your baby your expressed breast milk or formula if you chose to not breastfeed. You may use a breast pump to express your breast milk. Wear a face mask, wash your breasts, then wash your hands thoroughly before touching the breast pump and bottle parts. Clean all pump parts after each use. If you choose to breastfeed from your breast, wear a face mask, wash your breasts, wash your hands thoroughly before feeding your baby. These could be signs that your COVID-19 symptoms are worsening and you may need emergency care: You are severely dizzy or lightheaded. You are confused or can't think clearly. Your face and lips have a blue color. You are unable to respond to others or are very hard to wake up. Prevention steps for People with confirmed or suspected COVID-19 (including persons under investigation) who do not need to be hospitalized and People with confirmed COVID-19 who were hospitalized and determined to be medically stable to go home Your healthcare provider and public health staff will evaluate whe ther you can be cared for at home. If it is determined that you do not need to be hospitalized and can be isolated at home, you willbe monitored by staff from your local or state health department. You should follow the prevention steps below until a healthcare provider or local or state health department says you can return to your normal activities. Stay home except to get medical care People who are mildly ill with COVID-19 are able to isolate at home during their illness. You should restrict activities outside your home, except for getting medical care. Do not go to work, school,or public areas. Avoid using public transportation, ride-sharing, or taxis. Separate yourself from other people and animals in your home People: As much as possible, you should stay in a specific room and away from other people in your home. Also, you should use a separate bathroom, if available. Animals: You should restrict contact with pets and other animals while you are sick with COVID-19, just like you would around other people. Although there have not been reports of pets or other animals becoming sick with COVID-19, it is still recommended that people sick with COVID-19 limit contactwith animals until more information is known about the virus. When possible, have another member ofyour household care for your animals while you are sick. If you are sick with COVID-19, avoid contact with your pet, including petting, snuggling, being kissed or licked, and sharing food. If you must care for your pet or be around animals while you are sick, wash your hands before and after you interact with pets and wear a facemask. Call ahead before visiting your doctor If you have a medical appointment, call the healthcare provider and tell them that you have or may have COVID-19. This will help the healthcare provider's office take steps to keep other people from getting infected or exposed. Wear a facemask You should wear a facemask when you are around other people (e.g., sharing a room or vehicle) or pets and before you enter a healthcare provider's office. If you are not able to wear a facemask (for example, because it causes trouble breathing), then people who live with you should not stay in the same room with you, or they should wear a facemask if they enter your room. Cover your coughs and sneezes Cover your mouth and nose with a tissue when you cough or sneeze. Throw used tissues in a lined trash can. Immediately wash your hands with soap and water for at least 20 seconds or, if soap and water are not available, clean your hands with an alcohol-based hand fiber design engineer that contains at least 60% alcohol. Clean your hands often Wash your hands often with soap and water for at least 20 seconds, especially after blowing your nose, coughing, or sneezing; going to the bathroom; and before eating or preparing food. If soap and water are not readily available, use an alcohol-based hand fiber design engineer with at least 60% alcohol, covering all surfaces of your hands and rubbing them together until they feel dry. Soap and water are the best option if hands are visibly dirty. Avoid touching your eyes, nose, and mouth with unwashed hands. Avoid sharing personal household items You should not share dishes, drinking glasses, cups, eating utensils, towels, or bedding with otherpeople or pets in your home. After using these items, they should be washed thoroughly with soap and water. Clean all high-touch surfaces everyday High touch surfaces include counters, tabletops, doorknobs, bathroom fixtures, toilets, phones, keyboards, tablets, and bedside tables. Also, clean any surfaces that may have blood, stool, or body fluids on them. Use a household cleaning spray or wipe, according to the label instructions. Labels contain instructions for safe and effective use of the cleaning product including precautions you should take when applying the product, such as wearing gloves and making sure you have good ventilation during use of the product. Monitor your symptoms Seek prompt medical attention if your illness is worsening (e.g., difficulty breathing). Before seeking care, call your healthcare provider and tell them that you have, or are being evaluated for, COVID-19. Put on a facemask before you enter the facility. These steps will help the healthcare provider's office to keep other people in the office or waiting room from getting infected or exposed. Askyour healthcare provider to call the local or formerly [facility] health department. Persons who are placed underactive monitoring or facilitated self- monitoring should follow instructions provided by their localhealth department or occupational health professionals, as appropriate. When working with your local health department check their available hours. If you have a medical emergency and need to call 911, notify the dispatch personnel that you have, or are being evaluated for COVID-19. If possible, put on a facemask before emergency medical services arrive. Discontinuing home isolation Patients with confirmed COVID-19 should remain under home isolation precautions until the risk of secondary transmission to others is thought to be low. The decision to discontinue home isolation precautions should be made on a ufsd-vj-febd basis, in consultation with healthcare providers and [facility] health [facility]. Information for all patients on Covid-19 Call your provider before your next appointment if you develop any of the following symptoms: fever, cough, fatigue, anorexia, shortness of breath, sputum production, and muscle pains. Headache, confusion, rhinorrhea, sore throat, hemoptysis, vomiting, and diarrhea have been reported but are less common. Some persons with COVID-19 have experienced gastrointestinal symptoms such as diarrhea and nausea prior to developing fever and lower respiratory tract signs and symptoms. Ways to [place] with Anxiety & Stress It is normal to feel anxious or worried about COVID-19. You might feel sad about canceling celebrations and staying away from family and friends. Keep in mind that most people do not get severely ill from COVID-19. It is important to have a planin case you get sick to prevent spreading the disease to others including an Advanced Care Plan (communicating and documenting your desired health care plan with family and healthcare team). You can take care of yourself by: ? Taking a break from watching the news ? Take deep breaths, stretch or meditate ? Getting exercise, eating healthy foods, and drinking plenty of water ? Finding activities you can enjoy inside your home ? Staying in touch with your family and friends. Tell your partner, family, and friends how you arefeeling. Advance Care Planning People with COVID-19 may have no symptoms, mild symptoms, such as fever, cough, and shortness of breath or they may have more severe illness, developing severe and fatal pneumonia. As a result, Advance Care Planning with attention to naming a health care decision maker (someone you trust to make healthcare decisions for you if you could not speak for yourself) and sharing other health care preferences is important BEFORE a possible health crisis. Please contact your Primary Care Provider to discuss Advance Care Planning. Learning About Coronavirus (COVID-19) Coronavirus (COVID-19): Overview What is coronavirus (COVID-19)? The coronavirus disease (COVID-19) is caused by a virus. It is an illness that was first found in [facility], in February 2019. It has since spread worldwide. The virus can cause fever, cough, and trouble breathing. In severe cases, it can cause pneumonia and make it hard to breathe without help. It can cause . Coronaviruses are a large group of viruses. They cause the common cold. They also cause more serious illnesses like [place] respiratory syndrome (MERS) and severe acute respiratory syndrome (SARS). COVID-19 is caused by a novel coronavirus. That means it's a new type that has not been seen in people before. This virus spreads cqekcv-ws-vzjkhy through droplets from coughing and sneezing. It can also spreadwhen you are close to someone who is infected. And it can spread when you touch something that has the virus on it, such as a doorknob or a tabletop. What can you do to protect yourself from coronavirus (COVID-19)? The best way to protect yourself from getting sick is to: Avoid areas where there is an outbreak. Avoid contact with people who may be infected. Wash your hands often with soap or alcohol-based hand sanitizers. Avoid crowds and try to stay at least 6 feet away from other people. Wash your hands often, especially after you cough or sneeze. Use soap and water, and scrub for at least 20 seconds. If soap and water aren't available, use an alcohol-based hand fiber design engineer. Call 911 anytime you think you may need emergency care. For example, call if: You have severe trouble breathing. (You can't talk at all.) You have constant chest pain or pressure. You are severely dizzy or lightheaded. You are confused or can't think clearly. Your face and lips have a blue color. You pass out (lose consciousness) or are very hard to wake up. Call your doctor now if you develop symptoms such as: Shortness of breath. Fever. Cough. If you need to get care, call ahead to the doctor's office for instructions before you go. Make sure you wear a face mask, if you have one, to prevent exposing other people to the virus. Where can you get the latest information? The following health organizations are tracking and studying this virus. Their websites contain themost up-to-date information. You'll also learn what to do if you think you may have been exposed tothe virus. U.S. Centers for Disease Control and Prevention (CDC): The CDC provides updated news about the disease and travel advice. The website also tells you how to prevent the spread of infection. www.cdc.gov World Health Organization (WHO): WHO offers information about the virus outbreaks. WHO also has travel advice. www.who.int Current as of: June 22, 2019 Content Version: 12.4 [employer]. Care instructions adapted under license by your healthcare professional. If you have questions about a medical condition or this instruction, always ask your healthcare professional. [employer] disclaims any warranty or liability for your use of this information. General Recommendations for Routine Cleaning and Disinfection of Households Community members can practice routine cleaning of frequently touched surfaces (for example: tables, doorknobs, light switches, handles, desks, toilets, faucets, sinks) with household tractor sweeper operator and EPA-registered disinfectants that are appropriate for the surface, following label instructions. Labels contain instructions for safe and effective use of the cleaning product including precautions you should take when applying the product, such as wearing gloves and making sure you have good ventilation during use of the product. These guidelines are focused on household settings and are meant for the general public. ? Cleaning refers to the removal of germs, dirt, and impurities from surfaces. Cleaning does not kill germs, but by removing them, it lowers their numbers and the risk of spreading infection. ? Disinfecting refers to using chemicals to kill germs on surfaces. This process does not necessarily clean dirty surfaces or remove germs, but by killing germs on a surface after cleaning, it can further lower the risk of spreading infection. General Recommendations for Cleaning and Disinfection of Households with People Isolated in Home Care - Confirmed or suspected COVID 19 ? Household members should educate themselves about COVID-19 symptoms and preventing the spread of COVID-19 in homes. ? Clean and disinfect high-touch surfaces daily in household common areas (e.g. tables, hard-backedchairs, doorknobs, light switches, remotes, handles, desks, toilets, sinks) o In the bedroom/bathroom dedicated for an ill person: consider reducing cleaning frequency to as-needed (e.g., soiled items and surfaces) to avoid unnecessary contact with the ill person. ? As much as possible, an ill person should stay in a specific room and away from other people in their home. ? The caregiver can provide personal cleaning supplies for an ill person's room and bathroom, unless the room is occupied by child or another person for whom such supplies would not be appropriate. These supplies include tissues, paper towels, tractor sweeper operator and EPA-registered disinfectants (see list link at CDC website). ? If a separate bathroom is not available, the bathroom should be cleaned and disinfected after each use by an ill person. If this is not possible, the caregiver should wait as long as practical after use by an ill person to clean and disinfect the high-touch surfaces. How to clean and disinfect: Hard Surfaces ? Wear disposable gloves when cleaning and disinfecting surfaces. Gloves should be discarded after each cleaning. If reusable gloves are used, those gloves should be dedicated for cleaning and disinfection of surfaces for COVID-19 and should not be used for other purposes. Consult the physical therapy resident's instructions for cleaning and disinfection products used. Clean hands immediately after gloves areremoved. ? If surfaces are dirty, they should be cleaned using a detergent or soap and water prior to disinfection. ? For disinfection, diluted household bleach solutions, alcohol solutions with at least 70% alcohol, and most common EPA-registered household disinfectants should be effective. o Diluted household bleach solutions can be used if appropriate for the surface. Follow physical therapy resident's instructions for application and proper ventilation. Check to ensure the product is not past itsexpiration date. Never mix household bleach with ammonia or any other cleanser. Unexpired householdbleach will be effective against coronaviruses when properly diluted. ? Prepare a bleach solution by mixing: ? 5 tablespoons (1/3rd cup) bleach per gallon of water or ? 4 teaspoons bleach per quart of water o Products with EPA-approved emerging viral pathogens claimspdf iconexternal icon are expected to be effective against COVID-19 based on data for harder to kill viruses. Follow the physical therapy resident's instructions for all cleaning and disinfection products (e.g., concentration, application method and contact time, etc.). Soft (porous) surfaces such as carpeted floor, rugs, and drapes Remove visible contamination if present and clean with appropriate tractor sweeper operator indicated for use on these surfaces. After cleaning: Launder items as appropriate in accordance with the physical therapy resident's instructions. If possible, launder items using the warmest appropriate water setting for the items and dry items completely, or Clothing, towels, linens and other items that go in the laundry ? Wear disposable gloves when handling dirty laundry from an ill person and then discard after eachuse. If using reusable gloves, those gloves should be dedicated for cleaning and disinfection of surfaces for COVID-19 and should not be used for other household purposes. Clean hands immediately after gloves are removed. o If no gloves are used when handling dirty laundry, be sure to wash hands afterwards. o If possible, do not shake dirty laundry. This will minimize the possibility of dispersing virus through the air. o Launder items as appropriate in accordance with the physical therapy resident's instructions. If possible, launder items using the warmest appropriate water setting for the items and dry items completely. Dirtylaundry from an ill person can be washed with other people's items. o Clean and disinfect clothes hampers according to guidance above for surfaces. If possible, consider placing a bag inspector that is either disposable (can be thrown away) or can be laundered. CDC has a list of EPA approved cleaning products on their website - https://www.cdc.gov/coronavirus/ 2019-ncov/community/home/cleaning-disinfection.html https://www.[employer]/Ddprf-Rfxnzhagnrr-Bukfrobv-Products-List.pdf Grocery Stores with delivery and car pick up driver services: [facility]: Free car pick up driver at locations Delivery is $12.95 a month Website - [employer]: Supervisor Firearms $2.95 (1st order is free) Delivery is $14.95 Website - [employer]: supervisor cutting department is free Delivery is $5.95 Website - [employer]: supervisor cutting department is $4.95 Delivery is $9.95 Website [employer]: supervisor cutting department is $4.95 Delivery is $9.95 Website [employer]: Can be ordered for delivery and car pick up driver with [employer] Website - [employer]: Free deliver for first 3 orders of $35 or more Website [employer] Will deliver from [facility], [facility], [employer], and [employer]. Annual membership is $99 Monthly membership is $14 chan documented in this encounter History of Present Illness * Jessie Lambert, TRACY - ANASTASIYA - 10/14/2019 5:57 AM EDT POST DAY # 1 Maria Rae is a 29 y.o. female This patient was seen & examined today. Her was complicated by: Patient Active Problem List Diagnosis Labor and delivery, indication for care Normal spontaneous vaginal delivery Pre-eclampsia, antepartum Today she is doing well without any chief complaint. Her lochia is light. She denies chest pain, shortness of breath, headache and lightheadedness. She is ambulating well. She is tolerating solids. Vital Signs: Vitals: 10/13/19 1349 10/13/19 1408 10/13/19 1446 10/13/19 1929 BP: 131/80 121/83 136/87 126/75 Pulse: 103 68 70 70 Resp: 18 20 Temp: 96.9 F (36.1 C) 98.7 F (37.1 C) TempSrc: Temporal Temporal SpO2: 97% 96% Weight: Height: Physical Exam: General: no apparent distress, alert and cooperative Affect: appropriate Lungs: No increased work of breathing, good air exchange Abdomen: abdomen soft, non-distended, non-tender Fundus: non-tender, normal size, firm, below umbilicus Extremities: no calf tenderness, non edematous Lab: Lab Results Component Value Date HGB 13.4 10/13/2019 Lab Results Component Value Date HCT 38.8 10/13/2019 Antibody Screen: No results found for: LABANTI No results found for: RUBELLAIGG LABOR DELIVERY ??? SCD's ONLY (labor through ambulation) SCD's PLUS Prophylactic Anticoagulation until discharge SCD's PLUS Prophylactic Anticoagulation for 6 weeks SCD's PLUS Therapeutic Anticoagulation for 6 weeks Vaginal Delivery [] BMI ? 40 kg/m2 Delivery All patients Vaginal Delivery [] BMI ? 40 kg/m2 AND [] Antepartum hospitalization ? 72 hours within the past month Delivery 1 Major Risk Factor: [] BMI ? 35 kg/m2 [] Low Risk Thrombophilia [] PPH+RBCs, IR, or operation [] Infection+Antibiotics [] Antepartum hospitalization ? 72 hours within the past month [] PMH: Sickle Cell, SLE, Cardiac Dz, Active IBD, Active Cancer, Nephrotic Syndrome OR 2 Minor Risk Factors: [] Multiple gestation [] Age > 40 [] PPH ? 1,000cc [] (+)FMH of VTE [] Smoker [] Preeclampsia [] BMI ? 40 kg/m2 AND [] Low Risk Thrombophilia OR ANY OF THE FOLLOWING: [] High Risk Thrombophilia without prior VTE [] Low Risk Thrombophilia with (+)FMH of VTE [] Any single prior VTE ANY OF THE FOLLOWING: [] Already on LMWH/UFH [] Multiple prior VTE [] High Risk Thrombophilia with prior VTE Low Risk Thrombophilia: FVL (heterozygous), Prothrombin (heterozygous), Protein C, Protein S High Risk Thrombophilia: FVL (homozygous), Prothrombin (homozygous), FVL+Prothrombin (heterozygous), Antithrombin III, APLS Assessment/Plan: Maria Rae is a PPD # 1 s/p 1. Care - Doing well, VSS - female - Breast feeding - Contraception: Per private attending - Encourage ambulation - VTE Prophylaxis: Not Indicated 2. Anxiety - taking Buspar - stable mood 3. gHTN - 2xmild range BP during stay - asymptomatic 4. Disposition: Continue current care Provider's Name: MD Nahun Stafford, DO 10/14/2019, 5:57 AM Certified Nurse auto parts handler s Attestation Statement I saw and evaluated the patient. I discussed the findings and plans with resident physician and agree as documented in his note except for pt meets criteria for PreEwoSF based on elevated P:C, pt amnitoic fluid was also ruptured. * Chica Carvajal RN - 10/13/2019 1:36 PM EDT RN provided patient c ice pack, warm blankets, new gown, fresh gigner germaine and menu. RN explained guest tray to FOB if he is interested in ordering as well. RN administered prn medications for period-motrin, tylenol per order. Patient , latch questions answered. Patient resting in bed, bed low position, locked, call light in reach, side rails up for safety. No needs at thistime. * Awa Aranda APRN - CNM - 10/13/2019 1:10 PM EDT Pr:Cr ratio was 2.35. Normal CBC and CMP. Diagnosis of preeclampsia without severe features present. Pt denies headache, visual changes or upper abdominal pain. Will continue to closely monitor. * Awa Aranda APRN - CNM - 10/13/2019 10:53 AM EDT 10/13/2019 at 10:53 AM ANASTASIYA LABOR PROGRESS NOTE Subjective: Patient is doing well with contractions. Her is supportive and present at the bedside. Contraction pain is moderate, pt breathing and pausing with contractions. Up ambulating in the roomand using the birthing ball. Discomfort is mainly low in the front. Epidural No, planning natural childbirth Objective: Vital Signs: Vital signs WNL and reviewed in OB TV. bp 135/90 FHR: Baseline: 130 Variability: moderate Accels: present Decels: early Contraction Frequency: Every 2 to 3 minutes Cervical Exam: 4 cm, 90%, -1 station at 10:15, no palpable forebag Membranes: are Ruptured clear fluid since 03:30 Pitocin: no Assessment: Maria Rae is a 29 y.o. at 39w3d Spontaneous Latent Labor after PROM Neg GBS Heart Rate Category 1 - overall reassuring PROM x 7 hours Transient mild range HTN - labs WNL Family history of congenital heart defect - normal echo Anxiety - no medications Plan: Activity as tolerated, encouraged to ambulate, stand and lean forward and use birthing ball. Clear liquids Frequent position changes Intermittent monitoring Recheck as needed, limit exams due to ROM Expectant management * Nahun Baumann DO - 10/13/2019 10:37 AM EDT Labor Progress Note Date: 10/13/2019 Time: 10:37 AM Subjective: Maria Rae is a 29 y.o. female at 39w3d AOL-PROM. Cx: 4/90/-1 FHP:defer FHT: Cat I Shaniko: q2-4min A/P: 1. AOL-PROM. FHR Cat I with moderate variability, intermittent accelerations and intermittent early decelerations. Patient lor well and making change. Blood pressures mild range this morning. Will continue to monitor. CCM. * Awa Aranda APRN - CNM - 10/13/2019 9:10 AM EDT 10/13/2019 at 9:10 AM CNElda LABOR PROGRESS NOTE Subjective: Patient is doing well with contractions. Family is supportive and present at the bedside. Contraction pain is mild, rates pain 3. Epidural No, planning natural childbirth. Objective: Vital Signs: Vital signs WNL and reviewed in OB TV. bp 135/90 FHR: Baseline: 130 Variability: moderate Accels: present Decels: early Contraction Frequency: Every 2 to 5 minutes Cervical Exam: Deferred due to PROM Membranes: are Ruptured clear fluid since 03:30 Pitocin: No, pt declined at this time CBC and CMP normal. Assessment: Maria Rae is a 29 y.o. at 39w3d Latent Labor Neg GBS Heart Rate Category 1 - overall reassuring PROM x 5 hours Transient mild range HTN - labs WNL Family history of congenital heart defect - normal echo Anxiety - no medications Plan: Activity as tolerated Clear liquids Encouraged to be active Frequent position changes Intermittent monitoring Recheck as needed - limit exams due to PROM Expectant management * Cordelia Vaca APRN - CNM - 10/13/2019 7:15 AM EDT 10/13/2019 at 7:15 AM [facility] LABOR PROGRESS NOTE Subjective: Patient is doing well with contractions. Partner is supportive and present at the bedside. Contraction pain is none, pt states she can feel some tightening, but no discomfort with contractions. Epidural: Would like to plan for natural childbirth Objective: Vital Signs: Vital signs WNL and reviewed in OB TV. Mild range pressures at 0600 and 0700. FHR: Baseline: 130 Variability: moderate Accels: present Decels: absent Contraction Frequency: mild irregular Cervical Exam: deferred Was 1-2/70/-3 in triage prior to admission Membranes: are SROMd at home today at 0330, clear Pitocin: Pt declines at this time Assessment: Maria Rae is a 29 y.o. at 39w3d Early latent Labor SROM x 3.5 hours without adequate contractions Heart Rate Category 1 - overall reassuring Mild range BP - does not meet criteria for gHTN at this time but orders are placed for labs if needed. Plan: Activity as tolerated Clear liquids Encouraged to ambulate, use ball, use nipple stim to encourage contraction frequency and intensity. Frequent position changes Avoid VE unless necessary to decrease risk of infection Intermittent monitoring Discussed augmentation of labor with pitocin Reevaluate in 2 hours or prn Expectant management Dr Verdugo is aware of the admission * Selene Welch DO - 10/13/2019 6:01 AM EDT Department of Obstetrics and Gynecology Labor and Delivery Triage Note CHIEF COMPLAINT: Leaking fluid HISTORY OF PRESENT ILLNESS: The patient is a 29 y.o. 39w3d. OB History 1 Para Term AB Living SAB TAB Ectopic Molar Multiple Live Births Estimated Due Date: Estimated Date of Delivery: 10/17/19 REVIEW OF SYSTEMS: Pertinent items are noted in HPI. APPEARANCE: Pain: no PHYSICAL EXAM: Vital Signs: Elevated BPs/Respirations normal effort Vitals: 10/13/19 0519 BP: (!) 138/101 Pulse: 88 Resp: 16 TempSrc: Oral Weight: 165 lb (74.8 kg) Height: 5' 3 (1.6 m) Speculum Exam: pooled fluid visible at posterior fornix, Nitrizine test is positive, Ferning test is positive heart rate: Category I Cervix: 1-2/70/-3 Membranes: Ruptured clear fluid BSUS: VTX presentation IMPRESSION: Leaking fluid-ROM,clear DISCUSSED WITH PNC PROVIDER: Cordelia Lopez CNM DISPOSITION: Admit to L&D documented in this encounter Reason for Referral Specialty Diagnoses / Procedures Referred By Rita shipley Referred To Contact Radiology Diagnoses Migraine with visual aura Expressive aphasia Procedures MR brain w and wo contrast Marvin Cason, [address] [place] [id number] Referral ID Status Reason Start Date Expiration Date Visits Re quested Visits Authorized [id number] Closed 06/12/2022 12/09/2022 1 1 Specialty Diagnoses / Procedures Referred By Rita shipley Referred To Contact Physical Therapy Diagnoses Impingement syndrome of shoulder, right Procedures MI OFFICE/OUTPATIENT NEW HIGH MDM 60 MINUTES Maria Alejandra Lee PA-C [address] [facility] [address] [place] [address] [facility] Pt [address] [place] [address] [place] [address] Referral ID Status Reason Start Date Expiration Date Visits Requested Visits Authorized [id number] Pending Review Eval and Treat 11/13/2023 11/07/2024 99 99 Chief Complaint and Reason for Visit Chief Complaint Admit Date COUGH, WEAKNESS December 19, 2024 10:00am Additional Source Comments INFORMATION SOURCE (unrecogn ized section and content) DATE CREATED AUTHOR 10/16/2019 [facility] DATE CREATED AUTHOR AUTHOR'S ORGANIZ ATION 11/05/2024 [facility] DATE CREATED AUTHOR AUTHOR'S ORGANIZ ATION 12/25/2024 [facility] Reason for Visit (unrecogniz ed section and content) Reason Comments Rupture of Membranes Reason Comments Headache Having migraines Reason Onset Date Comments Orders 06/12/2022 MRI Brain Reason Comments Poison Liv Legs and under left eye Reason Comments Follow-up 6 month med check Constipation With bloating Reason Comments Annual Exam Reason Comments OTHER kenalog Reason Comments Med Refill Reason Comments Follow-up Med check Reason Onset Date Comments Orders 11/09/2023 Ortho referral Reason Comments New Patient Right shoulder pain Specialty Diagnoses / Procedures Referred By Contac t Referred To Contact Orthopedic Surgery Diagnoses Chronic right shoulder pain Marvin Cason F, DO [address] [place] [address] Antoine Loera MD [address] [place] [address] [place] [address] Referral ID Status Reason Start Date Expiration Date V isits Requested Visits Authorized [id number] Closed Specialty Services Required 11/09/2023 11/08/2024 1 1 Specialty Diagnoses / Procedures Referred By Contac t Referred To Contact Physical Therapy Diagnoses Impingement syndrome of shoulder, right Procedures MI OFFICE/OUTPATIENT NEW HIGH MDM 60 MINUTES Maria Alejandra Lee PA-C 1 [facility] [address] [place] [address] [facility] [address] [facility] [place] [address] Referral ID Status Reason Start Date Expiration Date Visits Requested Visits Authorized [id number] Authorized Eval and Treat 11/13/2023 11/07/2024 60 60 Reason Comments Follow-up R shoulder impingeme nt Reason Comments Neck Pain Specialty Diagnoses / Procedures Referred By Contac t Referred To Contact Orthopedic Surgery: Spine Surgery / Orthopedic Surgery Diagnoses Arthralgia of cervical spine Procedures MI OFFICE/OUTPATIENT [facility] 60 MINUTES Maria Alejandra Lee PA-C [address] [facility] [address] [place] [address] Phone: tel: fax: [address] [place] [address] Phone: tel: fax: Referral ID Status Reason Start Date Expiration Date V isits Requested Visits Authorized [id number] Closed Specialty Services Required 03/01/2024 03/01/2025 1 1 Reason Onset Date Comments Med Refill 04/07/2022 04/07/22 Pt call ing asking for a refill medication completely out of levonorgestrel-ethinyl estradiol (Nordette) 0.15-30 MG-MCG tablet [facility] advise Reason Onset Date Comments Med Refill 04/08/2022 Reason Comments Sinus Problem Throat Pain Nasal Congestion Reason Onset Date Comments Med Refill 04/21/2022 Reason Onset Date Comments Contraception 04/06/2022 Reason Comments Sore Throat Fever Generalized Body Aches Reason Comments Follow-up Neck Pain Reason Comments Follow-up Care Teams (unrecognized sec tion and content) Electronic Console Display Operator Relationship Specialty Start Date End Date Marvin Cason DO [address] [place] [id number] PCP - General 05/21/21 Electronic Console Display Operator Relationship Specialty Start Date End Date Marvin Cason DO [address] [place] [address] PCP - General 05/21/21 Electronic Console Display Operator Relationship Specialty Start Date End Date ParishMarvin moreno, DO [address] [place] [address] PCP - General 05/21/21 Electronic Console Display Operator Relationship Specialty Start Date End Date ParishMarvin moreno, DO [address] [place] [address] PCP - General 05/21/21 Electronic Console Display Operator Relationship Specialty Start Date End Date ParishMarvin moreno, DO [address] [place] [address] PCP - General 05/21/21 Electronic Console Display Operator Relationship Specialty Start Date End Date Marvin Cason, DO [address] [place] [address] PCP - General 05/21/21 Electronic Console Display Operator Relationship Specialty Start Date End Date Marvin Cason, DO [address] [place] [phone] PCP - General 05/21/21 Electronic Console Display Operator Relationship Specialty Start Date End Date Marvin Cason, DO [address] [place] [address] PCP - General 05/21/21 Electronic Console Display Operator Relationship Specialty Start Date End Date Marvin Cason, DO [address] [place] [address] PCP - General 05/21/21 Electronic Console Display Operator Relationship Specialty Start Date End Date Marvin Cason, DO [address] [place] [phone] PCP - General 05/21/21 Electronic Console Display Operator Relationship Specialty Start Date End Date Marvin Cason, DO [address] [place] [address] PCP - General 05/21/21 Electronic Console Display Operator Relationship Specialty Start Date End Date Marvin Cason, DO [address] [place] [address] PCP - General 05/21/21 Electronic Console Display Operator Relationship Specialty Start Date End Date Marvin Cason, DO [address] [place] [phone] PCP - General 05/21/21 Electronic Console Display Operator Relationship Specialty Start Date End Date Marvin Cason, DO [address] [place] [phone] PCP - General 05/21/21 Electronic Console Display Operator Relationship Specialty Start Date End Date Marvin Cason, DO [address] [place] [phone] PCP - General 05/21/21 Electronic Console Display Operator Relationship Specialty Start Date End Date Marvin Cason, DO [address] [place] [phone] PCP - General 05/21/21 Electronic Console Display Operator Relationship Specialty Start Date End Date Marvin Cason, DO [address] [place] [phone] PCP - General 05/21/21 Electronic Console Display Operator Relationship Specialty Start Date End Date Yoav Marvin Tinoco, DO [address] [place] [phone] PCP - General 05/21/21 Electronic Console Display Operator Relationship Specialty Start Date End Date Marvin Cason Earnest, DO [address] [place] [phone] PCP - General 05/21/21 Electronic Console Display Operator Relationship Specialty Start Date End Date Marvin Cason Earnest, DO [address] [place] [phone] PCP - General 05/21/21 Electronic Console Display Operator Relationship Specialty Start Date End Date Marvin Cason, DO [address] [place] [phone] PCP - General 05/21/21 Electronic Console Display Operator Relationship Specialty Start Date End Date Yoav Marvin Tinoco, DO [address] [place] [phone] PCP - General 05/21/21 Electronic Console Display Operator Relationship Specialty Start Date End Date Marvin Cason Earnest, DO [address] [place] [phone] PCP - General 05/21/21 Electronic Console Display Operator Relationship Specialty Start Date End Date Marvin Cason Earnest, DO [address] [place] [phone] PCP - General 05/21/21 Electronic Console Display Operator Relationship Specialty Start Date End Date Marvin Cason, DO [address] [place] [address] PCP - General 05/21/21 Electronic Console Display Operator Relationship Specialty Start Date End Date Marvin Cason, DO [address] [place] [address] PCP - General 05/21/21 Electronic Console Display Operator Relationship Specialty Start Date End Date Marvin Cason, DO [address] [place] [address] PCP - General 05/21/21 Electronic Console Display Operator Relationship Specialty Start Date End Date Marvin Cason, DO [address] [place] [address] PCP - General 05/21/21 Electronic Console Display Operator Relationship Specialty Start Date End Date Marvin Cason, DO [address] [place] [address] PCP - General 05/21/21 Electronic Console Display Operator Relationship Specialty Start Date End Date Marvin Cason, DO [address] [place] [address] PCP - General 05/21/21 Electronic Console Display Operator Relationship Specialty Start Date End Date Marvin Cason, DO [address] [place] [phone] PCP - General 05/21/21 Electronic Console Display Operator Relationship Specialty Start Date End Date Marvin Cason, DO [address] [place] [phone] PCP - General 05/21/21 Electronic Console Display Operator Relationship Specialty Start Date End Date Marvin Cason DO [address] [place] [phone] PCP - General 05/21/21 Electronic Console Display Operator Relationship Specialty Start Date End Date Marvin Cason DO [address] [place] [address] PCP - General 05/21/21 Electronic Console Display Operator Relationship Specialty Start Date End Date Marvin Cason DO [address] [place] [phone] PCP - General 05/21/21 Electronic Console Display Operator Relationship Specialty Start Date End Date Marvin Cason DO [address] [place] [phone] PCP - General 05/21/21 Electronic Console Display Operator Relationship Specialty Start Date End Date ParishMarvin moreno DO [address] [place] [address] PCP - General 05/21/21 Electronic Console Display Operator Relationship Specialty Start Date End Date Marvin Cason DO [address] [place] [phone] PCP - General 05/21/21 Electronic Console Display Operator Relationship Specialty Start Date End Date ParishMarvin moreno DO [address] [place] [phone] PCP - General 05/21/21 Team Status: Active Member Role/Relationship Status Dates Dr. Good Moya DO Primary care physician Active Team Status: Inactive Member Role/Relationship Status Dates Dr. Good Moya DO Primary care physician Active Start: December 19, 2024 End: December 19, 2024 Dr. Good Moya DO Referring Provider Active Start: December 19, 2024 End: December 19, 2024 Scotty CARUSO, PA Attending physician Active Start: December 19, 2024 End: December 19, 2024 Goals (unrecognized section and content) Goals may be documented in a n alternate section FOR RECORDS PERTAINING TO PATIENTS WHO ARE OR HAVE BEEN ENROLLED IN A CHEMICAL DEPENDENCY/SUBSTANCEABUSE PROGRAM, SOME INFORMATION MAY BE OMITTED. This clinical summary was aggregated from multiple sources. Caution should be exercised in using it in the provision of clinical care. This summary normalizes information from multiple sources, and as a consequence, information in this document may materially change the coding, format and clinical context of patient data. In addition, data may be omitted in some cases. CLINICAL DECISIONS SHOULD BE BASED ON THE PRIMARY CLINICAL RECORDS. [employer] provides no warranty or guarantee of the accuracy or completeness of information in this document.
[2025-02-14 19:46] LABS: AST(SGOT) 28 U/L (<=31); Alanine Aminotransfer ALT/SGPT 23 U/L (<=34); Albumin, Serum 4.6 g/dL (3.5-5.0); Alkaline Phosphatase 69 U/L (35-104); Anion Gap 14 (5-15); BUN 7 mg/dL (4-19); BUN/Creat Ratio 8.9 RATIO (10-20); Calcium,Total 9.6 mg/dL (7.6-11.0); Carbon Dioxide 22.0 mmol/L (21.0-32.0); Chloride 105 mmol/L (98-108); Estimated Creatinine Clearance 95.06 ml/min (50-250); Globulin 2.3 g/dL (2.2-4.2); Glucose 78 mg/dL (70-99); Lipase 13 U/L (13-75); Potassium 3.8 mmol/L (3.3-5.1)
[2025-02-14 19:54] LABS: Mucous, Urine 0 SEEN /hpf (<or=2+)
[2025-02-14 20:01] LABS: D-Dimer Quantitative (DVT/PE) 0.89 FEU/ug/m (0.27-0.49)
[2025-02-14 20:32] LABS: Color, Urine Yellow (Yellow); Glucose, Dipstick Normal (Normal); Ketone-Dipstick 15 mg/dl (Negative); Leukocyte Esterase-Dipstick 25 /ul (Negative); Nitrite-Dipstick Negative (Negative); Occult Blood-Urine Negative /ul (Negative); Protein-Dipstick 15 mg/dl (Negative); Specific Gravity, Urine 1.025 (1.002-1.030); Urine Bilirubin Dipstick Negative (Negative)
--- NOTE | 2025-02-14 20:40 | CT_ITS ---
PROCEDURE: CTA CHEST W/WO CONTRAST 02/14/2025 REASON FOR EXAM: ELEVATED D-DIMER TECHNIQUE: Procedure Code: [id number] Modality: CT Procedure: CTA CHEST W/WO CONTRAST Axial CTA images obtained of the chest after the administration of intravenous contrast. MIP reconstructed images were created and reviewed. CONTRAST: Isovue 370 VOLUME: 100 mL One or more dose reduction techniques were used (e.g., Automated exposure control, adjustment of the mA and/or kV according to patient size, use of iterative reconstruction technique). RADIATION DOSE SUMMARY: CTDlvol: 4.49, 6.43 mGy DLP: 231 mGycm COMPARISON: None. FINDINGS: PULMONARY ARTERIES There is no intraluminal filling defect suspicious for PE. AORTA No thoracic aortic aneurysm or dissection. LUNGS The lungs are clear. No focal airspace consolidation. No pulmonary mass. PLEURAL SPACES No pleural effusion. No pneumothorax. HEART No cardiomegaly. No significant pericardial effusion. MEDIASTINUM/HILUM No significant lymphadenopathy. CHEST WALL Bilateral breast implants. BONES No focal osseous abnormality or acute fracture. UPPER ABDOMEN Images through the upper abdomen are unremarkable. CT/CTA Chest W/WO Contrast IMPRESSION: 1. No acute chest CTA abnormality seen. 2. No evidence of pulmonary embolism. Reading Location: [id number]
[2025-02-14 21:30] LABS: Red Blood Cells-Urine 0-5 SEEN /hpf (0-5); Squamous Epithelial Cells - UA 0-5 SEEN /hpf (5-10)
== END 2025-02-14 21:42 | disposition home or self-care (01) ==
PROVIDERS: Emergency Provider Emergency Medicine; Visit Provider Emergency Medicine
DX: R10.11 Right upper quadrant pain (principal); R79.89 Other specified abnormal findings of blood chemistry; R07.89 Other chest pain
CPT/HCPCS: 71275; 76705; 80053; 81001; 83690; 84703; 85025; 85379; 96361; 96374; 96375; 96376; 99284; Q9967; A4216; J2405

== ENCOUNTER → 2025-02-27 | Outpatient (CLI) | payer OTHER, SELFPAY ==
[2025-03-01 11:08] LABS: Lyme Scn Total Ab w/Rflx Negative (Negative)
== END | disposition home or self-care (01) ==
LOC: VSLAB 11:01
DX: S20.362A Insect bite (nonvenomous) of left front wall of thorax, initial encounter (principal); W57.XXXA Bitten or stung by nonvenomous insect and other nonvenomous arthropods, initial encounter
CPT/HCPCS: 36415; 86618